=== PATIENT | male | born 1970 | race Caucasian/White ===

== ENCOUNTER 2017-04-06 08:13 | Inpatient (IN) | payer MEDICARE, OTHER ==
[2017-04-06] VITALS (13 sets, daily range): BP systolic 133–195; BP diastolic 55–86; PULSE 80–85; RESP 19–20; TEMP 98.4
[~2017-04-06] VITALS: Ht 167.6 cm; Wt 90.0 kg
[~2017-04-06 08:13] MED LIST: EPINEPHrine 0.1 MG/ML SYG ONE
--- NOTE | 2017-04-06 08:28 | RADRPT ---
PROCEDURE: CT Brain without contrast. CLINICAL INDICATION: Neurologic deficit TECHNIQUE: A CT of the brain was performed on multidetector high-resolution CT scanner utilizing a xial sections from the skull base through the vertex without contrast. One or more of the following dose reduction techniques were used: Automated exposure control, Adjustment of the mA and/or kV acc ording to patient size, and/or use of iterative reconstruction technique. DICOM images are available . DOSE: CTDI = 43 mGy and the DLP = 835 mGy-cm. COMPARISON: None available FINDINGS: No acute intracranial hemorrhage, significant mass effect or midline shift. The rogers-white different iation is grossly preserved. The ventricles are normal in size for age. Mild paranasal sinus mucosal thickening. IMPRESSION: No acute intracranial hemorrhage or mass effect. A call report was made to Dr. Hutchison at 04/06/2017 8:27:38 AM. RPTAT: AA .Glynn Hickman MD, MD Date Time Electronically viewed and signed by .Glynn Hickman MD, on 04/06/2017 08:27 .T/
--- NOTE | 2017-04-06 08:52 | ERD ---
ER Documentation Chief Complaint Chief Complaint FOUND ALOC AFTER POSSIBLE SEIZURE BUT ALTERED. SPEECH SLURRED. HPI This is a 47-year-old male with a history of ESRD on hemodialysis, type 2 diabetes, hypertension, anemia, lupus, epilepsy sent from [facility] for altered mental status. He was last seen normal last night , unknown time. They tried to arouse him this morning and he was difficult to arouse. He seems confused. They suspect he had a seizure but no one witnessed the seizure. Ambulance was called. When EMS arrived, the staff was doing chest compressions, however the patient had a pulse. ROS Unable to obtain given altered mental status Medications Home Meds Reported Medications Tramadol Hcl* (Ultram*) 50 Mg Tablet, 50 MG PO BID Y for PAIN, TAB 04/06/17 Sevelamer Hcl* (Renagel*) 800 Mg Tablet, 800 MG PO WITH MEALS, TAB 04/06/17 Esomeprazole Mag Trihydrate (Nexium) 40 Mg Capsule.dr, 40 MG PO DAILY, #30 CAP 04/06/17 Midodrine* (Midodrine*) 5 Mg Tablet, 5 MG PO TID, TAB 04/06/17 Loratadine* (Loratadine*) 10 Mg Tablet, 10 MG PO DAILY, #30 TAB 04/06/17 Garlic (Garlic) 500 Mg Capsule, 500 MG PO DAILY, CAP 04/06/17 Lacosamide (Vimpat) 100 Mg Tablet, 100 MG PO BID, TAB 04/06/17 Lactobacillus Acidophilus* (Lactinex*) 1 Tab Chew, 1 TAB PO TID, TAB 04/06/17 Levetiracetam* (Keppra*) 500 Mg Tablet, 500 MG PO BID, TAB 04/06/17 Folic Acid* (Folic Acid*) 1 Mg Tablet, 1 MG PO DAILY, TAB 04/06/17 Ferrous Sulfate* (Ferrous Sulfate*) 325 Mg Tabec, 325 MG PO DAILY, TAB 04/06/17 Escitalopram Oxalate* (Lexapro*) 20 Mg Tablet, 20 MG PO DAILY, #30 TAB 04/06/17 Aspirin (Low Dose Aspirin) 81 Mg Tablet.dr, 81 MG PO DAILY, #30 TAB 04/06/17 Acetaminophen* (Acetaminophen*) 650 Mg Tablet, 650 MG PO Q6H Y for PAIN AND OR ELEVATED TEMP, #30 TAB 04/06/17 Allergies Allergies: Coded Allergies: heparin (Verified Allergy, Intermediate, RASH, 04/06/17) PMhx/Soc Medical and Surgical Hx: Unable to obtain (Medical history obtained from medical records) History of Surgery: Yes (Pacemaker placement, left upper extremity AV fistula) Hx Neurological Disorder: Yes ( seizure disorder) Hx Cardiac Disorders: Yes (History of cardiac arrest) Hx Miscellaneous Medical Probl: Yes (Diabetes, end-stage renal disease on hemodialysis) FmHx Family History: other (unable to obtain) Physical Exam Vitals Vital Signs Date Time Temp Pulse Resp B/P Pulse Ox O2 Delivery O2 Flow Rate FiO2 04/06/17 10:29 70 12 179/97 100 Nasal Cannula 4.0 04/06/17 09:20 70 15 149/92 Nasal Cannula 4.0 04/06/17 08:30 Nasal Cannula 4 04/06/17 08:20 98.6 87 17 176/88 99 Nasal Cannula 4.0 04/06/17 08:17 98.5 80 20 178/88 100 Physical Exam Const: Somnolent but arousable, chronically ill-appearing, no apparent distress , no diaphoresis Head: Atraumatic Eyes: Normal Conjunctiva. EOMI. No nystagmus. Left central cornea with opacity, appears chronic. Right pupil not reactive to light. ENT: Dry mucous membranes. No oral trauma Neck: Full range of motion..~ No meningismus. No JVD Resp: Clear to auscultation bilaterally Cardio: Right chest with healing surgical scar with pacemaker palpated. Regular rate and rhythm, no murmurs Abd: Soft, non tender, non distended. Normal bowel sounds Skin: No petechiae or rashes Back: No midline or flank tenderness Ext: No cyanosis, or edema Neur: Somnolent but arousable, dysarthric, follows commands. Slurred speech. Cranial nerves intact. Strength and sensations intact in all 4 extremities. Gait not tested. No pronator drift. Psych: Normal Mood and flat Affect Result Diagram: 04/06/17 1025 04/06/17 0944 Results 24 hrs Laboratory Tests Test 04/06/17 09:44 04/06/17 10:25 04/06/17 10:50 Sodium Level 137mmol/L Potassium Level 4.9mmol/L Chloride Level 98mmol/L Carbon Dioxide Level 24mmol/L Anion Gap 20 Blood Urea Nitrogen 38mg/dl Creatinine 9.49mg/dl Glucose Level 146mg/dl Hemoglobin A1c 6.2% Calcium Level 8.3mg/dl Troponin I < 0.012ng/ml White Blood Count 7.410^3/ul Red Blood Count 2.4410^6/ul Hemoglobin 7.9g/dl Hematocrit 25.6% Mean Corpuscular Volume 104.9fl Mean Corpuscular Hemoglobin 32.4pg Mean Corpuscular Hemoglobin Concent 30.9g/dl Red Cell Distribution Width 23.1% Platelet Count 18317^3/UL Mean Platelet Volume 11.9fl Neutrophils % % Segmented Neutrophils % (Manual) 42% Band Neutrophils % (Manual) 2% Lymphocytes % % Lymphocytes % (Manual) 18% Monocytes % % Monocytes % (Manual) 6% Eosinophils % % Eosinophils % (Manual) 31% Basophils % % Myelocytes % (Manual) 1% Nucleated Red Blood Cells % 0.3/100WBC Neutrophils # 10^3/ul Neutrophils # (Manual) 3.110^3/ul Band Neutrophils # 0.110^3/ul Absolute Lymphocytes (Manual) 1.310^3/ul Lymphocytes # 10^3/ul Monocytes # 10^3/ul Absolute Monocytes (Manual) 0.410^3/ul Eosinophils # 10^3/ul Basophils # 10^3/ul Myelocytes # 0.010^3/ul Nucleated Red Blood Cells # 10^3/ul Platelet Estimate NORMAL Giant Platelets 2% Polychromasia 1+ Anisocytosis 2+ Macrocytosis 1+ Prothrombin Time 19.2Sec Prothrombin Time Ratio 1.5 INR International Normalized Ratio 1.58 Activated Partial Thromboplast Time 43.8Sec Current Medications Medications (Trade) Dose Ordered Sig/Julia Route PRN Reason Start Time Stop Time Status Last Admin Dose Admin Sodium Chloride (NS) 100 ml @ ud STK-MED ONCE .ROUTE 04/06/17 09:27 04/06/17 09:28 DC 04/06/17 10:22 Iodixanol (Visipaque Locm) 100 ml STK-MED ONCE .ROUTE 04/06/17 09:27 04/06/17 09:28 DC 04/06/17 10:22 Iodixanol (Visipaque Locm) 50 ml STK-MED ONCE .ROUTE 04/06/17 09:27 12/4/17 09:28 DC 04/06/17 10:23 Ondansetron HCl (Zofran Inj) 4 mg ONCE STAT IV 04/06/17 10:18 04/06/17 10:21 DC 04/06/17 10:53 Procedures/MDM EMERGENT LABS AND DIAGNOSTIC STUDIES: Lab Results above were reviewed and interpreted by me. CBC: Anemia CMP: elevated BUN and creatinine. No electrolyte abnormalities or severe acidosis. No hypoglycemia. Troponin within normal limits 12-lead EKG was interpreted by Gee Hutchison MD: Normal Sinus Rhythm Right bundle branch block No acute ST or T wave changes suggestive of acute ischemia or STEMI. Radiology Results as interpreted by Radiology below were reviewed by Maura Hutchison MD: Chest x-ray shows pulmonary vascular congestion, mild cardiomegaly CT head shows no acute hemorrhage or other abnormalities CTA brain and neck: No acute large vessel occlusion, 1. No cervical, or intracranial occlusion or high-grade stenosis identified. 2. Approximately 33% stenosis of the right ICA origin by NASCET criteria. 3. Aberrant right internal carotid artery as described above, with associated mild to moderate narrowing of the proximal petrous right ICA. Initial Nursing notes reviewed. Previous Medical Records requested via the Electronic Health Record. EMERGENCY DEPARTMENT COURSE / MEDICAL DECISION MAKING: Patient is presenting with strokelike symptoms that warranted activation of the stroke. His vitals were initially stable other than mild hypertension. The patient was a difficult stick so he required placement of the midline by the ED nurse. He was evaluated by Dr. Rogers, who does not believe the patient is a TPA candidate. She also reviewed the imaging and recommended starting aspirin and Plavix while the patient is in the hospital. She also recommended making sure the patient's pacemaker is MRI compatible than having an MRI done as an inpatient. Recent seizure with postictal state cannot be ruled out at this time. There is no obvious evidence of sepsis. I have a low suspicion for meningitis or encephalitis. Patient is not stable for discharge however and will require admission for further workup of his altered mental status. Family at bedside was updated on the plan. Critical Care Time: 40 minutes Treatments/Evaluations: Close neurologic and cardiovascular monitoring and treatment of unstable vital signs, cardiorespiratory, and neurologic status, while maintaining tight balance of fluid, respiratory, and cardiac interventions. This time includes discussing the case with the patient and the patients family. This time does not include all procedures stated elsewhere in this record. This time also includes reviewing old records, labs and radiological studies. This time includes examining and re-examining the patient. Additionally, this time also includes arranging care with admitting and consulting physicians. TPA Criteria Assessment: Patient is not a TPA candidate because: Last known normal > 3 hours Time Onset Unkown Minimal or rapidly improving symptoms Accepting Care Team: Current data and ongoing care discussed. Time: Time of admission Primary Provider: Dr. Raghavendra Martinez Consulting: Dr. Esparza Teleneurology Outstanding Data: none Departure Diagnosis: Primary Impression: Altered mental status Altered mental status type: disorientation Qualified Code: R41.0 - Disorientation Additional Impressions: Anemia Anemia type: unspecified type Qualified Code: D64.9 - Anemia, unspecified type ESRD (end stage renal disease) on dialysis Condition: Serious BETHANIE HUTCHISON MD Apr 06, 2017 08:52
--- NOTE | 2017-04-06 08:57 | RADRPT ---
PROCEDURE: XR Chest. CLINICAL INDICATION: Code stroke TECHNIQUE: An AP view of the chest was obtained. COMPARISON: None. FINDINGS: There is a right subclavian dual chamber pacemaker. Lung volumes are low. There is prominence of the interstitial and central pulmonary vascular markin gs. No pleural effusion or pneumothorax is seen. The cardiomediastinal silhouette is mildly enla rged . The osseous structures demonstrate senescent changes. IMPRESSION: 1. Findings suggestive of pulmonary vascular congestion. 2. Low lung volumes. 3. Mild cardiomegaly. RPTAT: HH .Carrie Stewart MD, MD Date Time Electronically viewed and signed by .Carrie Stewart MD, on 04/06/2017 08:56 .G/
[2017-04-06] MEDS ORDERED: SOD CHLORIDE 0.9% 100 ML ONE (09:27)
[2017-04-06] MEDS ORDERED: IODIXANOL LOCM 50 ML BTL ONE (09:27)
[2017-04-06] MEDS ORDERED: IODIXANOL LOCM 100 ML BTL ONE (09:27)
--- NOTE | 2017-04-06 09:57 | STROKE ---
Date/Time of Note Date/Time of Note DATE: 04/06/17 TIME: 09:52 Patient Information General Patient location: emergency Arrival Date Age 47 Gender male Weight 90 kg Vital Signs Vital Signs Vital Signs Date Time Temp Pulse Resp B/P Pulse Ox O2 Delivery O2 Flow Rate FiO2 04/06/17 09:20 70 15 149/92 Nasal Cannula 4.0 04/06/17 08:20 98.6 99 History & Physical Patient History Notes Pt Hx Reviewed History of Present Illness 47yo M with ho dm, seizure, cardiac arrest, ESRD presents with acute onset decreased responsiveness, and subsequent slurred speech. Patient woke up with his symptoms and does not know what time he went to sleep last night. Review of Systems Constitutional: no symptoms reported EENTM: no symptoms reported Respiratory: no symptoms reported Cardiovascular: no symptoms reported Gastrointestinal: no symptoms reported Genitourinary: no symptoms reported Musculoskeletal: no symptoms reported Skin: no symptoms reported Psychiatric/Neurological: no symptoms reported All Other Systems: Reviewed and Negative NIH Stroke Scale NIH Stroke Scale 1B LOC Questions: 1 - Anwers one question7 - Limb Ataxia: 3 - Present in two limbsDysarthria: 2 - SevereTotal Score: 5 Date/Time Recorded DATE: 04/06/17 TIME: 09:52 Submitted By Sherie Esparza t-PA Imaging Review Date/Time Imaging Reviewed DATE: 04/06/17 TIME: 09:52 t-PA Administration Weight 90 kg Recommedation submitted by Sherie Esparza Recommendations Impression Diagnosis ischemic stroke Recommendation 47yo M presents with acute onset slurred speech. Neurological exam is notable for severe dysarthria and difficulty answering questions. I believe the patient has had an acute ischemic stroke. Patient is outside the time window for IV TPA. I recommend a stat CTA of the head and neck to determine if the patient is a neurointerventional candidate. I recommend further workup include MRI Brain without gadolinium and transthoracic echocardiogram. I recommend aspirin 81mg and Plavix 75mg daily for 3 weeks then consider switching to a single antiplatelet regimen. I have requested that I be contacted when CTA is completed so I can review the images. Diagnostic Labs: Lipid Proile Hgb A1C CMP CBC w/Diff Coags Therapy: Physical Therapy Speech Therapy Occupational Therapy Misc. Recommendations: Bedside Swallow Evaluation Pnumatic Compression Devices Stroke Education Smoking Education SHERIE ESPARZA Apr 06, 2017 09:57
[2017-04-06 10:16] LABS: ANION GAP 20 (8-16); BLOOD UREA NITROGEN 38 mg/dl (7-20); CALCIUM 8.3 mg/dl (8.4-10.2); CARBON DIOXIDE 24 mmol/L (21-31); CHLORIDE 98 mmol/L (97-110); CREATININE 9.49 mg/dl (0.61-1.24); GLUCOSE 146 mg/dl (70-220); POTASSIUM 4.9 mmol/L (3.5-5.1); SODIUM 137 mmol/L (135-144)
[2017-04-06] MEDS ORDERED: ONDANSETRON 4 MG INJ IV STA (10:18)
[2017-04-06] MEDS ORDERED: ESCI20TA PO (10:26)
[2017-04-06] MEDS ORDERED: ACET-2047 PO (10:26)
[2017-04-06] MEDS ORDERED: ASPI-664 PO (10:26)
[2017-04-06] MEDS ORDERED: LEVE-5 PO (10:27)
[2017-04-06] MEDS ORDERED: FER325 PO (10:27)
[2017-04-06] MEDS ORDERED: FOLI-49 PO (10:27)
[2017-04-06] MEDS ORDERED: LACO100T3 PO (10:28)
[2017-04-06] MEDS ORDERED: LACTINEX PO (10:28)
[2017-04-06] MEDS ORDERED: MIDO5TAB19 PO (10:29)
[2017-04-06] MEDS ORDERED: LORA10TA3 PO (10:29)
[2017-04-06] MEDS ORDERED: GARL500C9 PO (10:29)
[2017-04-06 10:30] LABS: TROPONIN-I < 0.012 ng/ml (0.00-0.12)
[2017-04-06] MEDS ORDERED: ESOM40CA PO (10:30)
[2017-04-06] MEDS ORDERED: SEVE800T10 PO (10:30)
[2017-04-06] MEDS ORDERED: TRAM-40 PO (10:31)
--- NOTE | 2017-04-06 10:33 | RADRPT ---
PROCEDURE: CT angiogram brain and neck CLINICAL INDICATION: Code stroke, neurologic deficit TECHNIQUE: CT angiogram of the brain, and neck was performed on a multidetector CT scanner. The pablo dy was reviewed on a [employer] PACS/3D workstation with 3D-MIP reformations. 110 cc Visipaque 320 intravenous contrast were administered. One or more of the following dose reduction techniques were used: Automated exposure control, adjustment in mA and / or kV according to patient size, use of it erative reconstructive technique. CTDIvol = 19 mGy and DLP = 756 mGy-cm. DICOM images are availa ble. COMPARISON: CT brain 04/06/2017 FINDINGS: CT ANGIOGRAM NECK: The origin of the great vessels arising off of the aortic arch are patent. The b ilateral common carotid arteries are patent. The bilateral carotid bulbs and left internal carotid artery are patent. Focal stenosis is visualized at the right internal carotid artery at the origin which measures approximately 33% by NASCET criteria. The bilateral vertebral arteries are patent. N o dissection is identified. CT ANGIOGRAM BRAIN: The right internal carotid artery has an aberrant course entering the skull base at the level of the inferior tympanic canaliculus coursing through the middle ear along the inferio r aspect of the cochlear promontory. There is associated mild-moderate narrowing of the petrous righ t internal carotid artery proximally. The left internal carotid artery appear patent with mild calci fied plaques at the left cavernous/supraclinoid internal carotid artery. The bilateral middle and an terior cerebral arteries are patent. The bilateral vertebral arteries, basilar artery and bilateral posterior cerebral arteries are patent. No aneurysm or vascular malformation is identified. IMPRESSION: 1. No cervical, or intracranial occlusion or high-grade stenosis identified. 2. Approximately 33% stenosis of the right ICA origin by NASCET criteria. 3. Aberrant right internal carotid artery as described above, with associated mild to moderate narr owing of the proximal petrous right ICA. Critical result called to Dr. Hutchison at 10:26 a.m., 04/06/2017. RPTAT: VV .Arie Mejia MD, Date Time Electronically viewed and signed by .Arie Mejia MD, on 04/06/2017 10:32 .O/
[2017-04-06 10:40] LABS: ABNORMAL IP MESSAGE 1; HEMATOCRIT 25.6 % (42.0-52.0); HEMOGLOBIN 7.9 g/dl (14.0-18.0); MEAN CORPUSCULAR HEMOGLOBIN 32.4 pg (29.0-33.0); MEAN CORPUSCULAR HGB CONC 30.9 g/dl (32.0-37.0); MEAN CORPUSCULAR VOLUME 104.9 fl (82.0-101.0); MEAN PLATELET VOLUME 11.9 fl (7.4-10.4); NUCLEATED RED BLOOD CELLS% 0.3 /100WBC (0.0-0.0); PLATELET COUNT 168 10^3/UL (140-415); POSITIVE DIFF @See below; RED BLOOD COUNT 2.44 10^6/ul (4.70-6.10); RED CELL DISTRIBUTION WIDTH 23.1 % (11.5-14.5); WHITE BLOOD COUNT 7.4 10^3/ul (4.8-10.8)
[2017-04-06] MEDS ORDERED: ONDANSETRON 4 MG INJ IV PRN ×2 (11:00→14:30)
[2017-04-06] MEDS ORDERED: ACETAMINOPHEN 325 MG TAB PO PRN (11:00)
[2017-04-06 11:08] LABS: ANISOCYTOSIS 2+ (0-0); EOSINOPHILS % (M) 31 % (0-7); GIANT THROMBO% (M) 2 % (0-0); MONOCYTES % (M) 6 % (0-11); MYELOCYTES % (M) 1 % (0-0); PLATELET ESTIMATE NORMAL; POLYCHROMASIA 1+ (0-0)
[2017-04-06 11:43] LABS: INR 1.58; PARTIAL THROMBOPLASTIN TIME 43.8 Sec (25.0-35.0); PROTIME 19.2 Sec (11.9-14.9); PT RATIO 1.5
[2017-04-06] MEDS ORDERED: ASPIRIN 325 MG TAB PO ONE (12:00)
--- NOTE | 2017-04-06 13:07 | CONS ---
Date/Time of Note Date/Time of Note DATE: 04/06/17 TIME: 13:04 Assessment/Plan Assessment/Plan Chief Complaint/Hosp Course 47 yo male with ESRD admitted with dysarthria and possible aphasia unclear baseline. Admitted for CVA work up. Recommendations: ASA 81 mg daily SBP less than 140 MRI Brain without contrast ECHO w bubble FLP and HBA1C DVT ppx PT/OT/Speech eval will follow w further recommendations Problems: Consultation Date/Type/Reason Admit Date/Time Apr 06, 2017 at 10:58 Date of Consultation: Apr 06, 2017 Type of Consultation: Neurology Reason for Consultation AMS Referring Provider: LACY RAMÍREZ NP Hx of Present Illness 47 yo male with ESRD lives in [place] admitted with acute onset of slurred speech, noted to have severe dysarthria and difficulty answering questions. He was eval by tele neuro out of an IV tPA window, received CTA Head/Neck with no sign of LVO. Difficult to obtain history from patient, he is unclear why he was brought to the hospital and is only oriented to name and date. Social History Smoking Status: Unknown if ever smoked Exam/Review of Systems Vital Signs Vitals Vital Signs Date Time Temp Pulse Resp B/P Pulse Ox O2 Delivery O2 Flow Rate FiO2 04/06/17 12:49 98.7 85 20 190/86 94 Nasal Cannula 2.0 Exam Neurological: [employer] II-XII intact, DTR's symmetric (oriented only to his name and date, not to place possible aphasia, difficulty in answering questions), nl speech, nl strength Results Result Diagram: 04/06/17 1025 04/06/17 0944 Results 24 hrs Laboratory Tests Test 04/06/17 09:44 04/06/17 10:25 04/06/17 10:50 Sodium Level 137 Potassium Level 4.9 Chloride Level 98 Carbon Dioxide Level 24 Anion Gap 20 H Blood Urea Nitrogen 38 H Creatinine 9.49 H Glucose Level 146 Hemoglobin A1c 6.2 H Calcium Level 8.3 L Troponin I < 0.012 White Blood Count 7.4 Red Blood Count 2.44 L Hemoglobin 7.9 L Hematocrit 25.6 L Mean Corpuscular Volume 104.9 H Mean Corpuscular Hemoglobin 32.4 Mean Corpuscular Hemoglobin Concent 30.9 L Red Cell Distribution Width 23.1 H Platelet Count 168 Mean Platelet Volume 11.9 H Neutrophils % Segmented Neutrophils % (Manual) 42 Band Neutrophils % (Manual) 2 Lymphocytes % Lymphocytes % (Manual) 18 Monocytes % Monocytes % (Manual) 6 Eosinophils % Eosinophils % (Manual) 31 H Basophils % Myelocytes % (Manual) 1 H Nucleated Red Blood Cells % 0.3 H Neutrophils # Neutrophils # (Manual) 3.1 Band Neutrophils # 0.1 Absolute Lymphocytes (Manual) 1.3 Lymphocytes # Monocytes # Absolute Monocytes (Manual) 0.4 Eosinophils # Basophils # Myelocytes # 0.0 Nucleated Red Blood Cells # Platelet Estimate NORMAL Giant Platelets 2 H Polychromasia 1+ Anisocytosis 2+ Macrocytosis 1+ Prothrombin Time 19.2 H Prothrombin Time Ratio 1.5 INR International Normalized Ratio 1.58 Activated Partial Thromboplast Time 43.8 H Medications Medications Current Medications Aspirin (Aspirin) 81 mg DAILY PO ; Start 04/07/17 at 09:00 Clopidogrel Bisulfate (plaVIX) 75 mg DAILY PO ; Start 04/07/17 at 09:00 ARUNA BROWN MD Apr 06, 2017 13:07
[2017-04-06] MEDS ORDERED: traMADol 50 MG TAB PO PRN (14:00)
--- NOTE | 2017-04-06 14:26 | HP ---
Date/Time of Note Date/Time of Note DATE: 04/06/17 TIME: 14:13 Assessment/Plan VTE Prophylaxis VTE Prophylaxis Intervention: SCD's Lines/Catheters IV Catheter Type (from Nrs): Mid Line Assessment/Plan Chief Complaint/Hosp Course 47-year-old male who was found altered/unresponsive for which he had CPR in the half-way brought by paramedics for evaluation and was noted with speech difficulties in ER prompting code stroke evaluation and determined a no-tPA candidate. Patient was admitted for CVA workup. 1. Acute encephalopathy with aphasia. Resolved and patient is back to baseline. CT brain negative for acute intracranial events. CTA head and neck unremarkable. Status post telemetry neuro evaluation and patient out of TPA window. Status: Acute -Admit for CVA workup. Differentials include: Possible seizure disorder. -Neurology consult. MRI brain, 2D echocardiogram,EEG to follow. -Aspirin 81, Plavix 75 mg daily. -Permissive hypertension over the next 24 hours. -PT/OT/ST eval and treatment. -Neurochecks. -Resume seizure meds-defer neurology for titration. 2. Anemia of ESRD. Patient also with microcytic indicis. Status: Chronic. -Rule out vitamin B12/folate deficiency. -Monitor H&H closely. -Deferred nephrology for Epogen if indicated. 3. ESRD, on hemodialysis Thursday. ACCESS: left upper arm AV shunt-functional. Status: chronic. -Nephrology consult. Hemodialysis per nephrology colleagues. -Renal dose medications. Monitor renal function closely. 4.Prediabetes. A1c 6.2. Status: Chronic -Monitor for now. Carbohydrate controlled diet. Sliding scale insulin in- house. 5. Seizure disorders. Status: Chronic. -Resume home medications. Patient is on Keppra and Vimpat. 6. Status post pacemaker placed, ?hx of arrhythmias Status:Chronic -F/u echo 6. Psychiatric disorders. Status: Chronic -Resume home medications. Prophylaxis: SCDs/PPIs Rest of the management depend on hospital course, further studies and input from consultants. Approximately 60 minutes was spent on this history and physical. Patient is seen in collaboration with . Problems: HPI/ROS Admit Date/Time Admit Date/Time Apr 06, 2017 at 10:58 Hx of Present Illness This is a 47-year-old half-way resident with a past medical history of ESRD on hemodialysis Thursday, seizure disorders, essential hypertension, prediabetes, cardiac arrest, pacemaker placed, and recent 2 weeks hospitalization at [facility] for seizure disorders, who was brought by paramedics to the emergency room after being found altered. Patient was also given short course of CPR in the half-way from the documents received. After resuscitation, he was noted with slurred speech with confusion. In the emergency room, patient was awake but he continued to have dysarthria and a code stroke was initiated . Patient was evaluated by telemetry neuro. CT brain was negative for any acute infarction, hemorrhage or mass. He was noted with out of TPA window. CTA head/neck with no acute intracranial pathologies. Initial labs with hemoglobin 7.9, hematocrit 25.6, BUN 38 and creatinine 9.49. Initial vital signs within acceptable range. However 1 hour after arrival to the emergency room, his blood pressure had risen up to 196/95. At my encounter with the patient, he is fully awake with on and off confusion. His speech is clear but slow. Patient does not have any focal deficit. He denied any chest pain, shortness of breath, headache, nausea, vomiting, abdominal pain, numbness, tingling, or other constitutional symptoms. . ROS A 12 point review of system was assessed and is negative other than what is mentioned in HPI. PMH/Family/Social Past Medical History See HPI Past Surgical History See HPI Social History Patient denied history of alcohol, smoking or illicit drug use. Smoking Status: Never smoker Exam/Review of Systems Vital Signs Vitals Vital Signs Date Time Temp Pulse Resp B/P Pulse Ox O2 Delivery O2 Flow Rate FiO2 04/06/17 11:47 98.4 76 12 196/95 96 Nasal Cannula 2.0 Exam Exam General: Chronically ill looking male, not in any acute distress . HEENT: Normocephalic, Atraumatic, No laceration or hematoma; Eyes: PEERL, Conjunctiva clear, Anicteric sclera Neck: Supple without any lymphadenopathy, nontender, no JVD, no carotid bruits, trachea midline, no thyromegaly Cardiac: With pacemaker. S1, S2 auscultated, regular rhythm and rate, no mumurs or gallop Pulmonary: Normal respiratory effort. Chest clear to auscultation bilaterally, no adventitious breath sounds GI: Abdomen normal to inspection. Soft, non tender, non- distended, no masses, no rebound tenderness or guarding. Bowel sounds active on all four quadrants Genitourinary: Deferred Extremities: No cyanosis, clubbing, or edema. Pulses [2+] bilaterally. Full ROM on all four extremities. No focal weakness appreciated. Neurologic: With on and off confusion. Slow speech but no dysarthria. Oriented 3. Affect :depressive, intact sensation. Skin: Clean,dry, and intact. No ecchymosis, no rashes, or lesions [place]: Left upper arm AV shunt. Labs Result Diagram: 04/06/17 1025 04/06/17 0944 LACY RAMÍREZ NP Apr 06, 2017 14:24
[2017-04-06] MEDS ORDERED: NACL 0.9% 3 ML SYG IV SCH (14:30)
[2017-04-06 16:37] LABS: FOLATE > 20.0 ng/ml (2.8-20.0)
--- NOTE | 2017-04-06 17:00 | CONS ---
Date/Time of Note Date/Time of Note DATE: 04/06/17 TIME: 16:58 Assessment/Plan Assessment/Plan Chief Complaint/Hosp Course 557123 renal consult A.P AMS ESRD HTN CAD ANEMIA PLAN HD Problems: Consultation Date/Type/Reason Admit Date/Time Apr 06, 2017 at 10:58 Initial Consult Date 04/06/17 Type of Consultation: renal Referring Provider: LACY RAMÍREZ NP 24 HR Interval Summary Constitutional: other (on hd) Exam/Review of Systems Vital Signs Vitals Vital Signs Date Time Temp Pulse Resp B/P Pulse Ox O2 Delivery O2 Flow Rate FiO2 04/06/17 16:54 85 04/06/17 13:15 18 04/06/17 13:00 Nasal Cannula 2.0 04/06/17 12:49 98.7 190/86 94 Exam Constitutional: alert Psych: no complaints Head: normocephalic Eyes: nl conjunctiva ENMT: nl external ears & nose Neck: supple Respiratory: clear to auscultation Cardiovascular: No edema Gastrointestinal: bowel sounds (+), nl liver, spleen, soft Extremities: No clubbing, No edema Skin: nl turgor Results Result Diagram: 04/06/17 1025 04/06/17 0944 Results 24 hrs Laboratory Tests Test 04/06/17 09:44 04/06/17 10:25 04/06/17 10:50 04/06/17 14:12 Sodium Level 137 Potassium Level 4.9 Chloride Level 98 Carbon Dioxide Level 24 Anion Gap 20 H Blood Urea Nitrogen 38 H Creatinine 9.49 H Glucose Level 146 Hemoglobin A1c 6.2 H Calcium Level 8.3 L Troponin I < 0.012 White Blood Count 7.4 Red Blood Count 2.44 L Hemoglobin 7.9 L Hematocrit 25.6 L Mean Corpuscular Volume 104.9 H Mean Corpuscular Hemoglobin 32.4 Mean Corpuscular Hemoglobin Concent 30.9 L Red Cell Distribution Width 23.1 H Platelet Count 168 Mean Platelet Volume 11.9 H Neutrophils % Segmented Neutrophils % (Manual) 42 Band Neutrophils % (Manual) 2 Lymphocytes % Lymphocytes % (Manual) 18 Monocytes % Monocytes % (Manual) 6 Eosinophils % Eosinophils % (Manual) 31 H Basophils % Myelocytes % (Manual) 1 H Nucleated Red Blood Cells % 0.3 H Neutrophils # Neutrophils # (Manual) 3.1 Band Neutrophils # 0.1 Absolute Lymphocytes (Manual) 1.3 Lymphocytes # Monocytes # Absolute Monocytes (Manual) 0.4 Eosinophils # Basophils # Myelocytes # 0.0 Nucleated Red Blood Cells # Platelet Estimate NORMAL Giant Platelets 2 H Polychromasia 1+ Anisocytosis 2+ Macrocytosis 1+ Prothrombin Time 19.2 H Prothrombin Time Ratio 1.5 INR International Normalized Ratio 1.58 Activated Partial Thromboplast Time 43.8 H Vitamin B12 Level 940 H Folate > 20.0 H Medications Medications Current Medications Aspirin (Aspirin) 81 mg DAILY PO ; Start 04/07/17 at 09:00 Clopidogrel Bisulfate (plaVIX) 75 mg DAILY PO ; Start 04/07/17 at 09:00 Acetaminophen (Tylenol Tab) 650 mg Q6H PRN PO PAIN AND OR ELEVATED TEMP; Start 04/06/17 at 14:00 Escitalopram Oxalate (Lexapro) 20 mg DAILY PO ; Start 04/07/17 at 09:00 Ferrous Sulfate (Ferrous Sulfate (Ec)) 325 mg DAILY PO ; Start 04/07/17 at 09:00 Folic Acid (Folic Acid) 1 mg DAILY PO ; Start 04/07/17 at 09:00 Levetiracetam (Keppra) 500 mg BID PO ; Start 04/06/17 at 21:00 Loratadine (Claritin) 10 mg DAILY PO ; Start 04/07/17 at 09:00 Midodrine (Proamatine) 5 mg TID PO ; Start 04/06/17 at 21:00 Tramadol HCl (Ultram) 50 mg BID PRN PO PAIN; Start 04/06/17 at 14:00 Pantoprazole (Protonix Tab) 40 mg DAILY PO ; Start 04/07/17 at 09:00 Lacosamide (Vimpat Liq) 100 mg BID PO ; Start 04/06/17 at 21:00 Lactobacillus Acidophilus/ Rhamnosus (Culturelle) 1 cap TID PO ; Start 04/06/17 at 21:00 Ondansetron HCl (Zofran Inj) 4 mg Q6H PRN IV NAUSEA AND/OR VOMITING; Start 04/06/17 at 14:30 Hydralazine HCl (Apresoline) 10 mg Q6H PRN IV sbp>220; Start 04/06/17 at 14:30 JOSEFINA SALDANA MD Apr 06, 2017 17:00
[2017-04-06] MEDS: SEVELAMER 800 MG TAB PO SCH (17:47)
[2017-04-06] MEDS ORDERED: LACOSAMIDE (100 MG/10 ML PO SYR) PO SCH (21:00)
[2017-04-06] MEDS: MIDODRINE 5 MG TAB PO SCH (21:00)
[2017-04-06] MEDS: LACTOBACILLUS RHAMNOSUS CAP PO SCH (21:00)
[2017-04-06] MEDS ORDERED: LEVETIRACETAM 500 MG TAB PO SCH (21:00)
--- NOTE | 2017-04-06 21:55 | CONS ---
DATE OF ADMISSION: 04/06/2017 DATE OF CONSULTATION: NEPHROLOGY CONSULTATION Thank you, Dr. ranjan Cordero for kindly asking me to see this patient in consultation. I spoke with Dr. Lorna Hutchison. The patient is being seen by Dr. Letty Esparza, as well as Dr. Christie Benjamin. HISTORY OF PRESENT ILLNESS: A 47-year-old with history of ESRD, presented with dysarthria and possible aphagia. Patient's has blood pressure 190/86, hematocrit 25.6, sodium 137, potassium 4.9. The patient had potassium 4.9. Chest x-ray was done, shows patient has pulmonary vascular congestions, low lung volume, mild cardiomegaly. CT of the brain shows no acute intracranial hemorrhage or mass effect. The patient had a CT angiogram brain and neck, shows no follicular, intracranial occlusion or high grade stenosis, approximately 33% stenosis of the right ICA done by NASCET criteria. carotid artery, and the patient is unable to give detailed history at this point. PAST MEDICAL HISTORY: Positive for ESRD, hypertension. The patient has a seizure disorder. The patient has a pacemaker placement and patient's other past history, a history of encephalopathy, patient has prediabetes, underlying psychiatric disorder. ALLERGY HISTORY: HEPARIN. FAMILY HISTORY: He denies. SOCIAL HISTORY: Denies. MEDICATION HISTORY: The patient is currently on: 1. Tylenol. 2. Aspirin. 3. Lipitor. 4. Lexapro. 5. Omeprazole. 6. Iron sulfate. 7. Folic acid. 8. Garlic. 9. Lacosamide. 10. Lactobacillus. 11. Keppra. 12. Loratadine. 13. Midodrine. 14. Renvela. 15. Tramadol. REVIEW OF SYSTEMS: HEENT: Unremarkable. RESPIRATORY: Unremarkable. CARDIOVASCULAR: The patient denies any chest pain, palpitations. ABDOMEN: No hematemesis or melena. EXTREMITIES: Denies any numbness, weakness, tingling. PHYSICAL EXAMINATION: GENERAL: The patient is awake and alert, on dialysis. VITAL SIGNS: Pulse 81, blood pressure 180/95. HEAD: Atraumatic, normocephalic. Pupils are equal, reactive. NECK: Supple. There is no JVD. LUNGS: Clear. CARDIOVASCULAR: S1, S2 normal. ABDOMEN: Soft. Bowel sounds present. No palpable mass or hepatosplenomegaly. No guarding, rebound tenderness. EXTREMITIES: There is no cyanosis, clubbing or edema. CENTRAL NERVOUS SYSTEM: The patient is awake, alert. No focal deficit. SKIN: AV fistula in the left upper extremity noted. IMPRESSION: 1. Patient has possible cerebrovascular accident. 2. Altered mental status. 3. Hypertension. 4. End-stage renal disease. 5. Anemia. 6. Patient has incomplete database. PLAN: To continue hemodialysis. Other recommendations per primary care team and neurologist on the case. Thank you, Dr. Cordero, for kindly asking me to see this patient in nephrology consultation. Dictated By: JOSEFINA SALDANA MD BS/NTS Conf#: [id number] DID#: [id number] CC: SHAUNA; DIMAS LAINEZ MD;*EndCC* MTDD
--- NOTE | 2017-04-06 23:00 | SP ---
DATE OF PROCEDURE: 04/06/2017 HISTORY: This is a 47-year-old woman with a history of end-stage renal disease who was admitted wit h dysarthria and a history of seizure disorder. CURRENT MEDICATIONS: 1. Aspirin. 2. Plavix. 3. Lexapro. 4. Keppra. PROCEDURE: Utilizing a 16-channel EEG machine, cap scalp electrodes were applied in accordance with the International 10-20 system. Obicr-lr-gnbba and rkalv-of-tub montages were displayed. Electric al impedances were measured and reported. DESCRIPTION: During the resting state, posterior dominant rhythm of about 8 to 9 Hz was seen bihemi spherically. Photic stimulation had a good response. Hyperventilation was not performed. Muscle a rtifact, as well as blink artifact, was noted throughout the tracing. There was no focal lateralizi ng or epileptiform discharge identified. INTERPRETATION: This is a normal EEG. A normal EEG does not exclude seizure disorder. Please kermit elate clinically. Dictated By: PATRICIA SOL/WILNER Conf#: [id number] DID#: [id number] CC: DIMAS LAINEZ MD;*EndCC*
[2017-04-06] MEDS: LEVETIRACETAM 500 MG (PMX) 100 ML IVPB SCH (23:54)
[2017-04-07] VITALS (73 sets, daily range): BP systolic 107–202; BP diastolic 53–114; PULSE 75–111; RESP 14–28
[2017-04-07] MEDS ORDERED: DEXTROSE 5%-0.45% NACL 1,000 ML IV SCH
--- NOTE | 2017-04-07 05:05 | RADRPT ---
PROCEDURE: XR Chest. CLINICAL INDICATION: Status post colon blue, intubated TECHNIQUE: Single frontal view of the chest was obtained COMPARISON: DR VICTORIA 04/06/2017 FINDINGS: Tip of the endotracheal tube is approximately 1.9 cm above the nori. Dual chamber cardiac pacemake r again seen. There is hypoinflation of the lungs. Enlargement of the cardiac silhouette is again se en. There is mild pulmonary vascular congestion and interstitial pulmonary edema suggested as well a s bibasilar atelectasis. There is also likely a very small left pleural effusion. IMPRESSION: Tip of endotracheal tube approximate 1.9 cm above the nori. Hypoinflation of the lungs. Enlargemen t of the cardiac silhouette again seen. Mild pulmonary vascular congestion and interstitial pulmonar y edema suggested as well as bibasilar atelectasis and very small left pleural effusion. Please see above. RPTAT: HJES .Pj Georges MD, MD Date Time Electronically viewed and signed by .Pj Georges MD, MD on 04/07/2017 05:05 .S/
[2017-04-07 05:16] LABS: AADO2 Arterial 596.4 mmHg (7.0-24.0); Allen Test ACCEPTAB; Arterial Base Excess -3.7 mmol/L (-3.0-3); Arterial COHb 0.6 % (0.0-3.0); Arterial Fraction of Oxyhgb 91.2 % (93.0-99.0); Arterial HCO3 22.1 mmol/L (22.0-26.0); Arterial MetHb 0 % (0.0-1.5); Arterial Total Hemglobin 8.8 g/dl (12.0-18.0); MODE VENT - AC
[2017-04-07 06:53] LABS: ABNORMAL IP MESSAGE 1; BASOPHILS % 0.1 % (0.0-2.0); EOSINOPHILS # 0.2 10^3/ul (0.0-0.5); EOSINOPHILS % 2.9 % (0.0-7.0); HEMATOCRIT 26.5 % (42.0-52.0); HEMOGLOBIN 8.2 g/dl (14.0-18.0); LYMPHOCYTES # 0.7 10^3/ul (0.8-2.9); LYMPHOCYTES % 9.4 % (15.0-51.0); MEAN CORPUSCULAR HEMOGLOBIN 32.4 pg (29.0-33.0); MEAN CORPUSCULAR HGB CONC 30.9 g/dl (32.0-37.0); MEAN CORPUSCULAR VOLUME 104.7 fl (82.0-101.0); MEAN PLATELET VOLUME 12.1 fl (7.4-10.4); MONOCYTE # 0.4 10^3/ul (0.3-0.9); NEUTROPHIL # 5.8 10^3/ul (1.6-7.5); NEUTROPHILS % 79.9 % (39.0-77.0); NUCLEATED RED BLOOD CELLS% 0.3 /100WBC (0.0-0.0); PLATELET COUNT 156 10^3/UL (140-415); POSITIVE DIFF @See below; RED BLOOD COUNT 2.53 10^6/ul (4.70-6.10); RED CELL DISTRIBUTION WIDTH 22.6 % (11.5-14.5); WHITE BLOOD COUNT 7.2 10^3/ul (4.8-10.8)
[2017-04-07 07:18] LABS: CREATINE KINASE < 20 IU/L (23-200)
[2017-04-07 07:21] LABS: ALBUMIN 3.2 g/dl (3.3-4.9); ALBUMIN/GLOBULIN RATIO 0.88; BILIRUBIN,INDIRECT 0.1 mg/dl (0-1.1); BILIRUBIN,TOTAL 0.1 mg/dl (0.2-1.3); CALCIUM 9.1 mg/dl (8.4-10.2); CHOL/HDL RATIO 3.1 RATIO; CREATININE 7.9 mg/dl (0.61-1.24); PHOSPHORUS 6.5 mg/dl (2.5-4.9); POTASSIUM 4.8 mmol/L (3.5-5.1); TOTAL PROTEIN 6.8 g/dl (6.1-8.1)
[2017-04-07 07:27] LABS: CK-MB 0.62 ng/ml (0.0-2.4); TROPONIN-I < 0.012 ng/ml (0.00-0.12)
--- NOTE | 2017-04-07 07:39 | CONS ---
Date/Time of Note Date/Time of Note DATE: 04/07/17 TIME: 07:33 Assessment/Plan Assessment/Plan Chief Complaint/Hosp Course - ESRD on Hemodialysis TTS @ [facility] - Recent Hospital admit to [place] with PEA - Recent Hx of Pacemaker - History of Lupus - Hypertension - Anemia - History of Seizures - CAD / CHF - Resp. Insuff on Vent. - Sepsis / Shock PLAN: Hemodynamic support Resp. Support On his last admission to [facility] he had a code blue 5 times & was intubated twice with PEA A cardiac Angiogram was done which was negative Eventually he had a Pacemaker / AICD placed He was also monitored for possible seizures activity & restarted on his Meds Usual days are TTS dialysis @ [facility] He had HD yesterday Monitor today CT head noted with no acute changes PLAN FOR HD TOMORROW Problems: Consultation Date/Type/Reason Admit Date/Time Apr 06, 2017 at 10:58 Date of Consultation: Apr 07, 2017 Type of Consultation: NEPHROLOGY Reason for Consultation ESRD on Hemodialysis @ [facility] TTS Subjective hx not possible: pt critical status Past Medical History Medical History: congestive heart failure, coronary artery disease, hypertension, renal disease Past Surgical History Recent Cardiac Angiogram Family History Significant Family History: no pertinent family hx Social History Alcohol Use: none Smoking Status: Never smoker Drug Use: none Exam/Review of Systems Vital Signs Vitals Vital Signs Date Time Temp Pulse Resp B/P Pulse Ox O2 Delivery O2 Flow Rate FiO2 04/07/17 07:00 81 20 163/70 100 04/07/17 06:30 Mechanical Ventilator 04/07/17 05:00 100 04/07/17 04:30 98.8 04/06/17 21:00 2.0 Intake and Output 04/06/17 04/06/17 04/07/17 15:00 23:00 07:00 Intake Total 500 ml Output Total 3500 ml Balance -3000 ml Exam On Vent. Constitutional: non-verbal Respiratory: crackles/rales Cardiovascular: edema, systolic murmur Gastrointestinal: soft Results Result Diagram: 04/07/17 0623 04/07/17 0623 Results 24 hrs Laboratory Tests Test 04/06/17 09:44 04/06/17 10:25 04/06/17 10:50 04/06/17 14:12 Sodium Level 137 Potassium Level 4.9 Chloride Level 98 Carbon Dioxide Level 24 Anion Gap 20 H Blood Urea Nitrogen 38 H Creatinine 9.49 H Glucose Level 146 Hemoglobin A1c 6.2 H Calcium Level 8.3 L Troponin I < 0.012 White Blood Count 7.4 Red Blood Count 2.44 L Hemoglobin 7.9 L Hematocrit 25.6 L Mean Corpuscular Volume 104.9 H Mean Corpuscular Hemoglobin 32.4 Mean Corpuscular Hemoglobin Concent 30.9 L Red Cell Distribution Width 23.1 H Platelet Count 168 Mean Platelet Volume 11.9 H Neutrophils % Segmented Neutrophils % (Manual) 42 Band Neutrophils % (Manual) 2 Lymphocytes % Lymphocytes % (Manual) 18 Monocytes % Monocytes % (Manual) 6 Eosinophils % Eosinophils % (Manual) 31 H Basophils % Myelocytes % (Manual) 1 H Nucleated Red Blood Cells % 0.3 H Neutrophils # Neutrophils # (Manual) 3.1 Band Neutrophils # 0.1 Absolute Lymphocytes (Manual) 1.3 Lymphocytes # Monocytes # Absolute Monocytes (Manual) 0.4 Eosinophils # Basophils # Myelocytes # 0.0 Nucleated Red Blood Cells # Platelet Estimate NORMAL Giant Platelets 2 H Polychromasia 1+ Anisocytosis 2+ Macrocytosis 1+ Prothrombin Time 19.2 H Prothrombin Time Ratio 1.5 INR International Normalized Ratio 1.58 Activated Partial Thromboplast Time 43.8 H Vitamin B12 Level 940 H Folate > 20.0 H Test 04/07/17 04:03 04/07/17 04:39 04/07/17 06:23 Bedside Glucose 172 Blood Gas Specimen Source Blood arterial Arterial Blood Date Drawn 04/07/2017 5:00:56 AM Arterial Blood pH (Temp corrected) 7.327 L Arterial Blood pCO2 (Temp correct) 43.2 Arterial Blood pO2 (Temp corrected) 73.4 L Arterial Blood HCO3 22.1 Arterial Blood Base Excess -3.7 L Arterial Blood Oxygen Saturation 91.8 L Steve Test ACCEPTAB Arterial Blood Gas Puncture Site Right Radial Arterial Blood Carboxyhemoglobin 0.6 Arterial Blood Methemoglobin 0 Blood Gas A-a O2 Differential 596.4 H Oxyhemoglobin Percent 91.2 L Total Hemoglobin 8.8 L Blood Gas Temperature 37.0 Blood Gas Respiration Rate 16.0 Blood Gas Actual Respiration Rate 16 Blood Gas Modality VENT - AC FiO2 100.0 Blood Gas Tidal Volume 500.0 Blood Gas Low PEEP Setting 5.0 Blood Gas Inspiratory Pressure 28.0 Blood Gas Notified Whom MR Blood Gas Notified Time 04/07/2017 5:16:44 AM White Blood Count 7.2 Red Blood Count 2.53 L Hemoglobin 8.2 L Hematocrit 26.5 L Mean Corpuscular Volume 104.7 H Mean Corpuscular Hemoglobin 32.4 Mean Corpuscular Hemoglobin Concent 30.9 L Red Cell Distribution Width 22.6 H Platelet Count 156 Mean Platelet Volume 12.1 H Neutrophils % 79.9 H Lymphocytes % 9.4 L Monocytes % 6.0 Eosinophils % 2.9 Basophils % 0.1 Nucleated Red Blood Cells % 0.3 H Neutrophils # 5.8 Lymphocytes # 0.7 L Monocytes # 0.4 Eosinophils # 0.2 Basophils # 0.0 Nucleated Red Blood Cells # 0.0 Sodium Level 138 Potassium Level 4.8 Chloride Level 99 Carbon Dioxide Level 23 Anion Gap 21 H Blood Urea Nitrogen 30 H Creatinine 7.90 H Glucose Level 271 #H Calcium Level 9.1 Phosphorus Level 6.5 H Magnesium Level 2.0 Total Bilirubin 0.1 L Direct Bilirubin 0.00 Indirect Bilirubin 0.1 Aspartate Amino Transf (AST/SGOT) 78 H Alanine Aminotransferase (ALT/SGPT) 41 Alkaline Phosphatase 277 H Creatine Kinase < 20 L Creatine Kinase Index Creatinine Kinase MB (Mass) 0.62 Troponin I < 0.012 Total Protein 6.8 Albumin 3.2 L Globulin 3.60 H Albumin/Globulin Ratio 0.88 Triglycerides Level 182 H Cholesterol Level 98 L LDL Cholesterol, Calculated 31 HDL Cholesterol 31 Cholesterol/HDL Ratio 3.1 Thyroid Stimulating Hormone (TSH) Pending Medications Medications Current Medications Aspirin (Aspirin) 81 mg DAILY PO ; Start 04/07/17 at 09:00 Clopidogrel Bisulfate (plaVIX) 75 mg DAILY PO ; Start 04/07/17 at 09:00 Acetaminophen (Tylenol Tab) 650 mg Q6H PRN PO PAIN AND OR ELEVATED TEMP; Start 04/06/17 at 14:00 Escitalopram Oxalate (Lexapro) 20 mg DAILY PO ; Start 04/07/17 at 09:00 Ferrous Sulfate (Ferrous Sulfate (Ec)) 325 mg DAILY PO ; Start 04/07/17 at 09:00 Folic Acid (Folic Acid) 1 mg DAILY PO ; Start 04/07/17 at 09:00 Loratadine (Claritin) 10 mg DAILY PO ; Start 04/07/17 at 09:00 Midodrine (Proamatine) 5 mg TID PO ; Start 04/06/17 at 21:00 Tramadol HCl (Ultram) 50 mg BID PRN PO PAIN; Start 04/06/17 at 14:00 Pantoprazole (Protonix Tab) 40 mg DAILY PO ; Start 04/07/17 at 09:00 Lactobacillus Acidophilus/ Rhamnosus (Culturelle) 1 cap TID PO ; Start 04/06/17 at 21:00 Ondansetron HCl (Zofran Inj) 4 mg Q6H PRN IV NAUSEA AND/OR VOMITING; Start 04/06/17 at 14:30 Hydralazine HCl 10 mg 10 mg Q6H PRN IV sbp>220; Start 04/06/17 at 14:30 Levetiracetam (Keppra 500 Mg/ 100ml (Pmx)) 100 ml @ 400 mls/hr Q12 IVPB Last administered on 04/06/17t 23:54; Admin Dose 400 MLS/HR; Start 04/06/17 at 22:46 Lacosamide (Vimpat Liq) 100 mg BID PO ; Start 04/07/17 at 09:00 PARKER PARKER MD Apr 07, 2017 07:39
[2017-04-07 08:54] LABS: THYROID STIMULATING HORMONE 8.2 MIU/L (0.465-4.680)
[2017-04-07] MEDS: LORATADINE 10 MG TAB PO SCH (09:00)
[2017-04-07] MEDS: MIDODRINE 5 MG TAB PO SCH (09:00)
[2017-04-07] MEDS ORDERED: LACOSAMIDE (100 MG/10 ML PO SYR) PO SCH ×3 (09:00→21:00)
--- NOTE | 2017-04-07 09:33 | PN ---
Date/Time of Note Date/Time of Note DATE: 04/07/17 TIME: 09:28 Assessment/Plan VTE Prophylaxis VTE Prophylaxis Intervention: heparin Lines/Catheters IV Catheter Type (from [facility] Mid Line Urinary Cath still in place: No Assessment/Plan Chief Complaint/Hosp Course 47-year-old male who was found altered/unresponsive for which he had CPR in the retirement brought by paramedics for evaluation and was noted with speech difficulties in ER prompting code stroke evaluation and determined a no-tPA candidate. Patient was then noted unresponsive again on the floor requiring CPR and ICU admission. 1.Acute encephalopathy with Coma requiring CPR .GCS=3. Suspect possible seizure etiology. Differentials considered and is being worked up are possible cardiac etiologies/arrhythmias (provided patient with pacemaker) , CVA , and or Toxic Metabolic Encephalopathy (TME). Status: Acute -Unable to do MRI due to pacemaker.EEG nonconclusive.CT brain /CTA head/neck unremarkable.Will also obtain a toxicology screen. -CC care bundle with HOB>30 degree, stress ulcer/DVT prophylaxis. -Glycemic control with targeted BS 140-180 mg/dl and avoid hypoglycemic episodes. -Seizure precautions--Add IV ATIVAN PRN seizure- Defer neurology for further seizure mgmt. -Aspirin 81, Plavix 75 mg daily for stroke treatment per neuro recs. -PT/OT/ST eval and treatment once patient is medically stable. -Neurochecks every hour. 2.Hypoxemic respiratory failure requiring intubation/mechanical ventilation Status: Acute -AUBREY Neb, Vent management per pulmonary colleagues. -ABG/Chest Xray f/u per pulmonary 3.Questionable PEA with #1. Currently in NSR w/RBBB. Patient w/pacemaker. Status: Acute -Cardiology consult-Consider pacemaker interrogation. -Follow-up with 12 lead EKG/Echo 4. Seizure disorders. Status: Chronic/Recurrent -Patient is on Keppra and Vimpat-Defer neuro for further management. -Seizure precautions/Repeat EEG -F/u cultures to rule out infectious etiology of seizure disorder. 5. ESRD, on hemodialysis Thursday. ACCESS: left upper arm AV shunt-functional. Status: chronic. - Hemodialysis per nephrology colleagues. -Renal dose medications. Monitor renal function closely. 6.HTN- -Hydralazine PRN SBP.160 -Monitor for now and avoidtoo tight control-Defer cards/nephro for further mgmt. 7. Anemia of ESRD. Status: Chronic. -Monitor H&H closely. -Defer Epogen to nephrology if indicated. 8.Prediabetes. A1c 6.2. Status: Chronic -Monitor for now. Sliding scale insulin in-house. 9.Status post Pacemaker placed-? Arrhythmias -F/u Echo 10. Psychiatric disorders. Status: Chronic -Continue home medications. Prophylaxis: SCDs/PPIs. Patient with elevated PT/PTT. >45 mins CC time spent D/W with industrial custodian, ,, and . Patient is seen in collaboration with . Problems: Subjective 24 Hr Interval Summary Free Text/Dictation Patient was transferred to ICU following unresponsiveness and reported PEA. Patient also had code blue/CPR event. He is now intubated, unresponsive, having seizure- like activities. SBP in 190's. Exam/Review of Systems Vital Signs Vitals Vital Signs Date Time Temp Pulse Resp B/P Pulse Ox O2 Delivery O2 Flow Rate FiO2 04/07/17 08:00 82 04/07/17 07:00 20 163/70 100 04/07/17 06:30 Mechanical Ventilator 04/07/17 05:00 100 04/07/17 04:30 98.8 04/07/17 03:50 2.0 Intake and Output 04/06/17 04/06/17 04/07/17 15:00 23:00 07:00 Intake Total 500 ml Output Total 3500 ml Balance -3000 ml Exam General: Chronically ill looking male,Intubated-on mechanical ventilator HEENT: Normocephalic, Atraumatic, No laceration or hematoma; Eyes: PEERL, Conjunctiva clear, Anicteric sclera Neck: Supple without any lymphadenopathy, nontender, no JVD, no carotid bruits, trachea midline, no thyromegaly Cardiac:With pacemaker. S1, S2 auscultated, regular rhythm and rate, no mumurs or gallop Pulmonary:Diminished bibasilar. Vent breathing, no adventitious breath sounds GI: Abdomen normal to inspection. Soft, non tender, non- distended, no masses, no rebound tenderness or guarding. Bowel sounds active on all four quadrants Genitourinary: Deferred Extremities: No cyanosis, clubbing, or edema. Pulses [2+] bilaterally. Full ROM on all four extremities. No focal weakness appreciated. Neurologic: Unresponsive with jerky movements with rolling eyes. Flaccid extremities. Skin: Clean,dry, and intact. No ecchymosis, no rashes, or lesions [place]: Left upper arm AV shunt. Results Result Diagram: 04/07/17 0623 04/07/17 0623 Results 24 hrs Laboratory Tests Test 04/06/17 09:44 04/06/17 10:25 04/06/17 10:50 04/06/17 14:12 Sodium Level 137 Potassium Level 4.9 Chloride Level 98 Carbon Dioxide Level 24 Anion Gap 20 H Blood Urea Nitrogen 38 H Creatinine 9.49 H Glucose Level 146 Hemoglobin A1c 6.2 H Calcium Level 8.3 L Troponin I < 0.012 White Blood Count 7.4 Red Blood Count 2.44 L Hemoglobin 7.9 L Hematocrit 25.6 L Mean Corpuscular Volume 104.9 H Mean Corpuscular Hemoglobin 32.4 Mean Corpuscular Hemoglobin Concent 30.9 L Red Cell Distribution Width 23.1 H Platelet Count 168 Mean Platelet Volume 11.9 H Neutrophils % Segmented Neutrophils % (Manual) 42 Band Neutrophils % (Manual) 2 Lymphocytes % Lymphocytes % (Manual) 18 Monocytes % Monocytes % (Manual) 6 Eosinophils % Eosinophils % (Manual) 31 H Basophils % Myelocytes % (Manual) 1 H Nucleated Red Blood Cells % 0.3 H Neutrophils # Neutrophils # (Manual) 3.1 Band Neutrophils # 0.1 Absolute Lymphocytes (Manual) 1.3 Lymphocytes # Monocytes # Absolute Monocytes (Manual) 0.4 Eosinophils # Basophils # Myelocytes # 0.0 Nucleated Red Blood Cells # Platelet Estimate NORMAL Giant Platelets 2 H Polychromasia 1+ Anisocytosis 2+ Macrocytosis 1+ Prothrombin Time 19.2 H Prothrombin Time Ratio 1.5 INR International Normalized Ratio 1.58 Activated Partial Thromboplast Time 43.8 H Vitamin B12 Level 940 H Folate > 20.0 H Test 04/07/17 04:03 04/07/17 04:39 04/07/17 06:23 Bedside Glucose 172 Blood Gas Specimen Source Blood arterial Arterial Blood Date Drawn 04/07/2017 5:00:56 AM Arterial Blood pH (Temp corrected) 7.327 L Arterial Blood pCO2 (Temp correct) 43.2 Arterial Blood pO2 (Temp corrected) 73.4 L Arterial Blood HCO3 22.1 Arterial Blood Base Excess -3.7 L Arterial Blood Oxygen Saturation 91.8 L Steve Test ACCEPTAB Arterial Blood Gas Puncture Site Right Radial Arterial Blood Carboxyhemoglobin 0.6 Arterial Blood Methemoglobin 0 Blood Gas A-a O2 Differential 596.4 H Oxyhemoglobin Percent 91.2 L Total Hemoglobin 8.8 L Blood Gas Temperature 37.0 Blood Gas Respiration Rate 16.0 Blood Gas Actual Respiration Rate 16 Blood Gas Modality VENT - AC FiO2 100.0 Blood Gas Tidal Volume 500.0 Blood Gas Low PEEP Setting 5.0 Blood Gas Inspiratory Pressure 28.0 Blood Gas Notified Whom MR Blood Gas Notified Time 04/07/2017 5:16:44 AM White Blood Count 7.2 Red Blood Count 2.53 L Hemoglobin 8.2 L Hematocrit 26.5 L Mean Corpuscular Volume 104.7 H Mean Corpuscular Hemoglobin 32.4 Mean Corpuscular Hemoglobin Concent 30.9 L Red Cell Distribution Width 22.6 H Platelet Count 156 Mean Platelet Volume 12.1 H Neutrophils % 79.9 H Lymphocytes % 9.4 L Monocytes % 6.0 Eosinophils % 2.9 Basophils % 0.1 Nucleated Red Blood Cells % 0.3 H Neutrophils # 5.8 Lymphocytes # 0.7 L Monocytes # 0.4 Eosinophils # 0.2 Basophils # 0.0 Nucleated Red Blood Cells # 0.0 Sodium Level 138 Potassium Level 4.8 Chloride Level 99 Carbon Dioxide Level 23 Anion Gap 21 H Blood Urea Nitrogen 30 H Creatinine 7.90 H Glucose Level 271 #H Hemoglobin A1c 6.1 H Calcium Level 9.1 Phosphorus Level 6.5 H Magnesium Level 2.0 Total Bilirubin 0.1 L Direct Bilirubin 0.00 Indirect Bilirubin 0.1 Aspartate Amino Transf (AST/SGOT) 78 H Alanine Aminotransferase (ALT/SGPT) 41 Alkaline Phosphatase 277 H Creatine Kinase < 20 L Creatine Kinase Index Creatinine Kinase MB (Mass) 0.62 Troponin I < 0.012 Total Protein 6.8 Albumin 3.2 L Globulin 3.60 H Albumin/Globulin Ratio 0.88 Triglycerides Level 182 H Cholesterol Level 98 L LDL Cholesterol, Calculated 31 HDL Cholesterol 31 Cholesterol/HDL Ratio 3.1 Thyroid Stimulating Hormone (TSH) 8.200 H Medications Medications Current Medications Aspirin (Aspirin) 81 mg DAILY PO ; Start 04/07/17 at 09:00 Clopidogrel Bisulfate (plaVIX) 75 mg DAILY PO ; Start 04/07/17 at 09:00 Acetaminophen (Tylenol Tab) 650 mg Q6H PRN PO PAIN AND OR ELEVATED TEMP; Start 04/06/17 at 14:00 Escitalopram Oxalate (Lexapro) 20 mg DAILY PO ; Start 04/07/17 at 09:00 Ferrous Sulfate (Ferrous Sulfate (Ec)) 325 mg DAILY PO ; Start 04/07/17 at 09:00 Folic Acid (Folic Acid) 1 mg DAILY PO ; Start 04/07/17 at 09:00 Loratadine (Claritin) 10 mg DAILY PO ; Start 04/07/17 at 09:00 Midodrine (Proamatine) 5 mg TID PO ; Start 04/06/17 at 21:00 Tramadol HCl (Ultram) 50 mg BID PRN PO PAIN; Start 04/06/17 at 14:00 Pantoprazole (Protonix Tab) 40 mg DAILY PO ; Start 04/07/17 at 09:00 Lactobacillus Acidophilus/ Rhamnosus (Culturelle) 1 cap TID PO ; Start 04/06/17 at 21:00 Ondansetron HCl (Zofran Inj) 4 mg Q6H PRN IV NAUSEA AND/OR VOMITING; Start 04/06/17 at 14:30 Hydralazine HCl 10 mg 10 mg Q6H PRN IV sbp>220; Start 04/06/17 at 14:30 Levetiracetam (Keppra 500 Mg/ 100ml (Pmx)) 100 ml @ 400 mls/hr Q12 IVPB Last administered on 04/06/17t 23:54; Admin Dose 400 MLS/HR; Start 04/06/17 at 22:46 Lacosamide (Vimpat Liq) 100 mg BID PO ; Start 04/07/17 at 09:00 LACY RAMÍREZ NP Apr 07, 2017 09:33 LACY RAMÍREZ NP Apr 07, 2017 09:33
[2017-04-07] MEDS: LEVETIRACETAM 500 MG (PMX) 100 ML IVPB SCH (09:43)
[2017-04-07] MEDS: hydrALAzine 20 MG INJ IV PRN ×2 (09:51→16:37)
[2017-04-07] MEDS ORDERED: LORAZEPAM 2 MG INJ IV PRN (10:00)
[2017-04-07] MEDS ORDERED: LORAZEPAM 2 MG INJ ONE (10:02)
[2017-04-07] MEDS ORDERED: ALBUTEROL/IPRATROPIUM (NEB) 3 ML AMP NEB PRN (10:30)
[2017-04-07 10:57] LABS: CREATINE KINASE < 20 IU/L (23-200)
--- NOTE | 2017-04-07 10:59 | RADRPT ---
PROCEDURE: XR Chest. CLINICAL INDICATION: Shortness of breath TECHNIQUE: Single portable view of the chest was obtained COMPARISON: DR VICTORIA 04/07/2017 FINDINGS: There is an ET tube with distal tip below thoracic inlet. There is an NG tube with distal tip was ab out hemidiaphragms. The cardiac silhouette and pulmonary lady mildly prominent. There are bilateral perihilar infiltrates. The lungs are clear. The costophrenic angles are sharp. There is a right-side d dual lead pacer device. IMPRESSION: 1. ET tube and NG tube in satisfactory position. 2. Cardiomegaly and mild vascular vascular congestion. The bilateral perihilar infiltrates. Findings are mildly improved since prior exam RPTAT: AAPP Physician Juan Date Time Electronically viewed and signed by Physician Juan on 04/07/2017 10:59 JL/
[2017-04-07 11:05] LABS: TROPONIN-I 0.038 ng/ml (0.00-0.12)
[2017-04-07 11:09] LABS: CK-MB 0.81 ng/ml (0.0-2.4)
--- NOTE | 2017-04-07 11:54 | CONS ---
DATE OF ADMISSION: 04/06/2017 DATE OF CONSULTATION: PULMONARY CONSULTATION REASON FOR CONSULTATION: Ventilator management. Thank you, Dr. Dodd, for this consultation. HISTORY OF PRESENT ILLNESS: This is a 47-year-old gentleman originally admitted with questionable s eizure, altered mental status which had improved on admission. At that time, he was awake, alert, y esterday became more unresponsive, requiring transfer to intensive care unit and intubation for airw ay protection. Concern for seizure activity not seen on initial EEG. This morning, patient still m inimally responsive in the absence of sedation, concern for subclinical seizures. PAST MEDICAL HISTORY: Include: 1. History of seizures. 2. Endstage renal failure on hemodialysis. 3. Psychiatric disorder. MEDICATIONS: Per chart. ALLERGIES: HEPARIN. SOCIAL HISTORY: Positive tobacco history. SYSTEMS REVIEW: A 12-point review of systems unable to perform. PHYSICAL EXAMINATION: GENERAL: Well-nourished, well-developed gentleman, intubated on mechanical ventilation, appears com fortable at rest, no acute distress. VITAL SIGNS: Currently afebrile, pulse is 92, blood pressure 130/73, O2 sat 96% on FIO2 of 90%, ora lly intubated. NECK: Supple, no JVD or lymphadenopathy. CARDIAC: S1, S2, no added sounds or murmurs. CHEST: Diminished air entry bilaterally with rales. ABDOMEN: Soft, nontender. No guarding or rebound. NEUROLOGIC: Unable to assess. LABORATORY DATA: White count 7.2, hemoglobin 8.2, platelets of 156. BUN 30, creatinine 7.9. ABG o n admission pH 7.32, pCO2 of 43, pO2 of 73. INR was 1.58. DIAGNOSTIC DATA: Chest x-ray shows pulmonary edema. CT head shows no significant abnormalities. C T angiogram of the neck shows no significant occlusions. IMPRESSION AND PLAN: 1. Encephalopathy, likely secondary to underlying seizure activity. 2. Hypoxemic respiratory failure. 3. Pulmonary edema with pulmonary renal syndrome. 4. Endstage renal failure on hemodialysis. PLAN: 1. Repeat EEG and sedate if evidence of seizure activity. 2. Adjust anti-epileptic medications. 3. Continue mechanical ventilation. 4. Hemodialysis with fluid removal. 5. Decrease FIO2 on CPAP weaning trial if more stable. Dictated By: GIOVANNY VASQUES/WILNER Conf#: [id number] [facility]#: [id number] CC: DIMAS LAINEZ MD;*[facility]*
--- NOTE | 2017-04-07 11:58 | CONS ---
Date/Time of Note Date/Time of Note DATE: 04/07/17 TIME: 11:53 Consult Date/Type/Reason Admit Date/Time Apr 06, 2017 at 10:58 Initial Consult Date 04/07/17 Type of Consultation: Neurology Reason for Consultation seizure hx Ordering Provider: LACY RAMÍREZ NP Subjective cardiac arrest admitted to ICU overnight Objective Vital Signs Date Time Temp Pulse Resp B/P Pulse Ox O2 Delivery O2 Flow Rate FiO2 04/07/17 10:30 92 24 130/73 100 Mechanical Ventilator 04/07/17 08:00 98.4 2.0 04/07/17 05:00 100 Intake and Output 04/06/17 04/06/17 04/07/17 15:00 23:00 07:00 Intake Total 500 ml Output Total 3500 ml Balance -3000 ml Exam intubated off sedation unresponsive CN: eyes are open with upgaze pupils reactive, corneals present gag present Motor: limited w/d to extremities unable to follow commands Results/Medications Result Diagram: 04/07/17 0623 04/07/17 0623 Results 24 hrs Laboratory Tests Test 04/06/17 14:12 04/07/17 04:03 04/07/17 04:39 04/07/17 06:23 Vitamin B12 Level 940 H Folate > 20.0 H Bedside Glucose 172 Blood Gas Specimen Source Blood arterial Arterial Blood Date Drawn 04/07/2017 5:00:56 AM Arterial Blood pH (Temp corrected) 7.327 L Arterial Blood pCO2 (Temp correct) 43.2 Arterial Blood pO2 (Temp corrected) 73.4 L Arterial Blood HCO3 22.1 Arterial Blood Base Excess -3.7 L Arterial Blood Oxygen Saturation 91.8 L Steve Test ACCEPTAB Arterial Blood Gas Puncture Site Right Radial Arterial Blood Carboxyhemoglobin 0.6 Arterial Blood Methemoglobin 0 Blood Gas A-a O2 Differential 596.4 H Oxyhemoglobin Percent 91.2 L Total Hemoglobin 8.8 L Blood Gas Temperature 37.0 Blood Gas Respiration Rate 16.0 Blood Gas Actual Respiration Rate 16 Blood Gas Modality VENT - AC FiO2 100.0 Blood Gas Tidal Volume 500.0 Blood Gas Low PEEP Setting 5.0 Blood Gas Inspiratory Pressure 28.0 Blood Gas Notified Whom MR Blood Gas Notified Time 04/07/2017 5:16:44 AM White Blood Count 7.2 Red Blood Count 2.53 L Hemoglobin 8.2 L Hematocrit 26.5 L Mean Corpuscular Volume 104.7 H Mean Corpuscular Hemoglobin 32.4 Mean Corpuscular Hemoglobin Concent 30.9 L Red Cell Distribution Width 22.6 H Platelet Count 156 Mean Platelet Volume 12.1 H Neutrophils % 79.9 H Lymphocytes % 9.4 L Monocytes % 6.0 Eosinophils % 2.9 Basophils % 0.1 Nucleated Red Blood Cells % 0.3 H Neutrophils # 5.8 Lymphocytes # 0.7 L Monocytes # 0.4 Eosinophils # 0.2 Basophils # 0.0 Nucleated Red Blood Cells # 0.0 Sodium Level 138 Potassium Level 4.8 Chloride Level 99 Carbon Dioxide Level 23 Anion Gap 21 H Blood Urea Nitrogen 30 H Creatinine 7.90 H Glucose Level 271 #H Hemoglobin A1c 6.1 H Calcium Level 9.1 Phosphorus Level 6.5 H Magnesium Level 2.0 Total Bilirubin 0.1 L Direct Bilirubin 0.00 Indirect Bilirubin 0.1 Aspartate Amino Transf (AST/SGOT) 78 H Alanine Aminotransferase (ALT/SGPT) 41 Alkaline Phosphatase 277 H Creatine Kinase < 20 L Creatine Kinase Index Creatinine Kinase MB (Mass) 0.62 Troponin I < 0.012 Total Protein 6.8 Albumin 3.2 L Globulin 3.60 H Albumin/Globulin Ratio 0.88 Triglycerides Level 182 H Cholesterol Level 98 L LDL Cholesterol, Calculated 31 HDL Cholesterol 31 Cholesterol/HDL Ratio 3.1 Thyroid Stimulating Hormone (TSH) 8.200 H Test 04/07/17 10:19 Creatine Kinase < 20 L Creatine Kinase Index Creatinine Kinase MB (Mass) 0.81 Troponin I 0.038 Medications Current Medications Aspirin (Aspirin) 81 mg DAILY PO ; Start 04/07/17 at 09:00 Clopidogrel Bisulfate (plaVIX) 75 mg DAILY PO ; Start 04/07/17 at 09:00 Acetaminophen (Tylenol Tab) 650 mg Q6H PRN PO PAIN AND OR ELEVATED TEMP; Start 04/06/17 at 14:00 Escitalopram Oxalate (Lexapro) 20 mg DAILY PO ; Start 04/07/17 at 09:00 Ferrous Sulfate (Ferrous Sulfate (Ec)) 325 mg DAILY PO ; Start 04/07/17 at 09:00 Folic Acid (Folic Acid) 1 mg DAILY PO ; Start 04/07/17 at 09:00 Loratadine (Claritin) 10 mg DAILY PO ; Start 04/07/17 at 09:00 Midodrine (Proamatine) 5 mg TID PO ; Start 04/06/17 at 21:00; Status Future Hold Tramadol HCl (Ultram) 50 mg BID PRN PO PAIN; Start 04/06/17 at 14:00 Pantoprazole (Protonix Tab) 40 mg DAILY PO ; Start 04/07/17 at 09:00 Lactobacillus Acidophilus/ Rhamnosus (Culturelle) 1 cap TID PO ; Start 04/06/17 at 21:00 Ondansetron HCl (Zofran Inj) 4 mg Q6H PRN IV NAUSEA AND/OR VOMITING; Start 04/06/17 at 14:30 Hydralazine HCl 10 mg 10 mg Q6H PRN IV sbp>160 Last administered on 04/07/17 09:51; Admin Dose 10 MG; Start 04/06/17 at 14:30 Levetiracetam (Keppra 500 Mg/ 100ml (Pmx)) 100 ml @ 400 mls/hr Q12 IVPB Last administered on 04/07/17 09:43; Admin Dose 400 MLS/HR; Start 04/06/17 at 22:46 Lacosamide (Vimpat Liq) 100 mg BID PO ; Start 04/07/17 at 09:00 Lorazepam (Ativan) 1 mg Q2H PRN IV seizure; Start 04/07/17 at 10:30 Assessment/Plan Chief Complaint/Hosp Course 47 yo male with ESRD admitted with dysarthria and possible aphasia unclear baseline. Baseline he has a history of seizure d/o and psychiatric disease. Recommendations: ASA 81 mg daily SBP less than 140 MRI Brain without contrast unable to be done due to PPM- CTH w/o contrast is pending to evaluate for ischemic changes, CVA ECHO w bubble pending Increase Keppra to 1g BID and Vimpat 150 mg BID EEG ordered continue ICU level care Problems: ARUNA BROWN MD Apr 07, 2017 11:58
[2017-04-07] MEDS ORDERED: LEVETIRACETAM 1000 MG (PMX) 100 ML IVPB SCH (12:00)
[2017-04-07] MEDS: LACTOBACILLUS RHAMNOSUS CAP PO SCH ×3 (12:03→21:35)
[2017-04-07] MEDS: ASPIRIN 81 MG TAB PO SCH (12:03)
[2017-04-07] MEDS: FERROUS SULFATE (EC) 325 MG TAB PO SCH (12:03)
[2017-04-07] MEDS: SEVELAMER 800 MG TAB PO SCH ×3 (12:04→17:31)
[2017-04-07] MEDS: PANTOPRAZOLE (EC) 40 MG TAB PO SCH (12:04)
[2017-04-07] MEDS: CLOPIDOGREL 75 MG TAB PO SCH (12:04)
[2017-04-07] MEDS: ESCITALOPRAM 10 MG TAB PO SCH (12:04)
[2017-04-07] MEDS: FOLIC ACID 1 MG TAB PO SCH (12:04)
--- NOTE | 2017-04-07 12:07 | RADRPT ---
Echocardiogram Report Patient Name: ZHANG OROSCO Gender: Male Date: 1970 Study Date: 07-Apr-2017 Medical Librarian: Justin Underwood RDCS Location: [facility] Ref. Physician: LACY RAMÍREZ Quality: Adequate Procedures: Transthoracic echocardiogram with complete 2D, M-Mode, and doppler examination. Indications: stroke. 2D/M Mode Doppler Measurement Value Normal Ranges Measurement Value Normal Ranges LVIDd 2D 4.1 3.5 - 5.6 cm AV Peak Killian 1.8 m/sec LVIDs 2D 2.6 2.1 - 4.1 cm AV Peak PG 13.3 mmHg LVPWd 2D 1.0 0.6 - 1.1 cm LVOT Peak Killian 1.0 m/sec IVSd 2D 1.1 0.6 - 1.1 cm LVOT Peak PG 4.4 mmHg AoR Diam 2D 2.8 2.0 - 3.7 cm MV E Peak [place] 0.6 m/sec EDV 2D 75.1 cm3 MV A Peak Killian 0.7 m/sec ESV 2D 17.5 cm3 MV E/A 0.8 LA Dimen 2D 3.4 2.3 - 4.0 cm MV Decel Time 133 msec MV Decel Tucker 4 MV E/A 0.8 TR Peak Killian 2.0 m/sec TR Peak PG 16.0 mmHg RVSP 26.0 mmHg Findings Left Ventricle: Normal left ventricular cavity size. Mild concentric left ventricular hypertrophy. Mild global left ventricular systolic dysfunction. Ejection fraction is visually estimated at 45 %. Tissue Doppler/Mitral Doppler indices are consistent with impaired relaxation (Stage I diastolic dysfunction). Right Ventricle: Normal right ventricular size. Normal right ventricular systolic function. Linear artifact in right ventricle suggestive of catheter, pacer lead, or ICD lead. Left Atrium: The left atrium is normal in size. Right Atrium: The right atrium is normal in size. Mitral Valve: Normal appearance and function of the mitral valve with trace physiologic regurgitation. Aortic Valve: Normal appearance of the aortic valve. No significant aortic stenosis or insufficiency. Tricuspid Valve: Normal appearance of the tricuspid valve. Estimated peak PA systolic pressure 26 mmHg. There is trace tricuspid regurgitation. Pulmonic Valve: Normal pulmonic valve appearance. Pericardium: Moderate pericardial effusion. Aorta: Normal aortic root. IVC: Dilated IVC without respiratory collapse, however, patient on ventilator. Conclusions 1.Normal left ventricular cavity size. Mild concentric left ventricular hypertrophy. Mild global left ventricular systolic dysfunction. Ejection fraction is visually estimated at 45 %. Tissue Doppler/Mitral Doppler indices are consistent with impaired relaxation (Stage I diastolic dysfunction). 2.Normal appearance and function of the mitral valve with trace physiologic regurgitation. 3.Normal appearance of the aortic valve. No significant aortic stenosis or insufficiency. 4.Normal appearance of the tricuspid valve. Estimated peak PA systolic pressure 26 mmHg. There is trace tricuspid regurgitation. 5.Dilated IVC without respiratory collapse, however, patient on ventilator. 6.Moderate pericardial effusion. Electronically Signed By: Greg Cast 07-Apr-2017 12:06:40 -0800 Patient Name: ZHANG OROSCO Study Date: 07-Apr-2017 [id number]
[2017-04-07] MEDS: LORAZEPAM 2 MG INJ IV PRN ×2 (12:23→16:44)
[2017-04-07] MEDS ORDERED: IPRATROPIUM (HFA) 12.9 GM INHALER INH SCH (13:00)
[2017-04-07] MEDS ORDERED: ALBUTEROL HFA 8 GM INHALER INH SCH (13:00)
[2017-04-07] MEDS ORDERED: ALBUTEROL/IPRATROPIUM (NEB) 3 ML AMP NEB SCH (13:00)
--- NOTE | 2017-04-07 14:18 | CONS ---
Date/Time of Note Date/Time of Note DATE: 04/07/17 TIME: 14:07 Assessment/Plan Assessment/Plan Chief Complaint/Hosp Course 1. cardiopulm arrest: I doubt it is related to cardiac arrest. probably due to neurological changes. 2. hypoxemic resp failure: This was intubation of vent dependent 3. Moderate-sized pericardial effusion. Probably related to his renal failure. At this point I do not see signs of tamponade. His blood pressure has been also elevated to normal and not hypotensive. 4. End-stage renal disease on dialysis Hemodialysis is being managed as per renal team. 5. Hypertension 6. altered level of consciousness and encephalopathy. 7. anemia 8/ hx seizure; Recommendations: Continue with the vent support. Respiratory care will be continued on managed as per pulmonary team. Follow-up with neurology recommendation regarding possible seizure and treatment. Hemodialysis to be done to manage as per renal team. Continue with ICU care. Cardiac enzymes were negative. We will monitor the patient. Thank you for this referral. I will continue to follow along with you. BIANKA KENT MD [facility] Problems: Consultation Date/Type/Reason Admit Date/Time Apr 06, 2017 at 10:58 Date of Consultation: Apr 07, 2017 Type of Consultation: cardiology Reason for Consultation cardiopulm arrest. pericardial effusion Referring Provider: LACY RAMÍREZ NP Hx of Present Illness CARDIOLOGY CONSULTATION CC: altered LOC. slurred speech. HPI: This is a 47 yo male with ESRD lives in [place] admitted with acute onset of slurred speech, noted to have severe dysarthria and difficulty answering questions. Patient was admitted to the hospital and was on telemetry monitoring. Is very difficult to get a history. Patient himself unable to provide history. As discussed with multiple physicians and a staff patient apparently became unresponsive and CODE BLUE was called. There is no report of V. tach or V-fib during the episode. He probably had PEA he has been intubated and transferred to ICU. Condition remained unresponsive but his blood pressure has been normal to high. His echo was done and personally visualization of moderate amount of pericardial effusion. However there is no echocardiogram signs of tamponade. There is no reported chest pain or pressure palpation at the best we can obtain. Patient at this point is unresponsive and unable to provide history to me. allergy ? heparin PMH: ESRD ON HD HTN seizure anemia ? DM social hx non smoker lives in SNF. family hx: no reported early CAD MEDS REVIEWED. ROS: unable to obtain except for above . Past Medical History Medical History: congestive heart failure, coronary artery disease, hypertension, renal disease Social History Alcohol Use: none Smoking Status: Never smoker Drug Use: none Exam/Review of Systems Vital Signs Vitals Vital Signs Date Time Temp Pulse Resp B/P Pulse Ox O2 Delivery O2 Flow Rate FiO2 04/07/17 12:00 89 04/07/17 11:45 21 100 80 04/07/17 10:30 130/73 Mechanical Ventilator 04/07/17 08:00 98.4 2.0 Intake and Output 04/06/17 04/06/17 04/07/17 15:00 23:00 07:00 Intake Total 500 ml Output Total 3500 ml Balance -3000 ml Exam General: s/p intubation on vent HEENT: [place]/AT. pupils are round. NECK: NO JVD. no stridor. CV: RRR. systolic murmur; no gallop or rubs. PULM: no wheezing or rhonchi. GI: SOFT, NT, ND, no rebound or guarding Extremity: trace B/L LE edema. no clubbing. neuro: non responsive Psych: calm and pleasant rectal: deferred echo reviewed personally: 1. Normal left ventricular cavity size. Mild concentric left ventricular hypertrophy. Mild global left ventricular systolic dysfunction. Ejection fraction is visually estimated at 45 %. Tissue Doppler/Mitral Doppler indices are consistent with impaired relaxation (Stage I diastolic dysfunction). 2. Normal appearance and function of the mitral valve with trace physiologic regurgitation. 3. Normal appearance of the aortic valve. No significant aortic stenosis or insufficiency. 4. Normal appearance of the tricuspid valve. Estimated peak PA systolic pressure 26 mmHg. There is trace tricuspid regurgitation. 5. Dilated IVC without respiratory collapse, however, patient on ventilator. 6. Moderate pericardial effusion. Results Result Diagram: 04/07/17 0604/07/17622 Results 24 hrs Laboratory Tests Test 04/06/17 14:12 04/07/17 04:03 04/07/17 04:39 04/07/17 06:23 Vitamin B12 Level 940 H Folate > 20.0 H Bedside Glucose 172 Blood Gas Specimen Source Blood arterial Arterial Blood Date Drawn 04/07/2017 5:00:56 AM Arterial Blood pH (Temp corrected) 7.327 L Arterial Blood pCO2 (Temp correct) 43.2 Arterial Blood pO2 (Temp corrected) 73.4 L Arterial Blood HCO3 22.1 Arterial Blood Base Excess -3.7 L Arterial Blood Oxygen Saturation 91.8 L Steve Test ACCEPTAB Arterial Blood Gas Puncture Site Right Radial Arterial Blood Carboxyhemoglobin 0.6 Arterial Blood Methemoglobin 0 Blood Gas A-a O2 Differential 596.4 H Oxyhemoglobin Percent 91.2 L Total Hemoglobin 8.8 L Blood Gas Temperature 37.0 Blood Gas Respiration Rate 16.0 Blood Gas Actual Respiration Rate 16 Blood Gas Modality VENT - AC FiO2 100.0 Blood Gas Tidal Volume 500.0 Blood Gas Low PEEP Setting 5.0 Blood Gas Inspiratory Pressure 28.0 Blood Gas Notified Whom MR Blood Gas Notified Time 04/07/2017 5:16:44 AM White Blood Count 7.2 Red Blood Count 2.53 L Hemoglobin 8.2 L Hematocrit 26.5 L Mean Corpuscular Volume 104.7 H Mean Corpuscular Hemoglobin 32.4 Mean Corpuscular Hemoglobin Concent 30.9 L Red Cell Distribution Width 22.6 H Platelet Count 156 Mean Platelet Volume 12.1 H Neutrophils % 79.9 H Lymphocytes % 9.4 L Monocytes % 6.0 Eosinophils % 2.9 Basophils % 0.1 Nucleated Red Blood Cells % 0.3 H Neutrophils # 5.8 Lymphocytes # 0.7 L Monocytes # 0.4 Eosinophils # 0.2 Basophils # 0.0 Nucleated Red Blood Cells # 0.0 Sodium Level 138 Potassium Level 4.8 Chloride Level 99 Carbon Dioxide Level 23 Anion Gap 21 H Blood Urea Nitrogen 30 H Creatinine 7.90 H Glucose Level 271 #H Hemoglobin A1c 6.1 H Calcium Level 9.1 Phosphorus Level 6.5 H Magnesium Level 2.0 Total Bilirubin 0.1 L Direct Bilirubin 0.00 Indirect Bilirubin 0.1 Aspartate Amino Transf (AST/SGOT) 78 H Alanine Aminotransferase (ALT/SGPT) 41 Alkaline Phosphatase 277 H Creatine Kinase < 20 L Creatine Kinase Index Creatinine Kinase MB (Mass) 0.62 Troponin I < 0.012 Total Protein 6.8 Albumin 3.2 L Globulin 3.60 H Albumin/Globulin Ratio 0.88 Triglycerides Level 182 H Cholesterol Level 98 L LDL Cholesterol, Calculated 31 HDL Cholesterol 31 Cholesterol/HDL Ratio 3.1 Thyroid Stimulating Hormone (TSH) 8.200 H Test 04/07/17 10:19 Creatine Kinase < 20 L Creatine Kinase Index Creatinine Kinase MB (Mass) 0.81 Troponin I 0.038 Free Thyroxine 1.21 Medications Medications Current Medications Aspirin (Aspirin) 81 mg DAILY PO Last administered on 04/07/17 12:03; Admin Dose 81 MG; Start 04/07/17 at 09:00 Clopidogrel Bisulfate (plaVIX) 75 mg DAILY PO Last administered on 04/07/17 12 :04; Admin Dose 75 MG; Start 04/07/17 at 09:00 Acetaminophen (Tylenol Tab) 650 mg Q6H PRN PO PAIN AND OR ELEVATED TEMP; Start 04/06/17 at 14:00 Escitalopram Oxalate (Lexapro) 20 mg DAILY PO Last administered on 04/07/17 12 :04; Admin Dose 20 MG; Start 04/07/17 at 09:00 Ferrous Sulfate (Ferrous Sulfate (Ec)) 325 mg DAILY PO Last administered on 12:03; Admin Dose 325 MG; Start 04/07/17 at 09:00 Folic Acid (Folic Acid) 1 mg DAILY PO Last administered on 04/07/17 12:04; Admin Dose 1 MG; Start 04/07/17 at 09:00 Loratadine (Claritin) 10 mg DAILY PO ; Start 04/07/17 at 09:00 Midodrine (Proamatine) 5 mg TID PO ; Start 04/06/17 at 21:00; Status Future Hold Pantoprazole (Protonix Tab) 40 mg DAILY PO Last administered on 04/07/17 12:04 ; Admin Dose 40 MG; Start 04/07/17 at 09:00 Lactobacillus Acidophilus/ Rhamnosus (Culturelle) 1 cap TID PO Last administered on 04/07/17 12:03; Admin Dose 1 CAP; Start 04/06/17 at 21:00 Ondansetron HCl (Zofran Inj) 4 mg Q6H PRN IV NAUSEA AND/OR VOMITING; Start 04/06/17 at 14:30 Hydralazine HCl (Apresoline) 10 mg Q6H PRN IV sbp>160 Last administered on 04/07 09:51; Admin Dose 10 MG; Start 04/06/17 at 14:30 Lorazepam 1 mg 1 mg Q2H PRN IV seizure Last administered on 04/07/17 12:23; Admin Dose 1 MG; Start 04/07/17 at 10:30 Levetiracetam (Keppra 1,000mg/ 100ml (Pmx)) 100 ml @ 400 mls/hr Q12 IVPB ; Start 04/07/17 at 12:00 Lacosamide (Vimpat Liq) 150 mg BID PO ; Start 04/07/17 at 21:00 Ipratropium [place] (Atrovent Hfa) 4 puff Q4 INH ; Start 04/07/17 at 13:00 BIANKA KENT MD Apr 07, 2017 14:18
--- NOTE | 2017-04-07 14:42 | RADRPT ---
Vent Rate: 91 bpm RR Interval: 0 msec WA Interval: 160 msec QRS Duration: 142 msec QT Interval: 420 msec QTC Interval: 516 msec P-R-T [place]: 40 - 80 - 40 degrees Normal sinus rhythm Right bundle branch block Abnormal ECG Electronically Signed By: Alok Webber [id number]
[2017-04-07] MEDS ORDERED: niCARdipine 25 MG in SOD CHLORIDE 0.9% 250 ML IV SCH (16:00)
--- NOTE | 2017-04-07 17:29 | RADRPT ---
PROCEDURE: CT Brain without contrast. CLINICAL INDICATION: Stroke evaluation. TECHNIQUE: A multiplanar CT of the brain was performed on a CT scanner utilizing axial imaging fro m the skull base through the vertex without IV contrast. The CTDIvol is 45.01 mGy and the DLP is 72 0.23 mGycm. One or more of the following dose reduction techniques were utilized: Automated exposu re control, adjustment of the mA and/or kV according to patient size, use of iterative reconstructio n technique. DICOM images are available. COMPARISON: CT brain 04/06/2017, CTA head and neck 04/06/2017 . FINDINGS: No evidence of intracranial hemorrhage or abnormal extra-axial fluid collection. The brain parenchyma is normal attenuation morphology with preservation of rogers white differentiatio n and age appropriate size of the ventricles and subarachnoid spaces. The basal cisterns, posterior fossa contents, brainstem, craniocervical junction, orbits, pituitary axis, paranasal sinuses, mastoid air cells, and calvarium are unremarkable. IMPRESSION: 1. No intracranial hemorrhage or acute intracranial abnormality. RPTAT:AAJJ Physician Brenda Date Time Electronically viewed and signed by Physician Brenda on 04/07/2017 17:29 GALE/
[2017-04-07] MEDS: IPRATROPIUM (HFA) 12.9 GM INHALER INH SCH (20:05)
[2017-04-07] MEDS: ALBUTEROL HFA 8 GM INHALER INH SCH (20:05)
[2017-04-07] MEDS: LEVETIRACETAM IV 1,000 MG in DEXTROSE 5% 100 ML IV SCH (21:35)
[2017-04-07] MEDS: LACOSAMIDE (100 MG/10 ML PO SYR) PO SCH (22:00)
[2017-04-07] MEDS ORDERED: GLUCOSE GEL 15 GRAM TUBE PO PRN ×2 (22:00)
[2017-04-07] MEDS ORDERED: GLUCAGON 1 MG INJ IM PRN (22:00)
[2017-04-07] MEDS ORDERED: DEXTROSE 50% 50 ML SYRINGE IV PRN ×2 (22:00)
[2017-04-07] MEDS ORDERED: GLUCOSE GEL 15 GRAM TUBE BUCCAL PRN (22:00)
[2017-04-08] VITALS (62 sets, daily range): BP systolic 98–144; BP diastolic 43–99; PULSE 78–97; RESP 9–23; Ht 167.6 cm; Wt 90.0 kg
[2017-04-08] MEDS: INSULIN ASPART [NOVOLOG] 3 ML PEN SC SCH ×6 (00:32→21:35)
[2017-04-08] MEDS: IPRATROPIUM (HFA) 12.9 GM INHALER INH SCH ×4 (01:12→20:37)
[2017-04-08] MEDS: ALBUTEROL HFA 8 GM INHALER INH SCH ×4 (01:12→20:37)
[2017-04-08] MEDS: INSULIN GLARGINE [LANtus] 3 ML PEN SC SCH ×2 (02:27→21:36)
[2017-04-08 05:50] LABS: ABNORMAL IP MESSAGE 1; BASOPHILS % 0.1 % (0.0-2.0); EOSINOPHILS # 0.1 10^3/ul (0.0-0.5); EOSINOPHILS % 0.8 % (0.0-7.0); HEMATOCRIT 26.3 % (42.0-52.0); HEMOGLOBIN 8.1 g/dl (14.0-18.0); LYMPHOCYTES % 13.2 % (15.0-51.0); MEAN CORPUSCULAR HEMOGLOBIN 31.6 pg (29.0-33.0); MEAN CORPUSCULAR HGB CONC 30.8 g/dl (32.0-37.0); MEAN CORPUSCULAR VOLUME 102.7 fl (82.0-101.0); MEAN PLATELET VOLUME 11.5 fl (7.4-10.4); MONOCYTE # 0.7 10^3/ul (0.3-0.9); MONOCYTES % 9.2 % (0.0-11.0); NEUTROPHIL # 5.8 10^3/ul (1.6-7.5); PLATELET COUNT 178 10^3/UL (140-415); POSITIVE DIFF @See below; RED BLOOD COUNT 2.56 10^6/ul (4.70-6.10); RED CELL DISTRIBUTION WIDTH 22.5 % (11.5-14.5); WHITE BLOOD COUNT 7.6 10^3/ul (4.8-10.8)
[2017-04-08 06:42] LABS: CALCIUM 8.5 mg/dl (8.4-10.2); CREATININE 9.86 mg/dl (0.61-1.24); MAGNESIUM 2.2 mg/dl (1.7-2.5); PHOSPHORUS 4.9 mg/dl (2.5-4.9); POTASSIUM 4.4 mmol/L (3.5-5.1)
--- NOTE | 2017-04-08 07:13 | RADRPT ---
PROCEDURE: XR Chest. CLINICAL INDICATION: Pneumonia, CHF. TECHNIQUE: Single frontal view of the chest was obtained. COMPARISON: 04/07/2017. FINDINGS: Endotracheal tube, enteric tube, and left cardiac device is stable in position. The cardiomediastinal silhouette demonstrates enlargement of the cardiac silhouette. No significant change in pulmonary edema. There is a small left pleural effusion with increasing lef t basilar opacity. No definite pneumothorax. No acute osseous abnormality. IMPRESSION: 1. Cardiomegaly with no significant change in pulmonary edema. Small left pleural effusion with incr easing left basilar opacity, which may represent atelectasis. 2. Stable support lines and tubes. RPTAT: AAEE Herlinda Campa Physician Date Time Electronically viewed and signed by Herlinda Campa Physician on 04/08/2017 07:12 PH/
[2017-04-08 07:35] LABS: AADO2 Arterial 200.6 mmHg (7.0-24.0); Allen Test ACCEPTAB; Arterial Base Excess -2.8 mmol/L (-3.0-3); Arterial COHb 0.1 % (0.0-3.0); Arterial Fraction of Oxyhgb 97.3 % (93.0-99.0); Arterial HCO3 21.1 mmol/L (22.0-26.0); Arterial MetHb 0.3 % (0.0-1.5); Arterial Total Hemglobin 9.2 g/dl (12.0-18.0); MODE VENT - AC
[2017-04-08] MEDS: LEVETIRACETAM IV 1,000 MG in DEXTROSE 5% 100 ML IV SCH ×2 (09:00→21:32)
[2017-04-08] MEDS: SEVELAMER 800 MG TAB PO SCH ×2 (09:02→11:30)
[2017-04-08] MEDS: LORATADINE 10 MG TAB PO SCH (09:02)
[2017-04-08] MEDS: ASPIRIN 81 MG TAB PO SCH (09:02)
[2017-04-08] MEDS: CLOPIDOGREL 75 MG TAB PO SCH (09:03)
[2017-04-08] MEDS: FOLIC ACID 1 MG TAB PO SCH (09:03)
[2017-04-08] MEDS: PANTOPRAZOLE (EC) 40 MG TAB PO SCH (09:03)
[2017-04-08] MEDS: ESCITALOPRAM 10 MG TAB PO SCH (09:03)
[2017-04-08] MEDS: LACTOBACILLUS RHAMNOSUS CAP PO SCH ×3 (09:03→21:32)
[2017-04-08] MEDS: FERROUS SULFATE (EC) 325 MG TAB PO SCH (09:03)
--- NOTE | 2017-04-08 09:07 | CONS ---
Date/Time of Note Date/Time of Note DATE: 04/08/17 TIME: 09:04 Consult Date/Type/Reason Admit Date/Time Apr 06, 2017 at 10:58 Initial Consult Date 04/07/17 Type of Consultation: cardiology Ordering Provider: LACY RAMÍREZ NP Subjective cardiology follow up note: S: D/ W staff and rhythm was reviewed pt remains in NSR he remains intubated and nonresponsive in ICU BP was elevated last night and improved now pt is nonverbal O: General: s/p intubation on vent HEENT: [place]/AT. pupils are round. NECK: NO JVD. no stridor. CV: RRR. systolic murmur; no gallop or rubs. PULM: no wheezing or rhonchi. GI: SOFT, NT, ND, no rebound or guarding Extremity: trace B/L LE edema. no clubbing. neuro: opens his eyes only Psych: calm and pleasant rectal: deferred echo reviewed personally: 1. Normal left ventricular cavity size. Mild concentric left ventricular hypertrophy. Mild global left ventricular systolic dysfunction. Ejection fraction is visually estimated at 45 %. Tissue Doppler/Mitral Doppler indices are consistent with impaired relaxation (Stage I diastolic dysfunction). 2. Normal appearance and function of the mitral valve with trace physiologic regurgitation. 3. Normal appearance of the aortic valve. No significant aortic stenosis or insufficiency. 4. Normal appearance of the tricuspid valve. Estimated peak PA systolic pressure 26 mmHg. There is trace tricuspid regurgitation. 5. Dilated IVC without respiratory collapse, however, patient on ventilator. 6. Moderate pericardial effusion. Objective Vital Signs Date Time Temp Pulse Resp B/P Pulse Ox O2 Delivery O2 Flow Rate FiO2 04/08/17 08:29 100 40 04/08/17 07:31 84 16 04/08/17 02:00 134/99 Mechanical Ventilator 04/08/17 00:00 99.0 04/07/17 08:00 2.0 Intake and Output 04/07/17 04/07/17 04/08/17 15:00 23:00 07:00 Intake Total 110 ml Balance 110 ml Results/Medications Result Diagram: 04/08/17 0500 04/08/17 0500 Results 24 hrs Laboratory Tests Test 04/07/17 10:19 04/07/17 21:53 04/08/17 00:28 04/08/17 04:53 Creatine Kinase < 20 L Creatine Kinase Index Creatinine Kinase MB (Mass) 0.81 Troponin I 0.038 Free Thyroxine 1.21 Bedside Glucose 241 H 259 H 202 Test 04/08/17 05:00 04/08/17 07:00 White Blood Count 7.6 Red Blood Count 2.56 L Hemoglobin 8.1 L Hematocrit 26.3 L Mean Corpuscular Volume 102.7 H Mean Corpuscular Hemoglobin 31.6 Mean Corpuscular Hemoglobin Concent 30.8 L Red Cell Distribution Width 22.5 H Platelet Count 178 Mean Platelet Volume 11.5 H Neutrophils % 76.0 Lymphocytes % 13.2 L Monocytes % 9.2 Eosinophils % 0.8 Basophils % 0.1 Nucleated Red Blood Cells % 0.0 Neutrophils # 5.8 Lymphocytes # 1.0 Monocytes # 0.7 Eosinophils # 0.1 Basophils # 0.0 Nucleated Red Blood Cells # 0.0 Sodium Level 138 Potassium Level 4.4 Chloride Level 100 Carbon Dioxide Level 25 Anion Gap 17 H Blood Urea Nitrogen 41 #H Creatinine 9.86 H Glucose Level 195 Calcium Level 8.5 Phosphorus Level 4.9 Magnesium Level 2.2 Blood Gas Specimen Source Blood arterial Arterial Blood Date Drawn 04/08/2017 7:20:46 AM Arterial Blood pH (Temp corrected) 7.427 Arterial Blood pCO2 (Temp correct) 32.7 L Arterial Blood pO2 (Temp corrected) 119.1 H Arterial Blood HCO3 21.1 L Arterial Blood Base Excess -2.8 Arterial Blood Oxygen Saturation 97.7 Steve Test ACCEPTAB Arterial Blood Gas Puncture Site Right Radial Arterial Blood Carboxyhemoglobin 0.1 Arterial Blood Methemoglobin 0.3 Blood Gas A-a O2 Differential 200.6 H Oxyhemoglobin Percent 97.3 Total Hemoglobin 9.2 L Blood Gas Temperature 37.0 Blood Gas Respiration Rate 16.0 Blood Gas Actual Respiration Rate 16 Blood Gas Modality VENT - AC FiO2 50.0 Blood Gas Tidal Volume 500.0 Blood Gas Low PEEP Setting 5.0 Blood Gas Notified Whom JLD Blood Gas Notified Time 04/08/2017 7:35:24 AM Medications Current Medications Aspirin (Aspirin) 81 mg DAILY PO Last administered on 04/07/17 12:03; Admin Dose 81 MG; Start 04/07/17 at 09:00 Clopidogrel Bisulfate (plaVIX) 75 mg DAILY PO Last administered on 04/07/17 12 :04; Admin Dose 75 MG; Start 04/07/17 at 09:00 Acetaminophen (Tylenol Tab) 650 mg Q6H PRN PO PAIN AND OR ELEVATED TEMP; Start 04/06/17 at 14:00 Escitalopram Oxalate (Lexapro) 20 mg DAILY PO Last administered on 04/07/17 12 :04; Admin Dose 20 MG; Start 04/07/17 at 09:00 Ferrous Sulfate (Ferrous Sulfate (Ec)) 325 mg DAILY PO Last administered on 12:03; Admin Dose 325 MG; Start 04/07/17 at 09:00 Folic Acid (Folic Acid) 1 mg DAILY PO Last administered on 04/07/17 12:04; Admin Dose 1 MG; Start 04/07/17 at 09:00 Loratadine (Claritin) 10 mg DAILY PO ; Start 04/07/17 at 09:00 Midodrine (Proamatine) 5 mg TID PO ; Start 04/06/17 at 21:00; Status Future Hold Pantoprazole (Protonix Tab) 40 mg DAILY PO Last administered on 04/07/17 12:04 ; Admin Dose 40 MG; Start 04/07/17 at 09:00 Lactobacillus Acidophilus/ Rhamnosus (Culturelle) 1 cap TID PO Last administered on 04/07/17 21:35; Admin Dose 1 CAP; Start 04/06/17 at 21:00 Ondansetron HCl (Zofran Inj) 4 mg Q6H PRN IV NAUSEA AND/OR VOMITING; Start 04/06/17 at 14:30 Hydralazine HCl (Apresoline) 10 mg Q6H PRN IV sbp>160 Last administered on 04/07 16:37; Admin Dose 10 MG; Start 04/06/17 at 14:30 Lorazepam 1 mg 1 mg Q2H PRN IV seizure Last administered on 04/07/17 16:44; Admin Dose 1 MG; Start 04/07/17 at 10:30 Nicardipine HCl 25 mg/Sodium Chloride 260 ml @ 52 mls/hr TITRATE IV ; Start at 16:00 Levetiracetam/ Dextrose (Keppra Iv/D5W) 110 ml @ 400 mls/hr Q12 IV Last administered on 04/07/17 21:35; Admin Dose 400 MLS/HR; Start 04/07/17 at 15:44 Lacosamide (Vimpat Liq) 150 mg BID PO Last administered on 04/07/17 22:00; Admin Dose 150 MG; Start 04/07/17 at 22:00 Insulin Aspart (Novolog Insulin Pen) NOVOLOG *MODERATE* ALGORI... Q4 SC Last administered on 04/08/17 04:58; Admin Dose 4 UNIT; Start 04/08/17 at 01:00 Miscellaneous Information 1 ea NOTE XX ; Start 04/07/17 at 22:00 Glucose (Glutose) 15 gm Q15M PRN PO DECREASED GLUCOSE; Start 04/07/17 at 22:00 Glucose (Glutose) 22.5 gm Q15M PRN PO DECREASED GLUCOSE; Start 04/07/17 at 22: 00 Dextrose (D50w Syringe) 25 ml Q15M PRN IV DECREASED GLUCOSE; Start 04/07/17 at 22:00 Dextrose (D50w Syringe) 50 ml Q15M PRN IV DECREASED GLUCOSE; Start 04/07/17 at 22:00 Glucagon (Glucagen) 1 mg Q15M PRN IM DECREASED GLUCOSE; Start 04/07/17 at 22:00 Glucose (Glutose) 15 gm Q15M PRN BUCCAL DECREASED GLUCOSE; Start 04/07/17 at 22 :00 Insulin Glargine (Lantus) 10 unit DAILY@20 SC Last administered on 04/08/17 02 :27; Admin Dose 10 UNIT; Start 04/08/17 at 01:00 Assessment/Plan Chief Complaint/Hosp Course 1. cardiopulm arrest: I doubt it is related to cardiac arrest. probably due to neurological changes. 2. hypoxemic resp failure: sp intubation and on vent 3. Moderate-sized pericardial effusion. Probably related to his renal failure. At this point I do not see signs of tamponade. His blood pressure has been also elevated to normal and not hypotensive. recommend aggressive HD for now will repeat echo in 2 days. 4. End-stage renal disease on dialysis Hemodialysis is being managed as per renal team. 5. Hypertension 6. altered level of consciousness and encephalopathy. will defer to neuro and IM 7. anemia 8/ hx seizure; defer to neurology Recommendations: Continue with the vent support. Respiratory care will be continued on managed as per pulmonary team. Follow-up with neurology recommendation regarding seizure and treatment. Hemodialysis to be done to manage as per renal team. Continue with ICU care. Cardiac enzymes were negative. We will monitor the patient. Thank you for this referral. I will continue to follow along with you. BIANKA KENT MD [facility] Problems: BIANKA KENT MD Apr 08, 2017 09:07
[2017-04-08] MEDS: LACOSAMIDE (100 MG/10 ML PO SYR) PO SCH ×2 (10:00→12:12)
--- NOTE | 2017-04-08 10:53 | CONS ---
Date/Time of Note Date/Time of Note DATE: 04/08/17 TIME: 10:50 Assessment/Plan Assessment/Plan Additional Assessment/Plan Chest x-ray was reviewed from today which is showing endotracheal tube at an adequate level. There is cardiomegaly with pulmonary edema. Pacemaker is seen in the chest wall. Ventilator setting; AC of 16, tidal volume 500, PEEP of 5, 40% FiO2. Assessment and recommendations; 1. Patient admitted with what appears to be seizure activity with respiratory compromise requiring intubation. 2. Underlying CHF and cardiomyopathy with pulmonary edema. 3. Chronic renal failure, on hemodialysis. 4. Anemia and thrombocytopenia. 5. Persistently poor mental status. Continue current supportive care. Weaning from ventilator with depend upon adequate mental status recovery. 35 minutes of critical care time was spent evaluating the patient. Consultation Date/Type/Reason Admit Date/Time Apr 06, 2017 at 10:58 Initial Consult Date 04/07/17 Type of Consultation: Pulmonary/critical care Referring Provider: LACY RAMÍREZ NP 24 HR Interval Summary Free Text/Dictation Patient's condition remains critical. Patient has been off sedation since yesterday morning and is non-arousable. Patient however has remained hemodynamically stable. No overt seizure activity noted. General exam; young male, orally intubated, awake but unresponsive. Currently in no distress. Exam/Review of Systems Vital Signs Vitals Vital Signs Date Time Temp Pulse Resp B/P Pulse Ox O2 Delivery O2 Flow Rate FiO2 04/08/17 10:30 88 04/08/17 09:30 16 102/71 97 Mechanical Ventilator 04/08/17 09:22 30 04/08/17 08:00 98.7 04/07/17 08:00 2.0 Intake and Output 04/07/17 04/07/17 04/08/17 15:00 23:00 07:00 Intake Total 110 ml Balance 110 ml Exam HEENT exam; supple neck, positive JVD. No lymphadenopathy. Midline trachea. No thyromegaly. Orally intubated. Patient is edentulous. Pupils are small bilaterally. Chest exam; diminished but clear breath sounds. S1-S2 audible, no murmurs. Regular rhythm. Abdomen exam; soft, no organomegaly. Bowel sounds are sluggish. Extremity exam; trace edema. INCIDENT COMMANDER exam; patient remains unresponsive. Results Result Diagram: 04/08/17 0500 04/08/17 0500 Results 24 hrs Laboratory Tests Test 04/07/17 21:53 04/08/17 00:28 04/08/17 04:53 04/08/17 05:00 Bedside Glucose 241 H 259 H 202 White Blood Count 7.6 Red Blood Count 2.56 L Hemoglobin 8.1 L Hematocrit 26.3 L Mean Corpuscular Volume 102.7 H Mean Corpuscular Hemoglobin 31.6 Mean Corpuscular Hemoglobin Concent 30.8 L Red Cell Distribution Width 22.5 H Platelet Count 178 Mean Platelet Volume 11.5 H Neutrophils % 76.0 Lymphocytes % 13.2 L Monocytes % 9.2 Eosinophils % 0.8 Basophils % 0.1 Nucleated Red Blood Cells % 0.0 Neutrophils # 5.8 Lymphocytes # 1.0 Monocytes # 0.7 Eosinophils # 0.1 Basophils # 0.0 Nucleated Red Blood Cells # 0.0 Sodium Level 138 Potassium Level 4.4 Chloride Level 100 Carbon Dioxide Level 25 Anion Gap 17 H Blood Urea Nitrogen 41 #H Creatinine 9.86 H Glucose Level 195 Calcium Level 8.5 Phosphorus Level 4.9 Magnesium Level 2.2 Test 04/08/17 07:00 04/08/17 09:06 Blood Gas Specimen Source Blood arterial Arterial Blood Date Drawn 04/08/2017 7:20:46 AM Arterial Blood pH (Temp corrected) 7.427 Arterial Blood pCO2 (Temp correct) 32.7 L Arterial Blood pO2 (Temp corrected) 119.1 H Arterial Blood HCO3 21.1 L Arterial Blood Base Excess -2.8 Arterial Blood Oxygen Saturation 97.7 Steve Test ACCEPTAB Arterial Blood Gas Puncture Site Right Radial Arterial Blood Carboxyhemoglobin 0.1 Arterial Blood Methemoglobin 0.3 Blood Gas A-a O2 Differential 200.6 H Oxyhemoglobin Percent 97.3 Total Hemoglobin 9.2 L Blood Gas Temperature 37.0 Blood Gas Respiration Rate 16.0 Blood Gas Actual Respiration Rate 16 Blood Gas Modality VENT - AC FiO2 50.0 Blood Gas Tidal Volume 500.0 Blood Gas Low PEEP Setting 5.0 Blood Gas Notified Whom JLD Blood Gas Notified Time 04/08/2017 7:35:24 AM Bedside Glucose 150 Medications Medications Current Medications Aspirin (Aspirin) 81 mg DAILY PO Last administered on 04/08/17t 09:02; Admin Dose 81 MG; Start 04/07/17 at 09:00 Clopidogrel Bisulfate (plaVIX) 75 mg DAILY PO Last administered on 04/08/17 09 :03; Admin Dose 75 MG; Start 04/07/17 at 09:00 Acetaminophen (Tylenol Tab) 650 mg Q6H PRN PO PAIN AND OR ELEVATED TEMP; Start 04/06/17 at 14:00 Escitalopram Oxalate (Lexapro) 20 mg DAILY PO Last administered on 04/08/17 09 :03; Admin Dose 20 MG; Start 04/07/17 at 09:00 Ferrous Sulfate (Ferrous Sulfate (Ec)) 325 mg DAILY PO Last administered on 09:03; Admin Dose 325 MG; Start 04/07/17 at 09:00 Folic Acid (Folic Acid) 1 mg DAILY PO Last administered on 04/08/17 09:03; Admin Dose 1 MG; Start 04/07/17 at 09:00 Loratadine (Claritin) 10 mg DAILY PO Last administered on 04/08/17 09:02; Admin Dose 10 MG; Start 04/07/17 at 09:00 Midodrine (Proamatine) 5 mg TID PO ; Start 04/06/17 at 21:00; Status Future Hold Pantoprazole (Protonix Tab) 40 mg DAILY PO Last administered on 04/08/17 09:03 ; Admin Dose 40 MG; Start 04/07/17 at 09:00 Lactobacillus Acidophilus/ Rhamnosus (Culturelle) 1 cap TID PO Last administered on 04/08/17 09:03; Admin Dose 1 CAP; Start 04/06/17 at 21:00 Ondansetron HCl (Zofran Inj) 4 mg Q6H PRN IV NAUSEA AND/OR VOMITING; Start 04/06/17 at 14:30 Hydralazine HCl (Apresoline) 10 mg Q6H PRN IV sbp>160 Last administered on 04/07 16:37; Admin Dose 10 MG; Start 04/06/17 at 14:30 Lorazepam 1 mg 1 mg Q2H PRN IV seizure Last administered on 04/07/17 16:44; Admin Dose 1 MG; Start 04/07/17 at 10:30 Nicardipine HCl 25 mg/Sodium Chloride 260 ml @ 52 mls/hr TITRATE IV ; Start at 16:00 Levetiracetam/ Dextrose (Keppra Iv/D5W) 110 ml @ 400 mls/hr Q12 IV Last administered on 04/08/17 09:00; Admin Dose 400 MLS/HR; Start 04/07/17 at 15:44 Lacosamide (Vimpat Liq) 150 mg BID PO Last administered on 04/07/17 22:00; Admin Dose 150 MG; Start 04/07/17 at 22:00 Insulin Aspart (Novolog Insulin Pen) NOVOLOG *MODERATE* ALGORI... Q4 SC Last administered on 04/08/17 09:08; Admin Dose 1 UNIT; Start 04/08/17 at 01:00 Miscellaneous Information 1 ea NOTE XX ; Start 04/07/17 at 22:00 Glucose (Glutose) 15 gm Q15M PRN PO DECREASED GLUCOSE; Start 04/07/17 at 22:00 Glucose (Glutose) 22.5 gm Q15M PRN PO DECREASED GLUCOSE; Start 04/07/17 at 22: 00 Dextrose (D50w Syringe) 25 ml Q15M PRN IV DECREASED GLUCOSE; Start 04/07/17 at 22:00 Dextrose (D50w Syringe) 50 ml Q15M PRN IV DECREASED GLUCOSE; Start 04/07/17 at 22:00 Glucagon (Glucagen) 1 mg Q15M PRN IM DECREASED GLUCOSE; Start 04/07/17 at 22:00 Glucose (Glutose) 15 gm Q15M PRN BUCCAL DECREASED GLUCOSE; Start 04/07/17 at 22 :00 Insulin Glargine (Lantus) 10 unit DAILY@20 SC Last administered on 04/08/17 02 :27; Admin Dose 10 UNIT; Start 04/08/17 at 01:00 BLAINE LOYA Apr 08, 2017 10:52
--- NOTE | 2017-04-08 13:56 | RADRPT ---
PROCEDURE: US Abdomen. CLINICAL INDICATION: abdominal pain , cirrhosis TECHNIQUE: Multiple real-time images were acquired of the patient's right upper quadrant abdomen a nd retroperitoneum utilizing a high resolution transducer. COMPARISON: None FINDINGS: The liver demonstrates normal echogenicity. The liver is normal in size and no focal solid lesions are seen. The liver measures 15.6 cm in length. The portal vein is patent with normal direction of f low. No intrahepatic biliary dilatation is seen. The gallbladder is not visualized. The common bile duct measures 4.5 mm in maximal dimension. The visualized portions of the pancreas are unremarkable. The tail of the pancreas is not seen. No free fluid is identified. The right kidney is small and echogenic. The right kidney measures 6.5 cm in long dimension. There is no evidence of hydronephrosis. There are no kidney stones. RPTAT: AA IMPRESSION: Normal appearance of the liver. Gallbladder not visualized. This may be due to prior cholecystectomy. Small echogenic right kidney with no evidence of hydronephrosis. .Jarrett Feldman MD, Date Time Electronically viewed and signed by .Jarrett Feldman MD, MD on 04/08/2017 13:55 .S/
--- NOTE | 2017-04-08 16:24 | PN ---
Date/Time of Note Date/Time of Note DATE: 04/08/17 TIME: 16:21 Assessment/Plan VTE Prophylaxis VTE Prophylaxis Intervention: SCD's Lines/Catheters Urinary Cath still in place: No Assessment/Plan Chief Complaint/Hosp Course 1.Acute encephalopathy with Coma requiring CPR .GCS=3. Suspect possible seizure etiology. Differentials considered and is being worked up are possible cardiac etiologies/arrhythmias (provided patient with pacemaker) , CVA , and or Toxic Metabolic Encephalopathy (TME). Status: Acute -Unable to do MRI due to pacemaker.EEG nonconclusive.CT brain /CTA head/neck unremarkable.Will also obtain a toxicology screen. -CC care bundle with HOB>30 degree, stress ulcer/DVT prophylaxis. -Glycemic control with targeted BS 140-180 mg/dl and avoid hypoglycemic episodes. -Seizure precautions--Add IV ATIVAN PRN seizure- Defer neurology for further seizure mgmt. -Aspirin 81, Plavix 75 mg daily for stroke treatment per neuro recs. -PT/OT/ST eval and treatment once patient is medically stable. -Neurochecks every hour. -Follow-up on repeat EEG -Ammonia is normal, ultrasound abdomen shows no cirrhosis 2.Hypoxemic respiratory failure requiring intubation/mechanical ventilation Status: Acute -AUBREY Neb, Vent management per pulmonary colleagues. -ABG/Chest Xray f/u per pulmonary 3.Questionable PEA with #1. Currently in NSR w/RBBB. Patient w/pacemaker. Status: Acute -Cardiology consult-Consider pacemaker interrogation. -Echo shows an EF of 45% with stage I diastolic heart failure 4. Seizure disorders. Status: Chronic/Recurrent -Patient is on Keppra and Vimpat-Defer neuro for further management. -Seizure precautions/Repeat EEG -F/u cultures to rule out infectious etiology of seizure disorder. 5. ESRD, on hemodialysis Thursday. ACCESS: left upper arm AV shunt-functional. Status: chronic. - Hemodialysis per nephrology colleagues. -Renal dose medications. Monitor renal function closely. 6.HTN- -Hydralazine PRN SBP.160 -Monitor for now and avoidtoo tight control-Defer cards/nephro for further mgmt. 7. Anemia of ESRD. Status: Chronic. -Monitor H&H closely. -Defer Epogen to nephrology if indicated. 8.Prediabetes. A1c 6.2. Status: Chronic -Monitor for now. Sliding scale insulin in-house. 9.Status post Pacemaker placement 10. Psychiatric disorders. Status: Chronic -Continue home medications. Prophylaxis: SCDs/PPIs. Patient with elevated PT/PTT. Problems: Subjective 24 Hr Interval Summary Subjective hx not possible: pt non-verbal Exam/Review of Systems Vital Signs Vitals Vital Signs Date Time Temp Pulse Resp B/P Pulse Ox O2 Delivery O2 Flow Rate FiO2 04/08/17 16:00 97.8 86 18 124/67 99 Mechanical Ventilator 04/08/17 13:52 30 04/07/17 08:00 2.0 Intake and Output 04/07/17 04/07/17 04/08/17 15:00 23:00 07:00 Intake Total 110 ml Balance 110 ml Exam Constitutional: non-verbal ENMT: intubated Respiratory: clear to auscultation Cardiovascular: regular rate and rhythm Gastrointestinal: soft, No distended Musculoskeletal: nl extremities to inspection Results Result Diagram: 04/08/17 0500 04/08/17 0500 Results 24 hrs Laboratory Tests Test 04/07/17 21:53 04/08/17 00:28 04/08/17 04:53 04/08/17 05:00 Bedside Glucose 241 H 259 H 202 White Blood Count 7.6 Red Blood Count 2.56 L Hemoglobin 8.1 L Hematocrit 26.3 L Mean Corpuscular Volume 102.7 H Mean Corpuscular Hemoglobin 31.6 Mean Corpuscular Hemoglobin Concent 30.8 L Red Cell Distribution Width 22.5 H Platelet Count 178 Mean Platelet Volume 11.5 H Neutrophils % 76.0 Lymphocytes % 13.2 L Monocytes % 9.2 Eosinophils % 0.8 Basophils % 0.1 Nucleated Red Blood Cells % 0.0 Neutrophils # 5.8 Lymphocytes # 1.0 Monocytes # 0.7 Eosinophils # 0.1 Basophils # 0.0 Nucleated Red Blood Cells # 0.0 Sodium Level 138 Potassium Level 4.4 Chloride Level 100 Carbon Dioxide Level 25 Anion Gap 17 H Blood Urea Nitrogen 41 #H Creatinine 9.86 H Glucose Level 195 Calcium Level 8.5 Phosphorus Level 4.9 Magnesium Level 2.2 Test 04/08/17 07:00 04/08/17 09:06 04/08/17 12:16 04/08/17 13:53 Blood Gas Specimen Source Blood arterial Arterial Blood Date Drawn 04/08/2017 7:20:46 AM Arterial Blood pH (Temp corrected) 7.427 Arterial Blood pCO2 (Temp correct) 32.7 L Arterial Blood pO2 (Temp corrected) 119.1 H Arterial Blood HCO3 21.1 L Arterial Blood Base Excess -2.8 Arterial Blood Oxygen Saturation 97.7 Steve Test ACCEPTAB Arterial Blood Gas Puncture Site Right Radial Arterial Blood Carboxyhemoglobin 0.1 Arterial Blood Methemoglobin 0.3 Blood Gas A-a O2 Differential 200.6 H Oxyhemoglobin Percent 97.3 Total Hemoglobin 9.2 L Blood Gas Temperature 37.0 Blood Gas Respiration Rate 16.0 Blood Gas Actual Respiration Rate 16 Blood Gas Modality VENT - AC FiO2 50.0 Blood Gas Tidal Volume 500.0 Blood Gas Low PEEP Setting 5.0 Blood Gas Notified Whom JLD Blood Gas Notified Time 04/08/2017 7:35:24 AM Bedside Glucose 150 141 Ammonia < 9 L Medications Medications Current Medications Aspirin (Aspirin) 81 mg DAILY PO Last administered on 04/08/17 09:02; Admin Dose 81 MG; Start 04/07/17 at 09:00 Clopidogrel Bisulfate (plaVIX) 75 mg DAILY PO Last administered on 04/08/17 09 :03; Admin Dose 75 MG; Start 04/07/17 at 09:00 Acetaminophen (Tylenol Tab) 650 mg Q6H PRN PO PAIN AND OR ELEVATED TEMP; Start 04/06/17 at 14:00 Escitalopram Oxalate (Lexapro) 20 mg DAILY PO Last administered on 04/08/17 09 :03; Admin Dose 20 MG; Start 04/07/17 at 09:00 Ferrous Sulfate (Ferrous Sulfate (Ec)) 325 mg DAILY PO Last administered on 09:03; Admin Dose 325 MG; Start 04/07/17 at 09:00 Folic Acid (Folic Acid) 1 mg DAILY PO Last administered on 04/08/17 09:03; Admin Dose 1 MG; Start 04/07/17 at 09:00 Loratadine (Claritin) 10 mg DAILY PO Last administered on 04/08/17 09:02; Admin Dose 10 MG; Start 04/07/17 at 09:00 Midodrine (Proamatine) 5 mg TID PO ; Start 04/06/17 at 21:00; Status Future Hold Pantoprazole (Protonix Tab) 40 mg DAILY PO Last administered on 04/08/17 09:03 ; Admin Dose 40 MG; Start 04/07/17 at 09:00 Lactobacillus Acidophilus/ Rhamnosus (Culturelle) 1 cap TID PO Last administered on 04/08/17 14:00; Admin Dose 1 CAP; Start 04/06/17 at 21:00 Ondansetron HCl (Zofran Inj) 4 mg Q6H PRN IV NAUSEA AND/OR VOMITING; Start 04/06/17 at 14:30 Hydralazine HCl (Apresoline) 10 mg Q6H PRN IV sbp>160 Last administered on 04/07 16:37; Admin Dose 10 MG; Start 04/06/17 at 14:30 Lorazepam 1 mg 1 mg Q2H PRN IV seizure Last administered on 04/07/17 16:44; Admin Dose 1 MG; Start 04/07/17 at 10:30 Nicardipine HCl 25 mg/Sodium Chloride 260 ml @ 52 mls/hr TITRATE IV ; Start at 16:00 Levetiracetam/ Dextrose (Keppra Iv/D5W) 110 ml @ 400 mls/hr Q12 IV Last administered on 04/08/17 09:00; Admin Dose 400 MLS/HR; Start 04/07/17 at 15:44 Lacosamide (Vimpat Liq) 150 mg BID PO Last administered on 04/08/17 12:12; Admin Dose 150 MG; Start 04/07/17 at 22:00 Insulin Aspart (Novolog Insulin Pen) NOVOLOG *MODERATE* ALGORI... Q4 SC Last administered on 04/08/17 12:20; Admin Dose 1 UNIT; Start 04/08/17 at 01:00 Miscellaneous Information 1 ea NOTE XX ; Start 04/07/17 at 22:00 Glucose (Glutose) 15 gm Q15M PRN PO DECREASED GLUCOSE; Start 04/07/17 at 22:00 Glucose (Glutose) 22.5 gm Q15M PRN PO DECREASED GLUCOSE; Start 04/07/17 at 22: 00 Dextrose (D50w Syringe) 25 ml Q15M PRN IV DECREASED GLUCOSE; Start 04/07/17 at 22:00 Dextrose (D50w Syringe) 50 ml Q15M PRN IV DECREASED GLUCOSE; Start 04/07/17 at 22:00 Glucagon (Glucagen) 1 mg Q15M PRN IM DECREASED GLUCOSE; Start 04/07/17 at 22:00 Glucose (Glutose) 15 gm Q15M PRN BUCCAL DECREASED GLUCOSE; Start 04/07/17 at 22 :00 Insulin Glargine (Lantus) 10 unit DAILY@20 SC Last administered on 04/08/17t 02 :27; Admin Dose 10 UNIT; Start 04/08/17 at 01:00 Collagenase (Santyl) 1 applic DAILY TOP ; Start 04/09/17 at 09:00 NADIA BRINK Apr 08, 2017 16:24
[2017-04-08] MEDS: SEVELAMER CARBONATE 0.8 GM PKT GTB SCH (18:25)
[2017-04-08] MEDS ORDERED: INSULIN GLARGINE [LANtus] 3 ML PEN SC SCH (20:00)
--- NOTE | 2017-04-08 20:29 | CONS ---
Date/Time of Note Date/Time of Note DATE: 04/08/17 TIME: 20:28 Assessment/Plan Assessment/Plan Chief Complaint/Hosp Course - ESRD on Hemodialysis TTS @ [facility] - Recent Hospital admit to [place] with PEA - Recent Hx of Pacemaker - History of Lupus - Hypertension - Anemia - History of Seizures - CAD / CHF - Resp. Insuff on Vent. - Sepsis / Shock PLAN: Hemodynamic support Resp. Support Bedside dialysis Pulm + Neuro + Cardio following Problems: Consultation Date/Type/Reason Admit Date/Time Apr 06, 2017 at 10:58 Initial Consult Date 04/07/17 Type of Consultation: NEPHROLOGY Reason for Consultation ESRD Referring Provider: LACY RAMÍREZ NP 24 HR Interval Summary Subjective hx not possible: pt non-verbal, pt critical status Exam/Review of Systems Vital Signs Vitals Vital Signs Date Time Temp Pulse Resp B/P Pulse Ox O2 Delivery O2 Flow Rate FiO2 04/08/17 18:30 86 16 131/59 97 Mechanical Ventilator 04/08/17 16:50 30 04/08/17 16:00 97.8 04/07/17 08:00 2.0 Intake and Output 04/07/17 04/07/17 04/08/17 15:00 23:00 07:00 Intake Total 110 ml Balance 110 ml Exam Constitutional: non-verbal Respiratory: crackles/rales Cardiovascular: edema, systolic murmur Gastrointestinal: soft Results Result Diagram: 04/08/17 0500 04/08/17 0500 Results 24 hrs Laboratory Tests Test 04/07/17 21:53 04/08/17 00:28 04/08/17 04:53 04/08/17 05:00 Bedside Glucose 241 H 259 H 202 White Blood Count 7.6 Red Blood Count 2.56 L Hemoglobin 8.1 L Hematocrit 26.3 L Mean Corpuscular Volume 102.7 H Mean Corpuscular Hemoglobin 31.6 Mean Corpuscular Hemoglobin Concent 30.8 L Red Cell Distribution Width 22.5 H Platelet Count 178 Mean Platelet Volume 11.5 H Neutrophils % 76.0 Lymphocytes % 13.2 L Monocytes % 9.2 Eosinophils % 0.8 Basophils % 0.1 Nucleated Red Blood Cells % 0.0 Neutrophils # 5.8 Lymphocytes # 1.0 Monocytes # 0.7 Eosinophils # 0.1 Basophils # 0.0 Nucleated Red Blood Cells # 0.0 Sodium Level 138 Potassium Level 4.4 Chloride Level 100 Carbon Dioxide Level 25 Anion Gap 17 H Blood Urea Nitrogen 41 #H Creatinine 9.86 H Glucose Level 195 Calcium Level 8.5 Phosphorus Level 4.9 Magnesium Level 2.2 Test 04/08/17 07:00 04/08/17 09:06 04/08/17 12:16 04/08/17 13:53 Blood Gas Specimen Source Blood arterial Arterial Blood Date Drawn 04/08/2017 7:20:46 AM Arterial Blood pH (Temp corrected) 7.427 Arterial Blood pCO2 (Temp correct) 32.7 L Arterial Blood pO2 (Temp corrected) 119.1 H Arterial Blood HCO3 21.1 L Arterial Blood Base Excess -2.8 Arterial Blood Oxygen Saturation 97.7 Steve Test ACCEPTAB Arterial Blood Gas Puncture Site Right Radial Arterial Blood Carboxyhemoglobin 0.1 Arterial Blood Methemoglobin 0.3 Blood Gas A-a O2 Differential 200.6 H Oxyhemoglobin Percent 97.3 Total Hemoglobin 9.2 L Blood Gas Temperature 37.0 Blood Gas Respiration Rate 16.0 Blood Gas Actual Respiration Rate 16 Blood Gas Modality VENT - AC FiO2 50.0 Blood Gas Tidal Volume 500.0 Blood Gas Low PEEP Setting 5.0 Blood Gas Notified Whom JLD Blood Gas Notified Time 04/08/2017 7:35:24 AM Bedside Glucose 150 141 Ammonia < 9 L Test 04/08/17 18:22 Bedside Glucose 178 Medications Medications Current Medications Aspirin (Aspirin) 81 mg DAILY PO Last administered on 04/08/17 09:02; Admin Dose 81 MG; Start 04/07/17 at 09:00 Clopidogrel Bisulfate (plaVIX) 75 mg DAILY PO Last administered on 04/08/17 09 :03; Admin Dose 75 MG; Start 04/07/17 at 09:00 Acetaminophen (Tylenol Tab) 650 mg Q6H PRN PO PAIN AND OR ELEVATED TEMP; Start 04/06/17 at 14:00 Escitalopram Oxalate (Lexapro) 20 mg DAILY PO Last administered on 04/08/17 09 :03; Admin Dose 20 MG; Start 04/07/17 at 09:00 Ferrous Sulfate (Ferrous Sulfate (Ec)) 325 mg DAILY PO Last administered on 09:03; Admin Dose 325 MG; Start 04/07/17 at 09:00 Folic Acid (Folic Acid) 1 mg DAILY PO Last administered on 04/08/17 09:03; Admin Dose 1 MG; Start 04/07/17 at 09:00 Loratadine (Claritin) 10 mg DAILY PO Last administered on 04/08/17 09:02; Admin Dose 10 MG; Start 04/07/17 at 09:00 Midodrine (Proamatine) 5 mg TID PO ; Start 04/06/17 at 21:00; Status Future Hold Pantoprazole (Protonix Tab) 40 mg DAILY PO Last administered on 04/08/17 09:03 ; Admin Dose 40 MG; Start 04/07/17 at 09:00 Lactobacillus Acidophilus/ Rhamnosus (Culturelle) 1 cap TID PO Last administered on 04/08/17 14:00; Admin Dose 1 CAP; Start 04/06/17 at 21:00 Ondansetron HCl (Zofran Inj) 4 mg Q6H PRN IV NAUSEA AND/OR VOMITING; Start 04/06/17 at 14:30 Hydralazine HCl (Apresoline) 10 mg Q6H PRN IV sbp>160 Last administered on 04/07 16:37; Admin Dose 10 MG; Start 04/06/17 at 14:30 Lorazepam 1 mg 1 mg Q2H PRN IV seizure Last administered on 04/07/17 16:44; Admin Dose 1 MG; Start 04/07/17 at 10:30 Nicardipine HCl 25 mg/Sodium Chloride 260 ml @ 52 mls/hr TITRATE IV ; Start at 16:00 Levetiracetam/ Dextrose (Keppra Iv/D5W) 110 ml @ 400 mls/hr Q12 IV Last administered on 04/08/17 09:00; Admin Dose 400 MLS/HR; Start 04/07/17 at 15:44 Lacosamide (Vimpat Liq) 150 mg BID PO Last administered on 04/08/17 12:12; Admin Dose 150 MG; Start 04/07/17 at 22:00 Insulin Aspart (Novolog Insulin Pen) NOVOLOG *MODERATE* ALGORI... Q4 SC Last administered on 04/08/17 18:24; Admin Dose 2 UNIT; Start 04/08/17 at 01:00 Miscellaneous Information 1 ea NOTE XX ; Start 04/07/17 at 22:00 Glucose (Glutose) 15 gm Q15M PRN PO DECREASED GLUCOSE; Start 04/07/17 at 22:00 Glucose (Glutose) 22.5 gm Q15M PRN PO DECREASED GLUCOSE; Start 04/07/17 at 22: 00 Dextrose (D50w Syringe) 25 ml Q15M PRN IV DECREASED GLUCOSE; Start 04/07/17 at 22:00 Dextrose (D50w Syringe) 50 ml Q15M PRN IV DECREASED GLUCOSE; Start 04/07/17 at 22:00 Glucagon (Glucagen) 1 mg Q15M PRN IM DECREASED GLUCOSE; Start 04/07/17 at 22:00 Glucose (Glutose) 15 gm Q15M PRN BUCCAL DECREASED GLUCOSE; Start 04/07/17 at 22 :00 Insulin Glargine (Lantus) 10 unit DAILY@20 SC Last administered on 04/08/17t 02 :27; Admin Dose 10 UNIT; Start 04/08/17 at 01:00 Collagenase (Santyl) 1 applic DAILY TOP ; Start 04/09/17 at 09:00 PARKER PARKER MD Apr 08, 2017 20:29
[2017-04-09] VITALS (41 sets, daily range): BP systolic 99–156; BP diastolic 34–65; PULSE 77–99; RESP 0–20
[2017-04-09] MEDS: INSULIN ASPART [NOVOLOG] 3 ML PEN SC SCH ×6 (01:00→20:10)
[2017-04-09] MEDS: IPRATROPIUM (HFA) 12.9 GM INHALER INH SCH ×4 (01:56→20:44)
[2017-04-09] MEDS: ALBUTEROL HFA 8 GM INHALER INH SCH ×4 (01:57→20:44)
[2017-04-09 05:12] LABS: BASOPHILS % 0.2 % (0.0-2.0); EOSINOPHILS # 0.1 10^3/ul (0.0-0.5); EOSINOPHILS % 0.8 % (0.0-7.0); HEMATOCRIT 25.9 % (42.0-52.0); LYMPHOCYTES # 1.2 10^3/ul (0.8-2.9); LYMPHOCYTES % 12.6 % (15.0-51.0); MEAN CORPUSCULAR HEMOGLOBIN 31.7 pg (29.0-33.0); MEAN CORPUSCULAR HGB CONC 30.9 g/dl (32.0-37.0); MEAN CORPUSCULAR VOLUME 102.8 fl (82.0-101.0); MEAN PLATELET VOLUME 11.6 fl (7.4-10.4); MONOCYTE # 0.7 10^3/ul (0.3-0.9); MONOCYTES % 7.7 % (0.0-11.0); NEUTROPHIL # 7.2 10^3/ul (1.6-7.5); NEUTROPHILS % 78.3 % (39.0-77.0); PLATELET COUNT 203 10^3/UL (140-415); RED BLOOD COUNT 2.52 10^6/ul (4.70-6.10); RED CELL DISTRIBUTION WIDTH 21.9 % (11.5-14.5); WHITE BLOOD COUNT 9.2 10^3/ul (4.8-10.8)
[2017-04-09 05:24] LABS: CALCIUM 8.3 mg/dl (8.4-10.2); CREATININE 8.68 mg/dl (0.61-1.24); POTASSIUM 4.3 mmol/L (3.5-5.1)
--- NOTE | 2017-04-09 09:03 | CONS ---
Date/Time of Note Date/Time of Note DATE: 04/09/17 TIME: 09:02 Consult Date/Type/Reason Admit Date/Time Apr 06, 2017 at 10:58 Initial Consult Date 04/07/17 Type of Consultation: NEPHROLOGY Ordering Provider: LACY RAMÍREZ NP Subjective cardiology follow up note: S: D/ W staff and rhythm was reviewed pt remains in NSR he remains intubated and nonresponsive in ICU BP HAS BEEN STABLE pt is nonverbal O: General: s/p intubation on vent HEENT: NC/AT. pupils are round. NECK: NO JVD. no stridor. CV: RRR. systolic murmur; no gallop or rubs. PULM: no wheezing or rhonchi. GI: SOFT, NT, ND, no rebound or guarding Extremity: trace B/L LE edema. no clubbing. neuro: does not respond Psych: calm rectal: deferred echo reviewed personally: 1. Normal left ventricular cavity size. Mild concentric left ventricular hypertrophy. Mild global left ventricular systolic dysfunction. Ejection fraction is visually estimated at 45 %. Tissue Doppler/Mitral Doppler indices are consistent with impaired relaxation (Stage I diastolic dysfunction). 2. Normal appearance and function of the mitral valve with trace physiologic regurgitation. 3. Normal appearance of the aortic valve. No significant aortic stenosis or insufficiency. 4. Normal appearance of the tricuspid valve. Estimated peak PA systolic pressure 26 mmHg. There is trace tricuspid regurgitation. 5. Dilated IVC without respiratory collapse, however, patient on ventilator. 6. Moderate pericardial effusion. Objective Vital Signs Date Time Temp Pulse Resp B/P Pulse Ox O2 Delivery O2 Flow Rate FiO2 04/09/17 06:21 79 16 99 30 04/09/17 06:00 124/53 Mechanical Ventilator 04/09/17 04:00 98.0 04/07/17 08:00 2.0 Intake and Output 04/08/17 04/08/17 04/09/17 15:00 23:00 07:00 Intake Total 510 ml 110 ml 0 ml Output Total 4800 ml 0 ml 0 ml Balance -4290 ml 110 ml 0 ml Results/Medications Result Diagram: 04/09/17 0400 04/09/17 0400 Results 24 hrs Laboratory Tests Test 04/08/17 09:06 04/08/17 12:16 04/08/17 13:53 04/08/17 18:22 Bedside Glucose 150 141 178 Ammonia < 9 L Test 04/08/17 21:31 04/09/17 01:20 04/09/17 04:00 04/09/17 05:48 Bedside Glucose 164 140 154 White Blood Count 9.2 # Red Blood Count 2.52 L Hemoglobin 8.0 L Hematocrit 25.9 L Mean Corpuscular Volume 102.8 H Mean Corpuscular Hemoglobin 31.7 Mean Corpuscular Hemoglobin Concent 30.9 L Red Cell Distribution Width 21.9 H Platelet Count 203 Mean Platelet Volume 11.6 H Neutrophils % 78.3 H Lymphocytes % 12.6 L Monocytes % 7.7 Eosinophils % 0.8 Basophils % 0.2 Nucleated Red Blood Cells % 0.0 Neutrophils # 7.2 Lymphocytes # 1.2 Monocytes # 0.7 Eosinophils # 0.1 Basophils # 0.0 Nucleated Red Blood Cells # 0.0 Sodium Level 138 Potassium Level 4.3 Chloride Level 97 Carbon Dioxide Level 27 Anion Gap 18 H Blood Urea Nitrogen 34 H Creatinine 8.68 H Glucose Level 136 # Calcium Level 8.3 L Medications Current Medications Aspirin (Aspirin) 81 mg DAILY PO Last administered on 04/08/17 09:02; Admin Dose 81 MG; Start 04/07/17 at 09:00 Clopidogrel Bisulfate (plaVIX) 75 mg DAILY PO Last administered on 04/08/17 09 :03; Admin Dose 75 MG; Start 04/07/17 at 09:00 Acetaminophen (Tylenol Tab) 650 mg Q6H PRN PO PAIN AND OR ELEVATED TEMP; Start 04/06/17 at 14:00 Escitalopram Oxalate (Lexapro) 20 mg DAILY PO Last administered on 04/08/17 09 :03; Admin Dose 20 MG; Start 04/07/17 at 09:00 Ferrous Sulfate (Ferrous Sulfate (Ec)) 325 mg DAILY PO Last administered on 09:03; Admin Dose 325 MG; Start 04/07/17 at 09:00 Folic Acid (Folic Acid) 1 mg DAILY PO Last administered on 04/08/17 09:03; Admin Dose 1 MG; Start 04/07/17 at 09:00 Loratadine (Claritin) 10 mg DAILY PO Last administered on 04/08/17 09:02; Admin Dose 10 MG; Start 04/07/17 at 09:00 Midodrine (Proamatine) 5 mg TID PO ; Start 04/06/17 at 21:00; Status Future Hold Pantoprazole (Protonix Tab) 40 mg DAILY PO Last administered on 04/08/17 09:03 ; Admin Dose 40 MG; Start 04/07/17 at 09:00 Lactobacillus Acidophilus/ Rhamnosus (Culturelle) 1 cap TID PO Last administered on 04/08/17 21:32; Admin Dose 1 CAP; Start 04/06/17 at 21:00 Ondansetron HCl (Zofran Inj) 4 mg Q6H PRN IV NAUSEA AND/OR VOMITING; Start 04/06/17 at 14:30 Hydralazine HCl (Apresoline) 10 mg Q6H PRN IV sbp>160 Last administered on 04/07 16:37; Admin Dose 10 MG; Start 04/06/17 at 14:30 Lorazepam 1 mg 1 mg Q2H PRN IV seizure Last administered on 04/07/17 16:44; Admin Dose 1 MG; Start 04/07/17 at 10:30 Nicardipine HCl 25 mg/Sodium Chloride 260 ml @ 52 mls/hr TITRATE IV ; Start at 16:00 Levetiracetam/ Dextrose (Keppra Iv/D5W) 110 ml @ 400 mls/hr Q12 IV Last administered on 04/08/17 21:32; Admin Dose 400 MLS/HR; Start 04/07/17 at 15:44 Lacosamide (Vimpat Liq) 150 mg BID PO Last administered on 04/08/17 12:12; Admin Dose 150 MG; Start 04/07/17 at 22:00 Insulin Aspart (Novolog Insulin Pen) NOVOLOG *MODERATE* ALGORI... Q4 SC Last administered on 04/09/17 05:51; Admin Dose 2 UNIT; Start 04/08/17 at 01:00 Miscellaneous Information 1 ea NOTE XX ; Start 04/07/17 at 22:00 Glucose (Glutose) 15 gm Q15M PRN PO DECREASED GLUCOSE; Start 04/07/17 at 22:00 Glucose (Glutose) 22.5 gm Q15M PRN PO DECREASED GLUCOSE; Start 04/07/17 at 22: 00 Dextrose (D50w Syringe) 25 ml Q15M PRN IV DECREASED GLUCOSE; Start 04/07/17 at 22:00 Dextrose (D50w Syringe) 50 ml Q15M PRN IV DECREASED GLUCOSE; Start 04/07/17 at 22:00 Glucagon (Glucagen) 1 mg Q15M PRN IM DECREASED GLUCOSE; Start 04/07/17 at 22:00 Glucose (Glutose) 15 gm Q15M PRN BUCCAL DECREASED GLUCOSE; Start 04/07/17 at 22 :00 Insulin Glargine (Lantus) 10 unit DAILY@20 SC Last administered on 04/08/17t 21 :36; Admin Dose 10 UNIT; Start 04/08/17 at 01:00 Collagenase (Santyl) 1 applic DAILY TOP ; Start 04/09/17 at 09:00 Assessment/Plan Chief Complaint/Hosp Course 1. cardiopulm arrest: I doubt it is related to cardiac arrest. probably due to neurological changes. 2. hypoxemic resp failure: sp intubation and on vent 3. Moderate-sized pericardial effusion. Probably related to his renal failure. At this point I do not see signs of tamponade. His blood pressure has been also elevated to normal and not hypotensive. recommend aggressive HD for now will repeat echo tomorrow am 4. End-stage renal disease on dialysis Hemodialysis is being managed as per renal team. 5. Hypertension 6. altered level of consciousness and encephalopathy. will defer to neuro and IM 7. anemia 8/ hx seizure; defer to neurology Recommendations: Continue with the vent support. Respiratory care will be continued on managed as per pulmonary team. Follow-up with neurology recommendation regarding seizure and treatment. Hemodialysis to be done to manage as per renal team. Continue with ICU care. Cardiac enzymes were negative. We will monitor the patient. Thank you for this referral. I will continue to follow along with you. BIANKA KENT MD [facility] Problems: BIANKA KENT MD Apr 09, 2017 09:03
[2017-04-09] MEDS: LORATADINE 10 MG TAB PO SCH (09:16)
[2017-04-09] MEDS: PANTOPRAZOLE (EC) 40 MG TAB PO SCH (09:16)
[2017-04-09] MEDS: ASPIRIN 81 MG TAB PO SCH (09:16)
[2017-04-09] MEDS: SEVELAMER CARBONATE 0.8 GM PKT GTB SCH ×3 (09:16→18:42)
[2017-04-09] MEDS: ESCITALOPRAM 10 MG TAB PO SCH (09:17)
[2017-04-09] MEDS: FOLIC ACID 1 MG TAB PO SCH (09:17)
[2017-04-09] MEDS: CLOPIDOGREL 75 MG TAB PO SCH (09:17)
[2017-04-09] MEDS: FERROUS SULFATE (EC) 325 MG TAB PO SCH (09:17)
[2017-04-09] MEDS: LEVETIRACETAM IV 1,000 MG in DEXTROSE 5% 100 ML IV SCH ×2 (09:28→20:06)
[2017-04-09] MEDS: COLLAGENASE 30 GM TUBE TOP SCH (09:28)
[2017-04-09] MEDS: LACOSAMIDE (100 MG/10 ML PO SYR) PO SCH ×2 (10:30→22:37)
[2017-04-09] MEDS: LACTOBACILLUS RHAMNOSUS CAP PO SCH ×3 (10:30→20:06)
--- NOTE | 2017-04-09 11:43 | CONS ---
Date/Time of Note Date/Time of Note DATE: 04/09/17 TIME: 11:40 Assessment/Plan Assessment/Plan Additional Assessment/Plan Ventilator setting; AC of 16, tidal volume 500, PEEP of 5, 30% FiO2. Assessment and recommendations; 1. Patient admitted with seizure activity leading to respiratory failure with persistently poor mental status. 2. Cardiomyopathy. 3. End-stage renal disease, on hemodialysis. 4. Anemia. 5. History of recurrent respiratory failure, according to the patient's sister patient was recently admitted at [facility] was in respiratory failure and also had at least 3-4 cardiac arrest events over there. Continue current supportive care. Prognosis depends upon adequate mental status recovery. Consultation Date/Type/Reason Admit Date/Time Apr 06, 2017 at 10:58 Initial Consult Date 04/07/17 Type of Consultation: Pulmonary/critical care Referring Provider: LACY RAMÍREZ NP 24 HR Interval Summary Free Text/Dictation Patient's condition remains critical. Remains essentially unresponsive. No overt seizure activity noted though. Patient has remained hemodynamically stable. General exam; young male, orally intubated, unresponsive, currently in no distress. Exam/Review of Systems Vital Signs Vitals Vital Signs Date Time Temp Pulse Resp B/P Pulse Ox O2 Delivery O2 Flow Rate FiO2 04/09/17 11:00 92 17 132/49 96 Mechanical Ventilator 04/09/17 11:00 30 04/09/17 08:00 97.8 04/07/17 08:00 2.0 Intake and Output 04/08/17 04/08/17 04/09/17 15:00 23:00 07:00 Intake Total 510 ml 110 ml 0 ml Output Total 4800 ml 0 ml 0 ml Balance -4290 ml 110 ml 0 ml Exam HEENT exam; supple neck, positive JVD. No lymphadenopathy. Midline trachea. No thyromegaly. Patient is edentulous. Has a left corneal opacity. Orally intubated. Chest exam; diminished breath sounds bilaterally. S1-S2 audible, no murmurs. Regular rhythm. Abdomen exam; soft, protuberant. No organomegaly. Bowel sounds audible. Extremity exam; trace edema. Pulses 1+ bilaterally. CLOSING COORDINATOR exam; patient is unresponsive. Results Result Diagram: 04/09/17 0400 04/09/17 0400 Results 24 hrs Laboratory Tests Test 12/6/17 12:16 04/08/17 13:53 04/08/17 18:22 04/08/17 21:31 Bedside Glucose 141 178 164 Ammonia < 9 L Test 04/09/17 01:20 04/09/17 04:00 04/09/17 05:48 04/09/17 09:19 Bedside Glucose 140 154 142 White Blood Count 9.2 # Red Blood Count 2.52 L Hemoglobin 8.0 L Hematocrit 25.9 L Mean Corpuscular Volume 102.8 H Mean Corpuscular Hemoglobin 31.7 Mean Corpuscular Hemoglobin Concent 30.9 L Red Cell Distribution Width 21.9 H Platelet Count 203 Mean Platelet Volume 11.6 H Neutrophils % 78.3 H Lymphocytes % 12.6 L Monocytes % 7.7 Eosinophils % 0.8 Basophils % 0.2 Nucleated Red Blood Cells % 0.0 Neutrophils # 7.2 Lymphocytes # 1.2 Monocytes # 0.7 Eosinophils # 0.1 Basophils # 0.0 Nucleated Red Blood Cells # 0.0 Sodium Level 138 Potassium Level 4.3 Chloride Level 97 Carbon Dioxide Level 27 Anion Gap 18 H Blood Urea Nitrogen 34 H Creatinine 8.68 H Glucose Level 136 # Calcium Level 8.3 L Medications Medications Current Medications Aspirin (Aspirin) 81 mg DAILY PO Last administered on 04/09/17 09:16; Admin Dose 81 MG; Start 04/07/17 at 09:00 Clopidogrel Bisulfate (plaVIX) 75 mg DAILY PO Last administered on 04/09/17 09 :17; Admin Dose 75 MG; Start 04/07/17 at 09:00 Acetaminophen (Tylenol Tab) 650 mg Q6H PRN PO PAIN AND OR ELEVATED TEMP; Start 04/06/17 at 14:00 Escitalopram Oxalate (Lexapro) 20 mg DAILY PO Last administered on 04/09/17 09 :17; Admin Dose 20 MG; Start 04/07/17 at 09:00 Ferrous Sulfate (Ferrous Sulfate (Ec)) 325 mg DAILY PO Last administered on 09:17; Admin Dose 325 MG; Start 04/07/17 at 09:00 Folic Acid (Folic Acid) 1 mg DAILY PO Last administered on 04/09/17 09:17; Admin Dose 1 MG; Start 04/07/17 at 09:00 Loratadine (Claritin) 10 mg DAILY PO Last administered on 04/09/17 09:16; Admin Dose 10 MG; Start 04/07/17 at 09:00 Midodrine (Proamatine) 5 mg TID PO ; Start 04/06/17 at 21:00; Status Future Hold Pantoprazole (Protonix Tab) 40 mg DAILY PO Last administered on 04/09/17 09:16 ; Admin Dose 40 MG; Start 04/07/17 at 09:00 Lactobacillus Acidophilus/ Rhamnosus (Culturelle) 1 cap TID PO Last administered on 04/09/17 10:30; Admin Dose 1 CAP; Start 04/06/17 at 21:00 Ondansetron HCl (Zofran Inj) 4 mg Q6H PRN IV NAUSEA AND/OR VOMITING; Start 04/06/17 at 14:30 Hydralazine HCl (Apresoline) 10 mg Q6H PRN IV sbp>160 Last administered on 04/07 16:37; Admin Dose 10 MG; Start 04/06/17 at 14:30 Lorazepam 1 mg 1 mg Q2H PRN IV seizure Last administered on 04/07/17 16:44; Admin Dose 1 MG; Start 04/07/17 at 10:30 Nicardipine HCl 25 mg/Sodium Chloride 260 ml @ 52 mls/hr TITRATE IV ; Start at 16:00 Levetiracetam/ Dextrose (Keppra Iv/D5W) 110 ml @ 400 mls/hr Q12 IV Last administered on 04/09/17 09:28; Admin Dose 400 MLS/HR; Start 04/07/17 at 15:44 Lacosamide (Vimpat Liq) 150 mg BID PO Last administered on 04/09/17 10:30; Admin Dose 150 MG; Start 04/07/17 at 22:00 Insulin Aspart (Novolog Insulin Pen) NOVOLOG *MODERATE* ALGORI... Q4 SC Last administered on 04/09/17 09:21; Admin Dose 1 UNIT; Start 04/08/17 at 01:00 Miscellaneous Information 1 ea NOTE XX ; Start 04/07/17 at 22:00 Glucose (Glutose) 15 gm Q15M PRN PO DECREASED GLUCOSE; Start 04/07/17 at 22:00 Glucose (Glutose) 22.5 gm Q15M PRN PO DECREASED GLUCOSE; Start 04/07/17 at 22: 00 Dextrose (D50w Syringe) 25 ml Q15M PRN IV DECREASED GLUCOSE; Start 04/07/17 at 22:00 Dextrose (D50w Syringe) 50 ml Q15M PRN IV DECREASED GLUCOSE; Start 04/07/17 at 22:00 Glucagon (Glucagen) 1 mg Q15M PRN IM DECREASED GLUCOSE; Start 04/07/17 at 22:00 Glucose (Glutose) 15 gm Q15M PRN BUCCAL DECREASED GLUCOSE; Start 04/07/17 at 22 :00 Insulin Glargine (Lantus) 10 unit DAILY@20 SC Last administered on 04/08/17 21 :36; Admin Dose 10 UNIT; Start 04/08/17 at 01:00 Collagenase (Santyl) 1 applic DAILY TOP Last administered on 04/09/17 09:28; Admin Dose 1 APPLIC; Start 04/09/17 at 09:00 LBAINE LOYA Apr 09, 2017 11:43
--- NOTE | 2017-04-09 12:30 | CONS ---
Date/Time of Note Date/Time of Note DATE: 04/09/17 TIME: 12:28 Consult Date/Type/Reason Admit Date/Time Apr 06, 2017 at 10:58 Initial Consult Date 04/07/17 Type of Consultation: Neurology Reason for Consultation seizure eval encephalopathy cardiac arrest Ordering Provider: LACY RAMÍREZ NP Subjective remains intubated unresponsive no seizures Objective Vital Signs Date Time Temp Pulse Resp B/P Pulse Ox O2 Delivery O2 Flow Rate FiO2 04/09/17 11:00 92 17 132/49 96 Mechanical Ventilator 04/09/17 11:00 30 04/09/17 08:00 97.8 04/07/17 08:00 2.0 Intake and Output 04/08/17 04/08/17 04/09/17 15:00 23:00 07:00 Intake Total 510 ml 110 ml 0 ml Output Total 4800 ml 0 ml 0 ml Balance -4290 ml 110 ml 0 ml Exam unarousable intubated unresponsive to verbal command CN: left eye absent pupil, right eye reactive corneals and gag present Motor: absent w/d to extremities Results/Medications Result Diagram: 04/09/17 0400 04/09/17 0400 Results 24 hrs Laboratory Tests Test 04/08/17 13:53 04/08/17 18:22 04/08/17 21:31 04/09/17 01:20 Ammonia < 9 L Bedside Glucose 178 164 140 Test 04/09/17 04:00 04/09/17 05:48 04/09/17 09:19 White Blood Count 9.2 # Red Blood Count 2.52 L Hemoglobin 8.0 L Hematocrit 25.9 L Mean Corpuscular Volume 102.8 H Mean Corpuscular Hemoglobin 31.7 Mean Corpuscular Hemoglobin Concent 30.9 L Red Cell Distribution Width 21.9 H Platelet Count 203 Mean Platelet Volume 11.6 H Neutrophils % 78.3 H Lymphocytes % 12.6 L Monocytes % 7.7 Eosinophils % 0.8 Basophils % 0.2 Nucleated Red Blood Cells % 0.0 Neutrophils # 7.2 Lymphocytes # 1.2 Monocytes # 0.7 Eosinophils # 0.1 Basophils # 0.0 Nucleated Red Blood Cells # 0.0 Sodium Level 138 Potassium Level 4.3 Chloride Level 97 Carbon Dioxide Level 27 Anion Gap 18 H Blood Urea Nitrogen 34 H Creatinine 8.68 H Glucose Level 136 # Calcium Level 8.3 L Bedside Glucose 154 142 Medications Current Medications Aspirin (Aspirin) 81 mg DAILY PO Last administered on 04/09/17 09:16; Admin Dose 81 MG; Start 04/07/17 at 09:00 Clopidogrel Bisulfate (plaVIX) 75 mg DAILY PO Last administered on 04/09/17 09 :17; Admin Dose 75 MG; Start 04/07/17 at 09:00 Acetaminophen (Tylenol Tab) 650 mg Q6H PRN PO PAIN AND OR ELEVATED TEMP; Start 04/06/17 at 14:00 Escitalopram Oxalate (Lexapro) 20 mg DAILY PO Last administered on 04/09/17 09 :17; Admin Dose 20 MG; Start 04/07/17 at 09:00 Ferrous Sulfate (Ferrous Sulfate (Ec)) 325 mg DAILY PO Last administered on 09:17; Admin Dose 325 MG; Start 04/07/17 at 09:00 Folic Acid (Folic Acid) 1 mg DAILY PO Last administered on 04/09/17 09:17; Admin Dose 1 MG; Start 04/07/17 at 09:00 Loratadine (Claritin) 10 mg DAILY PO Last administered on 04/09/17 09:16; Admin Dose 10 MG; Start 04/07/17 at 09:00 Midodrine (Proamatine) 5 mg TID PO ; Start 04/06/17 at 21:00; Status Future Hold Pantoprazole (Protonix Tab) 40 mg DAILY PO Last administered on 04/09/17 09:16 ; Admin Dose 40 MG; Start 04/07/17 at 09:00 Lactobacillus Acidophilus/ Rhamnosus (Culturelle) 1 cap TID PO Last administered on 04/09/17 10:30; Admin Dose 1 CAP; Start 04/06/17 at 21:00 Ondansetron HCl (Zofran Inj) 4 mg Q6H PRN IV NAUSEA AND/OR VOMITING; Start 04/06/17 at 14:30 Hydralazine HCl (Apresoline) 10 mg Q6H PRN IV sbp>160 Last administered on 04/07 16:37; Admin Dose 10 MG; Start 04/06/17 at 14:30 Lorazepam 1 mg 1 mg Q2H PRN IV seizure Last administered on 04/07/17 16:44; Admin Dose 1 MG; Start 04/07/17 at 10:30 Nicardipine HCl 25 mg/Sodium Chloride 260 ml @ 52 mls/hr TITRATE IV ; Start at 16:00 Levetiracetam/ Dextrose (Keppra Iv/D5W) 110 ml @ 400 mls/hr Q12 IV Last administered on 04/09/17 09:28; Admin Dose 400 MLS/HR; Start 04/07/17 at 15:44 Lacosamide (Vimpat Liq) 150 mg BID PO Last administered on 04/09/17 10:30; Admin Dose 150 MG; Start 04/07/17 at 22:00 Insulin Aspart (Novolog Insulin Pen) NOVOLOG *MODERATE* ALGORI... Q4 SC Last administered on 04/09/17 09:21; Admin Dose 1 UNIT; Start 04/08/17 at 01:00 Miscellaneous Information 1 ea NOTE XX ; Start 04/07/17 at 22:00 Glucose (Glutose) 15 gm Q15M PRN PO DECREASED GLUCOSE; Start 04/07/17 at 22:00 Glucose (Glutose) 22.5 gm Q15M PRN PO DECREASED GLUCOSE; Start 04/07/17 at 22: 00 Dextrose (D50w Syringe) 25 ml Q15M PRN IV DECREASED GLUCOSE; Start 04/07/17 at 22:00 Dextrose (D50w Syringe) 50 ml Q15M PRN IV DECREASED GLUCOSE; Start 04/07/17 at 22:00 Glucagon (Glucagen) 1 mg Q15M PRN IM DECREASED GLUCOSE; Start 04/07/17 at 22:00 Glucose (Glutose) 15 gm Q15M PRN BUCCAL DECREASED GLUCOSE; Start 04/07/17 at 22 :00 Insulin Glargine (Lantus) 10 unit DAILY@20 SC Last administered on 04/08/17 21 :36; Admin Dose 10 UNIT; Start 04/08/17 at 01:00 Collagenase (Santyl) 1 applic DAILY TOP Last administered on 04/09/17 09:28; Admin Dose 1 APPLIC; Start 04/09/17 at 09:00 Assessment/Plan Chief Complaint/Hosp Course 47 yo male with ESRD admitted with dysarthria and possible aphasia unclear baseline. Baseline he has a history of seizure d/o and psychiatric disease. Admitted to the ICU post cardiac arrest. Remains unresponsive Recommendations: ASA 81 mg daily SBP less than 140 MRI Brain without contrast unable to be done due to PPM- CTH w/o contrast shows no new changes Repeat Routine EEG Increased Keppra to 1g BID and Vimpat 150 mg BID continue ICU level care will fu Problems: ARUNA BROWN MD Apr 09, 2017 12:30
--- NOTE | 2017-04-09 15:29 | PN ---
Date/Time of Note Date/Time of Note DATE: 04/09/17 TIME: 15:26 Assessment/Plan VTE Prophylaxis VTE Prophylaxis Intervention: SCD's Lines/Catheters Urinary Cath still in place: No Assessment/Plan Chief Complaint/Hosp Course 1.Acute encephalopathy with Coma requiring CPR .GCS=3. Suspect possible seizure etiology. Differentials considered and is being worked up are possible cardiac etiologies/arrhythmias (provided patient with pacemaker) , CVA , and or Toxic Metabolic Encephalopathy (TME). Status: Acute -Unable to do MRI due to pacemaker.EEG nonconclusive.CT brain /CTA head/neck unremarkable.Will also obtain a toxicology screen. -CC care bundle with HOB>30 degree, stress ulcer/DVT prophylaxis. -Glycemic control with targeted BS 140-180 mg/dl and avoid hypoglycemic episodes. -Seizure precautions--Add IV ATIVAN PRN seizure- Defer neurology for further seizure mgmt. -Aspirin 81, Plavix 75 mg daily for stroke treatment per neuro recs. -PT/OT/ST eval and treatment once patient is medically stable. -Neurochecks every hour. -Follow-up on repeat EEG -Ammonia is normal, ultrasound abdomen shows no cirrhosis 2.Hypoxemic respiratory failure requiring intubation/mechanical ventilation Status: Acute -AUBREY Neb, Vent management per pulmonary colleagues. -ABG/Chest Xray f/u per pulmonary 3.Questionable PEA with #1. Currently in NSR w/RBBB. Patient w/pacemaker. Status: Acute -Cardiology consult-Consider pacemaker interrogation. -Echo shows an EF of 45% with stage I diastolic heart failure 4. Seizure disorders. Status: Chronic/Recurrent -Patient is on Keppra and Vimpat-Defer neuro for further management. -Seizure precautions/Repeat EEG -F/u cultures to rule out infectious etiology of seizure disorder. 5. ESRD, on hemodialysis Thursday. ACCESS: left upper arm AV shunt-functional. Status: chronic. - Hemodialysis per nephrology colleagues. -Renal dose medications. Monitor renal function closely. 6.HTN- -Hydralazine PRN SBP.160 -Monitor for now and avoidtoo tight control-Defer cards/nephro for further mgmt. 7. Anemia of ESRD. Status: Chronic. -Monitor H&H closely. -Defer Epogen to nephrology if indicated. 8.Prediabetes. A1c 6.2. Status: Chronic -Monitor for now. Sliding scale insulin in-house. 9.Status post Pacemaker placement 10. Psychiatric disorders. Status: Chronic -Continue home medications. Prophylaxis: SCDs/PPIs. Patient with elevated PT/PTT. Problems: Subjective 24 Hr Interval Summary Subjective hx not possible: pt non-verbal Exam/Review of Systems Vital Signs Vitals Vital Signs Date Time Temp Pulse Resp B/P Pulse Ox O2 Delivery O2 Flow Rate FiO2 04/09/17 13:30 83 16 113/46 100 Mechanical Ventilator 04/09/17 11:00 30 04/09/17 08:00 97.8 04/07/17 08:00 2.0 Intake and Output 04/08/17 04/08/17 04/09/17 15:00 23:00 07:00 Intake Total 510 ml 110 ml 0 ml Output Total 4800 ml 0 ml 0 ml Balance -4290 ml 110 ml 0 ml Exam Constitutional: non-verbal ENMT: intubated Respiratory: clear to auscultation Cardiovascular: regular rate and rhythm Gastrointestinal: soft, No distended Musculoskeletal: nl extremities to inspection Results Result Diagram: 04/09/17 0400 04/09/17 0400 Results 24 hrs Laboratory Tests Test 04/08/17 18:22 04/08/17 21:31 04/09/17 01:20 04/09/17 04:00 Bedside Glucose 178 164 140 White Blood Count 9.2 # Red Blood Count 2.52 L Hemoglobin 8.0 L Hematocrit 25.9 L Mean Corpuscular Volume 102.8 H Mean Corpuscular Hemoglobin 31.7 Mean Corpuscular Hemoglobin Concent 30.9 L Red Cell Distribution Width 21.9 H Platelet Count 203 Mean Platelet Volume 11.6 H Neutrophils % 78.3 H Lymphocytes % 12.6 L Monocytes % 7.7 Eosinophils % 0.8 Basophils % 0.2 Nucleated Red Blood Cells % 0.0 Neutrophils # 7.2 Lymphocytes # 1.2 Monocytes # 0.7 Eosinophils # 0.1 Basophils # 0.0 Nucleated Red Blood Cells # 0.0 Sodium Level 138 Potassium Level 4.3 Chloride Level 97 Carbon Dioxide Level 27 Anion Gap 18 H Blood Urea Nitrogen 34 H Creatinine 8.68 H Glucose Level 136 # Calcium Level 8.3 L Test 04/09/17 05:48 04/09/17 09:19 04/09/17 13:04 Bedside Glucose 154 142 166 Medications Medications Current Medications Aspirin (Aspirin) 81 mg DAILY PO Last administered on 04/09/17 09:16; Admin Dose 81 MG; Start 04/07/17 at 09:00 Clopidogrel Bisulfate (plaVIX) 75 mg DAILY PO Last administered on 04/09/17 09 :17; Admin Dose 75 MG; Start 04/07/17 at 09:00 Acetaminophen (Tylenol Tab) 650 mg Q6H PRN PO PAIN AND OR ELEVATED TEMP; Start 04/06/17 at 14:00 Escitalopram Oxalate (Lexapro) 20 mg DAILY PO Last administered on 04/09/17 09 :17; Admin Dose 20 MG; Start 04/07/17 at 09:00 Ferrous Sulfate (Ferrous Sulfate (Ec)) 325 mg DAILY PO Last administered on 09:17; Admin Dose 325 MG; Start 04/07/17 at 09:00 Folic Acid (Folic Acid) 1 mg DAILY PO Last administered on 04/09/17 09:17; Admin Dose 1 MG; Start 04/07/17 at 09:00 Loratadine (Claritin) 10 mg DAILY PO Last administered on 04/09/17 09:16; Admin Dose 10 MG; Start 04/07/17 at 09:00 Midodrine (Proamatine) 5 mg TID PO ; Start 04/06/17 at 21:00; Status Future Hold Pantoprazole (Protonix Tab) 40 mg DAILY PO Last administered on 04/09/17 09:16 ; Admin Dose 40 MG; Start 04/07/17 at 09:00 Lactobacillus Acidophilus/ Rhamnosus (Culturelle) 1 cap TID PO Last administered on 04/09/17 13:05; Admin Dose 1 CAP; Start 04/06/17 at 21:00 Ondansetron HCl (Zofran Inj) 4 mg Q6H PRN IV NAUSEA AND/OR VOMITING; Start 04/06/17 at 14:30 Hydralazine HCl (Apresoline) 10 mg Q6H PRN IV sbp>160 Last administered on 04/07 16:37; Admin Dose 10 MG; Start 04/06/17 at 14:30 Lorazepam 1 mg 1 mg Q2H PRN IV seizure Last administered on 04/07/17 16:44; Admin Dose 1 MG; Start 04/07/17 at 10:30 Nicardipine HCl 25 mg/Sodium Chloride 260 ml @ 52 mls/hr TITRATE IV ; Start at 16:00 Levetiracetam/ Dextrose (Keppra Iv/D5W) 110 ml @ 400 mls/hr Q12 IV Last administered on 04/09/17 09:28; Admin Dose 400 MLS/HR; Start 04/07/17 at 15:44 Lacosamide (Vimpat Liq) 150 mg BID PO Last administered on 04/09/17 10:30; Admin Dose 150 MG; Start 04/07/17 at 22:00 Insulin Aspart (Novolog Insulin Pen) NOVOLOG *MODERATE* ALGORI... Q4 SC Last administered on 04/09/17 13:07; Admin Dose 2 UNIT; Start 04/08/17 at 01:00 Miscellaneous Information 1 ea NOTE XX ; Start 04/07/17 at 22:00 Glucose (Glutose) 15 gm Q15M PRN PO DECREASED GLUCOSE; Start 04/07/17 at 22:00 Glucose (Glutose) 22.5 gm Q15M PRN PO DECREASED GLUCOSE; Start 04/07/17 at 22: 00 Dextrose (D50w Syringe) 25 ml Q15M PRN IV DECREASED GLUCOSE; Start 04/07/17 at 22:00 Dextrose (D50w Syringe) 50 ml Q15M PRN IV DECREASED GLUCOSE; Start 04/07/17 at 22:00 Glucagon (Glucagen) 1 mg Q15M PRN IM DECREASED GLUCOSE; Start 04/07/17 at 22:00 Glucose (Glutose) 15 gm Q15M PRN BUCCAL DECREASED GLUCOSE; Start 04/07/17 at 22 :00 Insulin Glargine (Lantus) 10 unit DAILY@20 SC Last administered on 04/08/17 21 :36; Admin Dose 10 UNIT; Start 04/08/17 at 01:00 Collagenase (Santyl) 1 applic DAILY TOP Last administered on 04/09/17 09:28; Admin Dose 1 APPLIC; Start 04/09/17 at 09:00 NADIA BRINK Apr 09, 2017 15:29
[2017-04-09] MEDS: INSULIN GLARGINE [LANtus] 3 ML PEN SC SCH (20:09)
[2017-04-10] VITALS (44 sets, daily range): BP systolic 89–158; BP diastolic 33–79; PULSE 71–93; RESP 16–20
[2017-04-10] MEDS: IPRATROPIUM (HFA) 12.9 GM INHALER INH SCH ×4 (01:38→19:40)
[2017-04-10] MEDS: ALBUTEROL HFA 8 GM INHALER INH SCH ×4 (01:39→19:40)
[2017-04-10] MEDS: INSULIN ASPART [NOVOLOG] 3 ML PEN SC SCH ×6 (03:31→20:29)
[2017-04-10 05:46] LABS: BASOPHILS % 0.2 % (0.0-2.0); EOSINOPHILS # 0.1 10^3/ul (0.0-0.5); HEMATOCRIT 25.6 % (42.0-52.0); HEMOGLOBIN 7.8 g/dl (14.0-18.0); LYMPHOCYTES # 1.1 10^3/ul (0.8-2.9); LYMPHOCYTES % 10.7 % (15.0-51.0); MEAN CORPUSCULAR HEMOGLOBIN 31.3 pg (29.0-33.0); MEAN CORPUSCULAR HGB CONC 30.5 g/dl (32.0-37.0); MEAN CORPUSCULAR VOLUME 102.8 fl (82.0-101.0); MEAN PLATELET VOLUME 11.5 fl (7.4-10.4); MONOCYTE # 0.5 10^3/ul (0.3-0.9); MONOCYTES % 5.1 % (0.0-11.0); NEUTROPHIL # 8.2 10^3/ul (1.6-7.5); NEUTROPHILS % 82.4 % (39.0-77.0); PLATELET COUNT 192 10^3/UL (140-415); RED BLOOD COUNT 2.49 10^6/ul (4.70-6.10); RED CELL DISTRIBUTION WIDTH 21.4 % (11.5-14.5)
[2017-04-10 06:00] LABS: CALCIUM 8.3 mg/dl (8.4-10.2); CREATININE 11.11 mg/dl (0.61-1.24); POTASSIUM 4.5 mmol/L (3.5-5.1)
--- NOTE | 2017-04-10 08:23 | CONS ---
Date/Time of Note Date/Time of Note DATE: 04/10/17 TIME: 08:20 Assessment/Plan Assessment/Plan Additional Assessment/Plan Ventilator setting; AC of 16, tidal volume 500, PEEP of 5, 30% FiO2. Assessment and recommendations; 1. Patient admitted with cardiac arrest with ensuing severe encephalopathy. 2. Prior history of multiple cardiac arrest events. 3. Chronic renal failure, on hemodialysis. 4. Anemia. 5. Mild thrombocytopenia. Continue current treatment. Prognosis is poor and depends entirely upon adequate mental status recovery. Meanwhile obtain follow-up chest x-ray and an arterial blood gas. Consultation Date/Type/Reason Admit Date/Time Apr 06, 2017 at 10:58 Initial Consult Date 04/07/17 Type of Consultation: Pulmonary/critical care Referring Provider: LACY RAMÍREZ NP 24 HR Interval Summary Free Text/Dictation Patient's condition remains critical. Remains essentially unresponsive. Patient however has remained hemodynamically stable. General exam; middle-aged male, orally intubated, unresponsive, currently in no distress. Exam/Review of Systems Vital Signs Vitals Vital Signs Date Time Temp Pulse Resp B/P Pulse Ox O2 Delivery O2 Flow Rate FiO2 04/10/17 06:59 78 16 98 30 04/10/17 03:00 108/56 Mechanical Ventilator 04/10/17 00:00 98.6 04/07/17 08:00 2.0 Intake and Output 04/09/17 04/09/17 04/10/17 15:00 23:00 07:00 Intake Total 190 ml 40 ml 245 ml Output Total 0 ml 0 ml 0 ml Balance 190 ml 40 ml 245 ml Exam HEENT exam; supple neck, positive JVD. No lymphadenopathy. Midline trachea. No thyromegaly. Orally intubated. Patient does have carious teeth. Chest exam; diminished but clear breath sounds. S1-S2 audible, no murmurs. Regular rhythm. Abdomen exam; soft, nondistended. No organomegaly. Bowel sounds audible. Extremity exam; trace edema. INJURY PREVENTION COORDINATOR exam; patient remains essentially unresponsive with very minimal grimacing on sternal rubbing. Results Result Diagram: 04/10/17 0400 04/10/17 0400 Results 24 hrs Laboratory Tests Test 04/09/17 09:19 04/09/17 13:04 04/09/17 18:40 04/09/17 20:05 Bedside Glucose 142 166 163 181 Test 04/10/17 01:43 04/10/17 04:00 04/10/17 04:50 Bedside Glucose 173 157 White Blood Count 10.0 Red Blood Count 2.49 L Hemoglobin 7.8 L Hematocrit 25.6 L Mean Corpuscular Volume 102.8 H Mean Corpuscular Hemoglobin 31.3 Mean Corpuscular Hemoglobin Concent 30.5 L Red Cell Distribution Width 21.4 H Platelet Count 192 Mean Platelet Volume 11.5 H Neutrophils % 82.4 H Lymphocytes % 10.7 L Monocytes % 5.1 Eosinophils % 1.0 Basophils % 0.2 Nucleated Red Blood Cells % 0.0 Neutrophils # 8.2 H Lymphocytes # 1.1 Monocytes # 0.5 Eosinophils # 0.1 Basophils # 0.0 Nucleated Red Blood Cells # 0.0 Sodium Level 139 Potassium Level 4.5 Chloride Level 98 Carbon Dioxide Level 26 Anion Gap 20 H Blood Urea Nitrogen 50 H Creatinine 11.11 #H Glucose Level 156 Calcium Level 8.3 L Medications Medications Current Medications Aspirin (Aspirin) 81 mg DAILY PO Last administered on 04/09/17 09:16; Admin Dose 81 MG; Start 04/07/17 at 09:00 Clopidogrel Bisulfate (plaVIX) 75 mg DAILY PO Last administered on 04/09/17 09 :17; Admin Dose 75 MG; Start 04/07/17 at 09:00 Acetaminophen (Tylenol Tab) 650 mg Q6H PRN PO PAIN AND OR ELEVATED TEMP; Start 04/06/17 at 14:00 Escitalopram Oxalate (Lexapro) 20 mg DAILY PO Last administered on 04/09/17 09 :17; Admin Dose 20 MG; Start 04/07/17 at 09:00 Ferrous Sulfate (Ferrous Sulfate (Ec)) 325 mg DAILY PO Last administered on 09:17; Admin Dose 325 MG; Start 04/07/17 at 09:00 Folic Acid (Folic Acid) 1 mg DAILY PO Last administered on 04/09/17 09:17; Admin Dose 1 MG; Start 04/07/17 at 09:00 Loratadine (Claritin) 10 mg DAILY PO Last administered on 04/09/17 09:16; Admin Dose 10 MG; Start 04/07/17 at 09:00 Midodrine (Proamatine) 5 mg TID PO ; Start 04/06/17 at 21:00; Status Future Hold Pantoprazole (Protonix Tab) 40 mg DAILY PO Last administered on 04/09/17 09:16 ; Admin Dose 40 MG; Start 04/07/17 at 09:00 Lactobacillus Acidophilus/ Rhamnosus (Culturelle) 1 cap TID PO Last administered on 04/09/17 20:06; Admin Dose 1 CAP; Start 04/06/17 at 21:00 Ondansetron HCl (Zofran Inj) 4 mg Q6H PRN IV NAUSEA AND/OR VOMITING; Start 04/06/17 at 14:30 Hydralazine HCl (Apresoline) 10 mg Q6H PRN IV sbp>160 Last administered on 04/07 16:37; Admin Dose 10 MG; Start 04/06/17 at 14:30 Lorazepam 1 mg 1 mg Q2H PRN IV seizure Last administered on 04/07/17 16:44; Admin Dose 1 MG; Start 04/07/17 at 10:30 Nicardipine HCl 25 mg/Sodium Chloride 260 ml @ 52 mls/hr TITRATE IV ; Start at 16:00 Levetiracetam/ Dextrose (Keppra Iv/D5W) 110 ml @ 400 mls/hr Q12 IV Last administered on 04/09/17 20:06; Admin Dose 400 MLS/HR; Start 04/07/17 at 15:44 Lacosamide (Vimpat Liq) 150 mg BID PO Last administered on 04/09/17 22:37; Admin Dose 150 MG; Start 04/07/17 at 22:00 Insulin Aspart (Novolog Insulin Pen) NOVOLOG *MODERATE* ALGORI... Q4 SC Last administered on 04/10/17 05:11; Admin Dose 2 UNIT; Start 04/08/17 at 01:00 Miscellaneous Information 1 ea NOTE XX ; Start 04/07/17 at 22:00 Glucose (Glutose) 15 gm Q15M PRN PO DECREASED GLUCOSE; Start 04/07/17 at 22:00 Glucose (Glutose) 22.5 gm Q15M PRN PO DECREASED GLUCOSE; Start 04/07/17 at 22: 00 Dextrose (D50w Syringe) 25 ml Q15M PRN IV DECREASED GLUCOSE; Start 04/07/17 at 22:00 Dextrose (D50w Syringe) 50 ml Q15M PRN IV DECREASED GLUCOSE; Start 04/07/17 at 22:00 Glucagon (Glucagen) 1 mg Q15M PRN IM DECREASED GLUCOSE; Start 04/07/17 at 22:00 Glucose (Glutose) 15 gm Q15M PRN BUCCAL DECREASED GLUCOSE; Start 04/07/17 at 22 :00 Insulin Glargine (Lantus) 10 unit DAILY@20 SC Last administered on 04/09/17 20 :09; Admin Dose 10 UNIT; Start 04/08/17 at 01:00 Collagenase (Santyl) 1 applic DAILY TOP Last administered on 04/09/17 09:28; Admin Dose 1 APPLIC; Start 04/09/17 at 09:00 BLAINE LOYA Apr 10, 2017 08:23
--- NOTE | 2017-04-10 08:30 | CONS ---
Date/Time of Note Date/Time of Note DATE: 04/10/17 TIME: 08:28 Consult Date/Type/Reason Admit Date/Time Apr 06, 2017 at 10:58 Initial Consult Date 04/07/17 Type of Consultation: card Ordering Provider: LACY RAMÍREZ NP Subjective cardiology follow up note: S: D/ W staff and rhythm was reviewed pt remains in NSR he remains intubated and nonresponsive in ICU BP HAS BEEN STABLE but intermittently down to 90s pt is nonverbal O: General: s/p intubation on vent HEENT: NC/AT. pupils are round. NECK: NO JVD. no stridor. CV: RRR. systolic murmur; no gallop or rubs. PULM: no wheezing or rhonchi. GI: SOFT, NT, ND, no rebound or guarding Extremity: trace B/L LE edema. no clubbing. neuro: does not respond Psych: calm rectal: deferred echo reviewed personally: 1. Normal left ventricular cavity size. Mild concentric left ventricular hypertrophy. Mild global left ventricular systolic dysfunction. Ejection fraction is visually estimated at 45 %. Tissue Doppler/Mitral Doppler indices are consistent with impaired relaxation (Stage I diastolic dysfunction). 2. Normal appearance and function of the mitral valve with trace physiologic regurgitation. 3. Normal appearance of the aortic valve. No significant aortic stenosis or insufficiency. 4. Normal appearance of the tricuspid valve. Estimated peak PA systolic pressure 26 mmHg. There is trace tricuspid regurgitation. 5. Dilated IVC without respiratory collapse, however, patient on ventilator. 6. Moderate pericardial effusion. Objective Vital Signs Date Time Temp Pulse Resp B/P Pulse Ox O2 Delivery O2 Flow Rate FiO2 04/10/17 06:59 78 16 98 30 04/10/17 03:00 108/56 Mechanical Ventilator 04/10/17 00:00 98.6 04/07/17 08:00 2.0 Intake and Output 04/09/17 04/09/17 04/10/17 14:59 22:59 06:59 Intake Total 190 ml 30 ml 255 ml Output Total 0 ml 0 ml 0 ml Balance 190 ml 30 ml 255 ml Results/Medications Result Diagram: 04/10/17 0400 04/10/17 0400 Results 24 hrs Laboratory Tests Test 04/09/17 09:19 04/09/17 13:04 04/09/17 18:40 04/09/17 20:05 Bedside Glucose 142 166 163 181 Test 04/10/17 01:43 04/10/17 04:00 04/10/17 04:50 Bedside Glucose 173 157 White Blood Count 10.0 Red Blood Count 2.49 L Hemoglobin 7.8 L Hematocrit 25.6 L Mean Corpuscular Volume 102.8 H Mean Corpuscular Hemoglobin 31.3 Mean Corpuscular Hemoglobin Concent 30.5 L Red Cell Distribution Width 21.4 H Platelet Count 192 Mean Platelet Volume 11.5 H Neutrophils % 82.4 H Lymphocytes % 10.7 L Monocytes % 5.1 Eosinophils % 1.0 Basophils % 0.2 Nucleated Red Blood Cells % 0.0 Neutrophils # 8.2 H Lymphocytes # 1.1 Monocytes # 0.5 Eosinophils # 0.1 Basophils # 0.0 Nucleated Red Blood Cells # 0.0 Sodium Level 139 Potassium Level 4.5 Chloride Level 98 Carbon Dioxide Level 26 Anion Gap 20 H Blood Urea Nitrogen 50 H Creatinine 11.11 #H Glucose Level 156 Calcium Level 8.3 L Medications Current Medications Aspirin (Aspirin) 81 mg DAILY PO Last administered on 04/09/17 09:16; Admin Dose 81 MG; Start 04/07/17 at 09:00 Clopidogrel Bisulfate (plaVIX) 75 mg DAILY PO Last administered on 04/09/17 09 :17; Admin Dose 75 MG; Start 04/07/17 at 09:00 Acetaminophen (Tylenol Tab) 650 mg Q6H PRN PO PAIN AND OR ELEVATED TEMP; Start 04/06/17 at 14:00 Escitalopram Oxalate (Lexapro) 20 mg DAILY PO Last administered on 04/09/17 09 :17; Admin Dose 20 MG; Start 04/07/17 at 09:00 Ferrous Sulfate (Ferrous Sulfate (Ec)) 325 mg DAILY PO Last administered on 09:17; Admin Dose 325 MG; Start 04/07/17 at 09:00 Folic Acid (Folic Acid) 1 mg DAILY PO Last administered on 04/09/17 09:17; Admin Dose 1 MG; Start 04/07/17 at 09:00 Loratadine (Claritin) 10 mg DAILY PO Last administered on 04/09/17 09:16; Admin Dose 10 MG; Start 04/07/17 at 09:00 Midodrine (Proamatine) 5 mg TID PO ; Start 04/06/17 at 21:00; Status Future Hold Pantoprazole (Protonix Tab) 40 mg DAILY PO Last administered on 04/09/17 09:16 ; Admin Dose 40 MG; Start 04/07/17 at 09:00 Lactobacillus Acidophilus/ Rhamnosus (Culturelle) 1 cap TID PO Last administered on 04/09/17 20:06; Admin Dose 1 CAP; Start 04/06/17 at 21:00 Ondansetron HCl (Zofran Inj) 4 mg Q6H PRN IV NAUSEA AND/OR VOMITING; Start 04/06/17 at 14:30 Hydralazine HCl (Apresoline) 10 mg Q6H PRN IV sbp>160 Last administered on 04/07 16:37; Admin Dose 10 MG; Start 04/06/17 at 14:30 Lorazepam 1 mg 1 mg Q2H PRN IV seizure Last administered on 04/07/17 16:44; Admin Dose 1 MG; Start 04/07/17 at 10:30 Nicardipine HCl 25 mg/Sodium Chloride 260 ml @ 52 mls/hr TITRATE IV ; Start at 16:00 Levetiracetam/ Dextrose (Keppra Iv/D5W) 110 ml @ 400 mls/hr Q12 IV Last administered on 04/09/17 20:06; Admin Dose 400 MLS/HR; Start 04/07/17 at 15:44 Lacosamide (Vimpat Liq) 150 mg BID PO Last administered on 04/09/17 22:37; Admin Dose 150 MG; Start 04/07/17 at 22:00 Insulin Aspart (Novolog Insulin Pen) NOVOLOG *MODERATE* ALGORI... Q4 SC Last administered on 04/10/17 05:11; Admin Dose 2 UNIT; Start 04/08/17 at 01:00 Miscellaneous Information 1 ea NOTE XX ; Start 04/07/17 at 22:00 Glucose (Glutose) 15 gm Q15M PRN PO DECREASED GLUCOSE; Start 04/07/17 at 22:00 Glucose (Glutose) 22.5 gm Q15M PRN PO DECREASED GLUCOSE; Start 04/07/17 at 22: 00 Dextrose (D50w Syringe) 25 ml Q15M PRN IV DECREASED GLUCOSE; Start 04/07/17 at 22:00 Dextrose (D50w Syringe) 50 ml Q15M PRN IV DECREASED GLUCOSE; Start 04/07/17 at 22:00 Glucagon (Glucagen) 1 mg Q15M PRN IM DECREASED GLUCOSE; Start 04/07/17 at 22:00 Glucose (Glutose) 15 gm Q15M PRN BUCCAL DECREASED GLUCOSE; Start 04/07/17 at 22 :00 Insulin Glargine (Lantus) 10 unit DAILY@20 SC Last administered on 04/09/17 20 :09; Admin Dose 10 UNIT; Start 04/08/17 at 01:00 Collagenase (Santyl) 1 applic DAILY TOP Last administered on 04/09/17 09:28; Admin Dose 1 APPLIC; Start 04/09/17 at 09:00 Assessment/Plan Chief Complaint/Hosp Course 1. cardiopulm arrest: I doubt it is related to cardiac arrest. probably due to neurological changes. 2. hypoxemic resp failure: sp intubation and on vent 3. Moderate-sized pericardial effusion. Probably related to his renal failure. At this point I do not see signs of tamponade. His blood pressure has been also elevated to normal and not hypotensive. recommend aggressive HD for now will repeat echo 4. End-stage renal disease on dialysis Hemodialysis is being managed as per renal team. 5. Hypertension 6. altered level of consciousness and encephalopathy. will defer to neuro and IM 7. anemia 8/ hx seizure; defer to neurology Recommendations: Continue with the vent support as long as pt is full code. Respiratory care will be continued on managed as per pulmonary team. Follow-up with neurology recommendation regarding seizure and treatment. Hemodialysis to be done to manage as per renal team. Continue with ICU care. Cardiac enzymes were negative. no further cardiac rec at this point. consider palliative consultations as well. will f/u prn over the weekend. Thank you for this referral. I will continue to follow along with you. BIANKA KENT MD [facility] Problems: BIANKA KENT MD Apr 10, 2017 08:30
--- NOTE | 2017-04-10 09:10 | RADRPT ---
PROCEDURE: XR Chest. CLINICAL INDICATION: Respiratory failure TECHNIQUE: Single AP view of the chest were obtained COMPARISON: 04/08/2017 FINDINGS: The heart is prominently enlarged. The pulmonary vasculature are prominent The aorta demonstrates a therosclerotic calcifications. Stable retrocardiac opacity with a possible left effusion. The right lung is clear. Degenerative changes are seen within the thoracic spine. Endotracheal tube extends into the trachea and terminates above the nori. Gastric catheter extends into the body of the stomach. Right-sided cardiac pacing device is stable. Multiple overlying elect ronic leads are seen which could obscure other structures. IMPRESSION: Cardiomegaly and vascular congestion. Retrocardiac opacity could represent consolidation or effusion and is stable. Endotracheal tube and gastric catheter are present and appear appropriately positioned. There is a c ardiac pacing device in the right thorax. RPTAT: AA .Karen Mireles MD, MD Date Time Electronically viewed and signed by .Karen Mireles MD, MD on 04/10/2017 09:10 .J/
[2017-04-10] MEDS: FERROUS SULFATE 60 MG/ML 5ML CUP GTB SCH (09:18)
[2017-04-10] MEDS: SEVELAMER CARBONATE 0.8 GM PKT GTB SCH ×3 (09:18→18:09)
[2017-04-10] MEDS: ASPIRIN 81 MG TAB PO SCH (09:19)
[2017-04-10] MEDS: LORATADINE 10 MG TAB PO SCH (09:19)
[2017-04-10] MEDS: LACTOBACILLUS RHAMNOSUS CAP PO SCH ×3 (09:19→20:22)
[2017-04-10] MEDS: LANSOPRAZOLE 30 MG CAP NGT SCH (09:19)
[2017-04-10] MEDS: LEVETIRACETAM IV 1,000 MG in DEXTROSE 5% 100 ML IV SCH ×2 (09:19→20:16)
[2017-04-10] MEDS: FOLIC ACID 1 MG TAB PO SCH (09:19)
[2017-04-10] MEDS: ESCITALOPRAM 10 MG TAB PO SCH (09:19)
[2017-04-10] MEDS: LACOSAMIDE (100 MG/10 ML PO SYR) PO SCH ×2 (09:20→21:35)
[2017-04-10] MEDS: CLOPIDOGREL 75 MG TAB PO SCH (09:20)
[2017-04-10] MEDS: COLLAGENASE 30 GM TUBE TOP SCH (09:20)
[2017-04-10 09:42] LABS: AADO2 Arterial 91.2 mmHg (7.0-24.0); Allen Test ACCEPTAB; Arterial Base Excess 0.9 mmol/L (-3.0-3); Arterial COHb 0.9 % (0.0-3.0); Arterial Fraction of Oxyhgb 92.6 % (93.0-99.0); Arterial HCO3 25.4 mmol/L (22.0-26.0); Arterial MetHb 0.3 % (0.0-1.5); Arterial Total Hemglobin 8.6 g/dl (12.0-18.0); MODE VENT - AC
--- NOTE | 2017-04-10 09:42 | RADRPT ---
Echocardiogram Report Patient Name: ZHANG OROSCO Gender: Male Date: 1970 Study Date: 10-Apr-2017 Warping Machine Operator: CLARISSE Location: 101 Ref. Physician: GREG CAST Quality: Adequate Procedures: Transthoracic echocardiogram examination. Indications: f/u Pericardial Effusion. Findings Left Ventricle: The left ventricular ejection fraction is visually estimated at 55 %. Pericardium: Moderate pericardial effusion. No echocardiographic evidence to suggest pericardial tamponade. IVC: Inferior vena cava without respiratory collapse, however, patient on ventilator. Conclusions 1.Moderate pericardial effusion mostly around LV. No echocardiographic evidence to suggest pericardial tamponade. Electronically Signed By: Greg Cast 10-Apr-2017 09:42:18 -0800 Patient Name: ZHANG OROSCO Study Date: 10-Apr-[id number]
--- NOTE | 2017-04-10 11:00 | PN ---
Date/Time of Note Date/Time of Note DATE: 04/10/17 TIME: 10:59 Assessment/Plan VTE Prophylaxis VTE Prophylaxis Intervention: SCD's Lines/Catheters Urinary Cath still in place: No Assessment/Plan Chief Complaint/Hosp Course 1.Acute encephalopathy with Coma requiring CPR .GCS=3. Suspect possible seizure etiology. Differentials considered and is being worked up are possible cardiac etiologies/arrhythmias (provided patient with pacemaker) , CVA , and or Toxic Metabolic Encephalopathy (TME). Status: Acute -Unable to do MRI due to pacemaker.EEG nonconclusive.CT brain /CTA head/neck unremarkable.Will also obtain a toxicology screen. -CC care bundle with HOB>30 degree, stress ulcer/DVT prophylaxis. -Glycemic control with targeted BS 140-180 mg/dl and avoid hypoglycemic episodes. -Seizure precautions--Add IV ATIVAN PRN seizure- Defer neurology for further seizure mgmt. -Aspirin 81, Plavix 75 mg daily for stroke treatment per neuro recs. -PT/OT/ST eval and treatment once patient is medically stable. -Neurochecks every hour. -Follow-up on repeat EEG -Ammonia is normal, ultrasound abdomen shows no cirrhosis 2.Hypoxemic respiratory failure requiring intubation/mechanical ventilation Status: Acute -AUBREY Neb, Vent management per pulmonary colleagues. -ABG/Chest Xray f/u per pulmonary 3.Questionable PEA with #1. Currently in NSR w/RBBB. Patient w/pacemaker. Status: Acute -Cardiology consult-Consider pacemaker interrogation. -Echo shows an EF of 45% with stage I diastolic heart failure 4. Seizure disorders. Status: Chronic/Recurrent -Patient is on Keppra and Vimpat-Defer neuro for further management. -Seizure precautions/Repeat EEG -F/u cultures to rule out infectious etiology of seizure disorder. 5. ESRD, on hemodialysis Thursday. ACCESS: left upper arm AV shunt-functional. Status: chronic. - Hemodialysis per nephrology colleagues. -Renal dose medications. Monitor renal function closely. 6.HTN- -Hydralazine PRN SBP.160 -Monitor for now and avoidtoo tight control-Defer cards/nephro for further mgmt. 7. Anemia of ESRD. Status: Chronic. -Monitor H&H closely. -Defer Epogen to nephrology if indicated. 8.Prediabetes. A1c 6.2. Status: Chronic -Monitor for now. Sliding scale insulin in-house. 9.Status post Pacemaker placement 10. Psychiatric disorders. Status: Chronic -Continue home medications. Prophylaxis: SCDs/PPIs. Patient with elevated PT/PTT. Problems: Subjective 24 Hr Interval Summary Subjective hx not possible: pt non-verbal Exam/Review of Systems Vital Signs Vitals Vital Signs Date Time Temp Pulse Resp B/P Pulse Ox O2 Delivery O2 Flow Rate FiO2 04/10/17 09:02 82 16 98 30 04/10/17 03:00 108/56 Mechanical Ventilator 04/10/17 00:00 98.6 04/07/17 08:00 2.0 Intake and Output 04/09/17 04/09/17 04/10/17 15:00 23:00 07:00 Intake Total 190 ml 40 ml 245 ml Output Total 0 ml 0 ml 0 ml Balance 190 ml 40 ml 245 ml Exam Constitutional: non-verbal ENMT: intubated Respiratory: clear to auscultation Cardiovascular: regular rate and rhythm Gastrointestinal: soft, No distended Musculoskeletal: nl extremities to inspection Results Result Diagram: 04/10/1739904/10/17 0400 Results 24 hrs Laboratory Tests Test 04/09/17 13:04 04/09/17 18:40 04/09/17 20:05 04/10/17 01:43 Bedside Glucose 166 163 181 173 Test 04/10/17 04:00 04/10/17 04:50 04/10/17 08:23 04/10/17 09:21 White Blood Count 10.0 Red Blood Count 2.49 L Hemoglobin 7.8 L Hematocrit 25.6 L Mean Corpuscular Volume 102.8 H Mean Corpuscular Hemoglobin 31.3 Mean Corpuscular Hemoglobin Concent 30.5 L Red Cell Distribution Width 21.4 H Platelet Count 192 Mean Platelet Volume 11.5 H Neutrophils % 82.4 H Lymphocytes % 10.7 L Monocytes % 5.1 Eosinophils % 1.0 Basophils % 0.2 Nucleated Red Blood Cells % 0.0 Neutrophils # 8.2 H Lymphocytes # 1.1 Monocytes # 0.5 Eosinophils # 0.1 Basophils # 0.0 Nucleated Red Blood Cells # 0.0 Sodium Level 139 Potassium Level 4.5 Chloride Level 98 Carbon Dioxide Level 26 Anion Gap 20 H Blood Urea Nitrogen 50 H Creatinine 11.11 #H Glucose Level 156 Calcium Level 8.3 L Bedside Glucose 157 144 Blood Gas Specimen Source Blood arterial Arterial Blood Date Drawn 04/10/2017 9:30:10 AM Arterial Blood pH (Temp corrected) 7.423 Arterial Blood pCO2 (Temp correct) 39.8 Arterial Blood pO2 (Temp corrected) 75.9 L Arterial Blood HCO3 25.4 Arterial Blood Base Excess 0.9 Arterial Blood Oxygen Saturation 93.7 L Steve Test ACCEPTAB Arterial Blood Gas Puncture Site Right Radial Arterial Blood Carboxyhemoglobin 0.9 Arterial Blood Methemoglobin 0.3 Blood Gas A-a O2 Differential 91.2 H Oxyhemoglobin Percent 92.6 L Total Hemoglobin 8.6 L Blood Gas Temperature 37.0 Blood Gas Respiration Rate 14.0 Blood Gas Actual Respiration Rate 16 Blood Gas Modality VENT - AC FiO2 30.0 Blood Gas Tidal Volume 500.0 Blood Gas Low PEEP Setting 5.0 Blood Gas Notified Whom JLD Blood Gas Notified Time 04/10/2017 9:42:49 AM Medications Medications Current Medications Aspirin (Aspirin) 81 mg DAILY PO Last administered on 04/10/17 09:19; Admin Dose 81 MG; Start 04/07/17 at 09:00 Clopidogrel Bisulfate (plaVIX) 75 mg DAILY PO Last administered on 04/10/17 09 :20; Admin Dose 75 MG; Start 04/07/17 at 09:00 Acetaminophen (Tylenol Tab) 650 mg Q6H PRN PO PAIN AND OR ELEVATED TEMP; Start 04/06/17 at 14:00 Escitalopram Oxalate (Lexapro) 20 mg DAILY PO Last administered on 04/10/17 09 :19; Admin Dose 20 MG; Start 04/07/17 at 09:00 Folic Acid (Folic Acid) 1 mg DAILY PO Last administered on 04/10/17 09:19; Admin Dose 1 MG; Start 04/07/17 at 09:00 Loratadine (Claritin) 10 mg DAILY PO Last administered on 04/10/17 09:19; Admin Dose 10 MG; Start 04/07/17 at 09:00 Midodrine (Proamatine) 5 mg TID PO ; Start 04/06/17 at 21:00; Status Future Hold Lactobacillus Acidophilus/ Rhamnosus (Culturelle) 1 cap TID PO Last administered on 04/10/17 09:19; Admin Dose 1 CAP; Start 04/06/17 at 21:00 Ondansetron HCl (Zofran Inj) 4 mg Q6H PRN IV NAUSEA AND/OR VOMITING; Start 04/06/17 at 14:30 Hydralazine HCl (Apresoline) 10 mg Q6H PRN IV sbp>160 Last administered on 04/07 16:37; Admin Dose 10 MG; Start 04/06/17 at 14:30 Lorazepam 1 mg 1 mg Q2H PRN IV seizure Last administered on 04/07/17 16:44; Admin Dose 1 MG; Start 04/07/17 at 10:30 Nicardipine HCl 25 mg/Sodium Chloride 260 ml @ 52 mls/hr TITRATE IV ; Start at 16:00 Levetiracetam/ Dextrose (Keppra Iv/D5W) 110 ml @ 400 mls/hr Q12 IV Last administered on 04/10/17 09:19; Admin Dose 400 MLS/HR; Start 04/07/17 at 15:44 Lacosamide (Vimpat Liq) 150 mg BID PO Last administered on 04/10/17 09:20; Admin Dose 150 MG; Start 04/07/17 at 22:00 Insulin Aspart (Novolog Insulin Pen) NOVOLOG *MODERATE* ALGORI... Q4 SC Last administered on 04/10/17 09:37; Admin Dose 2 UNIT; Start 04/08/17 at 01:00 Miscellaneous Information 1 ea NOTE XX ; Start 04/07/17 at 22:00 Glucose (Glutose) 15 gm Q15M PRN PO DECREASED GLUCOSE; Start 04/07/17 at 22:00 Glucose (Glutose) 22.5 gm Q15M PRN PO DECREASED GLUCOSE; Start 04/07/17 at 22: 00 Dextrose (D50w Syringe) 25 ml Q15M PRN IV DECREASED GLUCOSE; Start 04/07/17 at 22:00 Dextrose (D50w Syringe) 50 ml Q15M PRN IV DECREASED GLUCOSE; Start 04/07/17 at 22:00 Glucagon (Glucagen) 1 mg Q15M PRN IM DECREASED GLUCOSE; Start 04/07/17 at 22:00 Glucose (Glutose) 15 gm Q15M PRN BUCCAL DECREASED GLUCOSE; Start 04/07/17 at 22 :00 Insulin Glargine (Lantus) 10 unit DAILY@20 SC Last administered on 04/09/17 20 :09; Admin Dose 10 UNIT; Start 04/08/17 at 01:00 Collagenase (Santyl) 1 applic DAILY TOP Last administered on 04/10/17 09:20; Admin Dose 1 APPLIC; Start 04/09/17 at 09:00 Lansoprazole (Prevacid) 30 mg DAILY@06 NGT Last administered on 04/10/17 09:19 ; Admin Dose 30 MG; Start 04/10/17 at 09:00 Ferrous Sulfate (Feosol Liquid Cup) 300 mg DAILY GTB Last administered on 09:18; Admin Dose 300 MG; Start 04/10/17 at 09:00 NADIA BRINK Apr 10, 2017 11:00
--- NOTE | 2017-04-10 14:47 | CONS ---
Date/Time of Note Date/Time of Note DATE: 04/10/17 TIME: 14:45 Assessment/Plan Assessment/Plan Chief Complaint/Hosp Course - ESRD on Hemodialysis TTS @ [facility] - Recent Hospital admit to [place] with PEA - Recent Hx of Pacemaker - History of Lupus - Hypertension - Anemia - History of Seizures - CAD / CHF - Resp. Insuff on Vent. - Sepsis / Shock PLAN: Hemodynamic support Resp. Support Bedside dialysis today Pulm + Neuro + Cardio following + Pericardial effusion with creatinine ~ 11 Remains unresponsive Will do an extra HD tomorrow secondary to above D/W family bedside Problems: Consultation Date/Type/Reason Admit Date/Time Apr 06, 2017 at 10:58 Initial Consult Date 04/07/17 Type of Consultation: NEPHROLOGY Reason for Consultation ESRD on Hemodialysis Referring Provider: LACY RAMÍREZ NP 24 HR Interval Summary Subjective hx not possible: pt non-verbal, pt critical status Exam/Review of Systems Vital Signs Vitals Vital Signs Date Time Temp Pulse Resp B/P Pulse Ox O2 Delivery O2 Flow Rate FiO2 04/10/17 13:40 71 20 04/10/17 13:20 96 30 04/10/17 11:00 121/79 Mechanical Ventilator 04/10/17 08:00 99.1 04/07/17 08:00 2.0 Intake and Output 04/09/17 04/09/17 04/10/17 15:00 23:00 07:00 Intake Total 190 ml 40 ml 245 ml Output Total 0 ml 0 ml 0 ml Balance 190 ml 40 ml 245 ml Exam Constitutional: non-verbal Respiratory: crackles/rales Cardiovascular: regular rate and rhythm, systolic murmur Gastrointestinal: soft Results Result Diagram: 04/10/17 0400 04/10/17 0400 Results 24 hrs Laboratory Tests Test 04/09/17 18:40 04/09/17 20:05 04/10/17 01:43 04/10/17 04:00 Bedside Glucose 163 181 173 White Blood Count 10.0 Red Blood Count 2.49 L Hemoglobin 7.8 L Hematocrit 25.6 L Mean Corpuscular Volume 102.8 H Mean Corpuscular Hemoglobin 31.3 Mean Corpuscular Hemoglobin Concent 30.5 L Red Cell Distribution Width 21.4 H Platelet Count 192 Mean Platelet Volume 11.5 H Neutrophils % 82.4 H Lymphocytes % 10.7 L Monocytes % 5.1 Eosinophils % 1.0 Basophils % 0.2 Nucleated Red Blood Cells % 0.0 Neutrophils # 8.2 H Lymphocytes # 1.1 Monocytes # 0.5 Eosinophils # 0.1 Basophils # 0.0 Nucleated Red Blood Cells # 0.0 Sodium Level 139 Potassium Level 4.5 Chloride Level 98 Carbon Dioxide Level 26 Anion Gap 20 H Blood Urea Nitrogen 50 H Creatinine 11.11 #H Glucose Level 156 Calcium Level 8.3 L Test 04/10/17 04:50 04/10/17 08:23 04/10/17 09:21 Bedside Glucose 157 144 Blood Gas Specimen Source Blood arterial Arterial Blood Date Drawn 04/10/2017 9:30:10 AM Arterial Blood pH (Temp corrected) 7.423 Arterial Blood pCO2 (Temp correct) 39.8 Arterial Blood pO2 (Temp corrected) 75.9 L Arterial Blood HCO3 25.4 Arterial Blood Base Excess 0.9 Arterial Blood Oxygen Saturation 93.7 L Steve Test ACCEPTAB Arterial Blood Gas Puncture Site Right Radial Arterial Blood Carboxyhemoglobin 0.9 Arterial Blood Methemoglobin 0.3 Blood Gas A-a O2 Differential 91.2 H Oxyhemoglobin Percent 92.6 L Total Hemoglobin 8.6 L Blood Gas Temperature 37.0 Blood Gas Respiration Rate 14.0 Blood Gas Actual Respiration Rate 16 Blood Gas Modality VENT - AC FiO2 30.0 Blood Gas Tidal Volume 500.0 Blood Gas Low PEEP Setting 5.0 Blood Gas Notified Whom JLD Blood Gas Notified Time 04/10/2017 9:42:49 AM Medications Medications Current Medications Aspirin (Aspirin) 81 mg DAILY PO Last administered on 04/10/17 09:19; Admin Dose 81 MG; Start 04/07/17 at 09:00 Clopidogrel Bisulfate (plaVIX) 75 mg DAILY PO Last administered on 04/10/17 09 :20; Admin Dose 75 MG; Start 04/07/17 at 09:00 Acetaminophen (Tylenol Tab) 650 mg Q6H PRN PO PAIN AND OR ELEVATED TEMP; Start 04/06/17 at 14:00 Escitalopram Oxalate (Lexapro) 20 mg DAILY PO Last administered on 04/10/17 09 :19; Admin Dose 20 MG; Start 04/07/17 at 09:00 Folic Acid (Folic Acid) 1 mg DAILY PO Last administered on 04/10/17 09:19; Admin Dose 1 MG; Start 04/07/17 at 09:00 Loratadine (Claritin) 10 mg DAILY PO Last administered on 04/10/17 09:19; Admin Dose 10 MG; Start 04/07/17 at 09:00 Midodrine (Proamatine) 5 mg TID PO ; Start 04/06/17 at 21:00; Status Future Hold Lactobacillus Acidophilus/ Rhamnosus (Culturelle) 1 cap TID PO Last administered on 04/10/17 09:19; Admin Dose 1 CAP; Start 04/06/17 at 21:00 Ondansetron HCl (Zofran Inj) 4 mg Q6H PRN IV NAUSEA AND/OR VOMITING; Start 04/06/17 at 14:30 Hydralazine HCl (Apresoline) 10 mg Q6H PRN IV sbp>160 Last administered on 04/07 16:37; Admin Dose 10 MG; Start 04/06/17 at 14:30 Lorazepam 1 mg 1 mg Q2H PRN IV seizure Last administered on 04/07/17 16:44; Admin Dose 1 MG; Start 04/07/17 at 10:30 Nicardipine HCl 25 mg/Sodium Chloride 260 ml @ 52 mls/hr TITRATE IV ; Start at 16:00 Levetiracetam/ Dextrose (Keppra Iv/D5W) 110 ml @ 400 mls/hr Q12 IV Last administered on 04/10/17 09:19; Admin Dose 400 MLS/HR; Start 04/07/17 at 15:44 Lacosamide (Vimpat Liq) 150 mg BID PO Last administered on 04/10/17 09:20; Admin Dose 150 MG; Start 04/07/17 at 22:00 Insulin Aspart (Novolog Insulin Pen) NOVOLOG *MODERATE* ALGORI... Q4 SC Last administered on 04/10/17 09:37; Admin Dose 2 UNIT; Start 04/08/17 at 01:00 Miscellaneous Information 1 ea NOTE XX ; Start 04/07/17 at 22:00 Glucose (Glutose) 15 gm Q15M PRN PO DECREASED GLUCOSE; Start 04/07/17 at 22:00 Glucose (Glutose) 22.5 gm Q15M PRN PO DECREASED GLUCOSE; Start 04/07/17 at 22: 00 Dextrose (D50w Syringe) 25 ml Q15M PRN IV DECREASED GLUCOSE; Start 04/07/17 at 22:00 Dextrose (D50w Syringe) 50 ml Q15M PRN IV DECREASED GLUCOSE; Start 04/07/17 at 22:00 Glucagon (Glucagen) 1 mg Q15M PRN IM DECREASED GLUCOSE; Start 04/07/17 at 22:00 Glucose (Glutose) 15 gm Q15M PRN BUCCAL DECREASED GLUCOSE; Start 04/07/17 at 22 :00 Insulin Glargine (Lantus) 10 unit DAILY@20 SC Last administered on 04/09/17 20 :09; Admin Dose 10 UNIT; Start 04/08/17 at 01:00 Collagenase (Santyl) 1 applic DAILY TOP Last administered on 04/10/17 09:20; Admin Dose 1 APPLIC; Start 04/09/17 at 09:00 Lansoprazole (Prevacid) 30 mg DAILY@06 NGT Last administered on 04/10/17 09:19 ; Admin Dose 30 MG; Start 04/10/17 at 09:00 Ferrous Sulfate (Feosol Liquid Cup) 300 mg DAILY GTB Last administered on 09:18; Admin Dose 300 MG; Start 04/10/17 at 09:00 PARKER PARKER MD Apr 10, 2017 14:47
--- NOTE | 2017-04-10 15:06 | CONS ---
Date/Time of Note Date/Time of Note DATE: 04/10/17 TIME: 14:41 Assessment/Plan Assessment/Plan Chief Complaint/Hosp Course Cardio respiratory arrest Problems: Additional Assessment/Plan 47 yo male with ESRD admitted with dysarthria and possible aphasia unclear baseline. Baseline he has a history of seizure d/o and psychiatric disease. Admitted to the ICU post cardiac arrest. Remains unresponsive. EEG showed burst suppression pattern. Recommendations: ASA 81 mg daily SBP less than 140 MRI Brain without contrast unable to be done due to PPM- CTH w/o contrast shows no new changes Repeat Routine EEG Continue Keppra 1g BID and Vimpat 150 mg BID continue ICU level care will fu Consultation Date/Type/Reason Admit Date/Time Apr 06, 2017 at 10:58 Initial Consult Date 04/07/17 Type of Consultation: card Referring Provider: LACY RAMÍREZ NP 24 HR Interval Summary Free Text/Dictation Clinically unchanged. Repeat EEG showed burst suppression pattern. Exam/Review of Systems Vital Signs Vitals Vital Signs Date Time Temp Pulse Resp B/P Pulse Ox O2 Delivery O2 Flow Rate FiO2 04/10/17 13:40 71 20 04/10/17 13:20 96 30 04/10/17 11:00 121/79 Mechanical Ventilator 04/10/17 08:00 99.1 04/07/17 08:00 2.0 Intake and Output 04/09/17 04/09/17 04/10/17 15:00 23:00 07:00 Intake Total 190 ml 40 ml 245 ml Output Total 0 ml 0 ml 0 ml Balance 190 ml 40 ml 245 ml Exam Comatose, Intubated, ventilated, corneal and gag reflexes are present, no withdrawl to noxious stimuli, very limited exam Constitutional: well developed Head: atraumatic, normocephalic Eyes: nl conjunctiva Results Result Diagram: 04/10/17 0400 04/10/17 0400 Results 24 hrs Laboratory Tests Test 04/09/17 18:40 04/09/17 20:05 04/10/17 01:43 04/10/17 04:00 Bedside Glucose 163 181 173 White Blood Count 10.0 Red Blood Count 2.49 L Hemoglobin 7.8 L Hematocrit 25.6 L Mean Corpuscular Volume 102.8 H Mean Corpuscular Hemoglobin 31.3 Mean Corpuscular Hemoglobin Concent 30.5 L Red Cell Distribution Width 21.4 H Platelet Count 192 Mean Platelet Volume 11.5 H Neutrophils % 82.4 H Lymphocytes % 10.7 L Monocytes % 5.1 Eosinophils % 1.0 Basophils % 0.2 Nucleated Red Blood Cells % 0.0 Neutrophils # 8.2 H Lymphocytes # 1.1 Monocytes # 0.5 Eosinophils # 0.1 Basophils # 0.0 Nucleated Red Blood Cells # 0.0 Sodium Level 139 Potassium Level 4.5 Chloride Level 98 Carbon Dioxide Level 26 Anion Gap 20 H Blood Urea Nitrogen 50 H Creatinine 11.11 #H Glucose Level 156 Calcium Level 8.3 L Test 04/10/17 04:50 04/10/17 08:23 04/10/17 09:21 Bedside Glucose 157 144 Blood Gas Specimen Source Blood arterial Arterial Blood Date Drawn 04/10/2017 9:30:10 AM Arterial Blood pH (Temp corrected) 7.423 Arterial Blood pCO2 (Temp correct) 39.8 Arterial Blood pO2 (Temp corrected) 75.9 L Arterial Blood HCO3 25.4 Arterial Blood Base Excess 0.9 Arterial Blood Oxygen Saturation 93.7 L Steve Test ACCEPTAB Arterial Blood Gas Puncture Site Right Radial Arterial Blood Carboxyhemoglobin 0.9 Arterial Blood Methemoglobin 0.3 Blood Gas A-a O2 Differential 91.2 H Oxyhemoglobin Percent 92.6 L Total Hemoglobin 8.6 L Blood Gas Temperature 37.0 Blood Gas Respiration Rate 14.0 Blood Gas Actual Respiration Rate 16 Blood Gas Modality VENT - AC FiO2 30.0 Blood Gas Tidal Volume 500.0 Blood Gas Low PEEP Setting 5.0 Blood Gas Notified Whom JLD Blood Gas Notified Time 04/10/2017 9:42:49 AM Medications Medications Current Medications Aspirin (Aspirin) 81 mg DAILY PO Last administered on 04/10/17 09:19; Admin Dose 81 MG; Start 04/07/17 at 09:00 Clopidogrel Bisulfate (plaVIX) 75 mg DAILY PO Last administered on 04/10/17 09 :20; Admin Dose 75 MG; Start 04/07/17 at 09:00 Acetaminophen (Tylenol Tab) 650 mg Q6H PRN PO PAIN AND OR ELEVATED TEMP; Start 04/06/17 at 14:00 Escitalopram Oxalate (Lexapro) 20 mg DAILY PO Last administered on 04/10/17 09 :19; Admin Dose 20 MG; Start 04/07/17 at 09:00 Folic Acid (Folic Acid) 1 mg DAILY PO Last administered on 04/10/17 09:19; Admin Dose 1 MG; Start 04/07/17 at 09:00 Loratadine (Claritin) 10 mg DAILY PO Last administered on 04/10/17 09:19; Admin Dose 10 MG; Start 04/07/17 at 09:00 Midodrine (Proamatine) 5 mg TID PO ; Start 04/06/17 at 21:00; Status Future Hold Lactobacillus Acidophilus/ Rhamnosus (Culturelle) 1 cap TID PO Last administered on 04/10/17 09:19; Admin Dose 1 CAP; Start 04/06/17 at 21:00 Ondansetron HCl (Zofran Inj) 4 mg Q6H PRN IV NAUSEA AND/OR VOMITING; Start 04/06/17 at 14:30 Hydralazine HCl (Apresoline) 10 mg Q6H PRN IV sbp>160 Last administered on 04/07 16:37; Admin Dose 10 MG; Start 04/06/17 at 14:30 Lorazepam 1 mg 1 mg Q2H PRN IV seizure Last administered on 04/07/17 16:44; Admin Dose 1 MG; Start 04/07/17 at 10:30 Nicardipine HCl 25 mg/Sodium Chloride 260 ml @ 52 mls/hr TITRATE IV ; Start at 16:00 Levetiracetam/ Dextrose (Keppra Iv/D5W) 110 ml @ 400 mls/hr Q12 IV Last administered on 04/10/17 09:19; Admin Dose 400 MLS/HR; Start 04/07/17 at 15:44 Lacosamide (Vimpat Liq) 150 mg BID PO Last administered on 04/10/17 09:20; Admin Dose 150 MG; Start 04/07/17 at 22:00 Insulin Aspart (Novolog Insulin Pen) NOVOLOG *MODERATE* ALGORI... Q4 SC Last administered on 04/10/17 09:37; Admin Dose 2 UNIT; Start 04/08/17 at 01:00 Miscellaneous Information 1 ea NOTE XX ; Start 04/07/17 at 22:00 Glucose (Glutose) 15 gm Q15M PRN PO DECREASED GLUCOSE; Start 04/07/17 at 22:00 Glucose (Glutose) 22.5 gm Q15M PRN PO DECREASED GLUCOSE; Start 04/07/17 at 22: 00 Dextrose (D50w Syringe) 25 ml Q15M PRN IV DECREASED GLUCOSE; Start 04/07/17 at 22:00 Dextrose (D50w Syringe) 50 ml Q15M PRN IV DECREASED GLUCOSE; Start 04/07/17 at 22:00 Glucagon (Glucagen) 1 mg Q15M PRN IM DECREASED GLUCOSE; Start 04/07/17 at 22:00 Glucose (Glutose) 15 gm Q15M PRN BUCCAL DECREASED GLUCOSE; Start 04/07/17 at 22 :00 Insulin Glargine (Lantus) 10 unit DAILY@20 SC Last administered on 04/09/17 20 :09; Admin Dose 10 UNIT; Start 04/08/17 at 01:00 Collagenase (Santyl) 1 applic DAILY TOP Last administered on 04/10/17 09:20; Admin Dose 1 APPLIC; Start 04/09/17 at 09:00 Lansoprazole (Prevacid) 30 mg DAILY@06 NGT Last administered on 04/10/17 09:19 ; Admin Dose 30 MG; Start 04/10/17 at 09:00 Ferrous Sulfate (Feosol Liquid Cup) 300 mg DAILY GTB Last administered on 09:18; Admin Dose 300 MG; Start 04/10/17 at 09:00 PATRICIA VILLATORO MD Apr 10, 2017 14:51
--- NOTE | 2017-04-10 16:31 | SP ---
DATE OF PROCEDURE: 04/07/2017 HISTORY: This is a 47-year-old male who had a history of psych disorder and seizure disorder, had a cardiac arrest and has been unresponsive. CURRENT MEDICATIONS: 1. Keppra. 2. Ativan. PROCEDURE: Utilizing a 16-channel EEG machine, cap scalp electrodes were applied in accordance with International 10-20 system. [id number] and [id number] montages were displayed. Electrical i mpedances were measured and reported. DESCRIPTION: During the resting state, posterior dominant rhythm of about 6 to 7 Hz were seen bihem ispherically. Bursts of slow waves in the range of 3 to 4 Hz were seen bihemispherically, intermitt ent with suppression pattern. EKG artifact was noted at times. Hyperventilation and photic stimula tion were not performed. INTERPRETATION: This is an abnormal EEG due to presence of burst suppression pattern consistent wit h severe encephalopathy with epileptiform activity. Please correlate these findings with the patien t's clinical picture. Dictated By: PATRICIA SOL/WILNER Conf#: [id number] DID#: [id number]
[2017-04-10] MEDS: INSULIN GLARGINE [LANtus] 3 ML PEN SC SCH (20:30)
[2017-04-11] VITALS (66 sets, daily range): BP systolic 73–153; BP diastolic 23–98; PULSE 75–99; RESP 14–20
[2017-04-11] MEDS: IPRATROPIUM (HFA) 12.9 GM INHALER INH SCH ×4 (01:10→19:11)
[2017-04-11] MEDS: ALBUTEROL HFA 8 GM INHALER INH SCH ×4 (01:11→19:11)
[2017-04-11] MEDS: INSULIN ASPART [NOVOLOG] 3 ML PEN SC SCH ×6 (02:07→20:59)
[2017-04-11] MEDS: LANSOPRAZOLE 30 MG CAP NGT SCH (05:59)
[2017-04-11 06:12] LABS: CALCIUM 8.4 mg/dl (8.4-10.2); CREATININE 8.3 mg/dl (0.61-1.24); POTASSIUM 3.9 mmol/L (3.5-5.1)
[2017-04-11] MEDS: SEVELAMER CARBONATE 0.8 GM PKT GTB SCH ×3 (09:32→17:20)
[2017-04-11] MEDS: ASPIRIN 81 MG TAB PO SCH (09:32)
[2017-04-11] MEDS: LORATADINE 10 MG TAB PO SCH (09:32)
[2017-04-11] MEDS: FOLIC ACID 1 MG TAB PO SCH (09:32)
[2017-04-11] MEDS: CLOPIDOGREL 75 MG TAB PO SCH (09:32)
[2017-04-11] MEDS: ESCITALOPRAM 10 MG TAB PO SCH (09:32)
[2017-04-11] MEDS: FERROUS SULFATE 60 MG/ML 5ML CUP GTB SCH (09:32)
[2017-04-11] MEDS: LACTOBACILLUS RHAMNOSUS CAP PO SCH ×3 (09:33→20:48)
[2017-04-11] MEDS: LACOSAMIDE (100 MG/10 ML PO SYR) PO SCH ×2 (09:33→20:48)
[2017-04-11] MEDS: MIDODRINE 5 MG TAB PO SCH ×3 (09:33→20:49)
[2017-04-11] MEDS: COLLAGENASE 30 GM TUBE TOP SCH (09:50)
[2017-04-11] MEDS ORDERED: SOD CHLORIDE 0.9% 500 ML IV ONE (10:00)
[2017-04-11] MEDS: LEVETIRACETAM IV 1,000 MG in DEXTROSE 5% 100 ML IV SCH ×2 (10:02→20:48)
--- NOTE | 2017-04-11 11:19 | CONS ---
Date/Time of Note Date/Time of Note DATE: 04/11/17 TIME: 11:14 Consult Date/Type/Reason Admit Date/Time Apr 06, 2017 at 10:58 Initial Consult Date 04/07/17 Type of Consultation: Pulm/CCM Ordering Provider: LACY RAMÍREZ NP Subjective Unresponsive on vent. EEG results noted. Objective Vital Signs Date Time Temp Pulse Resp B/P Pulse Ox O2 Delivery O2 Flow Rate FiO2 04/11/17 08:00 92 04/11/17 07:33 16 96 30 04/11/17 07:00 99/29 Mechanical Ventilator 04/11/17 00:00 97.4 04/07/17 08:00 2.0 Intake and Output 04/10/17 04/10/17 04/11/17 15:00 23:00 07:00 Intake Total 1150 ml 360 ml 250 ml Output Total 6500 ml 0 ml 0 ml Balance -5350 ml 360 ml 250 ml Exam HEENT: Neck supple; no JVD; no LAD; + ET tube CVS: RRR, S1 and S2 CHEST: Clear ABD: Soft, NT, + BS EXT: No c/c/e NEURO: Unresponsive on vent. Results/Medications Result Diagram: 04/10/17 0400 04/11/17 0452 Results 24 hrs Laboratory Tests Test 04/10/17 15:44 04/10/17 18:08 04/10/17 20:21 04/11/17 02:03 Bedside Glucose 163 191 179 196 Test 04/11/17 04:43 04/11/17 04:52 04/11/17 09:53 Bedside Glucose 175 184 Sodium Level 143 Potassium Level 3.9 Chloride Level 100 Carbon Dioxide Level 30 Anion Gap 17 H Blood Urea Nitrogen 41 H Creatinine 8.30 #H Glucose Level 168 Calcium Level 8.4 Medications Current Medications Aspirin (Aspirin) 81 mg DAILY PO Last administered on 04/11/17 09:32; Admin Dose 81 MG; Start 04/07/17 at 09:00 Clopidogrel Bisulfate (plaVIX) 75 mg DAILY PO Last administered on 04/11/17 09 :32; Admin Dose 75 MG; Start 04/07/17 at 09:00 Acetaminophen (Tylenol Tab) 650 mg Q6H PRN PO PAIN AND OR ELEVATED TEMP; Start 04/06/17 at 14:00 Escitalopram Oxalate (Lexapro) 20 mg DAILY PO Last administered on 04/11/17 09 :32; Admin Dose 20 MG; Start 04/07/17 at 09:00 Folic Acid (Folic Acid) 1 mg DAILY PO Last administered on 04/11/17 09:32; Admin Dose 1 MG; Start 04/07/17 at 09:00 Loratadine (Claritin) 10 mg DAILY PO Last administered on 04/11/17 09:32; Admin Dose 10 MG; Start 04/07/17 at 09:00 Midodrine (Proamatine) 5 mg TID PO Last administered on 04/11/17 09:33; Admin Dose 5 MG; Start 04/06/17 at 21:00; Status Future hold Lactobacillus Acidophilus/ Rhamnosus (Culturelle) 1 cap TID PO Last administered on 04/11/17 09:33; Admin Dose 1 CAP; Start 04/06/17 at 21:00 Ondansetron HCl (Zofran Inj) 4 mg Q6H PRN IV NAUSEA AND/OR VOMITING; Start 04/06/17 at 14:30 Hydralazine HCl (Apresoline) 10 mg Q6H PRN IV sbp>160 Last administered on 04/07 16:37; Admin Dose 10 MG; Start 04/06/17 at 14:30 Lorazepam 1 mg 1 mg Q2H PRN IV seizure Last administered on 04/07/17 16:44; Admin Dose 1 MG; Start 04/07/17 at 10:30 Nicardipine HCl 25 mg/Sodium Chloride 260 ml @ 52 mls/hr TITRATE IV ; Start at 16:00 Levetiracetam/ Dextrose (Keppra Iv/D5W) 110 ml @ 400 mls/hr Q12 IV Last administered on 04/11/17 10:02; Admin Dose 400 MLS/HR; Start 04/07/17 at 15:44 Lacosamide (Vimpat Liq) 150 mg BID PO Last administered on 04/11/17 09:33; Admin Dose 150 MG; Start 04/07/17 at 22:00 Insulin Aspart (Novolog Insulin Pen) NOVOLOG *MODERATE* ALGORI... Q4 SC Last administered on 04/11/17 09:58; Admin Dose 4 UNIT; Start 04/08/17 at 01:00 Miscellaneous Information 1 ea NOTE XX ; Start 04/07/17 at 22:00 Glucose (Glutose) 15 gm Q15M PRN PO DECREASED GLUCOSE; Start 04/07/17 at 22:00 Glucose (Glutose) 22.5 gm Q15M PRN PO DECREASED GLUCOSE; Start 04/07/17 at 22: 00 Dextrose (D50w Syringe) 25 ml Q15M PRN IV DECREASED GLUCOSE; Start 04/07/17 at 22:00 Dextrose (D50w Syringe) 50 ml Q15M PRN IV DECREASED GLUCOSE; Start 04/07/17 at 22:00 Glucagon (Glucagen) 1 mg Q15M PRN IM DECREASED GLUCOSE; Start 04/07/17 at 22:00 Glucose (Glutose) 15 gm Q15M PRN BUCCAL DECREASED GLUCOSE; Start 04/07/17 at 22 :00 Insulin Glargine (Lantus) 10 unit DAILY@20 SC Last administered on 04/10/17 20 :30; Admin Dose 10 UNIT; Start 04/08/17 at 01:00 Collagenase (Santyl) 1 applic DAILY TOP Last administered on 04/11/17 09:50; Admin Dose 1 APPLIC; Start 04/09/17 at 09:00 Lansoprazole (Prevacid) 30 mg DAILY@06 NGT Last administered on 04/11/17 05:59 ; Admin Dose 30 MG; Start 04/10/17 at 09:00 Ferrous Sulfate (Feosol Liquid Cup) 300 mg DAILY GTB Last administered on 09:32; Admin Dose 300 MG; Start 04/10/17 at 09:00 Assessment/Plan Additional Assessment/Plan IMP: 1. Severe Encephalopathy: multifactorial in origin, however, evidence of ongoing seizure activity 2. Status Epilepticus 3. s/p CPA 4. Hypoxemic Resp Failure 5. ESRD on HD 6. Anemia RECS: 1. Vent support 2. Minimize sedatives/narcotics 3. Follow neuro exam 4. Anti-epileptic Rx per Neuro 5. Recheck CXR now; may need to advance ET tube 35 min cc time JULIANNE ANAND MD Apr 11, 2017 11:19
--- NOTE | 2017-04-11 11:29 | PN ---
Date/Time of Note Date/Time of Note DATE: 04/11/17 TIME: 11:27 Assessment/Plan VTE Prophylaxis VTE Prophylaxis Intervention: SCD's Lines/Catheters IV Catheter Type (from Nrs): Peripheral IV Urinary Cath still in place: No Assessment/Plan Chief Complaint/Hosp Course 1.Acute encephalopathy with Coma requiring CPR .GCS=3. Suspect possible seizure etiology. Differentials considered and is being worked up are possible cardiac etiologies/arrhythmias (provided patient with pacemaker) , CVA , and or Toxic Metabolic Encephalopathy (TME). Status: Acute -Unable to do MRI due to pacemaker.EEG nonconclusive.CT brain /CTA head/neck unremarkable.Will also obtain a toxicology screen. -CC care bundle with HOB>30 degree, stress ulcer/DVT prophylaxis. -Glycemic control with targeted BS 140-180 mg/dl and avoid hypoglycemic episodes. -Seizure precautions--Add IV ATIVAN PRN seizure- Defer neurology for further seizure mgmt. -Aspirin 81, Plavix 75 mg daily for stroke treatment per neuro recs. -PT/OT/ST eval and treatment once patient is medically stable. -Neurochecks every hour. -Repeat EEG is abnormal due to presence of burst suppression pattern consistent with severe encephalopathy with epileptiform activity -Continue Keppra and Vimpat -Ammonia is normal, ultrasound abdomen shows no cirrhosis 2.Hypoxemic respiratory failure requiring intubation/mechanical ventilation Status: Acute -AUBREY Neb, Vent management per pulmonary colleagues. -ABG/Chest Xray f/u per pulmonary 3.Questionable PEA with #1. Currently in NSR w/RBBB. Patient w/pacemaker. Status: Acute -Cardiology consult-Consider pacemaker interrogation. -Echo shows an EF of 45% with stage I diastolic heart failure 4. Seizure disorders. Status: Chronic/Recurrent -Patient is on Keppra and Vimpat-Defer neuro for further management. -Seizure precautions/Repeat EEG -F/u cultures to rule out infectious etiology of seizure disorder. 5. ESRD, on hemodialysis Thursday. ACCESS: left upper arm AV shunt-functional. Status: chronic. - Hemodialysis per nephrology colleagues. -Renal dose medications. Monitor renal function closely. 6.HTN- -Hydralazine PRN SBP.160 -Monitor for now and avoidtoo tight control-Defer cards/nephro for further mgmt. 7. Anemia of ESRD. Status: Chronic. -Monitor H&H closely. -Defer Epogen to nephrology if indicated. 8.Prediabetes. A1c 6.2. Status: Chronic -Monitor for now. Sliding scale insulin in-house. 9.Status post Pacemaker placement 10. Psychiatric disorders. Status: Chronic -Continue home medications. Prophylaxis: SCDs/PPIs. Patient with elevated PT/PTT. Problems: Subjective 24 Hr Interval Summary Subjective hx not possible: pt non-verbal Exam/Review of Systems Vital Signs Vitals Vital Signs Date Time Temp Pulse Resp B/P Pulse Ox O2 Delivery O2 Flow Rate FiO2 04/11/17 11:15 86 16 85/65 98 Mechanical Ventilator 04/11/17 08:00 99.4 04/11/17 07:33 30 04/07/17 08:00 2.0 Intake and Output 04/10/17 04/10/17 04/11/17 15:00 23:00 07:00 Intake Total 1150 ml 360 ml 250 ml Output Total 6500 ml 0 ml 0 ml Balance -5350 ml 360 ml 250 ml Exam Constitutional: non-verbal ENMT: intubated Respiratory: clear to auscultation Cardiovascular: regular rate and rhythm Gastrointestinal: soft, No distended Musculoskeletal: nl extremities to inspection Results Result Diagram: 04/10/17 0400 04/11/17 0452 Results 24 hrs Laboratory Tests Test 04/10/17 15:44 04/10/17 18:08 04/10/17 20:21 04/11/17 02:03 Bedside Glucose 163 191 179 196 Test 04/11/17 04:43 04/11/17 04:52 04/11/17 09:53 Bedside Glucose 175 184 Sodium Level 143 Potassium Level 3.9 Chloride Level 100 Carbon Dioxide Level 30 Anion Gap 17 H Blood Urea Nitrogen 41 H Creatinine 8.30 #H Glucose Level 168 Calcium Level 8.4 Medications Medications Current Medications Aspirin (Aspirin) 81 mg DAILY PO Last administered on 04/11/17 09:32; Admin Dose 81 MG; Start 04/07/17 at 09:00 Clopidogrel Bisulfate (plaVIX) 75 mg DAILY PO Last administered on 04/11/17 09 :32; Admin Dose 75 MG; Start 04/07/17 at 09:00 Acetaminophen (Tylenol Tab) 650 mg Q6H PRN PO PAIN AND OR ELEVATED TEMP; Start 04/06/17 at 14:00 Escitalopram Oxalate (Lexapro) 20 mg DAILY PO Last administered on 04/11/17 09 :32; Admin Dose 20 MG; Start 04/07/17 at 09:00 Folic Acid (Folic Acid) 1 mg DAILY PO Last administered on 04/11/17 09:32; Admin Dose 1 MG; Start 04/07/17 at 09:00 Loratadine (Claritin) 10 mg DAILY PO Last administered on 04/11/17 09:32; Admin Dose 10 MG; Start 04/07/17 at 09:00 Midodrine (Proamatine) 5 mg TID PO Last administered on 04/11/17 09:33; Admin Dose 5 MG; Start 04/06/17 at 21:00; Status Future hold Lactobacillus Acidophilus/ Rhamnosus (Culturelle) 1 cap TID PO Last administered on 04/11/17 09:33; Admin Dose 1 CAP; Start 04/06/17 at 21:00 Ondansetron HCl (Zofran Inj) 4 mg Q6H PRN IV NAUSEA AND/OR VOMITING; Start 04/06/17 at 14:30 Hydralazine HCl (Apresoline) 10 mg Q6H PRN IV sbp>160 Last administered on 04/07 16:37; Admin Dose 10 MG; Start 04/06/17 at 14:30 Lorazepam 1 mg 1 mg Q2H PRN IV seizure Last administered on 04/07/17 16:44; Admin Dose 1 MG; Start 04/07/17 at 10:30 Nicardipine HCl 25 mg/Sodium Chloride 260 ml @ 52 mls/hr TITRATE IV ; Start at 16:00 Levetiracetam/ Dextrose (Keppra Iv/D5W) 110 ml @ 400 mls/hr Q12 IV Last administered on 04/11/17 10:02; Admin Dose 400 MLS/HR; Start 04/07/17 at 15:44 Lacosamide (Vimpat Liq) 150 mg BID PO Last administered on 04/11/17 09:33; Admin Dose 150 MG; Start 04/07/17 at 22:00 Insulin Aspart (Novolog Insulin Pen) NOVOLOG *MODERATE* ALGORI... Q4 SC Last administered on 04/11/17 09:58; Admin Dose 4 UNIT; Start 04/08/17 at 01:00 Miscellaneous Information 1 ea NOTE XX ; Start 04/07/17 at 22:00 Glucose (Glutose) 15 gm Q15M PRN PO DECREASED GLUCOSE; Start 04/07/17 at 22:00 Glucose (Glutose) 22.5 gm Q15M PRN PO DECREASED GLUCOSE; Start 04/07/17 at 22: 00 Dextrose (D50w Syringe) 25 ml Q15M PRN IV DECREASED GLUCOSE; Start 04/07/17 at 22:00 Dextrose (D50w Syringe) 50 ml Q15M PRN IV DECREASED GLUCOSE; Start 04/07/17 at 22:00 Glucagon (Glucagen) 1 mg Q15M PRN IM DECREASED GLUCOSE; Start 04/07/17 at 22:00 Glucose (Glutose) 15 gm Q15M PRN BUCCAL DECREASED GLUCOSE; Start 04/07/17 at 22 :00 Insulin Glargine (Lantus) 10 unit DAILY@20 SC Last administered on 04/10/17 20 :30; Admin Dose 10 UNIT; Start 04/08/17 at 01:00 Collagenase (Santyl) 1 applic DAILY TOP Last administered on 04/11/17 09:50; Admin Dose 1 APPLIC; Start 04/09/17 at 09:00 Lansoprazole (Prevacid) 30 mg DAILY@06 NGT Last administered on 04/11/17 05:59 ; Admin Dose 30 MG; Start 04/10/17 at 09:00 Ferrous Sulfate (Feosol Liquid Cup) 300 mg DAILY GTB Last administered on 09:32; Admin Dose 300 MG; Start 04/10/17 at 09:00 NADIA BRINK Apr 11, 2017 11:29
[2017-04-11] MEDS: SOD CHLORIDE 0.9% 1,000 ML IV SCH (12:50)
[2017-04-11] MEDS: ALBUMIN HUMAN 25% 100 ML IV PRN ×3 (14:42→15:48)
--- NOTE | 2017-04-11 15:30 | CONS ---
Date/Time of Note Date/Time of Note DATE: 04/11/17 TIME: 15:26 Assessment/Plan Assessment/Plan Chief Complaint/Hosp Course Cardio respiratory arrest Problems: Additional Assessment/Plan 47 yo male with ESRD admitted with dysarthria and possible aphasia unclear baseline. Baseline he has a history of seizure d/o and psychiatric disease. Admitted to the ICU post cardiac arrest. Remains unresponsive. EEG on 04/07/17 showed burst suppression pattern. Repeat EEG on 04/10/17 showed generalized bi hemispheric background slowing with any epileptiform activity. Recommendations: ASA 81 mg daily SBP less than 140 MRI Brain without contrast unable to be done due to PPM- CTH w/o contrast shows no new changes Continue Keppra 1g BID and Vimpat 150 mg BID continue ICU level care will fu Consultation Date/Type/Reason Admit Date/Time Apr 06, 2017 at 10:58 Initial Consult Date 04/07/17 Type of Consultation: Pulm/CCM Referring Provider: LACY RAMÍREZ NP 24 HR Interval Summary Free Text/Dictation Clinically unchanged. Repeat EEG showed generalized bi hemispheric background slowing with any epileptiform activity. Exam/Review of Systems Vital Signs Vitals Vital Signs Date Time Temp Pulse Resp B/P Pulse Ox O2 Delivery O2 Flow Rate FiO2 04/11/17 14:19 94 16 96 30 04/11/17 12:45 90/58 Mechanical Ventilator 04/11/17 12:00 99.1 04/07/17 08:00 2.0 Intake and Output 04/10/17 04/10/17 04/11/17 14:59 22:59 06:59 Intake Total 1150 ml 360 ml 250 ml Output Total 3500 ml 3000 ml 0 ml Balance -2350 ml -2640 ml 250 ml Exam comatose, Intubated, ventilated, no withdrawl to noxious stimuli. Limited exam. Constitutional: other (comatose) Results Result Diagram: 04/10/17 0400 04/11/17 0452 Results 24 hrs Laboratory Tests Test 04/10/17 15:44 04/10/17 18:08 04/10/17 20:21 04/11/17 02:03 Bedside Glucose 163 191 179 196 Test 04/11/17 04:43 04/11/17 04:52 04/11/17 09:53 04/11/17 12:08 Bedside Glucose 175 184 191 Sodium Level 143 Potassium Level 3.9 Chloride Level 100 Carbon Dioxide Level 30 Anion Gap 17 H Blood Urea Nitrogen 41 H Creatinine 8.30 #H Glucose Level 168 Calcium Level 8.4 Medications Medications Current Medications Aspirin (Aspirin) 81 mg DAILY PO Last administered on 04/11/17 09:32; Admin Dose 81 MG; Start 04/07/17 at 09:00 Clopidogrel Bisulfate (plaVIX) 75 mg DAILY PO Last administered on 04/11/17 09 :32; Admin Dose 75 MG; Start 04/07/17 at 09:00 Acetaminophen (Tylenol Tab) 650 mg Q6H PRN PO PAIN AND OR ELEVATED TEMP; Start 04/06/17 at 14:00 Escitalopram Oxalate (Lexapro) 20 mg DAILY PO Last administered on 04/11/17 09 :32; Admin Dose 20 MG; Start 04/07/17 at 09:00 Folic Acid (Folic Acid) 1 mg DAILY PO Last administered on 04/11/17 09:32; Admin Dose 1 MG; Start 04/07/17 at 09:00 Loratadine (Claritin) 10 mg DAILY PO Last administered on 04/11/17 09:32; Admin Dose 10 MG; Start 04/07/17 at 09:00 Midodrine (Proamatine) 5 mg TID PO Last administered on 04/11/17 12:22; Admin Dose 5 MG; Start 04/06/17 at 21:00; Status Future hold Lactobacillus Acidophilus/ Rhamnosus (Culturelle) 1 cap TID PO Last administered on 04/11/17 12:21; Admin Dose 1 CAP; Start 04/06/17 at 21:00 Ondansetron HCl (Zofran Inj) 4 mg Q6H PRN IV NAUSEA AND/OR VOMITING; Start 04/06/17 at 14:30 Hydralazine HCl (Apresoline) 10 mg Q6H PRN IV sbp>160 Last administered on 04/07 16:37; Admin Dose 10 MG; Start 04/06/17 at 14:30 Lorazepam 1 mg 1 mg Q2H PRN IV seizure Last administered on 04/07/17 16:44; Admin Dose 1 MG; Start 04/07/17 at 10:30 Nicardipine HCl 25 mg/Sodium Chloride 260 ml @ 52 mls/hr TITRATE IV ; Start at 16:00 Levetiracetam/ Dextrose (Keppra Iv/D5W) 110 ml @ 400 mls/hr Q12 IV Last administered on 04/11/17 10:02; Admin Dose 400 MLS/HR; Start 04/07/17 at 15:44 Lacosamide (Vimpat Liq) 150 mg BID PO Last administered on 04/11/17 09:33; Admin Dose 150 MG; Start 04/07/17 at 22:00 Insulin Aspart (Novolog Insulin Pen) NOVOLOG *MODERATE* ALGORI... Q4 SC Last administered on 04/11/17 12:26; Admin Dose 4 UNIT; Start 04/08/17 at 01:00 Miscellaneous Information 1 ea NOTE XX ; Start 04/07/17 at 22:00 Glucose (Glutose) 15 gm Q15M PRN PO DECREASED GLUCOSE; Start 04/07/17 at 22:00 Glucose (Glutose) 22.5 gm Q15M PRN PO DECREASED GLUCOSE; Start 04/07/17 at 22: 00 Dextrose (D50w Syringe) 25 ml Q15M PRN IV DECREASED GLUCOSE; Start 04/07/17 at 22:00 Dextrose (D50w Syringe) 50 ml Q15M PRN IV DECREASED GLUCOSE; Start 04/07/17 at 22:00 Glucagon (Glucagen) 1 mg Q15M PRN IM DECREASED GLUCOSE; Start 04/07/17 at 22:00 Glucose (Glutose) 15 gm Q15M PRN BUCCAL DECREASED GLUCOSE; Start 04/07/17 at 22 :00 Insulin Glargine (Lantus) 10 unit DAILY@20 SC Last administered on 04/10/17 20 :30; Admin Dose 10 UNIT; Start 04/08/17 at 01:00 Collagenase (Santyl) 1 applic DAILY TOP Last administered on 04/11/17 09:50; Admin Dose 1 APPLIC; Start 04/09/17 at 09:00 Lansoprazole (Prevacid) 30 mg DAILY@06 NGT Last administered on 04/11/17 05:59 ; Admin Dose 30 MG; Start 04/10/17 at 09:00 Ferrous Sulfate 300 mg 300 mg DAILY GTB Last administered on 04/11/17 09:32; Admin Dose 300 MG; Start 04/10/17 at 09:00 Sodium Chloride (NS) 1,000 ml @ 30 mls/hr Q24H IV Last administered on t 12:50; Admin Dose 30 MLS/HR; Start 04/11/17 at 12:30 PATRICIA VILLATORO MD Apr 11, 2017 15:29
--- NOTE | 2017-04-11 17:18 | SP ---
DATE OF PROCEDURE: 04/10/2017 This is a repeat EEG. HISTORY OF PRESENT ILLNESS: The patient is a 47-year-old male with end-stage renal disease who was admitted with dysarthria and possible aphasia. His previous EEG showed burst suppression pattern an d he has been on anti-seizure medication. CURRENT MEDICATIONS: Are: 1. Keppra. 2. Vimpat. PROCEDURE: Utilizing a 16-channel EEG machine, cap scalp electrodes were applied in accordance with the International 10-20 system. [id number] and [id number] montages were displayed. Electric al impedances were measured and reported. DESCRIPTION: During the resting state, posterior dominant rhythm of about 6 to 7 Hz were seen bihem ispherically. Photic stimulation had no response. Hyperventilation was not performed. There was n o focal lateralizing or epileptiform discharge identified. INTERPRETATION: This is an abnormal EEG because of presence of generalized bihemispheric background slowing consistent with encephalopathy without epileptiform activity. Please correlate these findi ngs with the patient's clinical picture. Dictated By: PATRICIA SOL/NTS Conf#: [id number] DID#: [id number] CC: DIMAS LAINEZ MD;*EndCC*
[2017-04-11] MEDS: INSULIN GLARGINE [LANtus] 3 ML PEN SC SCH (19:58)
[2017-04-12] VITALS (47 sets, daily range): BP systolic 86–145; BP diastolic 49–78; PULSE 84–96; RESP 14–20
[2017-04-12] MEDS: INSULIN ASPART [NOVOLOG] 3 ML PEN SC SCH ×6 (01:12→21:26)
[2017-04-12] MEDS: IPRATROPIUM (HFA) 12.9 GM INHALER INH SCH ×4 (01:14→20:33)
[2017-04-12] MEDS: ALBUTEROL HFA 8 GM INHALER INH SCH ×4 (01:14→20:33)
[2017-04-12 05:15] LABS: AADO2 Arterial 109.1 mmHg (7.0-24.0); Allen Test ACCEPTAB; Arterial Base Excess 5.5 mmol/L (-3.0-3); Arterial COHb 1.1 % (0.0-3.0); Arterial Fraction of Oxyhgb 91.3 % (93.0-99.0); Arterial HCO3 28.4 mmol/L (22.0-26.0); Arterial MetHb 0.3 % (0.0-1.5); Arterial Total Hemglobin 8.2 g/dl (12.0-18.0); MODE VENT - AC
[2017-04-12 05:23] LABS: BASOPHILS % 0.3 % (0.0-2.0); EOSINOPHILS # 0.1 10^3/ul (0.0-0.5); EOSINOPHILS % 1.7 % (0.0-7.0); HEMATOCRIT 27.7 % (42.0-52.0); HEMOGLOBIN 8.2 g/dl (14.0-18.0); LYMPHOCYTES % 30.4 % (15.0-51.0); MEAN CORPUSCULAR HEMOGLOBIN 31.3 pg (29.0-33.0); MEAN CORPUSCULAR HGB CONC 29.6 g/dl (32.0-37.0); MEAN CORPUSCULAR VOLUME 105.7 fl (82.0-101.0); MEAN PLATELET VOLUME 11.6 fl (7.4-10.4); MONOCYTE # 0.6 10^3/ul (0.3-0.9); MONOCYTES % 8.6 % (0.0-11.0); NEUTROPHIL # 3.8 10^3/ul (1.6-7.5); NEUTROPHILS % 58.7 % (39.0-77.0); PLATELET COUNT 249 10^3/UL (140-415); RED BLOOD COUNT 2.62 10^6/ul (4.70-6.10); RED CELL DISTRIBUTION WIDTH 21.4 % (11.5-14.5); WHITE BLOOD COUNT 6.5 10^3/ul (4.8-10.8)
[2017-04-12] MEDS: LANSOPRAZOLE 30 MG CAP NGT SCH (05:49)
[2017-04-12] MEDS: SOD CHLORIDE 0.9% 1,000 ML IV SCH (05:53)
[2017-04-12 06:24] LABS: CALCIUM 9.2 mg/dl (8.4-10.2); CREATININE 6.76 mg/dl (0.61-1.24); POTASSIUM 4.1 mmol/L (3.5-5.1)
[2017-04-12] MEDS: SEVELAMER CARBONATE 0.8 GM PKT GTB SCH ×3 (07:58→17:54)
[2017-04-12] MEDS: ACETAMINOPHEN 325 MG TAB PO PRN (07:58)
--- NOTE | 2017-04-12 08:09 | RADRPT ---
PROCEDURE: XR Chest. CLINICAL INDICATION: Shortness of breath TECHNIQUE: Single view of the chest COMPARISON: Chest radiograph April 10, 2017 FINDINGS: The tip of the endotracheal tube is 3 cm above the nori. Enteric tube courses below the diaphragm. There is a right-sided cardiac pacing device, unchanged. Cardiac silhouette is mildly enlarged there is a retrocardiac opacity along with mild vascular conge stion. No large pleural effusion is seen. There is no pneumothorax. There is no acute osseous abnormality. IMPRESSION: 1. Enlarged cardiac silhouette with mild vascular congestion and retrocardiac opacity may reflect c onsolidation or effusion, similar to the previous study. 2. Lines and tubes as above. RPTAT: UU .Lalit Aparicio MD, Date Time Electronically viewed and signed by .Lalit Aparicio MD, on 04/12/2017 08:09 .K/
[2017-04-12] MEDS: CLOPIDOGREL 75 MG TAB PO SCH (08:18)
[2017-04-12] MEDS: LACTOBACILLUS RHAMNOSUS CAP PO SCH ×3 (08:18→21:30)
[2017-04-12] MEDS: LORATADINE 10 MG TAB PO SCH (08:18)
[2017-04-12] MEDS: ESCITALOPRAM 10 MG TAB PO SCH (08:18)
[2017-04-12] MEDS: FERROUS SULFATE 60 MG/ML 5ML CUP GTB SCH (08:18)
[2017-04-12] MEDS: ASPIRIN 81 MG TAB PO SCH (08:19)
[2017-04-12] MEDS: FOLIC ACID 1 MG TAB PO SCH (08:19)
[2017-04-12] MEDS: MIDODRINE 5 MG TAB PO SCH ×3 (08:19→22:52)
[2017-04-12] MEDS: LEVETIRACETAM IV 1,000 MG in DEXTROSE 5% 100 ML IV SCH ×2 (09:48→21:30)
[2017-04-12] MEDS: COLLAGENASE 30 GM TUBE TOP SCH (09:48)
[2017-04-12] MEDS: LACOSAMIDE (100 MG/10 ML PO SYR) PO SCH ×2 (09:48→22:50)
--- NOTE | 2017-04-12 11:38 | CONS ---
Date/Time of Note Date/Time of Note DATE: 04/12/17 TIME: 11:37 Consult Date/Type/Reason Admit Date/Time Apr 06, 2017 at 10:58 Initial Consult Date 04/07/17 Type of Consultation: Pulm/CCM Ordering Provider: LACY RAMÍREZ NP Subjective Remains unresponsive on [facility] vent. Objective Vital Signs Date Time Temp Pulse Resp B/P Pulse Ox O2 Delivery O2 Flow Rate FiO2 04/12/17 10:00 86 20 110/65 100 Mechanical Ventilator 04/12/17 09:30 40 04/12/17 09:00 99.0 Intake and Output 04/11/17 04/11/17 04/12/17 15:00 23:00 07:00 Intake Total 1085 ml 990 ml 300 ml Output Total 0 ml 2500 ml Balance 1085 ml -1510 ml 300 ml Exam HEENT: Neck supple; no JVD; no LAD; + ET tube CVS: RRR, S1 and S2 CHEST: Clear ABD: Soft, NT, + BS EXT: No c/c/e NEURO: Unresponsive on vent. Results/Medications Result Diagram: 04/12/173 04/12/17 0443 Results 24 hrs Laboratory Tests Test 04/11/17 12:08 04/11/17 17:18 04/11/17 20:52 04/12/17 01:06 Bedside Glucose 191 180 197 192 Test 04/12/17 04:43 04/12/17 04:57 04/12/17 05:00 04/12/17 08:03 White Blood Count 6.5 # Red Blood Count 2.62 L Hemoglobin 8.2 L Hematocrit 27.7 L Mean Corpuscular Volume 105.7 H Mean Corpuscular Hemoglobin 31.3 Mean Corpuscular Hemoglobin Concent 29.6 L Red Cell Distribution Width 21.4 H Platelet Count 249 # Mean Platelet Volume 11.6 H Neutrophils % 58.7 Lymphocytes % 30.4 Monocytes % 8.6 Eosinophils % 1.7 Basophils % 0.3 Nucleated Red Blood Cells % 0.0 Neutrophils # 3.8 Lymphocytes # 2.0 Monocytes # 0.6 Eosinophils # 0.1 Basophils # 0.0 Nucleated Red Blood Cells # 0.0 Sodium Level 150 H Potassium Level 4.1 Chloride Level 106 Carbon Dioxide Level 30 Anion Gap 18 H Blood Urea Nitrogen 35 H Creatinine 6.76 H Glucose Level 162 Calcium Level 9.2 Bedside Glucose 163 176 Blood Gas Specimen Source Blood arterial Arterial Blood Date Drawn 04/12/2017 4:46:50 AM Arterial Blood pH (Temp corrected) 7.536 H Arterial Blood pCO2 (Temp correct) 34.3 L Arterial Blood pO2 (Temp corrected) 64.5 L Arterial Blood HCO3 28.4 H Arterial Blood Base Excess 5.5 H Arterial Blood Oxygen Saturation 92.6 L Steve Test ACCEPTAB Arterial Blood Gas Puncture Site Left Radial Arterial Blood Carboxyhemoglobin 1.1 Arterial Blood Methemoglobin 0.3 Blood Gas A-a O2 Differential 109.1 H Oxyhemoglobin Percent 91.3 L Total Hemoglobin 8.2 L Blood Gas Temperature 37.0 Blood Gas Respiration Rate 16.0 Blood Gas Actual Respiration Rate 16 Blood Gas Modality VENT - AC FiO2 30.0 Blood Gas Tidal Volume 500.0 Blood Gas Low PEEP Setting 5.0 Blood Gas Inspiratory Pressure 30.0 Blood Gas Notified Whom RTR Blood Gas Notified Time 04/12/2017 5:14:49 AM Medications Current Medications Aspirin (Aspirin) 81 mg DAILY PO Last administered on 04/12/17 08:19; Admin Dose 81 MG; Start 04/07/17 at 09:00 Clopidogrel Bisulfate (plaVIX) 75 mg DAILY PO Last administered on 04/12/17 08:18; Admin Dose 75 MG; Start 04/07/17 at 09:00 Acetaminophen (Tylenol Tab) 650 mg Q6H PRN PO PAIN AND OR ELEVATED TEMP Last administered on 04/12/17 07:58; Admin Dose 650 MG; Start 04/06/17 at 14:00 Escitalopram Oxalate (Lexapro) 20 mg DAILY PO Last administered on 04/12/17 08:18; Admin Dose 20 MG; Start 04/07/17 at 09:00 Folic Acid (Folic Acid) 1 mg DAILY PO Last administered on 04/12/17 08:19; Admin Dose 1 MG; Start 04/07/17 at 09:00 Loratadine (Claritin) 10 mg DAILY PO Last administered on 04/12/17 08:18; Admin Dose 10 MG; Start 04/07/17 at 09:00 Midodrine (Proamatine) 5 mg TID PO Last administered on 04/12/17 08:19; Admin Dose 5 MG; Start 04/06/17 at 21:00; Status Future hold Lactobacillus Acidophilus/ Rhamnosus (Culturelle) 1 cap TID PO Last administered on 04/12/17 08:18; Admin Dose 1 CAP; Start 04/06/17 at 21:00 Ondansetron HCl (Zofran Inj) 4 mg Q6H PRN IV NAUSEA AND/OR VOMITING; Start 04/06/17 at 14:30 Hydralazine HCl (Apresoline) 10 mg Q6H PRN IV sbp>160 Last administered on 04/07 16:37; Admin Dose 10 MG; Start 04/06/17 at 14:30 Lorazepam 1 mg 1 mg Q2H PRN IV seizure Last administered on 04/07/17 16:44; Admin Dose 1 MG; Start 04/07/17 at 10:30 Nicardipine HCl 25 mg/Sodium Chloride 260 ml @ 52 mls/hr TITRATE IV ; Start at 16:00 Levetiracetam/ Dextrose (Keppra Iv/D5W) 110 ml @ 400 mls/hr Q12 IV Last administered on 04/12/17 09:48; Admin Dose 400 MLS/HR; Start 04/07/17 at 15:44 Lacosamide (Vimpat Liq) 150 mg BID PO Last administered on 04/12/17 09:48; Admin Dose 150 MG; Start 04/07/17 at 22:00 Insulin Aspart (Novolog Insulin Pen) NOVOLOG *MODERATE* ALGORI... Q4 SC Last administered on 04/12/17 08:08; Admin Dose 2 UNIT; Start 04/08/17 at 01:00 Miscellaneous Information 1 ea NOTE XX ; Start 04/07/17 at 22:00 Glucose (Glutose) 15 gm Q15M PRN PO DECREASED GLUCOSE; Start 04/07/17 at 22:00 Glucose (Glutose) 22.5 gm Q15M PRN PO DECREASED GLUCOSE; Start 04/07/17 at 22: 00 Dextrose (D50w Syringe) 25 ml Q15M PRN IV DECREASED GLUCOSE; Start 04/07/17 at 22:00 Dextrose (D50w Syringe) 50 ml Q15M PRN IV DECREASED GLUCOSE; Start 04/07/17 at 22:00 Glucagon (Glucagen) 1 mg Q15M PRN IM DECREASED GLUCOSE; Start 04/07/17 at 22:00 Glucose (Glutose) 15 gm Q15M PRN BUCCAL DECREASED GLUCOSE; Start 04/07/17 at 22 :00 Insulin Glargine (Lantus) 10 unit DAILY@20 SC Last administered on 04/11/17 19 :58; Admin Dose 10 UNIT; Start 04/08/17 at 01:00 Collagenase (Santyl) 1 applic DAILY TOP Last administered on 04/12/17 09:48; Admin Dose 1 APPLIC; Start 04/09/17 at 09:00 Lansoprazole (Prevacid) 30 mg DAILY@06 NGT Last administered on 04/12/17 05: 49; Admin Dose 30 MG; Start 04/10/17 at 09:00 Ferrous Sulfate 300 mg 300 mg DAILY GTB Last administered on 04/12/17 08:18; Admin Dose 300 MG; Start 04/10/17 at 09:00 Sodium Chloride (NS) 1,000 ml @ 30 mls/hr Q24H IV Last administered on 05:53; Admin Dose 30 MLS/HR; Start 04/11/17 at 12:30 Assessment/Plan Additional Assessment/Plan IMP: 1. Severe Encephalopathy: multifactorial in origin 2. Status Epilepticus 3. s/p CPA 4. Hypoxemic Resp Failure 5. ESRD on HD 6. Anemia RECS: 1. Vent support 2. Minimize sedatives/narcotics 3. Follow neuro exam 4. Anti-epileptic Rx per Neuro 5. HD/UF 6. TF/free H20 7. Await family meeting tomorrow 35 min cc time JULIANNE ANAND MD Apr 12, 2017 11:38
--- NOTE | 2017-04-12 14:50 | CONS ---
Date/Time of Note Date/Time of Note DATE: 04/12/17 TIME: 14:47 Assessment/Plan Assessment/Plan Chief Complaint/Hosp Course Cardio respiratory arrest Problems: Additional Assessment/Plan 47 yo male with ESRD admitted with dysarthria and possible aphasia unclear baseline. Baseline he has a history of seizure d/o and psychiatric disease. Admitted to the ICU post cardiac arrest. Remains unresponsive. EEG on 04/07/17 showed burst suppression pattern. Repeat EEG on 04/10/17 showed generalized bi hemispheric background slowing with any epileptiform activity. Recommendations: ASA 81 mg daily SBP less than 140 MRI Brain without contrast unable to be done due to PPM- CTH w/o contrast shows no new changes Continue Keppra 1g BID and Vimpat 150 mg BID continue ICU level care will fu Consultation Date/Type/Reason Admit Date/Time Apr 06, 2017 at 10:58 Initial Consult Date 04/07/17 Type of Consultation: Pulm/CCM Referring Provider: LACY RAMÍREZ NP 24 HR Interval Summary Free Text/Dictation Clinically unchanged Exam/Review of Systems Vital Signs Vitals Vital Signs Date Time Temp Pulse Resp B/P Pulse Ox O2 Delivery O2 Flow Rate FiO2 04/12/17 14:00 84 14 104/73 100 Mechanical Ventilator 04/12/17 13:37 40 04/12/17 12:00 98.7 Intake and Output 04/11/17 04/11/17 04/12/17 15:00 23:00 07:00 Intake Total 1085 ml 990 ml 300 ml Output Total 0 ml 2500 ml Balance 1085 ml -1510 ml 300 ml Exam Comatose, unresponsive, intubated, ventilated, mild corneal reflex and gag reflex, pupils sluggishly reacting, no withdrawal to noxious stimulus Constitutional: other (Comatose, unresponsive) Results Result Diagram: 04/12/17 0443 04/12/17 0443 Results 24 hrs Laboratory Tests Test 04/11/17 17:18 04/11/17 20:52 04/12/17 01:06 04/12/17 04:43 Bedside Glucose 180 197 192 White Blood Count 6.5 # Red Blood Count 2.62 L Hemoglobin 8.2 L Hematocrit 27.7 L Mean Corpuscular Volume 105.7 H Mean Corpuscular Hemoglobin 31.3 Mean Corpuscular Hemoglobin Concent 29.6 L Red Cell Distribution Width 21.4 H Platelet Count 249 # Mean Platelet Volume 11.6 H Neutrophils % 58.7 Lymphocytes % 30.4 Monocytes % 8.6 Eosinophils % 1.7 Basophils % 0.3 Nucleated Red Blood Cells % 0.0 Neutrophils # 3.8 Lymphocytes # 2.0 Monocytes # 0.6 Eosinophils # 0.1 Basophils # 0.0 Nucleated Red Blood Cells # 0.0 Sodium Level 150 H Potassium Level 4.1 Chloride Level 106 Carbon Dioxide Level 30 Anion Gap 18 H Blood Urea Nitrogen 35 H Creatinine 6.76 H Glucose Level 162 Calcium Level 9.2 Test 04/12/17 04:57 04/12/17 05:00 04/12/17 08:03 04/12/17 12:32 Bedside Glucose 163 176 187 Blood Gas Specimen Source Blood arterial Arterial Blood Date Drawn 04/12/2017 4:46:50 AM Arterial Blood pH (Temp corrected) 7.536 H Arterial Blood pCO2 (Temp correct) 34.3 L Arterial Blood pO2 (Temp corrected) 64.5 L Arterial Blood HCO3 28.4 H Arterial Blood Base Excess 5.5 H Arterial Blood Oxygen Saturation 92.6 L Steve Test ACCEPTAB Arterial Blood Gas Puncture Site Left Radial Arterial Blood Carboxyhemoglobin 1.1 Arterial Blood Methemoglobin 0.3 Blood Gas A-a O2 Differential 109.1 H Oxyhemoglobin Percent 91.3 L Total Hemoglobin 8.2 L Blood Gas Temperature 37.0 Blood Gas Respiration Rate 16.0 Blood Gas Actual Respiration Rate 16 Blood Gas Modality VENT - AC FiO2 30.0 Blood Gas Tidal Volume 500.0 Blood Gas Low PEEP Setting 5.0 Blood Gas Inspiratory Pressure 30.0 Blood Gas Notified Whom RTR Blood Gas Notified Time 04/12/2017 5:14:49 AM Medications Medications Current Medications Aspirin (Aspirin) 81 mg DAILY PO Last administered on 04/12/17 08:19; Admin Dose 81 MG; Start 04/07/17 at 09:00 Clopidogrel Bisulfate (plaVIX) 75 mg DAILY PO Last administered on 04/12/17 08:18; Admin Dose 75 MG; Start 04/07/17 at 09:00 Acetaminophen (Tylenol Tab) 650 mg Q6H PRN PO PAIN AND OR ELEVATED TEMP Last administered on 04/12/17 07:58; Admin Dose 650 MG; Start 04/06/17 at 14:00 Escitalopram Oxalate (Lexapro) 20 mg DAILY PO Last administered on 04/12/17 08:18; Admin Dose 20 MG; Start 04/07/17 at 09:00 Folic Acid (Folic Acid) 1 mg DAILY PO Last administered on 04/12/17 08:19; Admin Dose 1 MG; Start 04/07/17 at 09:00 Loratadine (Claritin) 10 mg DAILY PO Last administered on 04/12/17 08:18; Admin Dose 10 MG; Start 04/07/17 at 09:00 Midodrine (Proamatine) 5 mg TID PO Last administered on 04/12/17 12:29; Admin Dose 5 MG; Start 04/06/17 at 21:00; Status Future hold Lactobacillus Acidophilus/ Rhamnosus (Culturelle) 1 cap TID PO Last administered on 04/12/17 12:29; Admin Dose 1 CAP; Start 04/06/17 at 21:00 Ondansetron HCl (Zofran Inj) 4 mg Q6H PRN IV NAUSEA AND/OR VOMITING; Start 04/06/17 at 14:30 Hydralazine HCl (Apresoline) 10 mg Q6H PRN IV sbp>160 Last administered on 04/07 16:37; Admin Dose 10 MG; Start 04/06/17 at 14:30 Lorazepam 1 mg 1 mg Q2H PRN IV seizure Last administered on 04/07/17 16:44; Admin Dose 1 MG; Start 04/07/17 at 10:30 Nicardipine HCl 25 mg/Sodium Chloride 260 ml @ 52 mls/hr TITRATE IV ; Start at 16:00 Levetiracetam/ Dextrose (Keppra Iv/D5W) 110 ml @ 400 mls/hr Q12 IV Last administered on 04/12/17 09:48; Admin Dose 400 MLS/HR; Start 04/07/17 at 15:44 Lacosamide (Vimpat Liq) 150 mg BID PO Last administered on 04/12/17 09:48; Admin Dose 150 MG; Start 04/07/17 at 22:00 Insulin Aspart (Novolog Insulin Pen) NOVOLOG *MODERATE* ALGORI... Q4 SC Last administered on 04/12/17 12:33; Admin Dose 4 UNIT; Start 04/08/17 at 01:00 Miscellaneous Information 1 ea NOTE XX ; Start 04/07/17 at 22:00 Glucose (Glutose) 15 gm Q15M PRN PO DECREASED GLUCOSE; Start 04/07/17 at 22:00 Glucose (Glutose) 22.5 gm Q15M PRN PO DECREASED GLUCOSE; Start 04/07/17 at 22: 00 Dextrose (D50w Syringe) 25 ml Q15M PRN IV DECREASED GLUCOSE; Start 04/07/17 at 22:00 Dextrose (D50w Syringe) 50 ml Q15M PRN IV DECREASED GLUCOSE; Start 04/07/17 at 22:00 Glucagon (Glucagen) 1 mg Q15M PRN IM DECREASED GLUCOSE; Start 04/07/17 at 22:00 Glucose (Glutose) 15 gm Q15M PRN BUCCAL DECREASED GLUCOSE; Start 04/07/17 at 22 :00 Insulin Glargine (Lantus) 10 unit DAILY@20 SC Last administered on 04/11/17 19 :58; Admin Dose 10 UNIT; Start 04/08/17 at 01:00 Collagenase (Santyl) 1 applic DAILY TOP Last administered on 04/12/17 09:48; Admin Dose 1 APPLIC; Start 04/09/17 at 09:00 Lansoprazole (Prevacid) 30 mg DAILY@06 NGT Last administered on 04/12/17 05: 49; Admin Dose 30 MG; Start 04/10/17 at 09:00 Ferrous Sulfate 300 mg 300 mg DAILY GTB Last administered on 04/12/17 08:18; Admin Dose 300 MG; Start 04/10/17 at 09:00 Sodium Chloride 1,000 ml @ 30 mls/hr Q24H IV Last administered on 04/12/17 05:53; Admin Dose 30 MLS/HR; Start 04/11/17 at 12:30 Dextrose (D5W) 1,000 ml @ 100 mls/hr Q10H IV ; Start 04/12/17 at 14:30; Stop 04/13/17 at 02:29 PATRICIA VILLATORO MD Apr 12, 2017 14:49
[2017-04-12] MEDS: DEXTROSE 5% 1,000 ML IV SCH (15:00)
--- NOTE | 2017-04-12 16:21 | RADRPT ---
PROCEDURE: XR portable chest CLINICAL INDICATION: OG tube placement TECHNIQUE: Portable chest radiograph COMPARISON: Portable chest radiograph 04/11/2017 FINDINGS: Tip of the endotracheal tube is approximately 4.5 cm above the nori. The tip of the nasogastric tu be is not included on this chest radiograph. No significant change in left lower lobe opacity which may be secondary to atelectasis versus consol idation. Possible small left pleural effusion and questionable tiny right pleural effusion. Slight d ecrease in lung volumes. Slight worsening of left mid to upper lung zone opacities which may be from edema or pneumonitis. Probably no significant change in slightly enlarged cardiac silhouette size. No other significant interval changes seen. IMPRESSION: 1. The tip of the nasogastric tube is not included on this chest radiograph 2. Slight decrease in lung volumes. Slight worsening of left mid to upper lung zone opacities which may be from edema or pneumonitis. RPTAT: TT Physician Duke Date Time Electronically viewed and signed by Physician Duke on 04/12/2017 16:20 DUNIA/
--- NOTE | 2017-04-12 17:02 | PN ---
Date/Time of Note Date/Time of Note DATE: 04/12/17 TIME: 16:34 Assessment/Plan VTE Prophylaxis VTE Prophylaxis Intervention: SCD's Lines/Catheters IV C[facility]ter Type [facility]from [facility]): Peripheral IV Urinary Cath still in place: No Assessment/Plan Chief Complaint/Hosp Course 1.Acute encephalopathy likely secondary to anoxic encephalopathy from cardiac arrest -Cardiology and neurology following -Repeat EEG is abnormal due to presence of burst suppression pattern consistent with severe encephalopathy with epileptiform activity -Continue Keppra and Vimpat -Ammonia is normal, ultrasound abdomen shows no cirrhosis -Unable to do MRI due to pacemaker. -CT brain /CTA head/neck unremarkable -Blood cultures negative 2.Hypoxemic respiratory failure requiring mechanical ventilation -Pulmonology following 3.Questionable PEA with #1. Currently in NSR w/RBBB. Patient w/pacemaker. -Cardiology following -Echo shows an EF of 45% with stage I diastolic heart failure -Repeat echo does show moderate pericardial effusion but no cardiac tamponade, cardiology recommendation is for continuation of dialysis, will continue to monitor 4. Chronic seizure disorder -Patient is on Keppra and Vimpat -Neurology following -Repeat EEG as above -Seizure precautions 5. ESRD, on hemodialysis Thursday. ACCESS: left upper arm AV shunt-functional. -Hemodialysis per nephrology colleagues. -Renal dose medications. Monitor renal function closely. 6. History of HTN-blood pressure currently low -Has been started on midodrine 7. Anemia of ESRD. -Defer Epogen to nephrology if indicated. 8.Prediabetes. A1c 6.2. -Sliding scale insulin in-house. 9.Status post Pacemaker placement 10. Psychiatric disorders. -Continue home medications 11. Hypernatremia D5 W 1 L Monitor Nephrology following Prophylaxis: SCDs/PPIs. Problems: Subjective 24 Hr Interval Summary Subjective hx not possible: pt non-verbal Exam/Review of Systems Vital Signs Vitals Vital Signs Date Time Temp Pulse Resp B/P Pulse Ox O2 Delivery O2 Flow Rate FiO2 04/12/17 16:00 86 04/12/17 15:10 16 100 40 04/12/17 14:00 104/73 Mechanical Ventilator 04/12/17 12:00 98.7 Intake and Output 04/11/17 04/11/17 04/12/17 15:00 23:00 07:00 Intake Total 1085 ml 990 ml 300 ml Output Total 0 ml 2500 ml Balance 1085 ml -1510 ml 300 ml Exam Constitutional: non-verbal ENMT: intubated Respiratory: clear to auscultation Cardiovascular: regular rate and rhythm Gastrointestinal: soft, No distended Musculoskeletal: nl extremities to inspection Results Result Diagram: 04/12/17 0443 04/12/17 0443 Results 24 hrs Laboratory Tests Test 04/11/17 17:18 04/11/17 20:52 04/12/17 01:06 04/12/17 04:43 Bedside Glucose 180 197 192 White Blood Count 6.5 # Red Blood Count 2.62 L Hemoglobin 8.2 L Hematocrit 27.7 L Mean Corpuscular Volume 105.7 H Mean Corpuscular Hemoglobin 31.3 Mean Corpuscular Hemoglobin Concent 29.6 L Red Cell Distribution Width 21.4 H Platelet Count 249 # Mean Platelet Volume 11.6 H Neutrophils % 58.7 Lymphocytes % 30.4 Monocytes % 8.6 Eosinophils % 1.7 Basophils % 0.3 Nucleated Red Blood Cells % 0.0 Neutrophils # 3.8 Lymphocytes # 2.0 Monocytes # 0.6 Eosinophils # 0.1 Basophils # 0.0 Nucleated Red Blood Cells # 0.0 Sodium Level 150 H Potassium Level 4.1 Chloride Level 106 Carbon Dioxide Level 30 Anion Gap 18 H Blood Urea Nitrogen 35 H Creatinine 6.76 H Glucose Level 162 Calcium Level 9.2 Test 04/12/17 04:57 04/12/17 05:00 04/12/17 08:03 04/12/17 12:32 Bedside Glucose 163 176 187 Blood Gas Specimen Source Blood arterial Arterial Blood Date Drawn 04/12/2017 4:46:50 AM Arterial Blood pH (Temp corrected) 7.536 H Arterial Blood pCO2 (Temp correct) 34.3 L Arterial Blood pO2 (Temp corrected) 64.5 L Arterial Blood HCO3 28.4 H Arterial Blood Base Excess 5.5 H Arterial Blood Oxygen Saturation 92.6 L Steve Test ACCEPTAB Arterial Blood Gas Puncture Site Left Radial Arterial Blood Carboxyhemoglobin 1.1 Arterial Blood Methemoglobin 0.3 Blood Gas A-a O2 Differential 109.1 H Oxyhemoglobin Percent 91.3 L Total Hemoglobin 8.2 L Blood Gas Temperature 37.0 Blood Gas Respiration Rate 16.0 Blood Gas Actual Respiration Rate 16 Blood Gas Modality VENT - AC FiO2 30.0 Blood Gas Tidal Volume 500.0 Blood Gas Low PEEP Setting 5.0 Blood Gas Inspiratory Pressure 30.0 Blood Gas Notified Whom RTR Blood Gas Notified Time 04/12/2017 5:14:49 AM Medications Medications Current Medications Aspirin (Aspirin) 81 mg DAILY PO Last administered on 04/12/17 08:19; Admin Dose 81 MG; Start 04/07/17 at 09:00 Clopidogrel Bisulfate (plaVIX) 75 mg DAILY PO Last administered on 04/12/17 08:18; Admin Dose 75 MG; Start 04/07/17 at 09:00 Acetaminophen (Tylenol Tab) 650 mg Q6H PRN PO PAIN AND OR ELEVATED TEMP Last administered on 04/12/17 07:58; Admin Dose 650 MG; Start 04/06/17 at 14:00 Escitalopram Oxalate (Lexapro) 20 mg DAILY PO Last administered on 04/12/17 08:18; Admin Dose 20 MG; Start 04/07/17 at 09:00 Folic Acid (Folic Acid) 1 mg DAILY PO Last administered on 04/12/17 08:19; Admin Dose 1 MG; Start 04/07/17 at 09:00 Loratadine (Claritin) 10 mg DAILY PO Last administered on 04/12/17 08:18; Admin Dose 10 MG; Start 04/07/17 at 09:00 Midodrine (Proamatine) 5 mg TID PO Last administered on 04/12/17 12:29; Admin Dose 5 MG; Start 04/06/17 at 21:00; Status Future hold Lactobacillus Acidophilus/ Rhamnosus (Culturelle) 1 cap TID PO Last administered on 04/12/17 12:29; Admin Dose 1 CAP; Start 04/06/17 at 21:00 Ondansetron HCl (Zofran Inj) 4 mg Q6H PRN IV NAUSEA AND/OR VOMITING; Start 04/06/17 at 14:30 Hydralazine HCl (Apresoline) 10 mg Q6H PRN IV sbp>160 Last administered on 04/07 16:37; Admin Dose 10 MG; Start 04/06/17 at 14:30 Lorazepam 1 mg 1 mg Q2H PRN IV seizure Last administered on 04/07/17 16:44; Admin Dose 1 MG; Start 04/07/17 at 10:30 Nicardipine HCl 25 mg/Sodium Chloride 260 ml @ 52 mls/hr TITRATE IV ; Start at 16:00 Levetiracetam/ Dextrose (Keppra Iv/D5W) 110 ml @ 400 mls/hr Q12 IV Last administered on 04/12/17 09:48; Admin Dose 400 MLS/HR; Start 04/07/17 at 15:44 Lacosamide (Vimpat Liq) 150 mg BID PO Last administered on 04/12/17 09:48; Admin Dose 150 MG; Start 04/07/17 at 22:00 Insulin Aspart (Novolog Insulin Pen) NOVOLOG *MODERATE* ALGORI... Q4 SC Last administered on 04/12/17 12:33; Admin Dose 4 UNIT; Start 04/08/17 at 01:00 Miscellaneous Information 1 ea NOTE XX ; Start 04/07/17 at 22:00 Glucose (Glutose) 15 gm Q15M PRN PO DECREASED GLUCOSE; Start 04/07/17 at 22:00 Glucose (Glutose) 22.5 gm Q15M PRN PO DECREASED GLUCOSE; Start 04/07/17 at 22: 00 Dextrose (D50w Syringe) 25 ml Q15M PRN IV DECREASED GLUCOSE; Start 04/07/17 at 22:00 Dextrose (D50w Syringe) 50 ml Q15M PRN IV DECREASED GLUCOSE; Start 04/07/17 at 22:00 Glucagon (Glucagen) 1 mg Q15M PRN IM DECREASED GLUCOSE; Start 04/07/17 at 22:00 Glucose (Glutose) 15 gm Q15M PRN BUCCAL DECREASED GLUCOSE; Start 04/07/17 at 22 :00 Insulin Glargine (Lantus) 10 unit DAILY@20 SC Last administered on 04/11/17 19 :58; Admin Dose 10 UNIT; Start 04/08/17 at 01:00 Collagenase (Santyl) 1 applic DAILY TOP Last administered on 04/12/17 09:48; Admin Dose 1 APPLIC; Start 04/09/17 at 09:00 Lansoprazole (Prevacid) 30 mg DAILY@06 NGT Last administered on 04/12/17 05: 49; Admin Dose 30 MG; Start 04/10/17 at 09:00 Ferrous Sulfate 300 mg 300 mg DAILY GTB Last administered on 04/12/17 08:18; Admin Dose 300 MG; Start 04/10/17 at 09:00 Sodium Chloride 1,000 ml @ 30 mls/hr Q24H IV Last administered on 04/12/17 05:53; Admin Dose 30 MLS/HR; Start 04/11/17 at 12:30 Dextrose (D5W) 1,000 ml @ 100 mls/hr Q10H IV ; Start 04/12/17 at 14:30; Stop 04/13/17 at 02:29 NADIA BRINK Apr 12, 2017 16:46
[2017-04-12] MEDS ORDERED: NORepinephrine 8MG/250 ML (PMX 250 ML ONE (17:07)
[2017-04-12] MEDS ORDERED: NORepinephrine 8MG/250 ML (PMX 250 ML IV SCH (17:30)
[2017-04-12] MEDS ORDERED: LIDOCAINE 1% (MPF) 5 ML VIAL SC ONE (18:30)
[2017-04-12] MEDS: INSULIN GLARGINE [LANtus] 3 ML PEN SC SCH (21:24)
[2017-04-13] VITALS (86 sets, daily range): BP systolic 69–146; BP diastolic 41–87; PULSE 72–96; RESP 14–28
[2017-04-13] MEDS: DEXTROSE 5% 1,000 ML IV SCH (01:03)
[2017-04-13] MEDS: INSULIN ASPART [NOVOLOG] 3 ML PEN SC SCH ×6 (01:04→20:34)
[2017-04-13] MEDS: IPRATROPIUM (HFA) 12.9 GM INHALER INH SCH ×4 (01:12→19:11)
[2017-04-13] MEDS: ALBUTEROL HFA 8 GM INHALER INH SCH ×4 (01:12→19:11)
[2017-04-13 05:14] LABS: AADO2 Arterial 222.9 mmHg (7.0-24.0); Allen Test ACCEPTAB; Arterial Base Excess 3.3 mmol/L (-3.0-3); Arterial COHb 0.6 % (0.0-3.0); Arterial Fraction of Oxyhgb 95.7 % (93.0-99.0); Arterial MetHb 0.3 % (0.0-1.5); Arterial Total Hemglobin 10.1 g/dl (12.0-18.0); MODE VENT - AC
[2017-04-13] MEDS: LANSOPRAZOLE 30 MG CAP NGT SCH (05:40)
[2017-04-13 06:43] LABS: BASOPHIL # 0.1 10^3/ul (0.0-0.1); BASOPHILS % 0.5 % (0.0-2.0); EOSINOPHILS # 0.1 10^3/ul (0.0-0.5); EOSINOPHILS % 0.9 % (0.0-7.0); HEMOGLOBIN 8.9 g/dl (14.0-18.0); LYMPHOCYTES # 3.2 10^3/ul (0.8-2.9); LYMPHOCYTES % 26.5 % (15.0-51.0); MEAN CORPUSCULAR HGB CONC 29.7 g/dl (32.0-37.0); MEAN CORPUSCULAR VOLUME 104.5 fl (82.0-101.0); MEAN PLATELET VOLUME 11.6 fl (7.4-10.4); MONOCYTE # 0.7 10^3/ul (0.3-0.9); MONOCYTES % 5.7 % (0.0-11.0); NEUTROPHIL # 7.9 10^3/ul (1.6-7.5); NEUTROPHILS % 65.7 % (39.0-77.0); PLATELET COUNT 376 10^3/UL (140-415); RED BLOOD COUNT 2.87 10^6/ul (4.70-6.10); RED CELL DISTRIBUTION WIDTH 21.8 % (11.5-14.5); WHITE BLOOD COUNT 12.1 10^3/ul (4.8-10.8)
[2017-04-13 06:47] LABS: CALCIUM 9.2 mg/dl (8.4-10.2); CREATININE 9.24 mg/dl (0.61-1.24); POTASSIUM 4.4 mmol/L (3.5-5.1)
[2017-04-13] MEDS: COLLAGENASE 30 GM TUBE TOP SCH (09:00)
[2017-04-13] MEDS: FOLIC ACID 1 MG TAB PO SCH (09:32)
[2017-04-13] MEDS: SEVELAMER CARBONATE 0.8 GM PKT GTB SCH ×3 (09:32→18:18)
[2017-04-13] MEDS: LORATADINE 10 MG TAB PO SCH (09:33)
[2017-04-13] MEDS: MIDODRINE 5 MG TAB PO SCH ×3 (09:33→20:30)
[2017-04-13] MEDS: ESCITALOPRAM 10 MG TAB PO SCH (09:33)
[2017-04-13] MEDS: LACTOBACILLUS RHAMNOSUS CAP PO SCH ×3 (09:33→20:30)
[2017-04-13] MEDS: CLOPIDOGREL 75 MG TAB PO SCH (09:33)
[2017-04-13] MEDS: ASPIRIN 81 MG TAB PO SCH (09:33)
[2017-04-13] MEDS: FERROUS SULFATE 60 MG/ML 5ML CUP GTB SCH (09:33)
[2017-04-13] MEDS: ALBUMIN HUMAN 25% 100 ML IV PRN (09:42)
--- NOTE | 2017-04-13 10:18 | CONS ---
Date/Time of Note Date/Time of Note DATE: 04/13/17 TIME: 10:15 Assessment/Plan Assessment/Plan Additional Assessment/Plan Ventilator setting; AC of 16, tidal volume 500, PEEP of 5, 50% FiO2. Patient is currently on Levophed at 6 mics per minute initiated during hemodialysis. Assessment and recommendations; 1. Patient admitted with cardiac arrest with underlying cardia myopathy. 2. Severe anoxic encephalopathy. 3. Post anoxic seizures, currently well controlled. 4. Anemia and thrombocytopenia. 5. Chronic renal failure, on hemodialysis. 6. Multiple episodes of cardiac arrest prior hospital. Continue current supportive care. Prognosis is very poor. Family to decide further plan of care that is, either a tracheostomy versus terminal extubation. Consultation Date/Type/Reason Admit Date/Time Apr 06, 2017 at 10:58 Initial Consult Date 04/07/17 Type of Consultation: Pulm/CCM Referring Provider: LACY RAMÍREZ NP 24 HR Interval Summary Free Text/Dictation Patient's condition remains critical. Remains completely unresponsive. Patient however has remained hemodynamically stable. No overt seizure activity noted. General exam; middle-aged male, on ventilator via endotracheal tube. Unresponsive, currently in no distress. Exam/Review of Systems Vital Signs Vitals Vital Signs Date Time Temp Pulse Resp B/P Pulse Ox O2 Delivery O2 Flow Rate FiO2 04/13/17 09:00 87 16 100 50 04/13/17 08:45 95/69 04/13/17 08:00 98.7 Mechanical Ventilator Intake and Output 04/12/17 04/12/17 04/13/17 15:00 23:00 07:00 Intake Total 435 ml 1325 ml 328.87 ml Balance 435 ml 1325 ml 328.87 ml Exam HEENT exam; supple neck, positive JVD. No lymphadenopathy. Midline trachea. No thyromegaly. Patient is edentulous. There is a mild left corneal opacity. Orally intubated. Chest exam; diminished but clear breath sounds. S1-S2 audible, no murmurs. Regular rhythm. Abdomen exam; soft, nondistended. No organomegaly. Bowel sounds audible. Extremity exam; no edema. TIE TAMPER exam; patient remains unresponsive. Results Result Diagram: 04/13/17 0603 04/13/17 0604 Results 24 hrs Laboratory Tests Test 04/12/17 12:32 04/12/17 17:53 04/12/17 21:21 04/13/17 00:49 Bedside Glucose 187 186 214 222 H Test 04/13/17 05:00 04/13/17 05:29 04/13/17 06:03 04/13/17 06:04 Blood Gas Specimen Source Blood arterial Arterial Blood Date Drawn 04/13/2017 4:28:49 AM Arterial Blood pH (Temp corrected) 7.478 H Arterial Blood pCO2 (Temp correct) 37.2 Arterial Blood pO2 (Temp corrected) 91.8 Arterial Blood HCO3 27.0 H Arterial Blood Base Excess 3.3 H Arterial Blood Oxygen Saturation 96.6 Steve Test ACCEPTAB Arterial Blood Gas Puncture Site Right Radial Arterial Blood Carboxyhemoglobin 0.6 Arterial Blood Methemoglobin 0.3 Blood Gas A-a O2 Differential 222.9 H Oxyhemoglobin Percent 95.7 Total Hemoglobin 10.1 L Blood Gas Temperature 37.0 Blood Gas Respiration Rate 16.0 Blood Gas Actual Respiration Rate 16 Blood Gas Modality VENT - AC FiO2 50.0 Blood Gas Tidal Volume 500.0 Blood Gas Low PEEP Setting 5.0 Blood Gas Inspiratory Pressure 27.0 Blood Gas Notified Whom RTR Blood Gas Notified Time 04/13/2017 5:13:52 AM Bedside Glucose 169 White Blood Count 12.1 #H Red Blood Count 2.87 L Hemoglobin 8.9 L Hematocrit 30.0 L Mean Corpuscular Volume 104.5 H Mean Corpuscular Hemoglobin 31.0 Mean Corpuscular Hemoglobin Concent 29.7 L Red Cell Distribution Width 21.8 H Platelet Count 376 # Mean Platelet Volume 11.6 H Neutrophils % 65.7 Lymphocytes % 26.5 Monocytes % 5.7 Eosinophils % 0.9 Basophils % 0.5 Nucleated Red Blood Cells % 0.0 Neutrophils # 7.9 H Lymphocytes # 3.2 H Monocytes # 0.7 Eosinophils # 0.1 Basophils # 0.1 Nucleated Red Blood Cells # 0.0 Sodium Level 144 Potassium Level 4.4 Chloride Level 102 Carbon Dioxide Level 28 Anion Gap 18 H Blood Urea Nitrogen 52 H Creatinine 9.24 #H Glucose Level 172 Calcium Level 9.2 Test 04/13/17 09:46 Bedside Glucose 151 Medications Medications Current Medications Aspirin (Aspirin) 81 mg DAILY PO Last administered on 04/13/17t 09:33; Admin Dose 81 MG; Start 04/07/17 at 09:00 Clopidogrel Bisulfate (plaVIX) 75 mg DAILY PO Last administered on 04/13/17 09:33; Admin Dose 75 MG; Start 04/07/17 at 09:00 Acetaminophen (Tylenol Tab) 650 mg Q6H PRN PO PAIN AND OR ELEVATED TEMP Last administered on 04/12/17 07:58; Admin Dose 650 MG; Start 04/06/17 at 14:00 Escitalopram Oxalate (Lexapro) 20 mg DAILY PO Last administered on 04/13/17 09:33; Admin Dose 20 MG; Start 04/07/17 at 09:00 Folic Acid (Folic Acid) 1 mg DAILY PO Last administered on 04/13/17 09:32; Admin Dose 1 MG; Start 04/07/17 at 09:00 Loratadine (Claritin) 10 mg DAILY PO Last administered on 04/13/17 09:33; Admin Dose 10 MG; Start 04/07/17 at 09:00 Midodrine (Proamatine) 5 mg TID PO Last administered on 04/13/17 09:33; Admin Dose 5 MG; Start 04/06/17 at 21:00; Status Future hold Lactobacillus Acidophilus/ Rhamnosus (Culturelle) 1 cap TID PO Last administered on 04/13/17 09:33; Admin Dose 1 CAP; Start 04/06/17 at 21:00 Ondansetron HCl (Zofran Inj) 4 mg Q6H PRN IV NAUSEA AND/OR VOMITING; Start 04/06/17 at 14:30 Hydralazine HCl (Apresoline) 10 mg Q6H PRN IV sbp>160 Last administered on 04/07 16:37; Admin Dose 10 MG; Start 04/06/17 at 14:30 Lorazepam 1 mg 1 mg Q2H PRN IV seizure Last administered on 04/07/17 16:44; Admin Dose 1 MG; Start 04/07/17 at 10:30 Nicardipine HCl 25 mg/Sodium Chloride 260 ml @ 52 mls/hr TITRATE IV ; Start at 16:00 Levetiracetam/ Dextrose (Keppra Iv/D5W) 110 ml @ 400 mls/hr Q12 IV Last administered on 04/12/17 21:30; Admin Dose 400 MLS/HR; Start 04/07/17 at 15:44 Lacosamide (Vimpat Liq) 150 mg BID PO Last administered on 04/12/17 22:50; Admin Dose 150 MG; Start 04/07/17 at 22:00 Insulin Aspart (Novolog Insulin Pen) NOVOLOG *MODERATE* ALGORI... Q4 SC Last administered on 04/13/17 09:51; Admin Dose 2 UNIT; Start 04/08/17 at 01:00 Miscellaneous Information 1 ea NOTE XX ; Start 04/07/17 at 22:00 Glucose (Glutose) 15 gm Q15M PRN PO DECREASED GLUCOSE; Start 04/07/17 at 22:00 Glucose (Glutose) 22.5 gm Q15M PRN PO DECREASED GLUCOSE; Start 04/07/17 at 22: 00 Dextrose (D50w Syringe) 25 ml Q15M PRN IV DECREASED GLUCOSE; Start 04/07/17 at 22:00 Dextrose (D50w Syringe) 50 ml Q15M PRN IV DECREASED GLUCOSE; Start 04/07/17 at 22:00 Glucagon (Glucagen) 1 mg Q15M PRN IM DECREASED GLUCOSE; Start 04/07/17 at 22:00 Glucose (Glutose) 15 gm Q15M PRN BUCCAL DECREASED GLUCOSE; Start 04/07/17 at 22 :00 Insulin Glargine (Lantus) 10 unit DAILY@20 SC Last administered on 04/12/17 21:24; Admin Dose 10 UNIT; Start 04/08/17 at 01:00 Collagenase (Santyl) 1 applic DAILY TOP Last administered on 04/12/17 09:48; Admin Dose 1 APPLIC; Start 04/09/17 at 09:00 Lansoprazole (Prevacid) 30 mg DAILY@06 NGT Last administered on 04/13/17 05: 40; Admin Dose 30 MG; Start 04/10/17 at 09:00 Ferrous Sulfate 300 mg 300 mg DAILY GTB Last administered on 04/13/17 09:33; Admin Dose 300 MG; Start 04/10/17 at 09:00 Norepinephrine/ Dextrose (Levophed/D5W) 500 ml @ 1.87 mls/hr TITRATE IV Last administered on 04/12/17 17:25; Admin Dose 1.87 MLS/HR; Start 04/12/17 at 20: 00 BLAINE LOYA Apr 13, 2017 10:18
[2017-04-13] MEDS: LACOSAMIDE (100 MG/10 ML PO SYR) PO SCH ×2 (10:43→22:29)
--- NOTE | 2017-04-13 11:23 | CONS ---
Date/Time of Note Date/Time of Note DATE: 04/13/17 TIME: 11:20 Assessment/Plan Assessment/Plan Chief Complaint/Hosp Course - ESRD on Hemodialysis TTS @ [facility] - Recent Hospital admit to [place] with PEA - Recent Hx of Pacemaker - History of Lupus - Hypertension - Anemia - History of Seizures - CAD / CHF - Resp. Insuff on Vent. - Sepsis / Shock PLAN: Hemodynamic support Resp. Support Bedside dialysis today Pulm + Neuro + Cardio following Remains unresponsive D/W family bedside Waiting for family decision regarding further care ( ? PEG/Trachea vs Terminal extubation ) For now will keep Dialysis as planned Next HD on Thursday Problems: Consultation Date/Type/Reason Admit Date/Time Apr 06, 2017 at 10:58 Initial Consult Date Remains in ICU Type of Consultation: Nephrology Referring Provider: LACY RAMÍREZ NP 24 HR Interval Summary Subjective hx not possible: pt non-verbal, pt critical status Exam/Review of Systems Vital Signs Vitals Vital Signs Date Time Temp Pulse Resp B/P Pulse Ox O2 Delivery O2 Flow Rate FiO2 04/13/17 10:45 76 16 129/78 100 04/13/17 10:00 Mechanical Ventilator 04/13/17 09:00 50 04/13/17 08:00 98.7 Intake and Output 04/12/17 04/12/17 04/13/17 15:00 23:00 07:00 Intake Total 435 ml 1325 ml 328.87 ml Balance 435 ml 1325 ml 328.87 ml Exam Constitutional: non-verbal Neck: jvd Respiratory: crackles/rales Cardiovascular: edema, systolic murmur Gastrointestinal: soft Results Result Diagram: 04/13/17 0603 04/13/17 0604 Results 24 hrs Laboratory Tests Test 04/12/17 12:32 04/12/17 17:53 04/12/17 21:21 04/13/17 00:49 Bedside Glucose 187 186 214 222 H Test 04/13/17 05:00 04/13/17 05:29 04/13/17 06:03 04/13/17 06:04 Blood Gas Specimen Source Blood arterial Arterial Blood Date Drawn 04/13/2017 4:28:49 AM Arterial Blood pH (Temp corrected) 7.478 H Arterial Blood pCO2 (Temp correct) 37.2 Arterial Blood pO2 (Temp corrected) 91.8 Arterial Blood HCO3 27.0 H Arterial Blood Base Excess 3.3 H Arterial Blood Oxygen Saturation 96.6 Steve Test ACCEPTAB Arterial Blood Gas Puncture Site Right Radial Arterial Blood Carboxyhemoglobin 0.6 Arterial Blood Methemoglobin 0.3 Blood Gas A-a O2 Differential 222.9 H Oxyhemoglobin Percent 95.7 Total Hemoglobin 10.1 L Blood Gas Temperature 37.0 Blood Gas Respiration Rate 16.0 Blood Gas Actual Respiration Rate 16 Blood Gas Modality VENT - AC FiO2 50.0 Blood Gas Tidal Volume 500.0 Blood Gas Low PEEP Setting 5.0 Blood Gas Inspiratory Pressure 27.0 Blood Gas Notified Whom RTR Blood Gas Notified Time 04/13/2017 5:13:52 AM Bedside Glucose 169 White Blood Count 12.1 #H Red Blood Count 2.87 L Hemoglobin 8.9 L Hematocrit 30.0 L Mean Corpuscular Volume 104.5 H Mean Corpuscular Hemoglobin 31.0 Mean Corpuscular Hemoglobin Concent 29.7 L Red Cell Distribution Width 21.8 H Platelet Count 376 # Mean Platelet Volume 11.6 H Neutrophils % 65.7 Lymphocytes % 26.5 Monocytes % 5.7 Eosinophils % 0.9 Basophils % 0.5 Nucleated Red Blood Cells % 0.0 Neutrophils # 7.9 H Lymphocytes # 3.2 H Monocytes # 0.7 Eosinophils # 0.1 Basophils # 0.1 Nucleated Red Blood Cells # 0.0 Sodium Level 144 Potassium Level 4.4 Chloride Level 102 Carbon Dioxide Level 28 Anion Gap 18 H Blood Urea Nitrogen 52 H Creatinine 9.24 #H Glucose Level 172 Calcium Level 9.2 Test 04/13/17 09:46 Bedside Glucose 151 Medications Medications Current Medications Aspirin (Aspirin) 81 mg DAILY PO Last administered on 04/13/17 09:33; Admin Dose 81 MG; Start 04/07/17 at 09:00 Clopidogrel Bisulfate (plaVIX) 75 mg DAILY PO Last administered on 04/13/17 09:33; Admin Dose 75 MG; Start 04/07/17 at 09:00 Acetaminophen (Tylenol Tab) 650 mg Q6H PRN PO PAIN AND OR ELEVATED TEMP Last administered on 04/12/17 07:58; Admin Dose 650 MG; Start 04/06/17 at 14:00 Escitalopram Oxalate (Lexapro) 20 mg DAILY PO Last administered on 04/13/17 09:33; Admin Dose 20 MG; Start 04/07/17 at 09:00 Folic Acid (Folic Acid) 1 mg DAILY PO Last administered on 04/13/17 09:32; Admin Dose 1 MG; Start 04/07/17 at 09:00 Loratadine (Claritin) 10 mg DAILY PO Last administered on 04/13/17 09:33; Admin Dose 10 MG; Start 04/07/17 at 09:00 Midodrine (Proamatine) 5 mg TID PO Last administered on 04/13/17 09:33; Admin Dose 5 MG; Start 04/06/17 at 21:00; Status Future hold Lactobacillus Acidophilus/ Rhamnosus (Culturelle) 1 cap TID PO Last administered on 04/13/17 09:33; Admin Dose 1 CAP; Start 04/06/17 at 21:00 Ondansetron HCl (Zofran Inj) 4 mg Q6H PRN IV NAUSEA AND/OR VOMITING; Start 04/06/17 at 14:30 Hydralazine HCl (Apresoline) 10 mg Q6H PRN IV sbp>160 Last administered on 04/07 16:37; Admin Dose 10 MG; Start 04/06/17 at 14:30 Lorazepam 1 mg 1 mg Q2H PRN IV seizure Last administered on 04/07/17 16:44; Admin Dose 1 MG; Start 04/07/17 at 10:30 Nicardipine HCl 25 mg/Sodium Chloride 260 ml @ 52 mls/hr TITRATE IV ; Start at 16:00 Levetiracetam/ Dextrose (Keppra Iv/D5W) 110 ml @ 400 mls/hr Q12 IV Last administered on 04/12/17 21:30; Admin Dose 400 MLS/HR; Start 04/07/17 at 15:44 Lacosamide (Vimpat Liq) 150 mg BID PO Last administered on 04/13/17 10:43; Admin Dose 150 MG; Start 04/07/17 at 22:00 Insulin Aspart (Novolog Insulin Pen) NOVOLOG *MODERATE* ALGORI... Q4 SC Last administered on 04/13/17 09:51; Admin Dose 2 UNIT; Start 04/08/17 at 01:00 Miscellaneous Information 1 ea NOTE XX ; Start 04/07/17 at 22:00 Glucose (Glutose) 15 gm Q15M PRN PO DECREASED GLUCOSE; Start 04/07/17 at 22:00 Glucose (Glutose) 22.5 gm Q15M PRN PO DECREASED GLUCOSE; Start 04/07/17 at 22: 00 Dextrose (D50w Syringe) 25 ml Q15M PRN IV DECREASED GLUCOSE; Start 04/07/17 at 22:00 Dextrose (D50w Syringe) 50 ml Q15M PRN IV DECREASED GLUCOSE; Start 04/07/17 at 22:00 Glucagon (Glucagen) 1 mg Q15M PRN IM DECREASED GLUCOSE; Start 04/07/17 at 22:00 Glucose (Glutose) 15 gm Q15M PRN BUCCAL DECREASED GLUCOSE; Start 04/07/17 at 22 :00 Insulin Glargine (Lantus) 10 unit DAILY@20 SC Last administered on 04/12/17 21:24; Admin Dose 10 UNIT; Start 04/08/17 at 01:00 Collagenase (Santyl) 1 applic DAILY TOP Last administered on 04/12/17 09:48; Admin Dose 1 APPLIC; Start 04/09/17 at 09:00 Lansoprazole (Prevacid) 30 mg DAILY@06 NGT Last administered on 04/13/17 05: 40; Admin Dose 30 MG; Start 04/10/17 at 09:00 Ferrous Sulfate 300 mg 300 mg DAILY GTB Last administered on 04/13/17 09:33; Admin Dose 300 MG; Start 04/10/17 at 09:00 Norepinephrine/ Dextrose (Levophed/D5W) 500 ml @ 1.87 mls/hr TITRATE IV Last administered on 04/12/17 17:25; Admin Dose 1.87 MLS/HR; Start 04/12/17 at 20: 00 PARKER PARKER MD Apr 13, 2017 11:23
[2017-04-13] MEDS: LEVETIRACETAM IV 1,000 MG in DEXTROSE 5% 100 ML IV SCH ×2 (11:34→20:30)
--- NOTE | 2017-04-13 14:12 | PN ---
Date/Time of Note Date/Time of Note DATE: 04/13/17 TIME: 14:10 Assessment/Plan VTE Prophylaxis VTE Prophylaxis Intervention: LMWH Lines/Catheters IV Catheter Type (from Nrs): Peripheral IV Urinary Cath still in place: Yes Reason Cath still needed: urinary retention Assessment/Plan Chief Complaint/Hosp Course 1.Acute encephalopathy likely secondary to anoxic encephalopathy from cardiac arrest -Cardiology and neurology following -Repeat EEG is abnormal due to presence of burst suppression pattern consistent with severe encephalopathy with epileptiform activity -Continue Keppra and Vimpat -Ammonia is normal, ultrasound abdomen shows no cirrhosis -Unable to do MRI due to pacemaker. -CT brain /CTA head/neck unremarkable -Blood cultures negative 2.Hypoxemic respiratory failure requiring mechanical ventilation -Pulmonology following 3.Questionable PEA with #1. Currently in NSR w/RBBB. Patient w/pacemaker. -Cardiology following -Echo shows an EF of 45% with stage I diastolic heart failure -Repeat echo does show moderate pericardial effusion but no cardiac tamponade, cardiology recommendation is for continuation of dialysis, will continue to monitor 4. Chronic seizure disorder -Patient is on Keppra and Vimpat -Neurology following -Repeat EEG as above -Seizure precautions 5. ESRD, on hemodialysis Thursday. ACCESS: left upper arm AV shunt-functional. -Hemodialysis per nephrology colleagues. -Renal dose medications. Monitor renal function closely. 6. History of HTN-blood pressure currently low -Has been started on midodrine 7. Anemia of ESRD. -Defer Epogen to nephrology if indicated. 8.Prediabetes. A1c 6.2. -Sliding scale insulin in-house. 9.Status post Pacemaker placement 10. Psychiatric disorders. -Continue home medications 11. Hypernatremia D5 W 1 L Monitor Nephrology following Prophylaxis: SCDs/PPIs. Goals of care discussion in coming days with family. Poor prognosis Problems: Subjective 24 Hr Interval Summary Free Text/Dictation remains intubated and encephelopathic Exam/Review of Systems Vital Signs Vitals Vital Signs Date Time Temp Pulse Resp B/P Pulse Ox O2 Delivery O2 Flow Rate FiO2 04/13/17 13:34 83 16 99 50 04/13/17 12:00 98.6 73/42 Mechanical Ventilator Intake and Output 04/12/17 04/12/17 04/13/17 14:59 22:59 06:59 Intake Total 460 ml 1200 ml 426.87 ml Balance 460 ml 1200 ml 426.87 ml Exam Intubated, on MV withdraws slightly to pain in b/l arms no cornea reflex, no gag, no pupillary reflex Results Result Diagram: 04/13/17 0603 04/13/17 0604 Results 24 hrs Laboratory Tests Test 04/12/17 17:53 04/12/17 21:21 04/13/17 00:49 04/13/17 05:00 Bedside Glucose 186 214 222 H Blood Gas Specimen Source Blood arterial Arterial Blood Date Drawn 04/13/2017 4:28:49 AM Arterial Blood pH (Temp corrected) 7.478 H Arterial Blood pCO2 (Temp correct) 37.2 Arterial Blood pO2 (Temp corrected) 91.8 Arterial Blood HCO3 27.0 H Arterial Blood Base Excess 3.3 H Arterial Blood Oxygen Saturation 96.6 Steve Test ACCEPTAB Arterial Blood Gas Puncture Site Right Radial Arterial Blood Carboxyhemoglobin 0.6 Arterial Blood Methemoglobin 0.3 Blood Gas A-a O2 Differential 222.9 H Oxyhemoglobin Percent 95.7 Total Hemoglobin 10.1 L Blood Gas Temperature 37.0 Blood Gas Respiration Rate 16.0 Blood Gas Actual Respiration Rate 16 Blood Gas Modality VENT - AC FiO2 50.0 Blood Gas Tidal Volume 500.0 Blood Gas Low PEEP Setting 5.0 Blood Gas Inspiratory Pressure 27.0 Blood Gas Notified Whom RTR Blood Gas Notified Time 04/13/2017 5:13:52 AM Test 04/13/17 05:29 04/13/17 06:03 04/13/17 06:04 04/13/17 09:46 Bedside Glucose 169 151 White Blood Count 12.1 #H Red Blood Count 2.87 L Hemoglobin 8.9 L Hematocrit 30.0 L Mean Corpuscular Volume 104.5 H Mean Corpuscular Hemoglobin 31.0 Mean Corpuscular Hemoglobin Concent 29.7 L Red Cell Distribution Width 21.8 H Platelet Count 376 # Mean Platelet Volume 11.6 H Neutrophils % 65.7 Lymphocytes % 26.5 Monocytes % 5.7 Eosinophils % 0.9 Basophils % 0.5 Nucleated Red Blood Cells % 0.0 Neutrophils # 7.9 H Lymphocytes # 3.2 H Monocytes # 0.7 Eosinophils # 0.1 Basophils # 0.1 Nucleated Red Blood Cells # 0.0 Sodium Level 144 Potassium Level 4.4 Chloride Level 102 Carbon Dioxide Level 28 Anion Gap 18 H Blood Urea Nitrogen 52 H Creatinine 9.24 #H Glucose Level 172 Calcium Level 9.2 Test 04/13/17 12:37 Bedside Glucose 184 Medications Medications Current Medications Aspirin (Aspirin) 81 mg DAILY PO Last administered on 04/13/17 09:33; Admin Dose 81 MG; Start 04/07/17 at 09:00 Clopidogrel Bisulfate (plaVIX) 75 mg DAILY PO Last administered on 04/13/17 09:33; Admin Dose 75 MG; Start 04/07/17 at 09:00 Acetaminophen (Tylenol Tab) 650 mg Q6H PRN PO PAIN AND OR ELEVATED TEMP Last administered on 04/12/17 07:58; Admin Dose 650 MG; Start 04/06/17 at 14:00 Escitalopram Oxalate (Lexapro) 20 mg DAILY PO Last administered on 04/13/17 09:33; Admin Dose 20 MG; Start 04/07/17 at 09:00 Folic Acid (Folic Acid) 1 mg DAILY PO Last administered on 04/13/17 09:32; Admin Dose 1 MG; Start 04/07/17 at 09:00 Loratadine (Claritin) 10 mg DAILY PO Last administered on 04/13/17 09:33; Admin Dose 10 MG; Start 04/07/17 at 09:00 Midodrine (Proamatine) 5 mg TID PO Last administered on 04/13/17 12:36; Admin Dose 5 MG; Start 04/06/17 at 21:00; Status Future hold Lactobacillus Acidophilus/ Rhamnosus (Culturelle) 1 cap TID PO Last administered on 04/13/17 12:36; Admin Dose 1 CAP; Start 04/06/17 at 21:00 Ondansetron HCl (Zofran Inj) 4 mg Q6H PRN IV NAUSEA AND/OR VOMITING; Start 04/06/17 at 14:30 Hydralazine HCl (Apresoline) 10 mg Q6H PRN IV sbp>160 Last administered on 04/07 16:37; Admin Dose 10 MG; Start 04/06/17 at 14:30 Lorazepam 1 mg 1 mg Q2H PRN IV seizure Last administered on 04/07/17 16:44; Admin Dose 1 MG; Start 04/07/17 at 10:30 Nicardipine HCl 25 mg/Sodium Chloride 260 ml @ 52 mls/hr TITRATE IV ; Start at 16:00 Levetiracetam/ Dextrose (Keppra Iv/D5W) 110 ml @ 400 mls/hr Q12 IV Last administered on 04/13/17 11:34; Admin Dose 400 MLS/HR; Start 04/07/17 at 15:44 Lacosamide (Vimpat Liq) 150 mg BID PO Last administered on 04/13/17 10:43; Admin Dose 150 MG; Start 04/07/17 at 22:00 Insulin Aspart (Novolog Insulin Pen) NOVOLOG *MODERATE* ALGORI... Q4 SC Last administered on 04/13/17 12:39; Admin Dose 4 UNIT; Start 04/08/17 at 01:00 Miscellaneous Information 1 ea NOTE XX ; Start 04/07/17 at 22:00 Glucose (Glutose) 15 gm Q15M PRN PO DECREASED GLUCOSE; Start 04/07/17 at 22:00 Glucose (Glutose) 22.5 gm Q15M PRN PO DECREASED GLUCOSE; Start 04/07/17 at 22: 00 Dextrose (D50w Syringe) 25 ml Q15M PRN IV DECREASED GLUCOSE; Start 04/07/17 at 22:00 Dextrose (D50w Syringe) 50 ml Q15M PRN IV DECREASED GLUCOSE; Start 04/07/17 at 22:00 Glucagon (Glucagen) 1 mg Q15M PRN IM DECREASED GLUCOSE; Start 04/07/17 at 22:00 Glucose (Glutose) 15 gm Q15M PRN BUCCAL DECREASED GLUCOSE; Start 04/07/17 at 22 :00 Insulin Glargine (Lantus) 10 unit DAILY@20 SC Last administered on 04/12/17 21:24; Admin Dose 10 UNIT; Start 04/08/17 at 01:00 Collagenase (Santyl) 1 applic DAILY TOP Last administered on 04/12/17 09:48; Admin Dose 1 APPLIC; Start 04/09/17 at 09:00 Lansoprazole (Prevacid) 30 mg DAILY@06 NGT Last administered on 04/13/17 05: 40; Admin Dose 30 MG; Start 04/10/17 at 09:00 Ferrous Sulfate 300 mg 300 mg DAILY GTB Last administered on 12/11/17at 09:33; Admin Dose 300 MG; Start 04/10/17 at 09:00 Norepinephrine/ Dextrose (Levophed/D5W) 500 ml @ 1.87 mls/hr TITRATE IV ; Start 04/13/17 at 12:30 SAUL CONTRERAS MD Apr 13, 2017 14:12
--- NOTE | 2017-04-13 14:26 | CONS ---
Date/Time of Note Date/Time of Note DATE: 04/13/17 TIME: 14:25 Consultation Date/Type/Reason Admit Date/Time Apr 06, 2017 at 10:58 Type of Consultation: Palliative care Hx of Present Illness A 47-year-old gentleman who had a cardiac arrest history [facility] on 04 06. She is in the intensive care unit and essentially has been nonresponsive since his cardiac arrest. Been seen by neurology consultation pulmonary medicine hospitalist. And has been treated aggressively for both current underlying medical problem and medical problems including seizure disorder end-stage renal disease on hemodialysis anemia hypertension. Him and has an extremely poor prognosis. I have spoken with his aunt and have asked her to call patient's spouse to schedule family conference as soon as possible. Palliative care palliative care Past Medical History Medical History: congestive heart failure, coronary artery disease, hypertension, renal disease Social History Alcohol Use: none Smoking Status: Never smoker Drug Use: none Exam/Review of Systems Vital Signs Vitals Vital Signs Date Time Temp Pulse Resp B/P Pulse Ox O2 Delivery O2 Flow Rate FiO2 04/13/17 13:34 83 16 99 50 04/13/17 12:00 98.6 73/42 Mechanical Ventilator Intake and Output 04/12/17 04/12/17 04/13/17 15:00 23:00 07:00 Intake Total 435 ml 1325 ml 328.87 ml Balance 435 ml 1325 ml 328.87 ml Results Result Diagram: 04/13/17 0603 04/13/17 0604 Results 24 hrs Laboratory Tests Test 04/12/17 17:53 04/12/17 21:21 04/13/17 00:49 04/13/17 05:00 Bedside Glucose 186 214 222 H Blood Gas Specimen Source Blood arterial Arterial Blood Date Drawn 04/13/2017 4:28:49 AM Arterial Blood pH (Temp corrected) 7.478 H Arterial Blood pCO2 (Temp correct) 37.2 Arterial Blood pO2 (Temp corrected) 91.8 Arterial Blood HCO3 27.0 H Arterial Blood Base Excess 3.3 H Arterial Blood Oxygen Saturation 96.6 Steve Test ACCEPTAB Arterial Blood Gas Puncture Site Right Radial Arterial Blood Carboxyhemoglobin 0.6 Arterial Blood Methemoglobin 0.3 Blood Gas A-a O2 Differential 222.9 H Oxyhemoglobin Percent 95.7 Total Hemoglobin 10.1 L Blood Gas Temperature 37.0 Blood Gas Respiration Rate 16.0 Blood Gas Actual Respiration Rate 16 Blood Gas Modality VENT - AC FiO2 50.0 Blood Gas Tidal Volume 500.0 Blood Gas Low PEEP Setting 5.0 Blood Gas Inspiratory Pressure 27.0 Blood Gas Notified Whom RTR Blood Gas Notified Time 04/13/2017 5:13:52 AM Test 04/13/17 05:29 04/13/17 06:03 04/13/17 06:04 04/13/17 09:46 Bedside Glucose 169 151 White Blood Count 12.1 #H Red Blood Count 2.87 L Hemoglobin 8.9 L Hematocrit 30.0 L Mean Corpuscular Volume 104.5 H Mean Corpuscular Hemoglobin 31.0 Mean Corpuscular Hemoglobin Concent 29.7 L Red Cell Distribution Width 21.8 H Platelet Count 376 # Mean Platelet Volume 11.6 H Neutrophils % 65.7 Lymphocytes % 26.5 Monocytes % 5.7 Eosinophils % 0.9 Basophils % 0.5 Nucleated Red Blood Cells % 0.0 Neutrophils # 7.9 H Lymphocytes # 3.2 H Monocytes # 0.7 Eosinophils # 0.1 Basophils # 0.1 Nucleated Red Blood Cells # 0.0 Sodium Level 144 Potassium Level 4.4 Chloride Level 102 Carbon Dioxide Level 28 Anion Gap 18 H Blood Urea Nitrogen 52 H Creatinine 9.24 #H Glucose Level 172 Calcium Level 9.2 Test 04/13/17 12:37 Bedside Glucose 184 Medications Medications Current Medications Aspirin (Aspirin) 81 mg DAILY PO Last administered on 04/13/17 09:33; Admin Dose 81 MG; Start 04/07/17 at 09:00 Clopidogrel Bisulfate (plaVIX) 75 mg DAILY PO Last administered on 04/13/17 09:33; Admin Dose 75 MG; Start 04/07/17 at 09:00 Acetaminophen (Tylenol Tab) 650 mg Q6H PRN PO PAIN AND OR ELEVATED TEMP Last administered on 04/12/17 07:58; Admin Dose 650 MG; Start 04/06/17 at 14:00 Escitalopram Oxalate (Lexapro) 20 mg DAILY PO Last administered on 04/13/17 09:33; Admin Dose 20 MG; Start 04/07/17 at 09:00 Folic Acid (Folic Acid) 1 mg DAILY PO Last administered on 04/13/17 09:32; Admin Dose 1 MG; Start 04/07/17 at 09:00 Loratadine (Claritin) 10 mg DAILY PO Last administered on 04/13/17 09:33; Admin Dose 10 MG; Start 04/07/17 at 09:00 Midodrine (Proamatine) 5 mg TID PO Last administered on 04/13/17 12:36; Admin Dose 5 MG; Start 04/06/17 at 21:00; Status Future hold Lactobacillus Acidophilus/ Rhamnosus (Culturelle) 1 cap TID PO Last administered on 04/13/17 12:36; Admin Dose 1 CAP; Start 04/06/17 at 21:00 Ondansetron HCl (Zofran Inj) 4 mg Q6H PRN IV NAUSEA AND/OR VOMITING; Start 04/06/17 at 14:30 Hydralazine HCl (Apresoline) 10 mg Q6H PRN IV sbp>160 Last administered on 04/07 16:37; Admin Dose 10 MG; Start 04/06/17 at 14:30 Lorazepam 1 mg 1 mg Q2H PRN IV seizure Last administered on 04/07/17 16:44; Admin Dose 1 MG; Start 04/07/17 at 10:30 Nicardipine HCl 25 mg/Sodium Chloride 260 ml @ 52 mls/hr TITRATE IV ; Start at 16:00 Levetiracetam/ Dextrose (Keppra Iv/D5W) 110 ml @ 400 mls/hr Q12 IV Last administered on 04/13/17 11:34; Admin Dose 400 MLS/HR; Start 04/07/17 at 15:44 Lacosamide (Vimpat Liq) 150 mg BID PO Last administered on 04/13/17 10:43; Admin Dose 150 MG; Start 04/07/17 at 22:00 Insulin Aspart (Novolog Insulin Pen) NOVOLOG *MODERATE* ALGORI... Q4 SC Last administered on 04/13/17 12:39; Admin Dose 4 UNIT; Start 04/08/17 at 01:00 Miscellaneous Information 1 ea NOTE XX ; Start 04/07/17 at 22:00 Glucose (Glutose) 15 gm Q15M PRN PO DECREASED GLUCOSE; Start 04/07/17 at 22:00 Glucose (Glutose) 22.5 gm Q15M PRN PO DECREASED GLUCOSE; Start 04/07/17 at 22: 00 Dextrose (D50w Syringe) 25 ml Q15M PRN IV DECREASED GLUCOSE; Start 04/07/17 at 22:00 Dextrose (D50w Syringe) 50 ml Q15M PRN IV DECREASED GLUCOSE; Start 04/07/17 at 22:00 Glucagon (Glucagen) 1 mg Q15M PRN IM DECREASED GLUCOSE; Start 04/07/17 at 22:00 Glucose (Glutose) 15 gm Q15M PRN BUCCAL DECREASED GLUCOSE; Start 04/07/17 at 22 :00 Insulin Glargine (Lantus) 10 unit DAILY@20 SC Last administered on 04/12/17 21:24; Admin Dose 10 UNIT; Start 04/08/17 at 01:00 Collagenase (Santyl) 1 applic DAILY TOP Last administered on 04/12/17 09:48; Admin Dose 1 APPLIC; Start 04/09/17 at 09:00 Lansoprazole (Prevacid) 30 mg DAILY@06 NGT Last administered on 04/13/17 05: 40; Admin Dose 30 MG; Start 04/10/17 at 09:00 Ferrous Sulfate 300 mg 300 mg DAILY GTB Last administered on 04/13/17 09:33; Admin Dose 300 MG; Start 04/10/17 at 09:00 Norepinephrine/ Dextrose (Levophed/D5W) 500 ml @ 1.87 mls/hr TITRATE IV ; Start 04/13/17 at 12:30 AUREA ANNE Apr 13, 2017 14:26
--- NOTE | 2017-04-13 16:00 | CONS ---
Date/Time of Note Date/Time of Note DATE: 04/13/17 TIME: 15:59 Consult Date/Type/Reason Admit Date/Time Apr 06, 2017 at 10:58 Initial Consult Date 04/07/17 Type of Consultation: card Ordering Provider: LACY RAMÍREZ NP Subjective cardiology follow up note: S: D/ W staff and rhythm was reviewed pt remains in NSR he remains intubated and nonresponsive in ICU BP HAS BEEN low and is on levophed but low dose pt is nonverbal O: General: s/p intubation on vent HEENT: NC/AT. pupils are round. NECK: NO JVD. no stridor. CV: RRR. systolic murmur; no gallop or rubs. PULM: no wheezing or rhonchi. GI: SOFT, NT, ND, no rebound or guarding Extremity: trace B/L LE edema. no clubbing. neuro: does not respond Psych: calm rectal: deferred echo reviewed personally: 1. Normal left ventricular cavity size. Mild concentric left ventricular hypertrophy. Mild global left ventricular systolic dysfunction. Ejection fraction is visually estimated at 45 %. Tissue Doppler/Mitral Doppler indices are consistent with impaired relaxation (Stage I diastolic dysfunction). 2. Normal appearance and function of the mitral valve with trace physiologic regurgitation. 3. Normal appearance of the aortic valve. No significant aortic stenosis or insufficiency. 4. Normal appearance of the tricuspid valve. Estimated peak PA systolic pressure 26 mmHg. There is trace tricuspid regurgitation. 5. Dilated IVC without respiratory collapse, however, patient on ventilator. 6. Moderate pericardial effusion. Objective Vital Signs Date Time Temp Pulse Resp B/P Pulse Ox O2 Delivery O2 Flow Rate FiO2 04/13/17 15:37 76 16 100 50 04/13/17 15:30 98.6 97/66 04/13/17 15:00 Mechanical Ventilator Intake and Output 04/12/17 04/12/17 04/13/17 14:59 22:59 06:59 Intake Total 460 ml 1200 ml 426.87 ml Balance 460 ml 1200 ml 426.87 ml Results/Medications Result Diagram: 04/13/17 0603 04/13/17 0604 Results 24 hrs Laboratory Tests Test 04/12/17 17:53 04/12/17 21:21 04/13/17 00:49 04/13/17 05:00 Bedside Glucose 186 214 222 H Blood Gas Specimen Source Blood arterial Arterial Blood Date Drawn 04/13/2017 4:28:49 AM Arterial Blood pH (Temp corrected) 7.478 H Arterial Blood pCO2 (Temp correct) 37.2 Arterial Blood pO2 (Temp corrected) 91.8 Arterial Blood HCO3 27.0 H Arterial Blood Base Excess 3.3 H Arterial Blood Oxygen Saturation 96.6 Steve Test ACCEPTAB Arterial Blood Gas Puncture Site Right Radial Arterial Blood Carboxyhemoglobin 0.6 Arterial Blood Methemoglobin 0.3 Blood Gas A-a O2 Differential 222.9 H Oxyhemoglobin Percent 95.7 Total Hemoglobin 10.1 L Blood Gas Temperature 37.0 Blood Gas Respiration Rate 16.0 Blood Gas Actual Respiration Rate 16 Blood Gas Modality VENT - AC FiO2 50.0 Blood Gas Tidal Volume 500.0 Blood Gas Low PEEP Setting 5.0 Blood Gas Inspiratory Pressure 27.0 Blood Gas Notified Whom RTR Blood Gas Notified Time 04/13/2017 5:13:52 AM Test 04/13/17 05:29 04/13/17 06:03 04/13/17 06:04 04/13/17 09:46 Bedside Glucose 169 151 White Blood Count 12.1 #H Red Blood Count 2.87 L Hemoglobin 8.9 L Hematocrit 30.0 L Mean Corpuscular Volume 104.5 H Mean Corpuscular Hemoglobin 31.0 Mean Corpuscular Hemoglobin Concent 29.7 L Red Cell Distribution Width 21.8 H Platelet Count 376 # Mean Platelet Volume 11.6 H Neutrophils % 65.7 Lymphocytes % 26.5 Monocytes % 5.7 Eosinophils % 0.9 Basophils % 0.5 Nucleated Red Blood Cells % 0.0 Neutrophils # 7.9 H Lymphocytes # 3.2 H Monocytes # 0.7 Eosinophils # 0.1 Basophils # 0.1 Nucleated Red Blood Cells # 0.0 Sodium Level 144 Potassium Level 4.4 Chloride Level 102 Carbon Dioxide Level 28 Anion Gap 18 H Blood Urea Nitrogen 52 H Creatinine 9.24 #H Glucose Level 172 Calcium Level 9.2 Test 04/13/17 12:37 Bedside Glucose 184 Medications Current Medications Aspirin (Aspirin) 81 mg DAILY PO Last administered on 04/13/17 09:33; Admin Dose 81 MG; Start 04/07/17 at 09:00 Clopidogrel Bisulfate (plaVIX) 75 mg DAILY PO Last administered on 04/13/17 09:33; Admin Dose 75 MG; Start 04/07/17 at 09:00 Acetaminophen (Tylenol Tab) 650 mg Q6H PRN PO PAIN AND OR ELEVATED TEMP Last administered on 04/12/17 07:58; Admin Dose 650 MG; Start 04/06/17 at 14:00 Escitalopram Oxalate (Lexapro) 20 mg DAILY PO Last administered on 04/13/17 09:33; Admin Dose 20 MG; Start 04/07/17 at 09:00 Folic Acid (Folic Acid) 1 mg DAILY PO Last administered on 04/13/17 09:32; Admin Dose 1 MG; Start 04/07/17 at 09:00 Loratadine (Claritin) 10 mg DAILY PO Last administered on 04/13/17 09:33; Admin Dose 10 MG; Start 04/07/17 at 09:00 Midodrine (Proamatine) 5 mg TID PO Last administered on 04/13/17 12:36; Admin Dose 5 MG; Start 04/06/17 at 21:00; Status Future hold Lactobacillus Acidophilus/ Rhamnosus (Culturelle) 1 cap TID PO Last administered on 04/13/17 12:36; Admin Dose 1 CAP; Start 04/06/17 at 21:00 Ondansetron HCl (Zofran Inj) 4 mg Q6H PRN IV NAUSEA AND/OR VOMITING; Start 04/06/17 at 14:30 Hydralazine HCl (Apresoline) 10 mg Q6H PRN IV sbp>160 Last administered on 04/07 16:37; Admin Dose 10 MG; Start 04/06/17 at 14:30 Lorazepam 1 mg 1 mg Q2H PRN IV seizure Last administered on 04/07/17 16:44; Admin Dose 1 MG; Start 04/07/17 at 10:30 Nicardipine HCl 25 mg/Sodium Chloride 260 ml @ 52 mls/hr TITRATE IV ; Start at 16:00 Levetiracetam/ Dextrose (Keppra Iv/D5W) 110 ml @ 400 mls/hr Q12 IV Last administered on 04/13/17 11:34; Admin Dose 400 MLS/HR; Start 04/07/17 at 15:44 Lacosamide (Vimpat Liq) 150 mg BID PO Last administered on 04/13/17 10:43; Admin Dose 150 MG; Start 04/07/17 at 22:00 Insulin Aspart (Novolog Insulin Pen) NOVOLOG *MODERATE* ALGORI... Q4 SC Last administered on 04/13/17 12:39; Admin Dose 4 UNIT; Start 04/08/17 at 01:00 Miscellaneous Information 1 ea NOTE XX ; Start 04/07/17 at 22:00 Glucose (Glutose) 15 gm Q15M PRN PO DECREASED GLUCOSE; Start 04/07/17 at 22:00 Glucose (Glutose) 22.5 gm Q15M PRN PO DECREASED GLUCOSE; Start 04/07/17 at 22: 00 Dextrose (D50w Syringe) 25 ml Q15M PRN IV DECREASED GLUCOSE; Start 04/07/17 at 22:00 Dextrose (D50w Syringe) 50 ml Q15M PRN IV DECREASED GLUCOSE; Start 04/07/17 at 22:00 Glucagon (Glucagen) 1 mg Q15M PRN IM DECREASED GLUCOSE; Start 04/07/17 at 22:00 Glucose (Glutose) 15 gm Q15M PRN BUCCAL DECREASED GLUCOSE; Start 04/07/17 at 22 :00 Insulin Glargine (Lantus) 10 unit DAILY@20 SC Last administered on 04/12/17 21:24; Admin Dose 10 UNIT; Start 04/08/17 at 01:00 Collagenase (Santyl) 1 applic DAILY TOP Last administered on 04/12/17 09:48; Admin Dose 1 APPLIC; Start 04/09/17 at 09:00 Lansoprazole (Prevacid) 30 mg DAILY@06 NGT Last administered on 04/13/17 05: 40; Admin Dose 30 MG; Start 04/10/17 at 09:00 Ferrous Sulfate 300 mg 300 mg DAILY GTB Last administered on 04/13/17 09:33; Admin Dose 300 MG; Start 04/10/17 at 09:00 Norepinephrine/ Dextrose (Levophed/D5W) 500 ml @ 1.87 mls/hr TITRATE IV ; Start 04/13/17 at 12:30 Assessment/Plan Chief Complaint/Hosp Course 1. cardiopulm arrest: I doubt it is related to cardiac arrest. probably due to neurological changes. 2. hypoxemic resp failure: sp intubation and on vent 3. Moderate-sized pericardial effusion. Probably related to his renal failure. At this point I do not see signs of tamponade. His blood pressure has been also elevated to normal and not hypotensive. recommend aggressive HD for now 4. End-stage renal disease on dialysis Hemodialysis is being managed as per renal team. 5. Hypertension: now hypotensive 6. altered level of consciousness and encephalopathy. will defer to neuro and IM 7. anemia 8/ hx seizure; defer to neurology Recommendations: Continue with the vent support as long as pt is full code. Respiratory care will be continued on managed as per pulmonary team. Follow-up with neurology recommendation regarding seizure and treatment. Hemodialysis to be done to manage as per renal team. Continue with ICU care. Cardiac enzymes were negative. f/u with palliative care rec family meeting Thank you for this referral. I will continue to follow along with you. BIANKA KENT MD [facility] Problems: BIANKA KENT MD Apr 13, 2017 16:00
[2017-04-13] MEDS: INSULIN GLARGINE [LANtus] 3 ML PEN SC SCH (20:33)
[2017-04-14] VITALS (89 sets, daily range): BP systolic 61–172; BP diastolic 20–78; PULSE 67–99; RESP 14–21
[2017-04-14] MEDS: ACETAMINOPHEN 325 MG TAB PO PRN (00:32)
[2017-04-14] MEDS: INSULIN ASPART [NOVOLOG] 3 ML PEN SC SCH ×3 (00:48→10:16)
[2017-04-14] MEDS: ALBUTEROL HFA 8 GM INHALER INH SCH ×3 (01:10→14:26)
[2017-04-14] MEDS: IPRATROPIUM (HFA) 12.9 GM INHALER INH SCH ×3 (01:10→14:26)
[2017-04-14] MEDS: LANSOPRAZOLE 30 MG CAP NGT SCH (06:33)
[2017-04-14 08:41] LABS: CALCIUM 9.6 mg/dl (8.4-10.2); CREATININE 8.15 mg/dl (0.61-1.24); POTASSIUM 4.4 mmol/L (3.5-5.1)
--- NOTE | 2017-04-14 09:01 | CONS ---
Date/Time of Note Date/Time of Note DATE: 04/14/17 TIME: 08:57 Assessment/Plan Assessment/Plan Chief Complaint/Hosp Course A 47-year-old gentleman who had a cardiac arrest history [facility] on 04 06. She is in the intensive care unit and essentially has been nonresponsive since his cardiac arrest. Been seen by neurology consultation pulmonary medicine hospitalist. And has been treated aggressively for both current underlying medical problem and medical problems including seizure disorder end-stage renal disease on hemodialysis anemia hypertension. Him and has an extremely poor prognosis. I have spoken with his aunt and have asked her to call patient's spouse to schedule family conference as soon as possible. Palliative care palliative care Problems: Additional Assessment/Plan I have not heard back from family members concerning a conference patient remains full code I will suggest prior to trach to have a conference with family members to assess goals of care and ongoing level of care. Consultation Date/Type/Reason Admit Date/Time Apr 06, 2017 at 10:58 Initial Consult Date 04/07/17 Type of Consultation: Palliative care Referring Provider: LACY RAMÍREZ NP 24 HR Interval Summary Free Text/Dictation There is been no positive clinical changes, she remains vented nonresponsive. Exam/Review of Systems Vital Signs Vitals Vital Signs Date Time Temp Pulse Resp B/P Pulse Ox O2 Delivery O2 Flow Rate FiO2 04/14/17 06:45 68 16 94/59 100 Mechanical Ventilator 04/14/17 05:05 40 04/14/17 04:00 98.0 Intake and Output 04/13/17 04/13/17 04/14/17 15:00 23:00 07:00 Intake Total 1198 ml 568.87 ml 347.87 ml Output Total 3500 ml Balance -2302 ml 568.87 ml 347.87 ml Exam Neurological: other (Not overbreathing the ventilator sluggish right oculocephalic, right pupil 7 mm minimally reactive left cannot be visualized roving eye movements no doll's eyes, not overbreathing the ventilator no responsible to verbal or tactile stimulation) Results Result Diagram: 04/13/17 0603 04/14/17 0749 Results 24 hrs Laboratory Tests Test 04/13/17 09:46 04/13/17 12:37 04/13/17 18:21 04/13/17 20:23 Bedside Glucose 151 184 157 191 Test 04/14/17 00:46 04/14/17 05:01 04/14/17 07:49 04/14/17 07:50 Bedside Glucose 191 174 Sodium Level 142 Potassium Level 4.4 Chloride Level 98 Carbon Dioxide Level 29 Anion Gap 19 H Blood Urea Nitrogen 49 H Creatinine 8.15 H Glucose Level 184 Calcium Level 9.6 White Blood Count Pending Red Blood Count Pending Hemoglobin Pending Hematocrit Pending Mean Corpuscular Volume Pending Mean Corpuscular Hemoglobin Pending Mean Corpuscular Hemoglobin Concent Pending Red Cell Distribution Width Pending Platelet Count Pending Mean Platelet Volume Pending Medications Medications Current Medications Aspirin (Aspirin) 81 mg DAILY PO Last administered on 04/13/17 09:33; Admin Dose 81 MG; Start 04/07/17 at 09:00 Clopidogrel Bisulfate (plaVIX) 75 mg DAILY PO Last administered on 04/13/17 09:33; Admin Dose 75 MG; Start 04/07/17 at 09:00 Acetaminophen (Tylenol Tab) 650 mg Q6H PRN PO PAIN AND OR ELEVATED TEMP Last administered on 04/14/17 00:32; Admin Dose 650 MG; Start 04/06/17 at 14:00 Escitalopram Oxalate (Lexapro) 20 mg DAILY PO Last administered on 04/13/17 09:33; Admin Dose 20 MG; Start 04/07/17 at 09:00 Folic Acid (Folic Acid) 1 mg DAILY PO Last administered on 04/13/17 09:32; Admin Dose 1 MG; Start 04/07/17 at 09:00 Loratadine (Claritin) 10 mg DAILY PO Last administered on 04/13/17 09:33; Admin Dose 10 MG; Start 04/07/17 at 09:00 Midodrine (Proamatine) 5 mg TID PO Last administered on 04/13/17 20:30; Admin Dose 5 MG; Start 04/06/17 at 21:00; Status Future hold Lactobacillus Acidophilus/ Rhamnosus (Culturelle) 1 cap TID PO Last administered on 04/13/17 20:30; Admin Dose 1 CAP; Start 04/06/17 at 21:00 Ondansetron HCl (Zofran Inj) 4 mg Q6H PRN IV NAUSEA AND/OR VOMITING; Start 04/06/17 at 14:30 Hydralazine HCl (Apresoline) 10 mg Q6H PRN IV sbp>160 Last administered on 04/07 16:37; Admin Dose 10 MG; Start 04/06/17 at 14:30 Lorazepam 1 mg 1 mg Q2H PRN IV seizure Last administered on 04/07/17 16:44; Admin Dose 1 MG; Start 04/07/17 at 10:30 Nicardipine HCl 25 mg/Sodium Chloride 260 ml @ 52 mls/hr TITRATE IV ; Start at 16:00 Levetiracetam/ Dextrose (Keppra Iv/D5W) 110 ml @ 400 mls/hr Q12 IV Last administered on 04/13/17 20:30; Admin Dose 400 MLS/HR; Start 04/07/17 at 15:44 Lacosamide (Vimpat Liq) 150 mg BID PO Last administered on 04/13/17 22:29; Admin Dose 150 MG; Start 04/07/17 at 22:00 Insulin Aspart (Novolog Insulin Pen) NOVOLOG *MODERATE* ALGORI... Q4 SC Last administered on 04/14/17 05:03; Admin Dose 2 UNIT; Start 04/08/17 at 01:00 Miscellaneous Information 1 ea NOTE XX ; Start 04/07/17 at 22:00 Glucose (Glutose) 15 gm Q15M PRN PO DECREASED GLUCOSE; Start 04/07/17 at 22:00 Glucose (Glutose) 22.5 gm Q15M PRN PO DECREASED GLUCOSE; Start 04/07/17 at 22: 00 Dextrose (D50w Syringe) 25 ml Q15M PRN IV DECREASED GLUCOSE; Start 04/07/17 at 22:00 Dextrose (D50w Syringe) 50 ml Q15M PRN IV DECREASED GLUCOSE; Start 04/07/17 at 22:00 Glucagon (Glucagen) 1 mg Q15M PRN IM DECREASED GLUCOSE; Start 04/07/17 at 22:00 Glucose (Glutose) 15 gm Q15M PRN BUCCAL DECREASED GLUCOSE; Start 04/07/17 at 22 :00 Insulin Glargine (Lantus) 10 unit DAILY@20 SC Last administered on 04/13/17 20:33; Admin Dose 10 UNIT; Start 04/08/17 at 01:00 Collagenase (Santyl) 1 applic DAILY TOP Last administered on 04/12/17 09:48; Admin Dose 1 APPLIC; Start 04/09/17 at 09:00 Lansoprazole (Prevacid) 30 mg DAILY@06 NGT Last administered on 04/14/17 06: 33; Admin Dose 30 MG; Start 04/10/17 at 09:00 Ferrous Sulfate 300 mg 300 mg DAILY GTB Last administered on 04/13/17 09:33; Admin Dose 300 MG; Start 04/10/17 at 09:00 Norepinephrine/ Dextrose (Levophed/D5W) 500 ml @ 1.87 mls/hr TITRATE IV Last administered on 04/14/17 06:25; Admin Dose 1.87 MLS/HR; Start 04/13/17 at 12: 30 AUREA ANNE Apr 14, 2017 09:01
[2017-04-14] MEDS: CLOPIDOGREL 75 MG TAB PO SCH (09:24)
[2017-04-14] MEDS: SEVELAMER CARBONATE 0.8 GM PKT GTB SCH ×2 (09:24→12:15)
[2017-04-14] MEDS: FOLIC ACID 1 MG TAB PO SCH (09:24)
[2017-04-14] MEDS: LACTOBACILLUS RHAMNOSUS CAP PO SCH (09:24)
[2017-04-14] MEDS: ESCITALOPRAM 10 MG TAB PO SCH (09:24)
[2017-04-14] MEDS: FERROUS SULFATE 60 MG/ML 5ML CUP GTB SCH (09:24)
[2017-04-14] MEDS: LORATADINE 10 MG TAB PO SCH (09:24)
[2017-04-14] MEDS: MIDODRINE 5 MG TAB PO SCH (09:25)
[2017-04-14] MEDS: ASPIRIN 81 MG TAB PO SCH (09:25)
[2017-04-14] MEDS: COLLAGENASE 30 GM TUBE TOP SCH (09:26)
[2017-04-14 09:31] LABS: BASOPHIL # 0.1 10^3/ul (0.0-0.1); BASOPHILS % 0.4 % (0.0-2.0); EOSINOPHILS # 0.7 10^3/ul (0.0-0.5); EOSINOPHILS % 5.4 % (0.0-7.0); HEMATOCRIT 27.2 % (42.0-52.0); HEMOGLOBIN 8.2 g/dl (14.0-18.0); LYMPHOCYTES # 1.8 10^3/ul (0.8-2.9); LYMPHOCYTES % 15.1 % (15.0-51.0); MEAN CORPUSCULAR HEMOGLOBIN 30.8 pg (29.0-33.0); MEAN CORPUSCULAR HGB CONC 30.1 g/dl (32.0-37.0); MEAN CORPUSCULAR VOLUME 102.3 fl (82.0-101.0); MEAN PLATELET VOLUME 11.5 fl (7.4-10.4); MONOCYTE # 0.4 10^3/ul (0.3-0.9); MONOCYTES % 3.4 % (0.0-11.0); NEUTROPHIL # 9.1 10^3/ul (1.6-7.5); NEUTROPHILS % 75.3 % (39.0-77.0); PLATELET COUNT 335 10^3/UL (140-415); RED BLOOD COUNT 2.66 10^6/ul (4.70-6.10); RED CELL DISTRIBUTION WIDTH 21.1 % (11.5-14.5)
[2017-04-14] MEDS: LACOSAMIDE (100 MG/10 ML PO SYR) PO SCH (10:08)
[2017-04-14] MEDS: LEVETIRACETAM IV 1,000 MG in DEXTROSE 5% 100 ML IV SCH (10:08)
--- NOTE | 2017-04-14 11:00 | CONS ---
Date/Time of Note Date/Time of Note DATE: 04/14/17 TIME: 10:57 Assessment/Plan Assessment/Plan Additional Assessment/Plan Ventilator setting; AC of 16, tidal volume 500, PEEP of 5, 40% FiO2. Patient is off Levophed. Patient was dialyzed yesterday. Assessment and recommendations; 1. Patient admitted with cardiac arrest with ensuing severe anoxic encephalopathy. 2. Multiple episodes of cardiac arrest at prior hospital. 3. Underlying cardiomyopathy. 4. End-stage renal disease, on hemodialysis. 5. Anemia of chronic disease. 6. Post anoxic seizures, currently well controlled. 7. Diabetes Continue current supportive care. Prognosis is appearing extremely poor. Patient's family still has not decided about further plan of care. Either terminal extubation versus tracheostomy. Consultation Date/Type/Reason Admit Date/Time Apr 06, 2017 at 10:58 Initial Consult Date 04/07/17 Type of Consultation: Pulmonary/critical care Referring Provider: LACY RAMÍREZ NP 24 HR Interval Summary Free Text/Dictation Patient's condition remains critical. Remains completely unresponsive. Patient however has remained free of any overt seizures. Also has remained hemodynamically stable. General exam; middle-aged male, orally intubated, unresponsive, currently in no distress. Exam/Review of Systems Vital Signs Vitals Vital Signs Date Time Temp Pulse Resp B/P Pulse Ox O2 Delivery O2 Flow Rate FiO2 04/14/17 10:15 85 21 100/58 100 04/14/17 10:00 Mechanical Ventilator 04/14/17 08:00 98.4 04/14/17 05:05 40 Intake and Output 04/13/17 04/13/17 04/14/17 15:00 23:00 07:00 Intake Total 1198 ml 568.87 ml 347.87 ml Output Total 3500 ml Balance -2302 ml 568.87 ml 347.87 ml Exam HEENT exam; supple neck, positive JVD. No lymphadenopathy. Midline trachea. No thyromegaly. Pupils are midsize. Orally intubated. Chest exam; diminished but clear breath sounds. S1-S2 audible, no murmurs. Regular rhythm. Abdomen exam; soft, nondistended. No organomegaly. Bowel sounds audible. Extremity exam; no edema. Pulses 1+ bilaterally. WATER POLLUTION SCIENTIST exam; patient remains unresponsive. Results Result Diagram: 04/14/17 0912 04/14/17 0749 Results 24 hrs Laboratory Tests Test 04/13/17 12:37 04/13/17 18:21 04/13/17 20:23 04/14/17 00:46 Bedside Glucose 184 157 191 191 Test 04/14/17 05:01 04/14/17 07:49 04/14/17 09:12 04/14/17 09:30 Bedside Glucose 174 207 Sodium Level 142 Potassium Level 4.4 Chloride Level 98 Carbon Dioxide Level 29 Anion Gap 19 H Blood Urea Nitrogen 49 H Creatinine 8.15 H Glucose Level 184 Calcium Level 9.6 White Blood Count 12.0 H Red Blood Count 2.66 L Hemoglobin 8.2 L Hematocrit 27.2 L Mean Corpuscular Volume 102.3 H Mean Corpuscular Hemoglobin 30.8 Mean Corpuscular Hemoglobin Concent 30.1 L Red Cell Distribution Width 21.1 H Platelet Count 335 Mean Platelet Volume 11.5 H Neutrophils % 75.3 Lymphocytes % 15.1 Monocytes % 3.4 Eosinophils % 5.4 Basophils % 0.4 Nucleated Red Blood Cells % 0.0 Neutrophils # 9.1 H Lymphocytes # 1.8 Monocytes # 0.4 Eosinophils # 0.7 H Basophils # 0.1 Nucleated Red Blood Cells # 0.0 Medications Medications Current Medications Aspirin (Aspirin) 81 mg DAILY PO Last administered on 04/14/17 09:25; Admin Dose 81 MG; Start 04/07/17 at 09:00 Clopidogrel Bisulfate (plaVIX) 75 mg DAILY PO Last administered on 04/14/17 09:24; Admin Dose 75 MG; Start 04/07/17 at 09:00 Acetaminophen (Tylenol Tab) 650 mg Q6H PRN PO PAIN AND OR ELEVATED TEMP Last administered on 04/14/17 00:32; Admin Dose 650 MG; Start 04/06/17 at 14:00 Escitalopram Oxalate (Lexapro) 20 mg DAILY PO Last administered on 04/14/17 09:24; Admin Dose 20 MG; Start 04/07/17 at 09:00 Folic Acid (Folic Acid) 1 mg DAILY PO Last administered on 04/14/17 09:24; Admin Dose 1 MG; Start 04/07/17 at 09:00 Loratadine (Claritin) 10 mg DAILY PO Last administered on 04/14/17 09:24; Admin Dose 10 MG; Start 04/07/17 at 09:00 Midodrine (Proamatine) 5 mg TID PO Last administered on 04/14/17 09:25; Admin Dose 5 MG; Start 04/06/17 at 21:00; Status Future hold Lactobacillus Acidophilus/ Rhamnosus (Culturelle) 1 cap TID PO Last administered on 04/14/17 09:24; Admin Dose 1 CAP; Start 04/06/17 at 21:00 Ondansetron HCl (Zofran Inj) 4 mg Q6H PRN IV NAUSEA AND/OR VOMITING; Start 04/06/17 at 14:30 Hydralazine HCl (Apresoline) 10 mg Q6H PRN IV sbp>160 Last administered on 04/07 16:37; Admin Dose 10 MG; Start 04/06/17 at 14:30 Lorazepam 1 mg 1 mg Q2H PRN IV seizure Last administered on 04/07/17 16:44; Admin Dose 1 MG; Start 04/07/17 at 10:30 Nicardipine HCl 25 mg/Sodium Chloride 260 ml @ 52 mls/hr TITRATE IV ; Start at 16:00 Levetiracetam/ Dextrose (Keppra Iv/D5W) 110 ml @ 400 mls/hr Q12 IV Last administered on 04/14/17 10:08; Admin Dose 400 MLS/HR; Start 04/07/17 at 15:44 Lacosamide (Vimpat Liq) 150 mg BID PO Last administered on 04/14/17 10:08; Admin Dose 150 MG; Start 04/07/17 at 22:00 Insulin Aspart (Novolog Insulin Pen) NOVOLOG *MODERATE* ALGORI... Q4 SC Last administered on 04/14/17 10:16; Admin Dose 4 UNIT; Start 04/08/17 at 01:00 Miscellaneous Information 1 ea NOTE XX ; Start 04/07/17 at 22:00 Glucose (Glutose) 15 gm Q15M PRN PO DECREASED GLUCOSE; Start 04/07/17 at 22:00 Glucose (Glutose) 22.5 gm Q15M PRN PO DECREASED GLUCOSE; Start 04/07/17 at 22: 00 Dextrose (D50w Syringe) 25 ml Q15M PRN IV DECREASED GLUCOSE; Start 04/07/17 at 22:00 Dextrose (D50w Syringe) 50 ml Q15M PRN IV DECREASED GLUCOSE; Start 04/07/17 at 22:00 Glucagon (Glucagen) 1 mg Q15M PRN IM DECREASED GLUCOSE; Start 04/07/17 at 22:00 Glucose (Glutose) 15 gm Q15M PRN BUCCAL DECREASED GLUCOSE; Start 04/07/17 at 22 :00 Collagenase (Santyl) 1 applic DAILY TOP Last administered on 04/14/17 09:26; Admin Dose 1 APPLIC; Start 04/09/17 at 09:00 Lansoprazole (Prevacid) 30 mg DAILY@06 NGT Last administered on 04/14/17 06: 33; Admin Dose 30 MG; Start 04/10/17 at 09:00 Ferrous Sulfate 300 mg 300 mg DAILY GTB Last administered on 04/14/17 09:24; Admin Dose 300 MG; Start 04/10/17 at 09:00 Norepinephrine/ Dextrose (Levophed/D5W) 500 ml @ 1.87 mls/hr TITRATE IV Last administered on 04/14/17 06:25; Admin Dose 1.87 MLS/HR; Start 04/13/17 at 12: 30 Insulin Glargine (Lantus) 15 unit DAILY@20 SC ; Start 04/14/17 at 20:00 BLAINE LOYA Apr 14, 2017 11:00
--- NOTE | 2017-04-14 11:19 | CONS ---
Date/Time of Note Date/Time of Note DATE: 04/14/17 TIME: 11:15 Consult Date/Type/Reason Admit Date/Time Apr 06, 2017 at 10:58 Initial Consult Date 04/07/17 Type of Consultation: Neurology Reason for Consultation hypoxic injury Ordering Provider: LACY RAMÍREZ V. COLOR MIXER Subjective responsive only to noxious stimuli no improvement Objective Vital Signs Date Time Temp Pulse Resp B/P Pulse Ox O2 Delivery O2 Flow Rate FiO2 04/14/17 10:15 85 21 100/58 100 04/14/17 10:00 Mechanical Ventilator 04/14/17 08:00 98.4 04/14/17 05:05 40 Intake and Output 04/13/17 04/13/17 04/14/17 15:00 23:00 07:00 Intake Total 1198 ml 568.87 ml 347.87 ml Output Total 3500 ml Balance -2302 ml 568.87 ml 347.87 ml Exam unable to open his eyes spontaneously to voice withdraws only to noxious stimuli CN: sluggish, left eye absent responses corneals sluggish, weak gag Motor: withdraws only to noxious stimuli left > right Results/Medications Result Diagram: 04/14/17 0912 04/14/17 0749 Results 24 hrs Laboratory Tests Test 04/13/17 12:37 04/13/17 18:21 04/13/17 20:23 04/14/17 00:46 Bedside Glucose 184 157 191 191 Test 04/14/17 05:01 04/14/17 07:49 04/14/17 09:12 04/14/17 09:30 Bedside Glucose 174 207 Sodium Level 142 Potassium Level 4.4 Chloride Level 98 Carbon Dioxide Level 29 Anion Gap 19 H Blood Urea Nitrogen 49 H Creatinine 8.15 H Glucose Level 184 Calcium Level 9.6 White Blood Count 12.0 H Red Blood Count 2.66 L Hemoglobin 8.2 L Hematocrit 27.2 L Mean Corpuscular Volume 102.3 H Mean Corpuscular Hemoglobin 30.8 Mean Corpuscular Hemoglobin Concent 30.1 L Red Cell Distribution Width 21.1 H Platelet Count 335 Mean Platelet Volume 11.5 H Neutrophils % 75.3 Lymphocytes % 15.1 Monocytes % 3.4 Eosinophils % 5.4 Basophils % 0.4 Nucleated Red Blood Cells % 0.0 Neutrophils # 9.1 H Lymphocytes # 1.8 Monocytes # 0.4 Eosinophils # 0.7 H Basophils # 0.1 Nucleated Red Blood Cells # 0.0 Medications Current Medications Aspirin (Aspirin) 81 mg DAILY PO Last administered on 04/14/17 09:25; Admin Dose 81 MG; Start 04/07/17 at 09:00 Clopidogrel Bisulfate (plaVIX) 75 mg DAILY PO Last administered on 04/14/17 09:24; Admin Dose 75 MG; Start 04/07/17 at 09:00 Acetaminophen (Tylenol Tab) 650 mg Q6H PRN PO PAIN AND OR ELEVATED TEMP Last administered on 04/14/17 00:32; Admin Dose 650 MG; Start 04/06/17 at 14:00 Escitalopram Oxalate (Lexapro) 20 mg DAILY PO Last administered on 04/14/17 09:24; Admin Dose 20 MG; Start 04/07/17 at 09:00 Folic Acid (Folic Acid) 1 mg DAILY PO Last administered on 04/14/17 09:24; Admin Dose 1 MG; Start 04/07/17 at 09:00 Loratadine (Claritin) 10 mg DAILY PO Last administered on 04/14/17 09:24; Admin Dose 10 MG; Start 04/07/17 at 09:00 Midodrine (Proamatine) 5 mg TID PO Last administered on 04/14/17 09:25; Admin Dose 5 MG; Start 04/06/17 at 21:00; Status Future hold Lactobacillus Acidophilus/ Rhamnosus (Culturelle) 1 cap TID PO Last administered on 04/14/17 09:24; Admin Dose 1 CAP; Start 04/06/17 at 21:00 Ondansetron HCl (Zofran Inj) 4 mg Q6H PRN IV NAUSEA AND/OR VOMITING; Start 04/06/17 at 14:30 Hydralazine HCl (Apresoline) 10 mg Q6H PRN IV sbp>160 Last administered on 04/07 16:37; Admin Dose 10 MG; Start 04/06/17 at 14:30 Lorazepam 1 mg 1 mg Q2H PRN IV seizure Last administered on 04/07/17 16:44; Admin Dose 1 MG; Start 04/07/17 at 10:30 Nicardipine HCl 25 mg/Sodium Chloride 260 ml @ 52 mls/hr TITRATE IV ; Start at 16:00 Levetiracetam/ Dextrose (Keppra Iv/D5W) 110 ml @ 400 mls/hr Q12 IV Last administered on 04/14/17 10:08; Admin Dose 400 MLS/HR; Start 04/07/17 at 15:44 Lacosamide (Vimpat Liq) 150 mg BID PO Last administered on 04/14/17 10:08; Admin Dose 150 MG; Start 04/07/17 at 22:00 Insulin Aspart (Novolog Insulin Pen) NOVOLOG *MODERATE* ALGORI... Q4 SC Last administered on 04/14/17 10:16; Admin Dose 4 UNIT; Start 04/08/17 at 01:00 Miscellaneous Information 1 ea NOTE XX ; Start 04/07/17 at 22:00 Glucose (Glutose) 15 gm Q15M PRN PO DECREASED GLUCOSE; Start 04/07/17 at 22:00 Glucose (Glutose) 22.5 gm Q15M PRN PO DECREASED GLUCOSE; Start 04/07/17 at 22: 00 Dextrose (D50w Syringe) 25 ml Q15M PRN IV DECREASED GLUCOSE; Start 04/07/17 at 22:00 Dextrose (D50w Syringe) 50 ml Q15M PRN IV DECREASED GLUCOSE; Start 04/07/17 at 22:00 Glucagon (Glucagen) 1 mg Q15M PRN IM DECREASED GLUCOSE; Start 04/07/17 at 22:00 Glucose (Glutose) 15 gm Q15M PRN BUCCAL DECREASED GLUCOSE; Start 04/07/17 at 22 :00 Collagenase (Santyl) 1 applic DAILY TOP Last administered on 04/14/17 09:26; Admin Dose 1 APPLIC; Start 04/09/17 at 09:00 Lansoprazole (Prevacid) 30 mg DAILY@06 NGT Last administered on 04/14/17 06: 33; Admin Dose 30 MG; Start 04/10/17 at 09:00 Ferrous Sulfate 300 mg 300 mg DAILY GTB Last administered on 04/14/17 09:24; Admin Dose 300 MG; Start 04/10/17 at 09:00 Norepinephrine/ Dextrose (Levophed/D5W) 500 ml @ 1.87 mls/hr TITRATE IV Last administered on 04/14/17 06:25; Admin Dose 1.87 MLS/HR; Start 04/13/17 at 12: 30 Insulin Glargine (Lantus) 15 unit DAILY@20 SC ; Start 04/14/17 at 20:00 Assessment/Plan Chief Complaint/Hosp Course 47 yo male with ESRD admitted with dysarthria and possible aphasia unclear baseline. Baseline he has a history of seizure d/o and psychiatric disease. Admitted to the ICU post cardiac arrest. Remains unresponsive Recommendations: ASA 81 mg daily SBP less than 140 MRI Brain without contrast unable to be done due to PPM- CTH w/o contrast shows no new changes Routine EEG burst suppression pattern, generally associated with a poor prognosis d/w sister Increased Keppra to 1g BID and increased Vimpat to 200 mg BID discussed likely poor prognosis for a meaningful recovery w family members Problems: ARUNA BROWN MD Apr 14, 2017 11:19
--- NOTE | 2017-04-14 11:56 | CONS ---
Date/Time of Note Date/Time of Note DATE: 04/14/17 TIME: 11:52 Assessment/Plan Assessment/Plan Chief Complaint/Hosp Course Family conference with sister who is the only decision maker for patient.. she has decided to dc all current care and allow pt to have a compassionate extubation.Will discuss with other [facility] providers. Problems: Consultation Date/Type/Reason Admit Date/Time Apr 06, 2017 at 10:58 Initial Consult Date 04/07/17 Type of Consultation: Neurology Referring Provider: LACY RAMÍREZ V. DIRECTOR INDEX Exam/Review of Systems Vital Signs Vitals Vital Signs Date Time Temp Pulse Resp B/P Pulse Ox O2 Delivery O2 Flow Rate FiO2 04/14/17 10:15 85 21 100/58 100 04/14/17 10:00 Mechanical Ventilator 04/14/17 08:00 98.4 04/14/17 08:00 40 Intake and Output 04/13/17 04/13/17 04/14/17 15:00 23:00 07:00 Intake Total 1198 ml 568.87 ml 382.87 ml Output Total 3500 ml Balance -2302 ml 568.87 ml 382.87 ml Results Result Diagram: 04/14/17 0912 04/14/17 0749 Results 24 hrs Laboratory Tests Test 04/13/17 12:37 04/13/17 18:21 04/13/17 20:23 04/14/17 00:46 Bedside Glucose 184 157 191 191 Test 04/14/17 05:01 04/14/17 07:49 04/14/17 09:12 04/14/17 09:30 Bedside Glucose 174 207 Sodium Level 142 Potassium Level 4.4 Chloride Level 98 Carbon Dioxide Level 29 Anion Gap 19 H Blood Urea Nitrogen 49 H Creatinine 8.15 H Glucose Level 184 Calcium Level 9.6 White Blood Count 12.0 H Red Blood Count 2.66 L Hemoglobin 8.2 L Hematocrit 27.2 L Mean Corpuscular Volume 102.3 H Mean Corpuscular Hemoglobin 30.8 Mean Corpuscular Hemoglobin Concent 30.1 L Red Cell Distribution Width 21.1 H Platelet Count 335 Mean Platelet Volume 11.5 H Neutrophils % 75.3 Lymphocytes % 15.1 Monocytes % 3.4 Eosinophils % 5.4 Basophils % 0.4 Nucleated Red Blood Cells % 0.0 Neutrophils # 9.1 H Lymphocytes # 1.8 Monocytes # 0.4 Eosinophils # 0.7 H Basophils # 0.1 Nucleated Red Blood Cells # 0.0 Medications Medications Current Medications Aspirin (Aspirin) 81 mg DAILY PO Last administered on 04/14/17 09:25; Admin Dose 81 MG; Start 04/07/17 at 09:00 Clopidogrel Bisulfate (plaVIX) 75 mg DAILY PO Last administered on 04/14/17 09:24; Admin Dose 75 MG; Start 04/07/17 at 09:00 Acetaminophen (Tylenol Tab) 650 mg Q6H PRN PO PAIN AND OR ELEVATED TEMP Last administered on 04/14/17 00:32; Admin Dose 650 MG; Start 04/06/17 at 14:00 Escitalopram Oxalate (Lexapro) 20 mg DAILY PO Last administered on 04/14/17 09:24; Admin Dose 20 MG; Start 04/07/17 at 09:00 Folic Acid (Folic Acid) 1 mg DAILY PO Last administered on 04/14/17 09:24; Admin Dose 1 MG; Start 04/07/17 at 09:00 Loratadine (Claritin) 10 mg DAILY PO Last administered on 04/14/17 09:24; Admin Dose 10 MG; Start 04/07/17 at 09:00 Midodrine (Proamatine) 5 mg TID PO Last administered on 04/14/17 09:25; Admin Dose 5 MG; Start 04/06/17 at 21:00; Status Future hold Lactobacillus Acidophilus/ Rhamnosus (Culturelle) 1 cap TID PO Last administered on 04/14/17 09:24; Admin Dose 1 CAP; Start 04/06/17 at 21:00 Ondansetron HCl (Zofran Inj) 4 mg Q6H PRN IV NAUSEA AND/OR VOMITING; Start 04/06/17 at 14:30 Hydralazine HCl (Apresoline) 10 mg Q6H PRN IV sbp>160 Last administered on 04/07 16:37; Admin Dose 10 MG; Start 04/06/17 at 14:30 Lorazepam 1 mg 1 mg Q2H PRN IV seizure Last administered on 04/07/17 16:44; Admin Dose 1 MG; Start 04/07/17 at 10:30 Nicardipine HCl 25 mg/Sodium Chloride 260 ml @ 52 mls/hr TITRATE IV ; Start at 16:00 Levetiracetam/ Dextrose (Keppra Iv/D5W) 110 ml @ 400 mls/hr Q12 IV Last administered on 04/14/17 10:08; Admin Dose 400 MLS/HR; Start 04/07/17 at 15:44 Insulin Aspart (Novolog Insulin Pen) NOVOLOG *MODERATE* ALGORI... Q4 SC Last administered on 04/14/17 10:16; Admin Dose 4 UNIT; Start 04/08/17 at 01:00 Miscellaneous Information 1 ea NOTE XX ; Start 04/07/17 at 22:00 Glucose (Glutose) 15 gm Q15M PRN PO DECREASED GLUCOSE; Start 04/07/17 at 22:00 Glucose (Glutose) 22.5 gm Q15M PRN PO DECREASED GLUCOSE; Start 04/07/17 at 22: 00 Dextrose (D50w Syringe) 25 ml Q15M PRN IV DECREASED GLUCOSE; Start 04/07/17 at 22:00 Dextrose (D50w Syringe) 50 ml Q15M PRN IV DECREASED GLUCOSE; Start 04/07/17 at 22:00 Glucagon (Glucagen) 1 mg Q15M PRN IM DECREASED GLUCOSE; Start 04/07/17 at 22:00 Glucose (Glutose) 15 gm Q15M PRN BUCCAL DECREASED GLUCOSE; Start 04/07/17 at 22 :00 Collagenase (Santyl) 1 applic DAILY TOP Last administered on 04/14/17 09:26; Admin Dose 1 APPLIC; Start 04/09/17 at 09:00 Lansoprazole (Prevacid) 30 mg DAILY@06 NGT Last administered on 04/14/17 06: 33; Admin Dose 30 MG; Start 04/10/17 at 09:00 Ferrous Sulfate 300 mg 300 mg DAILY GTB Last administered on 04/14/17 09:24; Admin Dose 300 MG; Start 04/10/17 at 09:00 Norepinephrine/ Dextrose (Levophed/D5W) 500 ml @ 1.87 mls/hr TITRATE IV Last administered on 04/14/17 06:25; Admin Dose 1.87 MLS/HR; Start 04/13/17 at 12: 30 Insulin Glargine (Lantus) 15 unit DAILY@20 SC ; Start 04/14/17 at 20:00 Lacosamide (Vimpat Liq) 200 mg BID PO ; Start 04/14/17 at 21:00 AUREA ANNE Apr 14, 2017 11:56
[2017-04-14] MEDS ORDERED: INSULIN GLARGINE [LANtus] 3 ML PEN SC ONE (12:30)
--- NOTE | 2017-04-14 13:52 | PN ---
Date/Time of Note Date/Time of Note DATE: 04/14/17 TIME: 13:51 Assessment/Plan VTE Prophylaxis VTE Prophylaxis Intervention: LMWH Lines/Catheters IV Catheter Type (from Nrs): Peripheral IV Urinary Cath still in place: No Assessment/Plan Chief Complaint/Hosp Course Plan for palliative extubation to be coordinated per Dr Michelle Problems: Subjective 24 Hr Interval Summary Free Text/Dictation Contniues to have very poor neurologic status Family meeting today w palliaitve, plan for terminal extubation Exam/Review of Systems Vital Signs Vitals Vital Signs Date Time Temp Pulse Resp B/P Pulse Ox O2 Delivery O2 Flow Rate FiO2 04/14/17 12:00 86 04/14/17 10:15 21 100/58 100 04/14/17 10:00 Mechanical Ventilator 04/14/17 08:00 98.4 04/14/17 08:00 40 Intake and Output 04/13/17 04/13/17 04/14/17 15:00 23:00 07:00 Intake Total 1198 ml 568.87 ml 382.87 ml Output Total 3500 ml Balance -2302 ml 568.87 ml 382.87 ml Results Result Diagram: 04/14/17 0912 04/14/17 0749 Results 24 hrs Laboratory Tests Test 04/13/17 18:21 04/13/17 20:23 04/14/17 00:46 04/14/17 05:01 Bedside Glucose 157 191 191 174 Test 04/14/17 07:49 04/14/17 09:12 04/14/17 09:30 04/14/17 12:17 Sodium Level 142 Potassium Level 4.4 Chloride Level 98 Carbon Dioxide Level 29 Anion Gap 19 H Blood Urea Nitrogen 49 H Creatinine 8.15 H Glucose Level 184 Calcium Level 9.6 White Blood Count 12.0 H Red Blood Count 2.66 L Hemoglobin 8.2 L Hematocrit 27.2 L Mean Corpuscular Volume 102.3 H Mean Corpuscular Hemoglobin 30.8 Mean Corpuscular Hemoglobin Concent 30.1 L Red Cell Distribution Width 21.1 H Platelet Count 335 Mean Platelet Volume 11.5 H Neutrophils % 75.3 Lymphocytes % 15.1 Monocytes % 3.4 Eosinophils % 5.4 Basophils % 0.4 Nucleated Red Blood Cells % 0.0 Neutrophils # 9.1 H Lymphocytes # 1.8 Monocytes # 0.4 Eosinophils # 0.7 H Basophils # 0.1 Nucleated Red Blood Cells # 0.0 Bedside Glucose 207 198 Medications Medications Current Medications Aspirin (Aspirin) 81 mg DAILY PO Last administered on 04/14/17 09:25; Admin Dose 81 MG; Start 04/07/17 at 09:00 Clopidogrel Bisulfate (plaVIX) 75 mg DAILY PO Last administered on 04/14/17 09:24; Admin Dose 75 MG; Start 04/07/17 at 09:00 Acetaminophen (Tylenol Tab) 650 mg Q6H PRN PO PAIN AND OR ELEVATED TEMP Last administered on 04/14/17 00:32; Admin Dose 650 MG; Start 04/06/17 at 14:00 Escitalopram Oxalate (Lexapro) 20 mg DAILY PO Last administered on 04/14/17 09:24; Admin Dose 20 MG; Start 04/07/17 at 09:00 Folic Acid (Folic Acid) 1 mg DAILY PO Last administered on 04/14/17 09:24; Admin Dose 1 MG; Start 04/07/17 at 09:00 Loratadine (Claritin) 10 mg DAILY PO Last administered on 04/14/17 09:24; Admin Dose 10 MG; Start 04/07/17 at 09:00 Midodrine (Proamatine) 5 mg TID PO Last administered on 04/14/17 09:25; Admin Dose 5 MG; Start 04/06/17 at 21:00; Status Future hold Lactobacillus Acidophilus/ Rhamnosus (Culturelle) 1 cap TID PO Last administered on 04/14/17 09:24; Admin Dose 1 CAP; Start 04/06/17 at 21:00 Ondansetron HCl (Zofran Inj) 4 mg Q6H PRN IV NAUSEA AND/OR VOMITING; Start 04/06/17 at 14:30 Hydralazine HCl (Apresoline) 10 mg Q6H PRN IV sbp>160 Last administered on 04/07 16:37; Admin Dose 10 MG; Start 04/06/17 at 14:30 Lorazepam 1 mg 1 mg Q2H PRN IV seizure Last administered on 04/07/17 16:44; Admin Dose 1 MG; Start 04/07/17 at 10:30 Nicardipine HCl 25 mg/Sodium Chloride 260 ml @ 52 mls/hr TITRATE IV ; Start at 16:00 Levetiracetam/ Dextrose (Keppra Iv/D5W) 110 ml @ 400 mls/hr Q12 IV Last administered on 04/14/17 10:08; Admin Dose 400 MLS/HR; Start 04/07/17 at 15:44 Insulin Aspart (Novolog Insulin Pen) NOVOLOG *MODERATE* ALGORI... Q4 SC Last administered on 04/14/17 10:16; Admin Dose 4 UNIT; Start 04/08/17 at 01:00 Miscellaneous Information 1 ea NOTE XX ; Start 04/07/17 at 22:00 Glucose (Glutose) 15 gm Q15M PRN PO DECREASED GLUCOSE; Start 04/07/17 at 22:00 Glucose (Glutose) 22.5 gm Q15M PRN PO DECREASED GLUCOSE; Start 04/07/17 at 22: 00 Dextrose (D50w Syringe) 25 ml Q15M PRN IV DECREASED GLUCOSE; Start 04/07/17 at 22:00 Dextrose (D50w Syringe) 50 ml Q15M PRN IV DECREASED GLUCOSE; Start 04/07/17 at 22:00 Glucagon (Glucagen) 1 mg Q15M PRN IM DECREASED GLUCOSE; Start 04/07/17 at 22:00 Glucose (Glutose) 15 gm Q15M PRN BUCCAL DECREASED GLUCOSE; Start 04/07/17 at 22 :00 Collagenase (Santyl) 1 applic DAILY TOP Last administered on 04/14/17 09:26; Admin Dose 1 APPLIC; Start 04/09/17 at 09:00 Lansoprazole (Prevacid) 30 mg DAILY@06 NGT Last administered on 04/14/17 06: 33; Admin Dose 30 MG; Start 04/10/17 at 09:00 Ferrous Sulfate 300 mg 300 mg DAILY GTB Last administered on 04/14/17 09:24; Admin Dose 300 MG; Start 04/10/17 at 09:00 Norepinephrine/ Dextrose (Levophed/D5W) 500 ml @ 1.87 mls/hr TITRATE IV Last administered on 04/14/17 06:25; Admin Dose 1.87 MLS/HR; Start 04/13/17 at 12: 30 Insulin Glargine (Lantus) 15 unit DAILY@20 SC ; Start 04/14/17 at 20:00 Lacosamide (Vimpat Liq) 200 mg BID PO ; Start 04/14/17 at 21:00 SAUL CONTRERAS MD Apr 14, 2017 13:52
--- NOTE | 2017-04-14 15:11 | CONS ---
Date/Time of Note Date/Time of Note DATE: 04/14/17 TIME: 15:11 Consult Date/Type/Reason Admit Date/Time Apr 06, 2017 at 10:58 Initial Consult Date 04/07/17 Type of Consultation: cardiology Ordering Provider: LACY RAMÍREZ NP Subjective cardiology follow up note: S: D/ W staff and rhythm was reviewed pt remains in NSR he remains intubated and nonresponsive in ICU BP HAS BEEN low and is still on levophed but low dose pt is nonverbal O: General: s/p intubation on vent HEENT: NC/AT. pupils are round. NECK: NO JVD. no stridor. CV: RRR. systolic murmur; no gallop or rubs. PULM: no wheezing or rhonchi. GI: SOFT, NT, ND, no rebound or guarding Extremity: trace B/L LE edema. no clubbing. neuro: does not respond Psych: calm rectal: deferred echo reviewed personally: 1. Normal left ventricular cavity size. Mild concentric left ventricular hypertrophy. Mild global left ventricular systolic dysfunction. Ejection fraction is visually estimated at 45 %. Tissue Doppler/Mitral Doppler indices are consistent with impaired relaxation (Stage I diastolic dysfunction). 2. Normal appearance and function of the mitral valve with trace physiologic regurgitation. 3. Normal appearance of the aortic valve. No significant aortic stenosis or insufficiency. 4. Normal appearance of the tricuspid valve. Estimated peak PA systolic pressure 26 mmHg. There is trace tricuspid regurgitation. 5. Dilated IVC without respiratory collapse, however, patient on ventilator. 6. Moderate pericardial effusion. Objective Vital Signs Date Time Temp Pulse Resp B/P Pulse Ox O2 Delivery O2 Flow Rate FiO2 04/14/17 12:00 86 04/14/17 10:15 21 100/58 100 04/14/17 10:00 Mechanical Ventilator 04/14/17 08:00 98.4 04/14/17 08:00 40 Intake and Output 04/13/17 04/13/17 04/14/17 15:00 23:00 07:00 Intake Total 1198 ml 568.87 ml 382.87 ml Output Total 3500 ml Balance -2302 ml 568.87 ml 382.87 ml Results/Medications Result Diagram: 04/14/17 0912 04/14/17 0749 Results 24 hrs Laboratory Tests Test 04/13/17 18:21 04/13/17 20:23 04/14/17 00:46 04/14/17 05:01 Bedside Glucose 157 191 191 174 Test 04/14/17 07:49 04/14/17 09:12 04/14/17 09:30 04/14/17 12:17 Sodium Level 142 Potassium Level 4.4 Chloride Level 98 Carbon Dioxide Level 29 Anion Gap 19 H Blood Urea Nitrogen 49 H Creatinine 8.15 H Glucose Level 184 Calcium Level 9.6 White Blood Count 12.0 H Red Blood Count 2.66 L Hemoglobin 8.2 L Hematocrit 27.2 L Mean Corpuscular Volume 102.3 H Mean Corpuscular Hemoglobin 30.8 Mean Corpuscular Hemoglobin Concent 30.1 L Red Cell Distribution Width 21.1 H Platelet Count 335 Mean Platelet Volume 11.5 H Neutrophils % 75.3 Lymphocytes % 15.1 Monocytes % 3.4 Eosinophils % 5.4 Basophils % 0.4 Nucleated Red Blood Cells % 0.0 Neutrophils # 9.1 H Lymphocytes # 1.8 Monocytes # 0.4 Eosinophils # 0.7 H Basophils # 0.1 Nucleated Red Blood Cells # 0.0 Bedside Glucose 207 198 Medications Current Medications Norepinephrine/ Dextrose (Levophed/D5W) 500 ml @ 1.87 mls/hr TITRATE IV Last administered on 04/14/17t 06:25; Admin Dose 1.87 MLS/HR; Start 04/13/17 at 12: 30 Assessment/Plan Chief Complaint/Hosp Course 1. cardiopulm arrest: I doubt it is related to cardiac arrest. probably due to neurological changes. 2. hypoxemic resp failure: sp intubation and on vent 3. Moderate-sized pericardial effusion. Probably related to his renal failure. At this point I do not see signs of tamponade. His blood pressure has been also elevated to normal and not hypotensive. recommend aggressive HD for now 4. End-stage renal disease on dialysis Hemodialysis is being managed as per renal team. 5. Hypertension: now hypotensive 6. altered level of consciousness and encephalopathy. will defer to neuro and IM 7. anemia 8/ hx seizure; defer to neurology Recommendations: Continue with the vent support as long as pt is full code. Respiratory care will be continued on managed as per pulmonary team. Follow-up with neurology recommendation regarding seizure and treatment. Hemodialysis to be done to manage as per renal team. Continue with ICU care for now but f/u with palliative care rec family meeting Thank you for this referral. I will continue to follow along with you. BIANKA KENT MD [facility] Problems: BIANKA KENT MD Apr 14, 2017 15:11
[2017-04-14] MEDS ORDERED: INSULIN GLARGINE [LANtus] 3 ML PEN SC SCH (20:00)
[2017-04-14] MEDS ORDERED: LACOSAMIDE (100 MG/10 ML PO SYR) PO SCH (21:00)
[2017-04-15] VITALS (86 sets, daily range): BP systolic 68–137; BP diastolic 15–76; PULSE 77–117; RESP 15–25
--- NOTE | 2017-04-15 07:59 | CONS ---
Date/Time of Note Date/Time of Note DATE: 04/15/17 TIME: 07:57 Consult Date/Type/Reason Admit Date/Time Apr 06, 2017 at 10:58 Initial Consult Date 04/07/17 Type of Consultation: cardiology Ordering Provider: LACY RAMÍREZ NP Subjective cardiology follow up note: S: D/ W staff and rhythm was reviewed pt remains in NSR he remains intubated and nonresponsive in ICU BP HAS BEEN low and is still on levophed but low dose pt is nonverbal O: General: s/p intubation on vent HEENT: NC/AT. pupils are round. NECK: NO JVD. no stridor. CV: RRR. systolic murmur; no gallop or rubs. PULM: no wheezing or rhonchi. GI: SOFT, NT, ND, no rebound or guarding Extremity: trace B/L LE edema. no clubbing. neuro: does not respond Psych: calm rectal: deferred echo reviewed personally: 1. Normal left ventricular cavity size. Mild concentric left ventricular hypertrophy. Mild global left ventricular systolic dysfunction. Ejection fraction is visually estimated at 45 %. Tissue Doppler/Mitral Doppler indices are consistent with impaired relaxation (Stage I diastolic dysfunction). 2. Normal appearance and function of the mitral valve with trace physiologic regurgitation. 3. Normal appearance of the aortic valve. No significant aortic stenosis or insufficiency. 4. Normal appearance of the tricuspid valve. Estimated peak PA systolic pressure 26 mmHg. There is trace tricuspid regurgitation. 5. Dilated IVC without respiratory collapse, however, patient on ventilator. 6. Moderate pericardial effusion. Objective Vital Signs Date Time Temp Pulse Resp B/P Pulse Ox O2 Delivery O2 Flow Rate FiO2 04/15/17 05:00 81 16 100 40 04/15/17 04:45 94/48 Mechanical Ventilator 04/15/17 04:00 100.0 Intake and Output 04/14/17 04/14/17 04/15/17 15:00 23:00 07:00 Intake Total 404.35 ml 30.00 ml 26.25 ml Balance 404.35 ml 30.00 ml 26.25 ml Results/Medications Result Diagram: 04/14/17 0912 04/14/17 0749 Results 24 hrs Laboratory Tests Test 04/14/17 09:12 04/14/17 09:30 04/14/17 12:17 White Blood Count 12.0 H Red Blood Count 2.66 L Hemoglobin 8.2 L Hematocrit 27.2 L Mean Corpuscular Volume 102.3 H Mean Corpuscular Hemoglobin 30.8 Mean Corpuscular Hemoglobin Concent 30.1 L Red Cell Distribution Width 21.1 H Platelet Count 335 Mean Platelet Volume 11.5 H Neutrophils % 75.3 Lymphocytes % 15.1 Monocytes % 3.4 Eosinophils % 5.4 Basophils % 0.4 Nucleated Red Blood Cells % 0.0 Neutrophils # 9.1 H Lymphocytes # 1.8 Monocytes # 0.4 Eosinophils # 0.7 H Basophils # 0.1 Nucleated Red Blood Cells # 0.0 Bedside Glucose 207 198 Medications Current Medications Norepinephrine/ Dextrose (Levophed/D5W) 500 ml @ 1.87 mls/hr TITRATE IV Last administered on 04/15/17t 06:14; Admin Dose 1.87 MLS/HR; Start 04/13/17 at 12: 30 Assessment/Plan Chief Complaint/Hosp Course 1. cardiopulm arrest: I doubt it is related to cardiac arrest. probably due to neurological changes. 2. hypoxemic resp failure: sp intubation and on vent 3. Moderate-sized pericardial effusion. Probably related to his renal failure. At this point I do not see signs of tamponade. 4. End-stage renal disease on dialysis Hemodialysis is being managed as per renal team. 5. Hypertension: now hypotensive 6. altered level of consciousness and encephalopathy. will defer to neuro and IM 7. anemia 8/ hx seizure; defer to neurology Recommendations: Palliative care has been consulted. Patient has been considered for terminal extubation. For now we will continue the vent support. Thank you for this referral. I will continue to follow along with you. BIANKA KENT MD [facility] Problems: BIANKA KENT MD Apr 15, 2017 07:59
[2017-04-15 10:57] LABS: ABNORMAL IP MESSAGE 1; BASOPHIL # 0.1 10^3/ul (0.0-0.1); BASOPHILS % 0.6 % (0.0-2.0); EOSINOPHILS # 0.2 10^3/ul (0.0-0.5); EOSINOPHILS % 2.1 % (0.0-7.0); HEMOGLOBIN 8.3 g/dl (14.0-18.0); LYMPHOCYTES # 2.2 10^3/ul (0.8-2.9); LYMPHOCYTES % 25.9 % (15.0-51.0); MEAN CORPUSCULAR HEMOGLOBIN 30.4 pg (29.0-33.0); MEAN CORPUSCULAR HGB CONC 28.6 g/dl (32.0-37.0); MEAN CORPUSCULAR VOLUME 106.2 fl (82.0-101.0); MONOCYTE # 0.7 10^3/ul (0.3-0.9); NEUTROPHIL # 5.4 10^3/ul (1.6-7.5); NEUTROPHILS % 62.8 % (39.0-77.0); PLATELET COUNT 247 10^3/UL (140-415); POSITIVE DIFF @See below; RED BLOOD COUNT 2.73 10^6/ul (4.70-6.10); RED CELL DISTRIBUTION WIDTH 21.6 % (11.5-14.5); WHITE BLOOD COUNT 8.5 10^3/ul (4.8-10.8)
[2017-04-15] MEDS ORDERED: LIDOCAINE 1% (MPF) 5 ML VIAL SC ONE (11:00)
[2017-04-15 11:16] LABS: CALCIUM 9.3 mg/dl (8.4-10.2); CREATININE 10.34 mg/dl (0.61-1.24); POTASSIUM 4.5 mmol/L (3.5-5.1)
--- NOTE | 2017-04-15 12:01 | RADRPT ---
PROCEDURE: US guidance for PICC line CLINICAL INDICATION: PICC line placement TECHNIQUE: Multiple real-time images were acquired of the patient's arm utilizing a high resolutio n transducer. This was performed by the PICC line nurse for venous access. COMPARISON: None FINDINGS: See impression. IMPRESSION: Ultrasound guidance for PICC line placement. There is a patent and compressible right upper extremity vein. RPTAT: AA Physician Galen Date Time Electronically viewed and signed by Krish Aburto Physician on 04/15/2017 12:01 /
--- NOTE | 2017-04-15 12:05 | RADRPT ---
PROCEDURE: XR Chest. CLINICAL INDICATION: PICC line placement . TECHNIQUE: Single frontal chest x-ray. COMPARISON: CHEST 04/11/2017 FINDINGS: There is new right arm PICC line in place with tip in the superior vena cava. Endotracheal tube, alfonzo ogastric tube, dual chamber right-sided cardiac pacer in place unchanged. . Cardiomegaly with hilar vascular and interstitial congestion is present.. There is left basilar atelectasis or consolidatio n with possible small effusion. There is low lung volumes with right basilar atelectasis.. The osseo us structures are intact. IMPRESSION: Placement of right arm PICC line with tip in the superior vena cava. Otherwise no change.. RPTAT: GG .Pj Isabel MD, MD Date Time Electronically viewed and signed by .Pj Isabel MD, MD on 04/15/2017 12:05 .L/
[2017-04-15] MEDS ORDERED: SOD CHLORIDE 0.9% 100 ML ONE (16:17)
--- NOTE | 2017-04-15 17:01 | PN ---
Date/Time of Note Date/Time of Note DATE: 04/15/17 TIME: 17:00 Assessment/Plan VTE Prophylaxis VTE Prophylaxis Intervention: other Lines/Catheters IV Catheter Type (from Nrs): PICC Line Central line still needed: Yes Urinary Cath still in place: No Assessment/Plan Chief Complaint/Hosp Course Plan for organ harvesting this evening then palliative extubation Problems: Subjective 24 Hr Interval Summary Free Text/Dictation Going to OR for organ harvesting Then palliative extubation Exam/Review of Systems Vital Signs Vitals Vital Signs Date Time Temp Pulse Resp B/P Pulse Ox O2 Delivery O2 Flow Rate FiO2 04/15/17 16:00 94 04/15/17 15:00 19 110/45 100 Mechanical Ventilator 04/15/17 15:00 40 04/15/17 12:15 97.7 Intake and Output 04/14/17 04/14/17 04/15/17 15:00 23:00 07:00 Intake Total 404.35 ml 30.00 ml 26.25 ml Balance 404.35 ml 30.00 ml 26.25 ml Results Result Diagram: 04/15/17 1017 04/15/17 1017 Results 24 hrs Laboratory Tests Test 04/15/17 10:17 White Blood Count 8.5 # Red Blood Count 2.73 L Hemoglobin 8.3 L Hematocrit 29.0 L Mean Corpuscular Volume 106.2 H Mean Corpuscular Hemoglobin 30.4 Mean Corpuscular Hemoglobin Concent 28.6 L Red Cell Distribution Width 21.6 H Platelet Count 247 # Mean Platelet Volume 12.0 H Neutrophils % 62.8 Lymphocytes % 25.9 Monocytes % 8.0 Eosinophils % 2.1 Basophils % 0.6 Nucleated Red Blood Cells % 0.0 Neutrophils # 5.4 Lymphocytes # 2.2 Monocytes # 0.7 Eosinophils # 0.2 Basophils # 0.1 Nucleated Red Blood Cells # 0.0 Sodium Level 141 Potassium Level 4.5 Chloride Level 98 Carbon Dioxide Level 26 Anion Gap 22 H Blood Urea Nitrogen 70 H Creatinine 10.34 #H Glucose Level 156 Calcium Level 9.3 Medications Medications Current Medications Norepinephrine/ Dextrose (Levophed/D5W) 500 ml @ 1.87 mls/hr TITRATE IV Last administered on 04/15/17t 06:14; Admin Dose 1.87 MLS/HR; Start 04/13/17 at 12: 30 IV Flush (NS 10 ml) 10 ml PRN PRN IV IV PROTOCOL; Start 04/15/17 at 13:00 SAUL CONTRERAS MD Apr 15, 2017 17:01
--- NOTE | 2017-04-15 18:17 | RADRPT ---
PROCEDURE: XR Chest. CLINICAL INDICATION: Organ donor.. TECHNIQUE: Single frontal chest x-ray. COMPARISON: 04/15/2017 FINDINGS: Endotracheal tube tip is at the level of clavicles above the nori. NG tube tip is in the abdomen. Right subclavian pacemaker is unchanged. Heart is enlarged. Point vessels are mildly engorged. There is left basilar atelectasis versus infiltrate. There is mild right basilar atelectasis, decreased.. Small left pleural effusion cannot be excluded.. There is no pneumothorax. The osseous structur es are unremarkable. IMPRESSION: Slight decrease in right basilar atelectasis. Otherwise no change. RPTAT: HMVK .Amrit Stratton MD, Date Time Electronically viewed and signed by .Amrit Stratton MD, on 04/15/2017 18:16 .K/
--- NOTE | 2017-04-15 18:48 | EN ---
Date/Time of Note Date/Time of Note DATE: 04/15/17 TIME: 18:46 ER Progress Note I have been consulted to see the patient for request for a line placement On exam: General: No significant distress, intubated Head: Normocephalic, atraumatic. Eyes: Pupils equally reactive, EOM intact ENT: Moist mucous membranes Neck: Supple, no lymphadenopathy Respiratory: Lungs clear bilaterally, no distress Cardiovascular: RRR, no murmurs, rubs, or gallops Abdominal: Soft, non-tender, non-distended, no peritoneal signs : Deferred MSK: Limited movement of all 4 extremities, no bony abnormalities Neurologic: Limited exam, and encephalopathic, limited movement of all 4 extremities Skin: No rash, no significant breakdown Psych: Unable to assess Procedure(s): Arterial line placement by me: Location: Right radial artery Technique: Arrow arterial line Angiocath. Eva with nursing assistance. The first stick I was able to obtain a return of blood, the wire was threaded in the low met resistance and I was unable to obtain access. One more arterial line attempt was performed without successful cannulation. Results: Unsuccessful cannulation Assessment and plan: The patient had unsuccessful cannulation of the right radial arterial line. The patient will be further managed by admitting team. The patient is being prepared for 1 Legacy. He does not emergently require an arterial line. I believe the risks of further attempts outweigh the benefits. DIAZ ALVAREZ MD Apr 15, 2017 18:48
[2017-04-15 18:57] LABS: ABNORMAL IP MESSAGE 1; MEAN CORPUSCULAR VOLUME 101.8 fl (82.0-101.0); POSITIVE DIFF @See below
[2017-04-15 19:03] LABS: MEAN CORPUSCULAR HEMOGLOBIN 30.5 pg (29.0-33.0); MEAN PLATELET VOLUME 11.2 fl (7.4-10.4); PLATELET COUNT 288 10^3/UL (140-415); RED BLOOD COUNT 2.26 10^6/ul (4.70-6.10); WHITE BLOOD COUNT 8.3 10^3/ul (4.8-10.8)
[2017-04-15 19:12] LABS: AADO2 Arterial 173.9 mmHg (7.0-24.0); Allen Test ACCEPTAB; Arterial Base Excess 6.5 mmol/L (-3.0-3); Arterial COHb 0.6 % (0.0-3.0); Arterial HCO3 29.5 mmol/L (22.0-26.0); Arterial MetHb 0.3 % (0.0-1.5); Arterial Total Hemglobin 8.7 g/dl (12.0-18.0); MODE VENT - AC
[2017-04-15 19:13] LABS: INR 1.49; PROTIME 18.3 Sec (11.9-14.9); PT RATIO 1.4
[2017-04-15 19:14] LABS: PARTIAL THROMBOPLASTIN TIME 41.6 Sec (25.0-35.0)
[2017-04-15 19:15] LABS: ALBUMIN 3.4 g/dl (3.3-4.9); ALBUMIN/GLOBULIN RATIO 0.75; BILIRUBIN,INDIRECT 0.3 mg/dl (0-1.1); BILIRUBIN,TOTAL 0.3 mg/dl (0.2-1.3); CALCIUM 8.8 mg/dl (8.4-10.2); CREATININE 7.03 mg/dl (0.61-1.24); MAGNESIUM 2.2 mg/dl (1.7-2.5); PHOSPHORUS 3.4 mg/dl (2.5-4.9); POTASSIUM 3.9 mmol/L (3.5-5.1); TOTAL PROTEIN 7.9 g/dl (6.1-8.1)
[2017-04-15 19:16] LABS: HEMOGLOBIN 6.9 g/dl (14.0-18.0)
[2017-04-15 19:55] LABS: ANISOCYTOSIS 1+ (0-0); HYPOCHROMASIA 1+ (0-0); MICROCYTOSIS 1+ (0-0); MONOCYTES % (M) 3 % (0-11); PLATELET ESTIMATE NORMAL
--- NOTE | 2017-04-15 20:57 | EN ---
Date/Time of Note Date/Time of Note DATE: 04/15/17 TIME: 20:53 Event Note Medicine Medicine Event Note Discussion had with the RN and [facility] coordinator/PTC regarding code status. Code status was discussed with the family, Karen Schroeder, by the [facility] coordinator and the RN regarding the need for patient to be full code in order for organ donation/harvesting process. Family understood and was agreeable. Code status changed to Full Code. MAMADOU IGLESIAS Apr 15, 2017 20:57
[2017-04-15] MEDS ORDERED: DOBUTamine/D5W 1 MG/ML DRIP 250 ML IV STA (21:14)
[2017-04-15] MEDS ORDERED: DOBUTamine/D5W 1 MG/ML DRIP 250 ML ONE (21:20)
[2017-04-15] MEDS ORDERED: SOD CHLORIDE 0.9% 500 ML IV ONE (21:30)
[2017-04-16] VITALS (109 sets, daily range): BP systolic 53–166; BP diastolic 14–104; PULSE 78–139; RESP 10–34
[2017-04-16 00:18] LABS: ABNORMAL IP MESSAGE 1; BASOPHILS % 0.2 % (0.0-2.0); EOSINOPHILS # 0.1 10^3/ul (0.0-0.5); EOSINOPHILS % 1.4 % (0.0-7.0); HEMATOCRIT 23.2 % (42.0-52.0); LYMPHOCYTES # 2.2 10^3/ul (0.8-2.9); MEAN CORPUSCULAR HEMOGLOBIN 30.1 pg (29.0-33.0); MEAN CORPUSCULAR HGB CONC 29.3 g/dl (32.0-37.0); MEAN CORPUSCULAR VOLUME 102.7 fl (82.0-101.0); MEAN PLATELET VOLUME 11.2 fl (7.4-10.4); MONOCYTE # 0.5 10^3/ul (0.3-0.9); MONOCYTES % 5.1 % (0.0-11.0); NEUTROPHIL # 6.6 10^3/ul (1.6-7.5); NEUTROPHILS % 69.8 % (39.0-77.0); PLATELET COUNT 279 10^3/UL (140-415); POSITIVE DIFF @See below; RED BLOOD COUNT 2.26 10^6/ul (4.70-6.10); RED CELL DISTRIBUTION WIDTH 21.2 % (11.5-14.5); WHITE BLOOD COUNT 9.5 10^3/ul (4.8-10.8)
[2017-04-16 00:29] LABS: HEMOGLOBIN 6.8 g/dl (14.0-18.0)
[2017-04-16 00:31] LABS: PATH REVIEW? YES
[2017-04-16 00:43] LABS: INR 1.56; PT RATIO 1.5
[2017-04-16 00:46] LABS: ALBUMIN 3.3 g/dl (3.3-4.9); ALBUMIN/GLOBULIN RATIO 0.76; BILIRUBIN,INDIRECT 0.2 mg/dl (0-1.1); BILIRUBIN,TOTAL 0.2 mg/dl (0.2-1.3); CALCIUM 8.6 mg/dl (8.4-10.2); CREATININE 7.95 mg/dl (0.61-1.24); MAGNESIUM 2.2 mg/dl (1.7-2.5); PHOSPHORUS 3.8 mg/dl (2.5-4.9); POTASSIUM 3.6 mmol/L (3.5-5.1); TOTAL PROTEIN 7.6 g/dl (6.1-8.1)
[2017-04-16 00:48] LABS: PARTIAL THROMBOPLASTIN TIME 40.1 Sec (25.0-35.0)
--- NOTE | 2017-04-16 00:57 | RADRPT ---
PROCEDURE: Portable chest x-ray. CLINICAL INDICATION: 47 years of age, male. One legacy patient TECHNIQUE: Portable AP view of the chest. COMPARISON: April 15, 2017 at 05:55 p.m. FINDINGS: Medical devices: Endotracheal tube, enteric tube and dual lead right subclavian pacemaker are in un changed position. Borderline heart size. Mediastinal contours are otherwise normal. Decreased lung volumes with vascular crowding versus mild edema. There are left greater than right l masha base opacities. Left lower lobe lung consolidation is similar to prior exam. Patchy right lung b ase opacity is increased. Negative for pleural effusion or pneumothorax. No acute bony abnormality. Additional comment: None. IMPRESSION: 1. Lines and tubes are unchanged. 2. Left lower lobe lung consolidation is unchanged. Patchy right lower lobe lung consolidation is in creased. Consolidation may represent aspiration, atelectasis or pneumonia. 3. Decreased lung volumes with vascular crowding versus mild edema. RPTAT: HCTS Physician Leonila Date Time Electronically viewed and signed by Physician Leonila on 04/16/2017 00:57 /
[2017-04-16] MEDS ORDERED: ACETAMINOPHEN 650MG/20.3ML CUP GTB PRN (01:00)
[2017-04-16 01:06] LABS: Allen Test ACCEPTAB; Arterial Base Excess 3.4 mmol/L (-3.0-3); Arterial COHb 0.8 % (0.0-3.0); Arterial Fraction of Oxyhgb 92.8 % (93.0-99.0); Arterial HCO3 27.5 mmol/L (22.0-26.0); Arterial MetHb 0 % (0.0-1.5); Arterial Total Hemglobin 8.1 g/dl (12.0-18.0); MODE VENT - AC
[2017-04-16 02:46] LABS: ANISOCYTOSIS 2+ (0-0); EOSINOPHILS % (M) 3 % (0-7); GIANT THROMBO% (M) 1 % (0-0); HYPOCHROMASIA 1+ (0-0); MICROCYTOSIS 2+ (0-0); MONOCYTES % (M) 6 % (0-11); PLATELET ESTIMATE NORMAL; POLYCHROMASIA 3+ (0-0); REACTIVE LYMPHOCYTES% (M) 5 % (0-0); SCHISTOCYTES 1+ (0-0)
--- NOTE | 2017-04-16 06:34 | RADRPT ---
PROCEDURE: XR Chest. CLINICAL INDICATION: One legacy TECHNIQUE: A single AP view of the chest was obtained. COMPARISON: CHEST 04/16/2017; CHEST 04/15/2017; DR ALCANTAR CHEST 04/15/2017; CHEST 7 FINDINGS: The endotracheal tube tip is approximately 3.0 cm above the nori. The tip of the enteric tube pr ojects over the left upper quadrant. There is a right upper extremity PICC line with tip near the ca voatrial junction. There is a right subclavian dual chamber pacemaker. Lung volumes are low with compressive changes and bibasilar interstitial opacities.. No focal airspa ce opacity, pleural effusion or pneumothorax is seen. The cardiomediastinal silhouette is within no rmal limits for size. The osseous structures are unremarkable. IMPRESSION: 1. Low lung volumes with compressive changes. There are bibasilar interstitial opacities, at least partially related to atelectasis, not significantly changed when compared to the prior examination. 2. Tubes and lines, as described above. RPTAT: HH .Carrie Stewart MD, MD Date Time Electronically viewed and signed by .Carrie Stewart MD, MD on 04/16/2017 06:33 .G/
[2017-04-16] MEDS: DOBUTamine/D5W 1 MG/ML DRIP 250 ML IV SCH ×2 (08:00→20:23)
[2017-04-16 08:01] LABS: ABNORMAL IP MESSAGE 1; BASOPHILS % 0.2 % (0.0-2.0); EOSINOPHILS # 0.2 10^3/ul (0.0-0.5); EOSINOPHILS % 2.1 % (0.0-7.0); HEMATOCRIT 28.1 % (42.0-52.0); HEMOGLOBIN 8.7 g/dl (14.0-18.0); LYMPHOCYTES # 1.6 10^3/ul (0.8-2.9); LYMPHOCYTES % 18.8 % (15.0-51.0); MEAN CORPUSCULAR HEMOGLOBIN 30.2 pg (29.0-33.0); MEAN CORPUSCULAR VOLUME 97.6 fl (82.0-101.0); MEAN PLATELET VOLUME 11.7 fl (7.4-10.4); MONOCYTE # 0.5 10^3/ul (0.3-0.9); MONOCYTES % 5.4 % (0.0-11.0); NEUTROPHIL # 6.3 10^3/ul (1.6-7.5); NEUTROPHILS % 72.9 % (39.0-77.0); PLATELET COUNT 260 10^3/UL (140-415); POSITIVE DIFF @See below; RED BLOOD COUNT 2.88 10^6/ul (4.70-6.10); RED CELL DISTRIBUTION WIDTH 21.3 % (11.5-14.5); WHITE BLOOD COUNT 8.6 10^3/ul (4.8-10.8)
[2017-04-16 08:04] LABS: INR 1.41; PARTIAL THROMBOPLASTIN TIME 38.8 Sec (25.0-35.0); PROTIME 17.5 Sec (11.9-14.9); PT RATIO 1.4
[2017-04-16 08:12] LABS: CALCIUM 8.6 mg/dl (8.4-10.2); CREATININE 8.77 mg/dl (0.61-1.24); POTASSIUM 3.5 mmol/L (3.5-5.1)
[2017-04-16 08:13] LABS: MAGNESIUM 2.4 mg/dl (1.7-2.5); PHOSPHORUS 4.5 mg/dl (2.5-4.9)
[2017-04-16 08:14] LABS: ALBUMIN 3.3 g/dl (3.3-4.9); ALBUMIN/GLOBULIN RATIO 0.8; TOTAL PROTEIN 7.4 g/dl (6.1-8.1)
[2017-04-16 09:27] LABS: BILIRUBIN,INDIRECT 0.6 mg/dl (0-1.1); BILIRUBIN,TOTAL 0.6 mg/dl (0.2-1.3)
[2017-04-16] MEDS ORDERED: VANCOMYCIN IV PER PHARMACY XX SCH (10:30)
--- NOTE | 2017-04-16 10:51 | CONS ---
Date/Time of Note Date/Time of Note DATE: 04/16/17 TIME: 10:50 Consult Date/Type/Reason Admit Date/Time Apr 06, 2017 at 10:58 Initial Consult Date 04/07/17 Type of Consultation: cardiology Ordering Provider: LACY RAMÍREZ NP Subjective cardiology follow up note: S: D/ W staff and rhythm was reviewed pt remains in NSR he remains intubated and nonresponsive in ICU BP HAS BEEN low and is l on dobutamine pt is nonverbal O: General: s/p intubation on vent HEENT: NC/AT. pupils are round. NECK: NO JVD. no stridor. CV: RRR. systolic murmur; no gallop or rubs. PULM: no wheezing or rhonchi. GI: SOFT, NT, ND, no rebound or guarding Extremity: trace B/L LE edema. no clubbing. neuro: does not respond Psych: calm rectal: deferred echo reviewed personally: 1. Normal left ventricular cavity size. Mild concentric left ventricular hypertrophy. Mild global left ventricular systolic dysfunction. Ejection fraction is visually estimated at 45 %. Tissue Doppler/Mitral Doppler indices are consistent with impaired relaxation (Stage I diastolic dysfunction). 2. Normal appearance and function of the mitral valve with trace physiologic regurgitation. 3. Normal appearance of the aortic valve. No significant aortic stenosis or insufficiency. 4. Normal appearance of the tricuspid valve. Estimated peak PA systolic pressure 26 mmHg. There is trace tricuspid regurgitation. 5. Dilated IVC without respiratory collapse, however, patient on ventilator. 6. Moderate pericardial effusion. Objective Vital Signs Date Time Temp Pulse Resp B/P Pulse Ox O2 Delivery O2 Flow Rate FiO2 04/16/17 08:00 96 04/16/17 07:00 16 98/45 99 Mechanical Ventilator 04/16/17 05:00 40 04/16/17 04:00 98.4 Intake and Output 04/15/17 04/15/17 04/16/17 15:00 23:00 07:00 Intake Total 2 ml 1028 ml 795 ml Output Total 2500 ml 0 ml Balance 2 ml -1472 ml 795 ml Results/Medications Result Diagram: 04/16/17 0655 04/16/17 0655 Results 24 hrs Laboratory Tests Test 04/15/17 18:00 04/15/17 18:44 04/16/17 00:10 04/16/17 01:00 Blood Gas Specimen Source Blood arterial Blood arterial Arterial Blood Date Drawn 04/15/2017 7:00:22 PM 04/16/2017 12:50:51 AM Arterial Blood pH (Temp corrected) 7.534 H 7.459 H Arterial Blood pCO2 (Temp correct) 35.8 39.7 Arterial Blood pO2 (Temp corrected) 70.1 L 71.5 L Arterial Blood HCO3 29.5 H 27.5 H Arterial Blood Base Excess 6.5 H 3.4 H Arterial Blood Oxygen Saturation 93.8 L 93.5 L Steve Test ACCEPTAB ACCEPTAB Arterial Blood Gas Puncture Site Left Radial Right Radial Arterial Blood Carboxyhemoglobin 0.6 0.8 Arterial Blood Methemoglobin 0.3 0 Blood Gas A-a O2 Differential 173.9 H 168.0 H Oxyhemoglobin Percent 93.0 92.8 L Total Hemoglobin 8.7 L 8.1 L Blood Gas Temperature 37.0 37.0 Blood Gas Respiration Rate 16.0 16.0 Blood Gas Actual Respiration Rate 16 16 Blood Gas Modality VENT - AC VENT - AC FiO2 40.0 40.0 Blood Gas Tidal Volume 500.0 500.0 Blood Gas Low PEEP Setting 5.0 5.0 Blood Gas Notified Whom YAO SAMAYOA Blood Gas Notified Time 04/15/2017 7:12:07 PM 04/16/2017 1:06:45 AM White Blood Count 8.3 9.5 Red Blood Count 2.26 L 2.26 L Hemoglobin 6.9 *L 6.8 *L Hematocrit 23.0 #L 23.2 L Mean Corpuscular Volume 101.8 H 102.7 H Mean Corpuscular Hemoglobin 30.5 30.1 Mean Corpuscular Hemoglobin Concent 30.0 L 29.3 L Red Cell Distribution Width 21.0 H 21.2 H Platelet Count 288 279 Mean Platelet Volume 11.2 H 11.2 H Segmented Neutrophils % (Manual) 73 68 Lymphocytes % (Manual) 25 16 Monocytes % (Manual) 3 6 Nucleated Red Blood Cells % 0.0 0.0 Absolute Lymphocytes (Manual) 2.0 1.5 Absolute Monocytes (Manual) 0.2 L 0.5 Platelet Estimate NORMAL NORMAL Hypochromasia 1+ 1+ Anisocytosis 1+ 2+ Microcytosis 1+ 2+ Macrocytosis 1+ Prothrombin Time 18.3 H 19.0 H Prothrombin Time Ratio 1.4 1.5 INR International Normalized Ratio 1.49 1.56 Activated Partial Thromboplast Time 41.6 H 40.1 H Sodium Level 139 139 Potassium Level 3.9 3.6 Chloride Level 94 L 96 L Carbon Dioxide Level 32 H 29 Anion Gap 17 H 18 H Blood Urea Nitrogen 40 #H 44 H Creatinine 7.03 #H 7.95 H Glucose Level 144 166 Calcium Level 8.8 8.6 Phosphorus Level 3.4 3.8 Magnesium Level 2.2 2.2 Total Bilirubin 0.3 0.2 Direct Bilirubin 0.00 0.00 Indirect Bilirubin 0.3 0.2 Gamma Glutamyl Transpeptidase 262 H 301 H Aspartate Amino Transf (AST/SGOT) 91 H 111 H Alanine Aminotransferase (ALT/SGPT) 54 59 Alkaline Phosphatase 343 H 383 H Total Protein 7.9 7.6 Albumin 3.4 3.3 Globulin 4.50 H 4.30 H Albumin/Globulin Ratio 0.75 0.76 Amylase Level 80 80 Lipase 131 107 Neutrophils % 69.8 Band Neutrophils % (Manual) 2 Lymphocytes % 23.0 Reactive Lymphocytes % (Manual) 5 H Monocytes % 5.1 Eosinophils % 1.4 Eosinophils % (Manual) 3 Basophils % 0.2 Neutrophils # 6.6 Neutrophils # (Manual) 6.5 Band Neutrophils # 0.1 Lymphocytes # 2.2 Reactive Lymphocytes # 0.4 H Monocytes # 0.5 Eosinophils # 0.1 Basophils # 0.0 Nucleated Red Blood Cells # 0.0 Pathologist Review (Hematology) YES Giant Platelets 1 H Polychromasia 3+ Elliptocytes 1+ Schistocytes 1+ Test 04/16/17 06:55 White Blood Count 8.6 Red Blood Count 2.88 #L Hemoglobin 8.7 #L Hematocrit 28.1 #L Mean Corpuscular Volume 97.6 Mean Corpuscular Hemoglobin 30.2 Mean Corpuscular Hemoglobin Concent 31.0 L Red Cell Distribution Width 21.3 H Platelet Count 260 Mean Platelet Volume 11.7 H Neutrophils % 72.9 Lymphocytes % 18.8 Monocytes % 5.4 Eosinophils % 2.1 Basophils % 0.2 Nucleated Red Blood Cells % 0.0 Neutrophils # 6.3 Lymphocytes # 1.6 Monocytes # 0.5 Eosinophils # 0.2 Basophils # 0.0 Nucleated Red Blood Cells # 0.0 Prothrombin Time 17.5 H Prothrombin Time Ratio 1.4 INR International Normalized Ratio 1.41 Activated Partial Thromboplast Time 38.8 H Sodium Level 142 Potassium Level 3.5 Chloride Level 99 Carbon Dioxide Level 28 Anion Gap 19 H Blood Urea Nitrogen 48 H Creatinine 8.77 H Glucose Level 176 Calcium Level 8.6 Phosphorus Level 4.5 Magnesium Level 2.4 Total Bilirubin 0.6 Direct Bilirubin 0.00 Indirect Bilirubin 0.6 Gamma Glutamyl Transpeptidase 333 H Aspartate Amino Transf (AST/SGOT) 185 #H Alanine Aminotransferase (ALT/SGPT) 78 H Alkaline Phosphatase 458 H Total Protein 7.4 Albumin 3.3 Globulin 4.10 H Albumin/Globulin Ratio 0.80 Amylase Level 82 Lipase 125 Medications Current Medications Norepinephrine/ Dextrose (Levophed/D5W) 500 ml @ 1.87 mls/hr TITRATE IV Last administered on 04/15/17 06:14; Admin Dose 1.87 MLS/HR; Start 04/13/17 at 12: 30 IV Flush 10 ml 10 ml PRN PRN IV IV PROTOCOL; Start 04/15/17 at 13:00 Dobutamine HCl/ Dextrose 250 ml @ 13.5 mls/hr TITRATE IV ; Start 04/16/17 at 04:00 Acetaminophen 650 mg 650 mg Q4H PRN GTB PAIN AND OR ELEVATED TEMP Last administered on 04/16/17 02:21; Admin Dose 650 MG; Start 04/16/17 at 01:00 Piperacillin Sod/ Tazobactam Sod (Zosyn 2.25gm/ 50ml (Pmx)) 50 ml @ 100 mls/hr Q8 IVPB ; Start 04/16/17 at 14:00; Status UNV Insulin Glargine (Lantus) 18 unit DAILY@08 SC ; Start 04/16/17 at 10:30; Status UNV Miscellaneous Information (* Miscellaneous Pharmacy Order) Discontinue current oral sulfonylur... ONCE ONCE XX ; Start 04/16/17 at 11:00; Stop 04/16/17 at 11:01; Status UNV Diagnostic Test (Pha) (Accu-Chek) 1 ea 02 XX ; Start 04/17/17 at 02:00; Status UNV Insulin Glargine (Lantus) 18 unit DAILY@08 SC ; Start 04/17/17 at 08:00; Status UNV Miscellaneous Information (* Miscellaneous Pharmacy Order) HYPOGLYCEMIA PROTOCOL w... ONCE ONCE XX ; Start 04/16/17 at 11:00; Stop 04/16/17 at 11:01 ; Status UNV Insulin Aspart (Novolog Insulin Pen) NOVOLOG *MODERATE* ALGORI... Q4 SC ; Start 04/16/17 at 13:00; Status UNV Miscellaneous Information (* Miscellaneous Pharmacy Order) Discontinue all previ... ONCE ONCE XX ; Start 04/16/17 at 11:00; Stop 04/16/17 at 11:01; Status UNV Assessment/Plan Chief Complaint/Hosp Course 1. cardiopulm arrest: I doubt it is related to cardiac arrest. probably due to neurological changes. 2. hypoxemic resp failure: sp intubation and on vent 3. Moderate-sized pericardial effusion. Probably related to his renal failure. At this point I do not see signs of tamponade. 4. End-stage renal disease on dialysis Hemodialysis is being managed as per renal team. 5. Hypertension: now hypotensive 6. altered level of consciousness and encephalopathy. will defer to neuro and IM 7. anemia 8/ hx seizure; defer to neurology Recommendations: Palliative care has been consulted. family is considering terminal extubation. For now we will continue the vent support. Thank you for this referral. I will continue to follow along with you. BIANKA KENT MD [facility] Problems: BIANKA KENT MD Apr 16, 2017 10:51
--- NOTE | 2017-04-16 10:51 | CONS ---
Date/Time of Note Date/Time of Note DATE: 04/16/17 TIME: 10:48 Assessment/Plan Assessment/Plan Additional Assessment/Plan Chest x-ray was reviewed from today which is showing endotracheal tube at an adequate level. Mild edema is present. Assessment and recommendations; 1. Patient admitted with cardiac arrest with severe anoxic encephalopathy. 2. History of chronic renal failure, on hemodialysis. 3. History of cardiac arrhythmia. 4. Anemia. 5. Multiple episodes of cardiac arrest at previous hospital. 6. Cardiomyopathy. Continue current supportive care. Patient is a candidate for organ donation. Prognosis is poor. Consultation Date/Type/Reason Admit Date/Time Apr 06, 2017 at 10:58 Initial Consult Date 04/07/17 Type of Consultation: Pulmonary/critical care Referring Provider: LACY RAMÍREZ NP 24 HR Interval Summary Free Text/Dictation Patient's condition remains critical. Remains completely unresponsive. Patient however has remained hemodynamically stable. No overt seizure activity noted. General exam; middle-aged male, orally intubated, unresponsive, currently in no distress. Exam/Review of Systems Vital Signs Vitals Vital Signs Date Time Temp Pulse Resp B/P Pulse Ox O2 Delivery O2 Flow Rate FiO2 04/16/17 08:00 96 04/16/17 07:00 16 98/45 99 Mechanical Ventilator 04/16/17 05:00 40 04/16/17 04:00 98.4 Intake and Output 04/15/17 04/15/17 04/16/17 15:00 23:00 07:00 Intake Total 2 ml 1028 ml 795 ml Output Total 2500 ml 0 ml Balance 2 ml -1472 ml 795 ml Exam HEENT exam; supple neck, positive JVD. No lymphadenopathy. Midline trachea. No thyromegaly. Orally intubated. Patient is edentulous. Has a faint left corneal opacity. Chest exam; diminished but clear breath sounds. S1-S2 audible, no murmurs. Pacemaker in right chest wall. Abdomen exam; soft, bowel sounds are sluggish. No organomegaly. Extremity exam; no edema. SHOE TURNER exam; patient remains unresponsive. Results Result Diagram: 04/16/17 0655 04/16/17 0655 Results 24 hrs Laboratory Tests Test 04/15/17 18:00 04/15/17 18:44 04/16/17 00:10 04/16/17 01:00 Blood Gas Specimen Source Blood arterial Blood arterial Arterial Blood Date Drawn 04/15/2017 7:00:22 PM 04/16/2017 12:50:51 AM Arterial Blood pH (Temp corrected) 7.534 H 7.459 H Arterial Blood pCO2 (Temp correct) 35.8 39.7 Arterial Blood pO2 (Temp corrected) 70.1 L 71.5 L Arterial Blood HCO3 29.5 H 27.5 H Arterial Blood Base Excess 6.5 H 3.4 H Arterial Blood Oxygen Saturation 93.8 L 93.5 L Steve Test ACCEPTAB ACCEPTAB Arterial Blood Gas Puncture Site Left Radial Right Radial Arterial Blood Carboxyhemoglobin 0.6 0.8 Arterial Blood Methemoglobin 0.3 0 Blood Gas A-a O2 Differential 173.9 H 168.0 H Oxyhemoglobin Percent 93.0 92.8 L Total Hemoglobin 8.7 L 8.1 L Blood Gas Temperature 37.0 37.0 Blood Gas Respiration Rate 16.0 16.0 Blood Gas Actual Respiration Rate 16 16 Blood Gas Modality VENT - AC VENT - AC FiO2 40.0 40.0 Blood Gas Tidal Volume 500.0 500.0 Blood Gas Low PEEP Setting 5.0 5.0 Blood Gas Notified Whom YAO SAMAYOA Blood Gas Notified Time 04/15/2017 7:12:07 PM 04/16/2017 1:06:45 AM White Blood Count 8.3 9.5 Red Blood Count 2.26 L 2.26 L Hemoglobin 6.9 *L 6.8 *L Hematocrit 23.0 #L 23.2 L Mean Corpuscular Volume 101.8 H 102.7 H Mean Corpuscular Hemoglobin 30.5 30.1 Mean Corpuscular Hemoglobin Concent 30.0 L 29.3 L Red Cell Distribution Width 21.0 H 21.2 H Platelet Count 288 279 Mean Platelet Volume 11.2 H 11.2 H Segmented Neutrophils % (Manual) 73 68 Lymphocytes % (Manual) 25 16 Monocytes % (Manual) 3 6 Nucleated Red Blood Cells % 0.0 0.0 Absolute Lymphocytes (Manual) 2.0 1.5 Absolute Monocytes (Manual) 0.2 L 0.5 Platelet Estimate NORMAL NORMAL Hypochromasia 1+ 1+ Anisocytosis 1+ 2+ Microcytosis 1+ 2+ Macrocytosis 1+ Prothrombin Time 18.3 H 19.0 H Prothrombin Time Ratio 1.4 1.5 INR International Normalized Ratio 1.49 1.56 Activated Partial Thromboplast Time 41.6 H 40.1 H Sodium Level 139 139 Potassium Level 3.9 3.6 Chloride Level 94 L 96 L Carbon Dioxide Level 32 H 29 Anion Gap 17 H 18 H Blood Urea Nitrogen 40 #H 44 H Creatinine 7.03 #H 7.95 H Glucose Level 144 166 Calcium Level 8.8 8.6 Phosphorus Level 3.4 3.8 Magnesium Level 2.2 2.2 Total Bilirubin 0.3 0.2 Direct Bilirubin 0.00 0.00 Indirect Bilirubin 0.3 0.2 Gamma Glutamyl Transpeptidase 262 H 301 H Aspartate Amino Transf (AST/SGOT) 91 H 111 H Alanine Aminotransferase (ALT/SGPT) 54 59 Alkaline Phosphatase 343 H 383 H Total Protein 7.9 7.6 Albumin 3.4 3.3 Globulin 4.50 H 4.30 H Albumin/Globulin Ratio 0.75 0.76 Amylase Level 80 80 Lipase 131 107 Neutrophils % 69.8 Band Neutrophils % (Manual) 2 Lymphocytes % 23.0 Reactive Lymphocytes % (Manual) 5 H Monocytes % 5.1 Eosinophils % 1.4 Eosinophils % (Manual) 3 Basophils % 0.2 Neutrophils # 6.6 Neutrophils # (Manual) 6.5 Band Neutrophils # 0.1 Lymphocytes # 2.2 Reactive Lymphocytes # 0.4 H Monocytes # 0.5 Eosinophils # 0.1 Basophils # 0.0 Nucleated Red Blood Cells # 0.0 Pathologist Review (Hematology) YES Giant Platelets 1 H Polychromasia 3+ Elliptocytes 1+ Schistocytes 1+ Test 04/16/17 06:55 White Blood Count 8.6 Red Blood Count 2.88 #L Hemoglobin 8.7 #L Hematocrit 28.1 #L Mean Corpuscular Volume 97.6 Mean Corpuscular Hemoglobin 30.2 Mean Corpuscular Hemoglobin Concent 31.0 L Red Cell Distribution Width 21.3 H Platelet Count 260 Mean Platelet Volume 11.7 H Neutrophils % 72.9 Lymphocytes % 18.8 Monocytes % 5.4 Eosinophils % 2.1 Basophils % 0.2 Nucleated Red Blood Cells % 0.0 Neutrophils # 6.3 Lymphocytes # 1.6 Monocytes # 0.5 Eosinophils # 0.2 Basophils # 0.0 Nucleated Red Blood Cells # 0.0 Prothrombin Time 17.5 H Prothrombin Time Ratio 1.4 INR International Normalized Ratio 1.41 Activated Partial Thromboplast Time 38.8 H Sodium Level 142 Potassium Level 3.5 Chloride Level 99 Carbon Dioxide Level 28 Anion Gap 19 H Blood Urea Nitrogen 48 H Creatinine 8.77 H Glucose Level 176 Calcium Level 8.6 Phosphorus Level 4.5 Magnesium Level 2.4 Total Bilirubin 0.6 Direct Bilirubin 0.00 Indirect Bilirubin 0.6 Gamma Glutamyl Transpeptidase 333 H Aspartate Amino Transf (AST/SGOT) 185 #H Alanine Aminotransferase (ALT/SGPT) 78 H Alkaline Phosphatase 458 H Total Protein 7.4 Albumin 3.3 Globulin 4.10 H Albumin/Globulin Ratio 0.80 Amylase Level 82 Lipase 125 Medications Medications Current Medications Norepinephrine/ Dextrose (Levophed/D5W) 500 ml @ 1.87 mls/hr TITRATE IV Last administered on 04/15/17 06:14; Admin Dose 1.87 MLS/HR; Start 04/13/17 at 12: 30 IV Flush 10 ml 10 ml PRN PRN IV IV PROTOCOL; Start 04/15/17 at 13:00 Dobutamine HCl/ Dextrose 250 ml @ 13.5 mls/hr TITRATE IV ; Start 04/16/17 at 04:00 Acetaminophen 650 mg 650 mg Q4H PRN GTB PAIN AND OR ELEVATED TEMP Last administered on 04/16/17 02:21; Admin Dose 650 MG; Start 04/16/17 at 01:00 Piperacillin Sod/ Tazobactam Sod (Zosyn 2.25gm/ 50ml (Pmx)) 50 ml @ 100 mls/hr Q8 IVPB ; Start 04/16/17 at 14:00; Status UNV Insulin Glargine (Lantus) 18 unit DAILY@08 SC ; Start 04/16/17 at 10:30; Status UNV Miscellaneous Information (* Miscellaneous Pharmacy Order) Discontinue current oral sulfonylur... ONCE ONCE XX ; Start 04/16/17 at 11:00; Stop 04/16/17 at 11:01; Status UNV Diagnostic Test (Pha) (Accu-Chek) 1 XX ; Start 04/17/17 at 02:00; Status UNV Insulin Glargine (Lantus) 18 unit DAILY@08 SC ; Start 04/17/17 at 08:00; Status UNV Miscellaneous Information (* Miscellaneous Pharmacy Order) HYPOGLYCEMIA PROTOCOL w... ONCE ONCE XX ; Start 04/16/17 at 11:00; Stop 04/16/17 at 11:01 ; Status UNV Insulin Aspart (Novolog Insulin Pen) NOVOLOG *MODERATE* ALGORI... Q4 SC ; Start 04/16/17 at 13:00; Status UNV Miscellaneous Information (* Miscellaneous Pharmacy Order) Discontinue all previ... ONCE ONCE XX ; Start 04/16/17 at 11:00; Stop 04/16/17 at 11:01; Status UNV BLAINE LOYA Apr 16, 2017 10:51
[2017-04-16] MEDS ORDERED: GLUCOSE GEL 15 GRAM TUBE BUCCAL PRN (11:30)
[2017-04-16] MEDS ORDERED: DEXTROSE 50% 50 ML SYRINGE IV PRN ×2 (11:30)
[2017-04-16] MEDS ORDERED: GLUCOSE GEL 15 GRAM TUBE PO PRN ×2 (11:30)
[2017-04-16] MEDS ORDERED: GLUCAGON 1 MG INJ IM PRN (11:30)
[2017-04-16 11:31] LABS: BASOPHILS % 0.3 % (0.0-2.0); EOSINOPHILS # 0.2 10^3/ul (0.0-0.5); EOSINOPHILS % 2.3 % (0.0-7.0); HEMATOCRIT 28.2 % (42.0-52.0); HEMOGLOBIN 8.9 g/dl (14.0-18.0); LYMPHOCYTES # 1.7 10^3/ul (0.8-2.9); MEAN CORPUSCULAR HEMOGLOBIN 30.5 pg (29.0-33.0); MEAN CORPUSCULAR HGB CONC 31.6 g/dl (32.0-37.0); MEAN CORPUSCULAR VOLUME 96.6 fl (82.0-101.0); MEAN PLATELET VOLUME 11.5 fl (7.4-10.4); MONOCYTE # 0.5 10^3/ul (0.3-0.9); MONOCYTES % 6.2 % (0.0-11.0); NEUTROPHIL # 6.1 10^3/ul (1.6-7.5); NEUTROPHILS % 70.7 % (39.0-77.0); PLATELET COUNT 254 10^3/UL (140-415); RED BLOOD COUNT 2.92 10^6/ul (4.70-6.10); RED CELL DISTRIBUTION WIDTH 21.8 % (11.5-14.5); WHITE BLOOD COUNT 8.7 10^3/ul (4.8-10.8)
[2017-04-16 11:50] LABS: ALBUMIN 3.4 g/dl (3.3-4.9); ALBUMIN/GLOBULIN RATIO 0.77; BILIRUBIN,INDIRECT 0.4 mg/dl (0-1.1); BILIRUBIN,TOTAL 0.4 mg/dl (0.2-1.3); CALCIUM 8.8 mg/dl (8.4-10.2); CREATININE 9.11 mg/dl (0.61-1.24); MAGNESIUM 2.4 mg/dl (1.7-2.5); PHOSPHORUS 4.8 mg/dl (2.5-4.9); POTASSIUM 3.7 mmol/L (3.5-5.1); TOTAL PROTEIN 7.8 g/dl (6.1-8.1)
[2017-04-16 11:52] LABS: INR 1.48; PARTIAL THROMBOPLASTIN TIME 37.5 Sec (25.0-35.0); PROTIME 18.2 Sec (11.9-14.9); PT RATIO 1.4
--- NOTE | 2017-04-16 11:56 | CONS ---
Date/Time of Note Date/Time of Note DATE: 04/16/17 TIME: 11:55 Consult Date/Type/Reason Admit Date/Time Apr 06, 2017 at 10:58 Initial Consult Date 04/07/17 Type of Consultation: Neurology Reason for Consultation cardiac arrest Ordering Provider: LACY RAMÍREZ NP Subjective remains unresponsive Objective Vital Signs Date Time Temp Pulse Resp B/P Pulse Ox O2 Delivery O2 Flow Rate FiO2 04/16/17 08:00 96 04/16/17 07:00 16 98/45 99 Mechanical Ventilator 04/16/17 05:00 40 04/16/17 04:00 98.4 Intake and Output 04/15/17 04/15/17 04/16/17 15:00 23:00 07:00 Intake Total 2 ml 1028 ml 795 ml Output Total 2500 ml 0 ml Balance 2 ml -1472 ml 795 ml Exam unable to open his eyes spontaneously to voice withdraws only to noxious stimuli CN: sluggish, left eye absent responses corneals sluggish, weak gag Motor: absent w/d to noxious stimuli Results/Medications Result Diagram: 04/16/17 1108 04/16/17 0655 Results 24 hrs Laboratory Tests Test 04/15/17 18:00 04/15/17 18:44 04/16/17 00:10 04/16/17 01:00 Blood Gas Specimen Source Blood arterial Blood arterial Arterial Blood Date Drawn 04/15/2017 7:00:22 PM 04/16/2017 12:50:51 AM Arterial Blood pH (Temp corrected) 7.534 H 7.459 H Arterial Blood pCO2 (Temp correct) 35.8 39.7 Arterial Blood pO2 (Temp corrected) 70.1 L 71.5 L Arterial Blood HCO3 29.5 H 27.5 H Arterial Blood Base Excess 6.5 H 3.4 H Arterial Blood Oxygen Saturation 93.8 L 93.5 L Steve Test ACCEPTAB ACCEPTAB Arterial Blood Gas Puncture Site Left Radial Right Radial Arterial Blood Carboxyhemoglobin 0.6 0.8 Arterial Blood Methemoglobin 0.3 0 Blood Gas A-a O2 Differential 173.9 H 168.0 H Oxyhemoglobin Percent 93.0 92.8 L Total Hemoglobin 8.7 L 8.1 L Blood Gas Temperature 37.0 37.0 Blood Gas Respiration Rate 16.0 16.0 Blood Gas Actual Respiration Rate 16 16 Blood Gas Modality VENT - AC VENT - AC FiO2 40.0 40.0 Blood Gas Tidal Volume 500.0 500.0 Blood Gas Low PEEP Setting 5.0 5.0 Blood Gas Notified Whom YAO SAMAYOA Blood Gas Notified Time 04/15/2017 7:12:07 PM 04/16/2017 1:06:45 AM White Blood Count 8.3 9.5 Red Blood Count 2.26 L 2.26 L Hemoglobin 6.9 *L 6.8 *L Hematocrit 23.0 #L 23.2 L Mean Corpuscular Volume 101.8 H 102.7 H Mean Corpuscular Hemoglobin 30.5 30.1 Mean Corpuscular Hemoglobin Concent 30.0 L 29.3 L Red Cell Distribution Width 21.0 H 21.2 H Platelet Count 288 279 Mean Platelet Volume 11.2 H 11.2 H Segmented Neutrophils % (Manual) 73 68 Lymphocytes % (Manual) 25 16 Monocytes % (Manual) 3 6 Nucleated Red Blood Cells % 0.0 0.0 Absolute Lymphocytes (Manual) 2.0 1.5 Absolute Monocytes (Manual) 0.2 L 0.5 Platelet Estimate NORMAL NORMAL Hypochromasia 1+ 1+ Anisocytosis 1+ 2+ Microcytosis 1+ 2+ Macrocytosis 1+ Prothrombin Time 18.3 H 19.0 H Prothrombin Time Ratio 1.4 1.5 INR International Normalized Ratio 1.49 1.56 Activated Partial Thromboplast Time 41.6 H 40.1 H Sodium Level 139 139 Potassium Level 3.9 3.6 Chloride Level 94 L 96 L Carbon Dioxide Level 32 H 29 Anion Gap 17 H 18 H Blood Urea Nitrogen 40 #H 44 H Creatinine 7.03 #H 7.95 H Glucose Level 144 166 Calcium Level 8.8 8.6 Phosphorus Level 3.4 3.8 Magnesium Level 2.2 2.2 Total Bilirubin 0.3 0.2 Direct Bilirubin 0.00 0.00 Indirect Bilirubin 0.3 0.2 Gamma Glutamyl Transpeptidase 262 H 301 H Aspartate Amino Transf (AST/SGOT) 91 H 111 H Alanine Aminotransferase (ALT/SGPT) 54 59 Alkaline Phosphatase 343 H 383 H Total Protein 7.9 7.6 Albumin 3.4 3.3 Globulin 4.50 H 4.30 H Albumin/Globulin Ratio 0.75 0.76 Amylase Level 80 80 Lipase 131 107 Neutrophils % 69.8 Band Neutrophils % (Manual) 2 Lymphocytes % 23.0 Reactive Lymphocytes % (Manual) 5 H Monocytes % 5.1 Eosinophils % 1.4 Eosinophils % (Manual) 3 Basophils % 0.2 Neutrophils # 6.6 Neutrophils # (Manual) 6.5 Band Neutrophils # 0.1 Lymphocytes # 2.2 Reactive Lymphocytes # 0.4 H Monocytes # 0.5 Eosinophils # 0.1 Basophils # 0.0 Nucleated Red Blood Cells # 0.0 Pathologist Review (Hematology) YES Giant Platelets 1 H Polychromasia 3+ Elliptocytes 1+ Schistocytes 1+ Test 04/16/17 06:55 04/16/17 11:08 White Blood Count 8.6 8.7 Red Blood Count 2.88 #L 2.92 L Hemoglobin 8.7 #L 8.9 L Hematocrit 28.1 #L 28.2 L Mean Corpuscular Volume 97.6 96.6 Mean Corpuscular Hemoglobin 30.2 30.5 Mean Corpuscular Hemoglobin Concent 31.0 L 31.6 L Red Cell Distribution Width 21.3 H 21.8 H Platelet Count 260 254 Mean Platelet Volume 11.7 H 11.5 H Neutrophils % 72.9 70.7 Lymphocytes % 18.8 20.0 Monocytes % 5.4 6.2 Eosinophils % 2.1 2.3 Basophils % 0.2 0.3 Nucleated Red Blood Cells % 0.0 0.0 Neutrophils # 6.3 6.1 Lymphocytes # 1.6 1.7 Monocytes # 0.5 0.5 Eosinophils # 0.2 0.2 Basophils # 0.0 0.0 Nucleated Red Blood Cells # 0.0 0.0 Prothrombin Time 17.5 H 18.2 H Prothrombin Time Ratio 1.4 1.4 INR International Normalized Ratio 1.41 1.48 Activated Partial Thromboplast Time 38.8 H 37.5 H Sodium Level 142 Potassium Level 3.5 Chloride Level 99 Carbon Dioxide Level 28 Anion Gap 19 H Blood Urea Nitrogen 48 H Creatinine 8.77 H Glucose Level 176 Calcium Level 8.6 Phosphorus Level 4.5 Magnesium Level 2.4 Total Bilirubin 0.6 Direct Bilirubin 0.00 Indirect Bilirubin 0.6 Gamma Glutamyl Transpeptidase 333 H Aspartate Amino Transf (AST/SGOT) 185 #H Alanine Aminotransferase (ALT/SGPT) 78 H Alkaline Phosphatase 458 H Total Protein 7.4 Albumin 3.3 Globulin 4.10 H Albumin/Globulin Ratio 0.80 Amylase Level 82 Lipase 125 Medications Current Medications Norepinephrine/ Dextrose (Levophed/D5W) 500 ml @ 1.87 mls/hr TITRATE IV Last administered on 04/15/17 06:14; Admin Dose 1.87 MLS/HR; Start 04/13/17 at 12: 30 IV Flush 10 ml 10 ml PRN PRN IV IV PROTOCOL; Start 04/15/17 at 13:00 Dobutamine HCl/ Dextrose 250 ml @ 13.5 mls/hr TITRATE IV ; Start 04/16/17 at 04:00 Acetaminophen 650 mg 650 mg Q4H PRN GTB PAIN AND OR ELEVATED TEMP Last administered on 04/16/17 02:21; Admin Dose 650 MG; Start 04/16/17 at 01:00 Piperacillin Sod/ Tazobactam Sod (Zosyn 2.25gm/ 50ml (Pmx)) 50 ml @ 100 mls/hr Q8 IVPB ; Start 04/16/17 at 11:30 Insulin Glargine (Lantus) 18 unit DAILY@08 SC ; Start 04/16/17 at 11:30 Diagnostic Test (Pha) (Accu-Chek) 1 ea 02 XX ; Start 04/17/17 at 02:00 Insulin Aspart (Novolog Insulin Pen) NOVOLOG *MODERATE* ALGORI... Q4 SC ; Start 04/16/17 at 13:00 Miscellaneous Information 1 ea NOTE XX ; Start 04/16/17 at 11:30 Glucose (Glutose) 15 gm Q15M PRN PO DECREASED GLUCOSE; Start 04/16/17 at 11:30 Glucose (Glutose) 22.5 gm Q15M PRN PO DECREASED GLUCOSE; Start 04/16/17 at 11: 30 Dextrose (D50w Syringe) 25 ml Q15M PRN IV DECREASED GLUCOSE; Start 04/16/17 at 11:30 Dextrose (D50w Syringe) 50 ml Q15M PRN IV DECREASED GLUCOSE; Start 04/16/17 at 11:30 Glucagon (Glucagen) 1 mg Q15M PRN IM DECREASED GLUCOSE; Start 04/16/17 at 11: 30 Glucose 15 gm 15 gm Q15M PRN BUCCAL DECREASED GLUCOSE; Start 04/16/17 at 11:30 Vancomycin HCl/ Sodium Chloride (Vancocin/NS) 500 ml @ 125 mls/hr ONCE IVPB ; Start 04/16/17 at 12:00; Stop 04/16/17 at 15:59 Assessment/Plan Chief Complaint/Hosp Course 47 yo male with ESRD admitted with dysarthria and possible aphasia unclear baseline. Baseline he has a history of seizure d/o and psychiatric disease. Admitted to the ICU post cardiac arrest. Remains unresponsive Recommendations: family moving towards comfort care aware of poor prognosis for a meaningful neurologic recovery Problems: ARUNA BROWN MD Apr 16, 2017 11:56
[2017-04-16] MEDS ORDERED: VANCOMYCIN 1.75 GM in NS 500 ML IVPB SCH (12:00)
[2017-04-16 12:14] LABS: AADO2 Arterial 170.3 mmHg (7.0-24.0); Allen Test ACCEPTAB; Arterial Base Excess 1.6 mmol/L (-3.0-3); Arterial COHb 0.4 % (0.0-3.0); Arterial Fraction of Oxyhgb 93.4 % (93.0-99.0); Arterial HCO3 25.4 mmol/L (22.0-26.0); Arterial MetHb 0.3 % (0.0-1.5); Arterial Total Hemglobin 10.3 g/dl (12.0-18.0); MODE VENT - AC
[2017-04-16] MEDS: PIPER-TAZO 2.25 GM (PMX) 50 ML IVPB SCH ×2 (12:19→23:14)
[2017-04-16] MEDS: INSULIN ASPART [NOVOLOG] 3 ML PEN SC SCH ×3 (12:28→20:24)
[2017-04-16] MEDS: INSULIN GLARGINE [LANtus] 3 ML PEN SC SCH (12:30)
[2017-04-16] MEDS ORDERED: DOPamine-D5W 1.6 MG/ML 250 ML ONE (13:24)
--- NOTE | 2017-04-16 16:54 | RADRPT ---
PROCEDURE: CHEST X-RAY CLINICAL INDICATION: 1 legacy TECHNIQUE: AP semi erect portable COMPARISON: 04/15/2017 FINDINGS: Heart size and pulmonary vascularity appears unremarkable. Densities in the lung bases are unchanged . No pneumothorax seen.. ET tube tip at the midclavicular level. Right arm PICC catheter, and dual p acer wires are unchanged. IMPRESSION: No change from prior exam RPTAT: AAOO Physician Kasia Date Time Electronically viewed and signed by Physician Kasia on 04/16/2017 12:13 MB/
--- NOTE | 2017-04-16 17:19 | PN ---
Date/Time of Note Date/Time of Note DATE: 04/16/17 TIME: 17:17 Assessment/Plan VTE Prophylaxis VTE Prophylaxis Intervention: LMWH Lines/Catheters IV Catheter Type (from Nrsg): PICC Line Central line still needed: Yes Urinary Cath still in place: No Reason Cath still needed: urinary retention Assessment/Plan Chief Complaint/Hosp Course 47 yo male wtih ESRD who suffered cardiac arrest with ROSC, poor neurologic status, pending organ donation in OR and palliative extubation - Continue HD per renal - Continue vasopressors as needed for MAP > 65 - Vanco/zosyn - Tube feeds - Plan for organ harvesting tomorrow and palliative extubation Problems: Subjective 24 Hr Interval Summary Free Text/Dictation Back to full code as organ harvesting procedure now scheduled for Thursday Exam/Review of Systems Vital Signs Vitals Vital Signs Date Time Temp Pulse Resp B/P Pulse Ox O2 Delivery O2 Flow Rate FiO2 04/16/17 16:15 134 20 155/68 96 Mechanical Ventilator 04/16/17 16:00 40 04/16/17 12:00 99.1 Intake and Output 04/15/17 04/15/17 04/16/17 15:00 23:00 07:00 Intake Total 2 ml 1028 ml 795 ml Output Total 2500 ml 0 ml Balance 2 ml -1472 ml 795 ml Results Result Diagram: 04/16/17 1108 04/16/17 1108 Results 24 hrs Laboratory Tests Test 04/15/17 18:00 04/15/17 18:44 04/16/17 00:10 04/16/17 01:00 Blood Gas Specimen Source Blood arterial Blood arterial Arterial Blood Date Drawn 04/15/2017 7:00:22 PM 04/16/2017 12:50:51 AM Arterial Blood pH (Temp corrected) 7.534 H 7.459 H Arterial Blood pCO2 (Temp correct) 35.8 39.7 Arterial Blood pO2 (Temp corrected) 70.1 L 71.5 L Arterial Blood HCO3 29.5 H 27.5 H Arterial Blood Base Excess 6.5 H 3.4 H Arterial Blood Oxygen Saturation 93.8 L 93.5 L Steve Test ACCEPTAB ACCEPTAB Arterial Blood Gas Puncture Site Left Radial Right Radial Arterial Blood Carboxyhemoglobin 0.6 0.8 Arterial Blood Methemoglobin 0.3 0 Blood Gas A-a O2 Differential 173.9 H 168.0 H Oxyhemoglobin Percent 93.0 92.8 L Total Hemoglobin 8.7 L 8.1 L Blood Gas Temperature 37.0 37.0 Blood Gas Respiration Rate 16.0 16.0 Blood Gas Actual Respiration Rate 16 16 Blood Gas Modality VENT - AC VENT - AC FiO2 40.0 40.0 Blood Gas Tidal Volume 500.0 500.0 Blood Gas Low PEEP Setting 5.0 5.0 Blood Gas Notified Whom YAO SAMAYOA Blood Gas Notified Time 04/15/2017 7:12:07 PM 04/16/2017 1:06:45 AM White Blood Count 8.3 9.5 Red Blood Count 2.26 L 2.26 L Hemoglobin 6.9 *L 6.8 *L Hematocrit 23.0 #L 23.2 L Mean Corpuscular Volume 101.8 H 102.7 H Mean Corpuscular Hemoglobin 30.5 30.1 Mean Corpuscular Hemoglobin Concent 30.0 L 29.3 L Red Cell Distribution Width 21.0 H 21.2 H Platelet Count 288 279 Mean Platelet Volume 11.2 H 11.2 H Segmented Neutrophils % (Manual) 73 68 Lymphocytes % (Manual) 25 16 Monocytes % (Manual) 3 6 Nucleated Red Blood Cells % 0.0 0.0 Absolute Lymphocytes (Manual) 2.0 1.5 Absolute Monocytes (Manual) 0.2 L 0.5 Platelet Estimate NORMAL NORMAL Hypochromasia 1+ 1+ Anisocytosis 1+ 2+ Microcytosis 1+ 2+ Macrocytosis 1+ Prothrombin Time 18.3 H 19.0 H Prothrombin Time Ratio 1.4 1.5 INR International Normalized Ratio 1.49 1.56 Activated Partial Thromboplast Time 41.6 H 40.1 H Sodium Level 139 139 Potassium Level 3.9 3.6 Chloride Level 94 L 96 L Carbon Dioxide Level 32 H 29 Anion Gap 17 H 18 H Blood Urea Nitrogen 40 #H 44 H Creatinine 7.03 #H 7.95 H Glucose Level 144 166 Calcium Level 8.8 8.6 Phosphorus Level 3.4 3.8 Magnesium Level 2.2 2.2 Total Bilirubin 0.3 0.2 Direct Bilirubin 0.00 0.00 Indirect Bilirubin 0.3 0.2 Gamma Glutamyl Transpeptidase 262 H 301 H Aspartate Amino Transf (AST/SGOT) 91 H 111 H Alanine Aminotransferase (ALT/SGPT) 54 59 Alkaline Phosphatase 343 H 383 H Total Protein 7.9 7.6 Albumin 3.4 3.3 Globulin 4.50 H 4.30 H Albumin/Globulin Ratio 0.75 0.76 Amylase Level 80 80 Lipase 131 107 Neutrophils % 69.8 Band Neutrophils % (Manual) 2 Lymphocytes % 23.0 Reactive Lymphocytes % (Manual) 5 H Monocytes % 5.1 Eosinophils % 1.4 Eosinophils % (Manual) 3 Basophils % 0.2 Neutrophils # 6.6 Neutrophils # (Manual) 6.5 Band Neutrophils # 0.1 Lymphocytes # 2.2 Reactive Lymphocytes # 0.4 H Monocytes # 0.5 Eosinophils # 0.1 Basophils # 0.0 Nucleated Red Blood Cells # 0.0 Pathologist Review (Hematology) YES Giant Platelets 1 H Polychromasia 3+ Elliptocytes 1+ Schistocytes 1+ Test 04/16/17 06:55 04/16/17 07:00 04/16/17 11:08 04/16/17 12:17 White Blood Count 8.6 8.7 Red Blood Count 2.88 #L 2.92 L Hemoglobin 8.7 #L 8.9 L Hematocrit 28.1 #L 28.2 L Mean Corpuscular Volume 97.6 96.6 Mean Corpuscular Hemoglobin 30.2 30.5 Mean Corpuscular Hemoglobin Concent 31.0 L 31.6 L Red Cell Distribution Width 21.3 H 21.8 H Platelet Count 260 254 Mean Platelet Volume 11.7 H 11.5 H Neutrophils % 72.9 70.7 Lymphocytes % 18.8 20.0 Monocytes % 5.4 6.2 Eosinophils % 2.1 2.3 Basophils % 0.2 0.3 Nucleated Red Blood Cells % 0.0 0.0 Neutrophils # 6.3 6.1 Lymphocytes # 1.6 1.7 Monocytes # 0.5 0.5 Eosinophils # 0.2 0.2 Basophils # 0.0 0.0 Nucleated Red Blood Cells # 0.0 0.0 Prothrombin Time 17.5 H 18.2 H Prothrombin Time Ratio 1.4 1.4 INR International Normalized Ratio 1.41 1.48 Activated Partial Thromboplast Time 38.8 H 37.5 H Sodium Level 142 140 Potassium Level 3.5 3.7 Chloride Level 99 98 Carbon Dioxide Level 28 26 Anion Gap 19 H 20 H Blood Urea Nitrogen 48 H 50 H Creatinine 8.77 H 9.11 H Glucose Level 176 188 Calcium Level 8.6 8.8 Phosphorus Level 4.5 4.8 Magnesium Level 2.4 2.4 Total Bilirubin 0.6 0.4 Direct Bilirubin 0.00 0.00 Indirect Bilirubin 0.6 0.4 Gamma Glutamyl Transpeptidase 333 H 337 H Aspartate Amino Transf (AST/SGOT) 185 #H 166 H Alanine Aminotransferase (ALT/SGPT) 78 H 77 H Alkaline Phosphatase 458 H 453 H Total Protein 7.4 7.8 Albumin 3.3 3.4 Globulin 4.10 H 4.40 H Albumin/Globulin Ratio 0.80 0.77 Amylase Level 82 83 Lipase 125 137 Blood Gas Specimen Source Blood arterial Arterial Blood Date Drawn 04/16/2017 8:05:32 AM Arterial Blood pH (Temp corrected) 7.456 H Arterial Blood pCO2 (Temp correct) 36.9 Arterial Blood pO2 (Temp corrected) 72.5 L Arterial Blood HCO3 25.4 Arterial Blood Base Excess 1.6 Arterial Blood Oxygen Saturation 94.1 L Steve Test ACCEPTAB Arterial Blood Gas Puncture Site Right Radial Arterial Blood Carboxyhemoglobin 0.4 Arterial Blood Methemoglobin 0.3 Blood Gas A-a O2 Differential 170.3 H Oxyhemoglobin Percent 93.4 Total Hemoglobin 10.3 L Blood Gas Temperature 37.0 Blood Gas Respiration Rate 16.0 Blood Gas Actual Respiration Rate 16 Blood Gas Modality VENT - AC FiO2 40.0 Blood Gas Tidal Volume 500.0 Blood Gas Low PEEP Setting 5.0 Blood Gas Notified Whom LYLE MALDONADO Blood Gas Notified Time 04/16/2017 8:21:51 AM Bedside Glucose 184 Medications Medications Current Medications Norepinephrine/ Dextrose (Levophed/D5W) 500 ml @ 1.87 mls/hr TITRATE IV Last administered on 04/16/17 13:15; Admin Dose 1.87 MLS/HR; Start 04/13/17 at 12: 30 IV Flush 10 ml 10 ml PRN PRN IV IV PROTOCOL; Start 04/15/17 at 13:00 Dobutamine HCl/ Dextrose 250 ml @ 13.5 mls/hr TITRATE IV Last administered on 04/16/17 08:00; Admin Dose 2.7 MLS/HR; Start 04/16/17 at 04:00 Acetaminophen 650 mg 650 mg Q4H PRN GTB PAIN AND OR ELEVATED TEMP Last administered on 04/16/17 02:21; Admin Dose 650 MG; Start 04/16/17 at 01:00 Piperacillin Sod/ Tazobactam Sod (Zosyn 2.25gm/ 50ml (Pmx)) 50 ml @ 100 mls/hr Q8 IVPB Last administered on 04/16/17 12:19; Admin Dose 100 MLS/HR; Start at 11:30 Insulin Glargine (Lantus) 18 unit DAILY@08 SC Last administered on 04/16/17 12:30; Admin Dose 18 UNIT; Start 04/16/17 at 11:30 Diagnostic Test (Pha) (Accu-Chek) 1 ea 02 XX ; Start 04/17/17 at 02:00 Insulin Aspart (Novolog Insulin Pen) NOVOLOG *MODERATE* ALGORI... Q4 SC Last administered on 04/16/17 12:28; Admin Dose 4 UNIT; Start 04/16/17 at 13:00 Miscellaneous Information 1 ea NOTE XX ; Start 04/16/17 at 11:30 Glucose (Glutose) 15 gm Q15M PRN PO DECREASED GLUCOSE; Start 04/16/17 at 11:30 Glucose (Glutose) 22.5 gm Q15M PRN PO DECREASED GLUCOSE; Start 04/16/17 at 11: 30 Dextrose (D50w Syringe) 25 ml Q15M PRN IV DECREASED GLUCOSE; Start 04/16/17 at 11:30 Dextrose (D50w Syringe) 50 ml Q15M PRN IV DECREASED GLUCOSE; Start 04/16/17 at 11:30 Glucagon (Glucagen) 1 mg Q15M PRN IM DECREASED GLUCOSE; Start 04/16/17 at 11: 30 Glucose (Glutose) 15 gm Q15M PRN BUCCAL DECREASED GLUCOSE; Start 04/16/17 at 11:30 SAUL CONTRERAS MD Apr 16, 2017 17:19
[2017-04-16 18:13] LABS: ABNORMAL IP MESSAGE 1; HEMOGLOBIN 11.1 g/dl (14.0-18.0); MEAN CORPUSCULAR HEMOGLOBIN 30.2 pg (29.0-33.0); MEAN CORPUSCULAR HGB CONC 31.7 g/dl (32.0-37.0); MEAN CORPUSCULAR VOLUME 95.4 fl (82.0-101.0); MEAN PLATELET VOLUME 11.3 fl (7.4-10.4); PLATELET COUNT 345 10^3/UL (140-415); POSITIVE DIFF @See below; RED BLOOD COUNT 3.67 10^6/ul (4.70-6.10); WHITE BLOOD COUNT 23.1 10^3/ul (4.8-10.8)
[2017-04-16 18:28] LABS: INR 1.55; PROTIME 18.9 Sec (11.9-14.9); PT RATIO 1.5
--- NOTE | 2017-04-16 18:28 | RADRPT ---
PROCEDURE: XR Chest. CLINICAL INDICATION: 1 legacy, endotracheal tube TECHNIQUE: Single frontal view of the chest was obtained COMPARISON: 04/16/2017 at 12:01 p.m. FINDINGS: Tip of the endotracheal tube is approximately 5 cm above the nori. Dual chamber cardiac pacemaker again seen. ECG leads projected over the chest. There is hypoinflation of the lungs. This along with portable AP technique accentuates the size of the cardiac silhouette. There is again the appearance of minimal enlargement of the cardiac silhouette. There has been interval decrease in pulmonary vas cular congestion and bilateral lung densities suggestive of pulmonary edema since the study. Patchy densities are seen at the lung bases left greater than right which could be secondary to atelectasis and/or residual pulmonary edema. Oxygen tubing projected over chest. IMPRESSION: Hypoinflation of the lungs. There is again the appearance of minimal enlargement of the cardiac silh ouette. Patchy densities are seen at the lung bases left greater than right which could be secondary to atelectasis and/or residual pulmonary edema. Please see above. RPTAT: HJES .Pj Georges MD, MD Date Time Electronically viewed and signed by .Pj Georges MD, MD on 04/16/2017 18:27 .S/
[2017-04-16 18:38] LABS: ALBUMIN 3.2 g/dl (3.3-4.9); ALBUMIN/GLOBULIN RATIO 0.76; BILIRUBIN,INDIRECT 0.3 mg/dl (0-1.1); BILIRUBIN,TOTAL 0.3 mg/dl (0.2-1.3); CALCIUM 8.4 mg/dl (8.4-10.2); CREATININE 9.09 mg/dl (0.61-1.24); MAGNESIUM 2.1 mg/dl (1.7-2.5); PHOSPHORUS 4.8 mg/dl (2.5-4.9); POTASSIUM 3.6 mmol/L (3.5-5.1); TOTAL PROTEIN 7.4 g/dl (6.1-8.1)
[2017-04-16] MEDS ORDERED: DEXTROSE 5%-0.45% NACL 500 ML IV SCH (19:30)
[2017-04-16 19:39] LABS: ANISOCYTOSIS 1+ (0-0); EOSINOPHILS % (M) 1 % (0-7); GIANT THROMBO% (M) 3 % (0-0); MONOCYTES % (M) 1 % (0-11); PLATELET ESTIMATE NORMAL; POLYCHROMASIA 1+ (0-0)
[2017-04-16] MEDS ORDERED: NORepinephrine 8MG/250 ML (PMX 250 ML ONE (20:08)
[2017-04-16] MEDS ORDERED: NORepinephrine 8MG/250 ML (PMX 250 ML IV SCH (20:15)
[2017-04-16] MEDS ORDERED: ACETAMINOPHEN 1000MG/100ML IV 100 ML IVPB SCH (20:30)
[2017-04-16] MEDS ORDERED: ACETAMINOPHEN 1000MG/100ML IV 100 ML IVPB PRN (20:30)
[2017-04-16] MEDS ORDERED: ACETAMINOPHEN 1000MG/100ML IV 100 ML ONE (20:32)
[2017-04-16 20:42] LABS: AADO2 Arterial 179.9 mmHg (7.0-24.0); Allen Test ACCEPTAB; Arterial Base Excess -1.5 mmol/L (-3.0-3); Arterial COHb 0.4 % (0.0-3.0); Arterial Fraction of Oxyhgb 90.3 % (93.0-99.0); Arterial HCO3 22.9 mmol/L (22.0-26.0); Arterial MetHb 0.2 % (0.0-1.5); MODE VENT - AC
--- NOTE | 2017-04-16 22:05 | CONS ---
DATE OF ADMISSION: 04/06/2017 DATE OF CONSULTATION: REASON FOR CONSULTATION: Evaluation for arterial line placement. HISTORY OF PRESENT ILLNESS: This is a 47-year-old male with a history of end-stage renal disease, [place] in [place]. The patient was admitted because of severe dysarthria, difficulty answering , was found to have a large CVA. Currently, is being evaluated to undergo an organ donation. PAST MEDICAL HISTORY: Hypertension, hyperlipidemia, end-stage renal disease. PAST SURGICAL HISTORY: Dialysis access. ALLERGIES: NONE. SOCIAL HISTORY: No smoking, drinking or drug use. MEDICATIONS: List reviewed. PHYSICAL EXAMINATION: GENERAL: The patient is asleep, intubated, FIO2 40%. HEENT: Normocephalic, atraumatic. LUNGS: Clear. ABDOMEN: Soft. EXTREMITIES: Warm. IMPRESSION: Cerebrovascular accident. RECOMMENDATIONS: We will proceed with placement of an arterial line. Discussed with the nursing st aff. All questions answered. Dictated By: TRACY STONE MD FM/NTS Conf#: [id number] DID#: [id number] CC: DIMAS LAINEZ MD;*EndCC*
--- NOTE | 2017-04-16 22:32 | OPR ---
DATE OF OPERATION: PREOPERATIVE DIAGNOSIS: Cerebrovascular accident. POSTOPERATIVE DIAGNOSIS: Cerebrovascular accident. PROCEDURE: Right femoral arterial line placement. SURGEON: Tracy Leone MD ANESTHESIA: Local. CONSENT: Risks, benefits, complications, alternative therapies explained to the patient's nursing s taff, consent obtained. OPERATIVE TECHNIQUE: The patient was placed in supine position, prepped and draped in usual sterile fashion. One percent lidocaine was used throughout the operation for local anesthesia. Access was gained in the right femoral artery. Guidewire was advanced without any difficulty. Subcutaneous t issues dilated. Arterial line advanced over a guidewire, secured to skin using silk sutures. Dictated By: TRACY LEONE MD FM/NTS Conf#: [id number] DID#: [id number] CC: DIMAS LAINEZ MD;*EndCC*
[2017-04-17] VITALS (73 sets, daily range): BP systolic 82–160; BP diastolic 18–72; PULSE 106–124; RESP 16–22
[2017-04-17 01:12] LABS: ABNORMAL IP MESSAGE 1; BASOPHIL # 0.1 10^3/ul (0.0-0.1); BASOPHILS % 0.2 % (0.0-2.0); EOSINOPHILS # 1.3 10^3/ul (0.0-0.5); HEMATOCRIT 35.8 % (42.0-52.0); HEMOGLOBIN 11.3 g/dl (14.0-18.0); LYMPHOCYTES # 1.3 10^3/ul (0.8-2.9); MEAN CORPUSCULAR HEMOGLOBIN 30.1 pg (29.0-33.0); MEAN CORPUSCULAR HGB CONC 31.6 g/dl (32.0-37.0); MEAN CORPUSCULAR VOLUME 95.5 fl (82.0-101.0); MEAN PLATELET VOLUME 11.4 fl (7.4-10.4); MONOCYTE # 0.5 10^3/ul (0.3-0.9); MONOCYTES % 1.9 % (0.0-11.0); NEUTROPHIL # 21.6 10^3/ul (1.6-7.5); NEUTROPHILS % 87.2 % (39.0-77.0); PLATELET COUNT 342 10^3/UL (140-415); POSITIVE DIFF @See below; RED BLOOD COUNT 3.75 10^6/ul (4.70-6.10); RED CELL DISTRIBUTION WIDTH 21.8 % (11.5-14.5); WHITE BLOOD COUNT 24.8 10^3/ul (4.8-10.8)
[2017-04-17 01:27] LABS: INR 1.7; PROTIME 20.3 Sec (11.9-14.9); PT RATIO 1.6
[2017-04-17 01:28] LABS: PARTIAL THROMBOPLASTIN TIME 40.2 Sec (25.0-35.0)
[2017-04-17 01:32] LABS: ALBUMIN 3.3 g/dl (3.3-4.9); ALBUMIN/GLOBULIN RATIO 0.73; BILIRUBIN,INDIRECT 0.2 mg/dl (0-1.1); BILIRUBIN,TOTAL 0.2 mg/dl (0.2-1.3); CALCIUM 9.2 mg/dl (8.4-10.2); CREATININE 10.47 mg/dl (0.61-1.24); MAGNESIUM 2.3 mg/dl (1.7-2.5); PHOSPHORUS 5.7 mg/dl (2.5-4.9); POTASSIUM 3.7 mmol/L (3.5-5.1); TOTAL PROTEIN 7.8 g/dl (6.1-8.1)
[2017-04-17] MEDS: INSULIN ASPART [NOVOLOG] 3 ML PEN SC SCH ×4 (01:40→12:09)
[2017-04-17] MEDS ORDERED: ACCU-CHEK XX SCH (02:00)
--- NOTE | 2017-04-17 02:51 | RADRPT ---
PROCEDURE: XR Chest. CLINICAL INDICATION: 1 legacy. Line placement. TECHNIQUE: Single frontal chest x-ray. COMPARISON: 04/16/2017 FINDINGS: Endotracheal tube tip is at the level of clavicles. Tip of a right PICC line is not well visualized. Right subclavian pacemaker is unchanged. Heart is mildly enlarged. There is slight increase and a a symmetric left lung interstitial prominence. There is unchanged left basilar atelectasis versus infi ltrate. Small left pleural effusion cannot be excluded..There is no pneumothorax. The osseous struc tures are unremarkable. IMPRESSION: Slight increase and a asymmetric left lung interstitial prominence may represent asymmetric pulmonar y vascular congestion versus infiltrate. Unchanged left basilar retrocardiac atelectasis or infiltra te with a probable pleural effusion. Line is unchanged. RPTAT: HMVK .Amrit Stratton MD, Date Time Electronically viewed and signed by .Amrit Stratton MD, on 04/17/2017 02:51 .K/
[2017-04-17] MEDS ORDERED: NACL 3% FOR INHALATION 15 ML NEBU NEB ONE (05:00)
[2017-04-17 05:38] LABS: AADO2 Arterial 155.5 mmHg (7.0-24.0); Arterial Base Excess -3.3 mmol/L (-3.0-3); Arterial COHb 0.3 % (0.0-3.0); Arterial Fraction of Oxyhgb 95.5 % (93.0-99.0); Arterial HCO3 21.3 mmol/L (22.0-26.0); Arterial MetHb 0 % (0.0-1.5); Arterial Total Hemglobin 12.3 g/dl (12.0-18.0); MODE VENT - AC
[2017-04-17] MEDS: PIPER-TAZO 2.25 GM (PMX) 50 ML IVPB SCH ×2 (06:08→14:10)
[2017-04-17 06:33] LABS: BASOPHILS % 0.2 % (0.0-2.0); EOSINOPHILS # 1.9 10^3/ul (0.0-0.5); EOSINOPHILS % 8.4 % (0.0-7.0); HEMATOCRIT 34.5 % (42.0-52.0); HEMOGLOBIN 10.9 g/dl (14.0-18.0); LYMPHOCYTES # 1.1 10^3/ul (0.8-2.9); MEAN CORPUSCULAR HEMOGLOBIN 30.5 pg (29.0-33.0); MEAN CORPUSCULAR HGB CONC 31.6 g/dl (32.0-37.0); MEAN CORPUSCULAR VOLUME 96.6 fl (82.0-101.0); MEAN PLATELET VOLUME 11.4 fl (7.4-10.4); MONOCYTE # 0.4 10^3/ul (0.3-0.9); MONOCYTES % 1.6 % (0.0-11.0); NEUTROPHIL # 19.2 10^3/ul (1.6-7.5); PLATELET COUNT 331 10^3/UL (140-415); RED BLOOD COUNT 3.57 10^6/ul (4.70-6.10); RED CELL DISTRIBUTION WIDTH 21.5 % (11.5-14.5); WHITE BLOOD COUNT 22.8 10^3/ul (4.8-10.8)
[2017-04-17 06:47] LABS: ALBUMIN 3.2 g/dl (3.3-4.9); ALBUMIN/GLOBULIN RATIO 0.71; BILIRUBIN,INDIRECT 0.2 mg/dl (0-1.1); BILIRUBIN,TOTAL 0.2 mg/dl (0.2-1.3); CALCIUM 9.2 mg/dl (8.4-10.2); CREATININE 10.74 mg/dl (0.61-1.24); MAGNESIUM 2.3 mg/dl (1.7-2.5); PHOSPHORUS 6.2 mg/dl (2.5-4.9); POTASSIUM 3.7 mmol/L (3.5-5.1); TOTAL PROTEIN 7.7 g/dl (6.1-8.1)
[2017-04-17 06:50] LABS: INR 1.67; PT RATIO 1.6
--- NOTE | 2017-04-17 07:18 | CONS ---
Date/Time of Note Date/Time of Note DATE: 04/17/17 TIME: 07:17 Assessment/Plan Assessment/Plan Chief Complaint/Hosp Course Family conference with sister who is the only decision maker for patient.. she has decided to dc all current care and allow pt to have a compassionate extubation.Will discuss with other [facility] providers. Problems: Additional Assessment/Plan Patient has been transferred to the [address] [place] [address] service. We will continue to support family members. Consultation Date/Type/Reason Admit Date/Time Apr 06, 2017 at 10:58 Initial Consult Date 04/07/17 Type of Consultation: Palliative care Referring Provider: LACY RAMÍREZ [employer] Exam/Review of Systems Vital Signs Vitals Vital Signs Date Time Temp Pulse Resp B/P Pulse Ox O2 Delivery O2 Flow Rate FiO2 04/17/17 07:00 111 16 141/45 99 04/17/17 04:57 40 04/17/17 04:00 98.0 Mechanical Ventilator Intake and Output 04/16/17 04/16/17 04/17/17 15:00 23:00 07:00 Intake Total 168.00 ml 655.2 ml Output Total 0 ml 0 ml Balance 168.00 ml 655.2 ml Results Result Diagram: 04/17/17 0530 04/17/17 0052 Results 24 hrs Laboratory Tests Test 04/16/17 11:08 04/16/17 12:17 04/16/17 17:57 04/16/17 18:59 White Blood Count 8.7 23.1 #H Red Blood Count 2.92 L 3.67 #L Hemoglobin 8.9 L 11.1 #L Hematocrit 28.2 L 35.0 #L Mean Corpuscular Volume 96.6 95.4 Mean Corpuscular Hemoglobin 30.5 30.2 Mean Corpuscular Hemoglobin Concent 31.6 L 31.7 L Red Cell Distribution Width 21.8 H 22.0 H Platelet Count 254 345 # Mean Platelet Volume 11.5 H 11.3 H Neutrophils % 70.7 Lymphocytes % 20.0 Monocytes % 6.2 Eosinophils % 2.3 Basophils % 0.3 Nucleated Red Blood Cells % 0.0 0.0 Neutrophils # 6.1 Lymphocytes # 1.7 Monocytes # 0.5 Eosinophils # 0.2 Basophils # 0.0 Nucleated Red Blood Cells # 0.0 Prothrombin Time 18.2 H 18.9 H Prothrombin Time Ratio 1.4 1.5 INR International Normalized Ratio 1.48 1.55 Activated Partial Thromboplast Time 37.5 H 34.0 Sodium Level 140 141 Potassium Level 3.7 3.6 Chloride Level 98 102 Carbon Dioxide Level 26 21 Anion Gap 20 H 22 H Blood Urea Nitrogen 50 H 54 H Creatinine 9.11 H 9.09 H Glucose Level 188 171 Calcium Level 8.8 8.4 Phosphorus Level 4.8 4.8 Magnesium Level 2.4 2.1 Total Bilirubin 0.4 0.3 Direct Bilirubin 0.00 0.00 Indirect Bilirubin 0.4 0.3 Gamma Glutamyl Transpeptidase 337 H 320 H Aspartate Amino Transf (AST/SGOT) 166 H 107 H Alanine Aminotransferase (ALT/SGPT) 77 H 70 H Alkaline Phosphatase 453 H 448 H Total Protein 7.8 7.4 Albumin 3.4 3.2 L Globulin 4.40 H 4.20 H Albumin/Globulin Ratio 0.77 0.76 Amylase Level 83 68 Lipase 137 129 Bedside Glucose 184 151 Segmented Neutrophils % (Manual) 80 H Band Neutrophils % (Manual) 14 H Lymphocytes % (Manual) 4 L Monocytes % (Manual) 1 Eosinophils % (Manual) 1 Neutrophils # (Manual) 19.2 H Band Neutrophils # 3.2 H Absolute Lymphocytes (Manual) 0.9 Absolute Monocytes (Manual) 0.2 L Platelet Estimate NORMAL Giant Platelets 3 H Polychromasia 1+ Anisocytosis 1+ Test 04/16/17 20:21 04/16/17 20:35 04/17/17 00:52 04/17/17 01:37 Bedside Glucose 154 180 Blood Gas Specimen Source Blood arterial Arterial Blood Date Drawn 04/16/2017 8:29:58 PM Arterial Blood pH (Temp corrected) 7.404 Arterial Blood pCO2 (Temp correct) 37.4 Arterial Blood pO2 (Temp corrected) 62.3 L Arterial Blood HCO3 22.9 Arterial Blood Base Excess -1.5 Arterial Blood Oxygen Saturation 90.8 L Steve Test ACCEPTAB Arterial Blood Gas Puncture Site Right Radial Arterial Blood Carboxyhemoglobin 0.4 Arterial Blood Methemoglobin 0.2 Blood Gas A-a O2 Differential 179.9 H Oxyhemoglobin Percent 90.3 L Total Hemoglobin 13.0 Blood Gas Temperature 37.0 Blood Gas Respiration Rate 16.0 Blood Gas Actual Respiration Rate 20 Blood Gas Modality VENT - AC FiO2 40.0 Blood Gas Tidal Volume 500.0 Blood Gas Low PEEP Setting 5.0 Blood Gas Inspiratory Pressure 24.0 Blood Gas Notified Whom BR Blood Gas Notified Time 04/16/2017 8:40:45 PM White Blood Count 24.8 H Red Blood Count 3.75 L Hemoglobin 11.3 L Hematocrit 35.8 L Mean Corpuscular Volume 95.5 Mean Corpuscular Hemoglobin 30.1 Mean Corpuscular Hemoglobin Concent 31.6 L Red Cell Distribution Width 21.8 H Platelet Count 342 Mean Platelet Volume 11.4 H Neutrophils % 87.2 H Lymphocytes % 5.0 L Monocytes % 1.9 Eosinophils % 5.0 Basophils % 0.2 Nucleated Red Blood Cells % 0.0 Neutrophils # 21.6 H Lymphocytes # 1.3 Monocytes # 0.5 Eosinophils # 1.3 H Basophils # 0.1 Nucleated Red Blood Cells # 0.0 Prothrombin Time 20.3 H Prothrombin Time Ratio 1.6 INR International Normalized Ratio 1.70 Activated Partial Thromboplast Time 40.2 H Sodium Level 143 Potassium Level 3.7 Chloride Level 103 Carbon Dioxide Level 22 Anion Gap 22 H Blood Urea Nitrogen 57 H Creatinine 10.47 H Glucose Level 170 Calcium Level 9.2 Phosphorus Level 5.7 H Magnesium Level 2.3 Total Bilirubin 0.2 Direct Bilirubin 0.00 Indirect Bilirubin 0.2 Gamma Glutamyl Transpeptidase 299 H Aspartate Amino Transf (AST/SGOT) 90 H Alanine Aminotransferase (ALT/SGPT) 65 Alkaline Phosphatase 396 H Total Protein 7.8 Albumin 3.3 Globulin 4.50 H Albumin/Globulin Ratio 0.73 Amylase Level 75 Lipase 95 Test 04/17/17 05:25 04/17/17 05:29 04/17/17 05:30 04/17/17 06:00 Lab Scanned Report BLOOD TRANSFUSION Bedside Glucose 178 White Blood Count 22.8 H Red Blood Count 3.57 L Hemoglobin 10.9 L Hematocrit 34.5 L Mean Corpuscular Volume 96.6 Mean Corpuscular Hemoglobin 30.5 Mean Corpuscular Hemoglobin Concent 31.6 L Red Cell Distribution Width 21.5 H Platelet Count 331 Mean Platelet Volume 11.4 H Neutrophils % 84.0 H Lymphocytes % 5.0 L Monocytes % 1.6 Eosinophils % 8.4 H Basophils % 0.2 Nucleated Red Blood Cells % 0.0 Neutrophils # 19.2 H Lymphocytes # 1.1 Monocytes # 0.4 Eosinophils # 1.9 H Basophils # 0.0 Nucleated Red Blood Cells # 0.0 Prothrombin Time 20.0 H Prothrombin Time Ratio 1.6 INR International Normalized Ratio 1.67 Activated Partial Thromboplast Time 42.0 H Blood Gas Specimen Source Blood arterial Arterial Blood Date Drawn 04/17/2017 5:33:53 AM Arterial Blood pH (Temp corrected) 7.380 Arterial Blood pCO2 (Temp correct) 36.9 Arterial Blood pO2 (Temp corrected) 87.3 Arterial Blood HCO3 21.3 L Arterial Blood Base Excess -3.3 L Arterial Blood Oxygen Saturation 95.8 Steve Test N/A Arterial Blood Gas Puncture Site A-Line Arterial Blood Carboxyhemoglobin 0.3 Arterial Blood Methemoglobin 0 Blood Gas A-a O2 Differential 155.5 H Oxyhemoglobin Percent 95.5 Total Hemoglobin 12.3 Blood Gas Temperature 37.0 Blood Gas Respiration Rate 16.0 Blood Gas Actual Respiration Rate 16 Blood Gas Modality VENT - AC FiO2 40.0 Blood Gas Tidal Volume 500.0 Blood Gas Low PEEP Setting 5.0 Blood Gas Inspiratory Pressure 29.0 Blood Gas Notified Whom BR Blood Gas Notified Time 04/17/2017 5:38:35 AM Medications Medications Current Medications Norepinephrine/ Dextrose (Levophed/D5W) 500 ml @ 1.87 mls/hr TITRATE IV Last administered on 04/17/17 06:52; Admin Dose 24.37 MLS/HR; Start 04/13/17 at 12 :30 IV Flush 10 ml 10 ml PRN PRN IV IV PROTOCOL; Start 04/15/17 at 13:00 Dobutamine HCl/ Dextrose 250 ml @ 13.5 mls/hr TITRATE IV Last administered on 04/16/17 20:23; Admin Dose 10.8 MLS/HR; Start 04/16/17 at 04:00 Acetaminophen 650 mg 650 mg Q4H PRN GTB PAIN AND OR ELEVATED TEMP Last administered on 04/16/17 02:21; Admin Dose 650 MG; Start 04/16/17 at 01:00 Piperacillin Sod/ Tazobactam Sod (Zosyn 2.25gm/ 50ml (Pmx)) 50 ml @ 100 mls/hr Q8 IVPB Last administered on 04/17/17 06:08; Admin Dose 100 MLS/HR; Start at 11:30 Insulin Glargine (Lantus) 18 unit DAILY@08 SC Last administered on 04/16/17 12:30; Admin Dose 18 UNIT; Start 04/16/17 at 11:30 Diagnostic Test (Pha) (Accu-Chek) 1 ea 02 XX Last administered on 04/17/17 01 :48; Admin Dose 1 EA; Start 04/17/17 at 02:00 Insulin Aspart (Novolog Insulin Pen) NOVOLOG *MODERATE* ALGORI... Q4 SC Last administered on 04/17/17 05:56; Admin Dose 2 UNIT; Start 04/16/17 at 13:00 Miscellaneous Information 1 ea NOTE XX ; Start 04/16/17 at 11:30 Glucose (Glutose) 15 gm Q15M PRN PO DECREASED GLUCOSE; Start 04/16/17 at 11:30 Glucose (Glutose) 22.5 gm Q15M PRN PO DECREASED GLUCOSE; Start 04/16/17 at 11: 30 Dextrose (D50w Syringe) 25 ml Q15M PRN IV DECREASED GLUCOSE; Start 04/16/17 at 11:30 Dextrose (D50w Syringe) 50 ml Q15M PRN IV DECREASED GLUCOSE; Start 04/16/17 at 11:30 Glucagon (Glucagen) 1 mg Q15M PRN IM DECREASED GLUCOSE; Start 04/16/17 at 11: 30 Glucose 15 gm 15 gm Q15M PRN BUCCAL DECREASED GLUCOSE; Start 04/16/17 at 11:30 Dextrose/Sodium Chloride 500 ml @ 20 mls/hr Q24H IV Last administered on 04/16 20:26; Admin Dose 20 MLS/HR; Start 04/16/17 at 19:30 Norepinephrine 250 ml @ 1.875 mls/ hr TITRATE IV Last administered on 20:52; Admin Dose 31.875 MLS/HR; Start 04/16/17 at 20:15 Acetaminophen (Ofirmev 1000mg/ 100ml Iv) 100 ml @ 400 mls/hr Q6H PRN IVPB FEVER Last administered on 04/16/17 20:43; Admin Dose 400 MLS/HR; Start 04/16 at 20:30 AUREA ANNE Apr 17, 2017 07:18
--- NOTE | 2017-04-17 07:43 | RADRPT ---
PROCEDURE: XR Chest. CLINICAL INDICATION: one legacy, intubation TECHNIQUE: AP Portable chest. COMPARISON: DR ALCANTAR CHEST 04/17/2017; CHEST 04/16/2017 FINDINGS: The endotracheal tube is in satisfactory position. Pacemaker device overlies the lateral right chest . The cardiomediastinal silhouette is enlarged. There is tubing artifact over the left chest. The lung volumes are low. There is no evidence of a pneumothorax. Retrocardiac opacity is again seen. The le ft hemidiaphragm and costophrenic angle are obscured. The osseous structures are intact. IMPRESSION: Endotracheal tube in satisfactory position. Low lung volumes. Left basilar infiltrate or atelectasis. Cardiomegaly. Physician Maira Date Time Electronically viewed and signed by Physician Maira on 04/17/2017 07:42 CS/
[2017-04-17] MEDS ORDERED: INSULIN GLARGINE [LANtus] 3 ML PEN SC SCH (08:00)
[2017-04-17] MEDS: INSULIN GLARGINE [LANtus] 3 ML PEN SC SCH (08:35)
--- NOTE | 2017-04-17 08:38 | CONS ---
Date/Time of Note Date/Time of Note DATE: 04/17/17 TIME: 08:35 Assessment/Plan Assessment/Plan Additional Assessment/Plan Chest x-ray was reviewed from today which is showing minimal left lower lobe subsegmental atelectasis. Patient is currently on dobutamine drip at 2 mics per kilogram per minute. Assessment and recommendations; 1. Patient admitted for cardiac arrest with ensuing severe anoxic encephalopathy. Currently being evaluated for possible organ harvestation. 2. Prior episodes of multiple cardiac arrests at previous hospital. 3. Chronic renal failure, on hemodialysis. 4. History of chronic anemia. Continue current supportive care. Consultation Date/Type/Reason Admit Date/Time Apr 06, 2017 at 10:58 Initial Consult Date 04/07/17 Type of Consultation: Pulmonary/critical care Referring Provider: LACY RAMÍREZ NP 24 HR Interval Summary Free Text/Dictation Patient's condition remains critical. Remains unresponsive. Patient however has remained hemodynamically stable. General exam; young male, orally intubated, unresponsive, currently in no distress. Exam/Review of Systems Vital Signs Vitals Vital Signs Date Time Temp Pulse Resp B/P Pulse Ox O2 Delivery O2 Flow Rate FiO2 04/17/17 07:00 111 16 141/45 99 04/17/17 04:57 40 04/17/17 04:00 98.0 Mechanical Ventilator Intake and Output 04/16/17 04/16/17 04/17/17 15:00 23:00 07:00 Intake Total 168.00 ml 976.6 ml 558.77 ml Output Total 0 ml 0 ml 0 ml Balance 168.00 ml 976.6 ml 558.77 ml Exam HEENT exam; supple neck, no JVD. No lymphadenopathy. Midline trachea. No thyromegaly. Patient is orally intubated. There is a faint left corneal opacity. Chest exam; clear to auscultation. S1-S2 audible, no murmurs. Regular rhythm. Pacemaker in right upper chest wall. Abdomen exam; soft, nondistended. Bowel sounds are sluggish. No organomegaly. Extremity exam; no edema. [employer] exam; patient remains unresponsive. Results Result Diagram: 04/17/17 0530 04/17/17 0530 Results 24 hrs Laboratory Tests Test 04/16/17 11:08 04/16/17 12:17 04/16/17 17:57 04/16/17 18:59 White Blood Count 8.7 23.1 #H Red Blood Count 2.92 L 3.67 #L Hemoglobin 8.9 L 11.1 #L Hematocrit 28.2 L 35.0 #L Mean Corpuscular Volume 96.6 95.4 Mean Corpuscular Hemoglobin 30.5 30.2 Mean Corpuscular Hemoglobin Concent 31.6 L 31.7 L Red Cell Distribution Width 21.8 H 22.0 H Platelet Count 254 345 # Mean Platelet Volume 11.5 H 11.3 H Neutrophils % 70.7 Lymphocytes % 20.0 Monocytes % 6.2 Eosinophils % 2.3 Basophils % 0.3 Nucleated Red Blood Cells % 0.0 0.0 Neutrophils # 6.1 Lymphocytes # 1.7 Monocytes # 0.5 Eosinophils # 0.2 Basophils # 0.0 Nucleated Red Blood Cells # 0.0 Prothrombin Time 18.2 H 18.9 H Prothrombin Time Ratio 1.4 1.5 INR International Normalized Ratio 1.48 1.55 Activated Partial Thromboplast Time 37.5 H 34.0 Sodium Level 140 141 Potassium Level 3.7 3.6 Chloride Level 98 102 Carbon Dioxide Level 26 21 Anion Gap 20 H 22 H Blood Urea Nitrogen 50 H 54 H Creatinine 9.11 H 9.09 H Glucose Level 188 171 Calcium Level 8.8 8.4 Phosphorus Level 4.8 4.8 Magnesium Level 2.4 2.1 Total Bilirubin 0.4 0.3 Direct Bilirubin 0.00 0.00 Indirect Bilirubin 0.4 0.3 Gamma Glutamyl Transpeptidase 337 H 320 H Aspartate Amino Transf (AST/SGOT) 166 H 107 H Alanine Aminotransferase (ALT/SGPT) 77 H 70 H Alkaline Phosphatase 453 H 448 H Total Protein 7.8 7.4 Albumin 3.4 3.2 L Globulin 4.40 H 4.20 H Albumin/Globulin Ratio 0.77 0.76 Amylase Level 83 68 Lipase 137 129 Bedside Glucose 184 151 Segmented Neutrophils % (Manual) 80 H Band Neutrophils % (Manual) 14 H Lymphocytes % (Manual) 4 L Monocytes % (Manual) 1 Eosinophils % (Manual) 1 Neutrophils # (Manual) 19.2 H Band Neutrophils # 3.2 H Absolute Lymphocytes (Manual) 0.9 Absolute Monocytes (Manual) 0.2 L Platelet Estimate NORMAL Giant Platelets 3 H Polychromasia 1+ Anisocytosis 1+ Test 04/16/17 20:21 04/16/17 20:35 04/17/17 00:52 04/17/17 01:37 Bedside Glucose 154 180 Blood Gas Specimen Source Blood arterial Arterial Blood Date Drawn 04/16/2017 8:29:58 PM Arterial Blood pH (Temp corrected) 7.404 Arterial Blood pCO2 (Temp correct) 37.4 Arterial Blood pO2 (Temp corrected) 62.3 L Arterial Blood HCO3 22.9 Arterial Blood Base Excess -1.5 Arterial Blood Oxygen Saturation 90.8 L Steve Test ACCEPTAB Arterial Blood Gas Puncture Site Right Radial Arterial Blood Carboxyhemoglobin 0.4 Arterial Blood Methemoglobin 0.2 Blood Gas A-a O2 Differential 179.9 H Oxyhemoglobin Percent 90.3 L Total Hemoglobin 13.0 Blood Gas Temperature 37.0 Blood Gas Respiration Rate 16.0 Blood Gas Actual Respiration Rate 20 Blood Gas Modality VENT - AC FiO2 40.0 Blood Gas Tidal Volume 500.0 Blood Gas Low PEEP Setting 5.0 Blood Gas Inspiratory Pressure 24.0 Blood Gas Notified Whom BR Blood Gas Notified Time 04/16/2017 8:40:45 PM White Blood Count 24.8 H Red Blood Count 3.75 L Hemoglobin 11.3 L Hematocrit 35.8 L Mean Corpuscular Volume 95.5 Mean Corpuscular Hemoglobin 30.1 Mean Corpuscular Hemoglobin Concent 31.6 L Red Cell Distribution Width 21.8 H Platelet Count 342 Mean Platelet Volume 11.4 H Neutrophils % 87.2 H Lymphocytes % 5.0 L Monocytes % 1.9 Eosinophils % 5.0 Basophils % 0.2 Nucleated Red Blood Cells % 0.0 Neutrophils # 21.6 H Lymphocytes # 1.3 Monocytes # 0.5 Eosinophils # 1.3 H Basophils # 0.1 Nucleated Red Blood Cells # 0.0 Prothrombin Time 20.3 H Prothrombin Time Ratio 1.6 INR International Normalized Ratio 1.70 Activated Partial Thromboplast Time 40.2 H Sodium Level 143 Potassium Level 3.7 Chloride Level 103 Carbon Dioxide Level 22 Anion Gap 22 H Blood Urea Nitrogen 57 H Creatinine 10.47 H Glucose Level 170 Calcium Level 9.2 Phosphorus Level 5.7 H Magnesium Level 2.3 Total Bilirubin 0.2 Direct Bilirubin 0.00 Indirect Bilirubin 0.2 Gamma Glutamyl Transpeptidase 299 H Aspartate Amino Transf (AST/SGOT) 90 H Alanine Aminotransferase (ALT/SGPT) 65 Alkaline Phosphatase 396 H Total Protein 7.8 Albumin 3.3 Globulin 4.50 H Albumin/Globulin Ratio 0.73 Amylase Level 75 Lipase 95 Test 04/17/17 05:25 04/17/17 05:29 04/17/17 05:30 04/17/17 06:00 Lab Scanned Report BLOOD TRANSFUSION Bedside Glucose 178 White Blood Count 22.8 H Red Blood Count 3.57 L Hemoglobin 10.9 L Hematocrit 34.5 L Mean Corpuscular Volume 96.6 Mean Corpuscular Hemoglobin 30.5 Mean Corpuscular Hemoglobin Concent 31.6 L Red Cell Distribution Width 21.5 H Platelet Count 331 Mean Platelet Volume 11.4 H Neutrophils % 84.0 H Lymphocytes % 5.0 L Monocytes % 1.6 Eosinophils % 8.4 H Basophils % 0.2 Nucleated Red Blood Cells % 0.0 Neutrophils # 19.2 H Lymphocytes # 1.1 Monocytes # 0.4 Eosinophils # 1.9 H Basophils # 0.0 Nucleated Red Blood Cells # 0.0 Prothrombin Time 20.0 H Prothrombin Time Ratio 1.6 INR International Normalized Ratio 1.67 Activated Partial Thromboplast Time 42.0 H Sodium Level 143 Potassium Level 3.7 Chloride Level 103 Carbon Dioxide Level 22 Anion Gap 22 H Blood Urea Nitrogen 60 H Creatinine 10.74 H Glucose Level 186 Calcium Level 9.2 Phosphorus Level 6.2 H Magnesium Level 2.3 Total Bilirubin 0.2 Direct Bilirubin 0.00 Indirect Bilirubin 0.2 Gamma Glutamyl Transpeptidase 267 H Aspartate Amino Transf (AST/SGOT) 85 H Alanine Aminotransferase (ALT/SGPT) 66 Alkaline Phosphatase 368 H Total Protein 7.7 Albumin 3.2 L Globulin 4.50 H Albumin/Globulin Ratio 0.71 Amylase Level 69 Lipase 68 Blood Gas Specimen Source Blood arterial Arterial Blood Date Drawn 04/17/2017 5:33:53 AM Arterial Blood pH (Temp corrected) 7.380 Arterial Blood pCO2 (Temp correct) 36.9 Arterial Blood pO2 (Temp corrected) 87.3 Arterial Blood HCO3 21.3 L Arterial Blood Base Excess -3.3 L Arterial Blood Oxygen Saturation 95.8 Steve Test N/A Arterial Blood Gas Puncture Site A-Line Arterial Blood Carboxyhemoglobin 0.3 Arterial Blood Methemoglobin 0 Blood Gas A-a O2 Differential 155.5 H Oxyhemoglobin Percent 95.5 Total Hemoglobin 12.3 Blood Gas Temperature 37.0 Blood Gas Respiration Rate 16.0 Blood Gas Actual Respiration Rate 16 Blood Gas Modality VENT - AC FiO2 40.0 Blood Gas Tidal Volume 500.0 Blood Gas Low PEEP Setting 5.0 Blood Gas Inspiratory Pressure 29.0 Blood Gas Notified Whom BR Blood Gas Notified Time 04/17/2017 5:38:35 AM Medications Medications Current Medications Norepinephrine/ Dextrose (Levophed/D5W) 500 ml @ 1.87 mls/hr TITRATE IV Last administered on 04/17/17 06:52; Admin Dose 24.37 MLS/HR; Start 04/13/17 at 12 :30 IV Flush 10 ml 10 ml PRN PRN IV IV PROTOCOL; Start 04/15/17 at 13:00 Dobutamine HCl/ Dextrose 250 ml @ 13.5 mls/hr TITRATE IV Last administered on 04/16/17 20:23; Admin Dose 10.8 MLS/HR; Start 04/16/17 at 04:00 Acetaminophen 650 mg 650 mg Q4H PRN GTB PAIN AND OR ELEVATED TEMP Last administered on 04/16/17 02:21; Admin Dose 650 MG; Start 04/16/17 at 01:00 Piperacillin Sod/ Tazobactam Sod (Zosyn 2.25gm/ 50ml (Pmx)) 50 ml @ 100 mls/hr Q8 IVPB Last administered on 04/17/17 06:08; Admin Dose 100 MLS/HR; Start at 11:30 Insulin Glargine (Lantus) 18 unit DAILY@08 SC Last administered on 04/16/17 12:30; Admin Dose 18 UNIT; Start 04/16/17 at 11:30 Diagnostic Test (Pha) (Accu-Chek) 1 ea 02 XX Last administered on 04/17/17 01 :48; Admin Dose 1 EA; Start 04/17/17 at 02:00 Insulin Aspart (Novolog Insulin Pen) NOVOLOG *MODERATE* ALGORI... Q4 SC Last administered on 04/17/17 05:56; Admin Dose 2 UNIT; Start 04/16/17 at 13:00 Miscellaneous Information 1 ea NOTE XX ; Start 04/16/17 at 11:30 Glucose (Glutose) 15 gm Q15M PRN PO DECREASED GLUCOSE; Start 04/16/17 at 11:30 Glucose (Glutose) 22.5 gm Q15M PRN PO DECREASED GLUCOSE; Start 04/16/17 at 11: 30 Dextrose (D50w Syringe) 25 ml Q15M PRN IV DECREASED GLUCOSE; Start 04/16/17 at 11:30 Dextrose (D50w Syringe) 50 ml Q15M PRN IV DECREASED GLUCOSE; Start 04/16/17 at 11:30 Glucagon (Glucagen) 1 mg Q15M PRN IM DECREASED GLUCOSE; Start 04/16/17 at 11: 30 Glucose 15 gm 15 gm Q15M PRN BUCCAL DECREASED GLUCOSE; Start 04/16/17 at 11:30 Dextrose/Sodium Chloride 500 ml @ 20 mls/hr Q24H IV Last administered on 04/16 20:26; Admin Dose 20 MLS/HR; Start 04/16/17 at 19:30 Acetaminophen (Ofirmev 1000mg/ 100ml Iv) 100 ml @ 400 mls/hr Q6H PRN IVPB FEVER Last administered on 04/16/17 20:43; Admin Dose 400 MLS/HR; Start 04/16 at 20:30 BLAINE LOYA Apr 17, 2017 08:37
[2017-04-17 12:18] LABS: ABNORMAL IP MESSAGE 1; BASOPHIL # 0.1 10^3/ul (0.0-0.1); BASOPHILS % 0.2 % (0.0-2.0); EOSINOPHILS # 2.6 10^3/ul (0.0-0.5); EOSINOPHILS % 11.7 % (0.0-7.0); HEMATOCRIT 32.6 % (42.0-52.0); HEMOGLOBIN 10.3 g/dl (14.0-18.0); LYMPHOCYTES # 0.8 10^3/ul (0.8-2.9); LYMPHOCYTES % 3.6 % (15.0-51.0); MEAN CORPUSCULAR HEMOGLOBIN 30.5 pg (29.0-33.0); MEAN CORPUSCULAR HGB CONC 31.6 g/dl (32.0-37.0); MEAN CORPUSCULAR VOLUME 96.4 fl (82.0-101.0); MEAN PLATELET VOLUME 11.2 fl (7.4-10.4); MONOCYTE # 0.4 10^3/ul (0.3-0.9); MONOCYTES % 1.9 % (0.0-11.0); NEUTROPHIL # 18.4 10^3/ul (1.6-7.5); NEUTROPHILS % 81.7 % (39.0-77.0); PLATELET COUNT 318 10^3/UL (140-415); POSITIVE DIFF @See below; RED BLOOD COUNT 3.38 10^6/ul (4.70-6.10); RED CELL DISTRIBUTION WIDTH 21.6 % (11.5-14.5); WHITE BLOOD COUNT 22.5 10^3/ul (4.8-10.8)
[2017-04-17 12:31] LABS: INR 1.7; PROTIME 20.3 Sec (11.9-14.9); PT RATIO 1.6
[2017-04-17 12:45] LABS: ALBUMIN 3.1 g/dl (3.3-4.9); ALBUMIN/GLOBULIN RATIO 0.77; BILIRUBIN,INDIRECT 0.1 mg/dl (0-1.1); BILIRUBIN,TOTAL 0.1 mg/dl (0.2-1.3); CALCIUM 8.7 mg/dl (8.4-10.2); CREATININE 10.56 mg/dl (0.61-1.24); MAGNESIUM 2.2 mg/dl (1.7-2.5); PHOSPHORUS 6.1 mg/dl (2.5-4.9); POTASSIUM 4.1 mmol/L (3.5-5.1); TOTAL PROTEIN 7.1 g/dl (6.1-8.1)
--- NOTE | 2017-04-17 13:01 | RADRPT ---
PROCEDURE: XR Chest. CLINICAL INDICATION: Shortness of breath TECHNIQUE: Single portable view of the chest was obtained COMPARISON: DR ALCANTAR CHEST 04/17/2017 FINDINGS: There is an ET tube with distal tip below thoracic inlet.. The cardiac silhouette is enlarged and pu lmonary vascularity are mildly prominent. The lungs are clear. The costophrenic angles are sharp. Th ere is a dual lead right-sided pacer device. IMPRESSION: 1. ET tube in satisfactory position. 2. Cardiomegaly and mild pulmonary vascular congestion. Findings are improved since prior exam. RPTAT: AAPP Physician Juan Date Time Electronically viewed and signed by Physician Juan on 04/17/2017 13:01 JL/
--- NOTE | 2017-04-17 14:13 | PN ---
Date/Time of Note Date/Time of Note DATE: 04/17/17 TIME: 14:12 Assessment/Plan VTE Prophylaxis VTE Prophylaxis Intervention: LMWH Lines/Catheters IV Catheter Type (from Nrs): A Line Urinary Cath still in place: No Assessment/Plan Chief Complaint/Hosp Course 47 yo male wtih ESRD who suffered cardiac arrest with ROSC, poor neurologic status, pending organ donation in OR and palliative extubation - Continue HD per renal - Continue vasopressors as needed for MAP > 65 - Vanco/zosyn - Tube feeds - Plan for organ harvesting per [facility] and palliative extubation Problems: Subjective 24 Hr Interval Summary Free Text/Dictation [facility] in charge of organ harvestion prior to palliative extubation Febrile overnight Exam/Review of Systems Vital Signs Vitals Vital Signs Date Time Temp Pulse Resp B/P Pulse Ox O2 Delivery O2 Flow Rate FiO2 04/17/17 13:30 119 20 101/54 97 Mechanical Ventilator 04/17/17 12:00 98.9 04/17/17 12:00 40 Intake and Output 04/16/17 04/16/17 04/17/17 15:00 23:00 07:00 Intake Total 168.00 ml 976.6 ml 593.57 ml Output Total 0 ml 0 ml 0 ml Balance 168.00 ml 976.6 ml 593.57 ml Results Result Diagram: 04/17/17 1200 04/17/17 1200 Results 24 hrs Laboratory Tests Test 04/16/17 17:57 04/16/17 18:59 04/16/17 20:21 04/16/17 20:35 White Blood Count 23.1 #H Red Blood Count 3.67 #L Hemoglobin 11.1 #L Hematocrit 35.0 #L Mean Corpuscular Volume 95.4 Mean Corpuscular Hemoglobin 30.2 Mean Corpuscular Hemoglobin Concent 31.7 L Red Cell Distribution Width 22.0 H Platelet Count 345 # Mean Platelet Volume 11.3 H Neutrophils % Segmented Neutrophils % (Manual) 80 H Band Neutrophils % (Manual) 14 H Lymphocytes % Lymphocytes % (Manual) 4 L Monocytes % Monocytes % (Manual) 1 Eosinophils % Eosinophils % (Manual) 1 Basophils % Nucleated Red Blood Cells % 0.0 Neutrophils # Neutrophils # (Manual) 19.2 H Band Neutrophils # 3.2 H Absolute Lymphocytes (Manual) 0.9 Lymphocytes # Monocytes # Absolute Monocytes (Manual) 0.2 L Eosinophils # Basophils # Nucleated Red Blood Cells # Platelet Estimate NORMAL Giant Platelets 3 H Polychromasia 1+ Anisocytosis 1+ Prothrombin Time 18.9 H Prothrombin Time Ratio 1.5 INR International Normalized Ratio 1.55 Activated Partial Thromboplast Time 34.0 Sodium Level 141 Potassium Level 3.6 Chloride Level 102 Carbon Dioxide Level 21 Anion Gap 22 H Blood Urea Nitrogen 54 H Creatinine 9.09 H Glucose Level 171 Calcium Level 8.4 Phosphorus Level 4.8 Magnesium Level 2.1 Total Bilirubin 0.3 Direct Bilirubin 0.00 Indirect Bilirubin 0.3 Gamma Glutamyl Transpeptidase 320 H Aspartate Amino Transf (AST/SGOT) 107 H Alanine Aminotransferase (ALT/SGPT) 70 H Alkaline Phosphatase 448 H Total Protein 7.4 Albumin 3.2 L Globulin 4.20 H Albumin/Globulin Ratio 0.76 Amylase Level 68 Lipase 129 Bedside Glucose 151 154 Blood Gas Specimen Source Blood arterial Arterial Blood Date Drawn 04/16/2017 8:29:58 PM Arterial Blood pH (Temp corrected) 7.404 Arterial Blood pCO2 (Temp correct) 37.4 Arterial Blood pO2 (Temp corrected) 62.3 L Arterial Blood HCO3 22.9 Arterial Blood Base Excess -1.5 Arterial Blood Oxygen Saturation 90.8 L Steve Test ACCEPTAB Arterial Blood Gas Puncture Site Right Radial Arterial Blood Carboxyhemoglobin 0.4 Arterial Blood Methemoglobin 0.2 Blood Gas A-a O2 Differential 179.9 H Oxyhemoglobin Percent 90.3 L Total Hemoglobin 13.0 Blood Gas Temperature 37.0 Blood Gas Respiration Rate 16.0 Blood Gas Actual Respiration Rate 20 Blood Gas Modality VENT - AC FiO2 40.0 Blood Gas Tidal Volume 500.0 Blood Gas Low PEEP Setting 5.0 Blood Gas Inspiratory Pressure 24.0 Blood Gas Notified Whom BR Blood Gas Notified Time 04/16/2017 8:40:45 PM Test 04/17/17 00:52 04/17/17 01:37 04/17/17 05:25 04/17/17 05:29 White Blood Count 24.8 H Red Blood Count 3.75 L Hemoglobin 11.3 L Hematocrit 35.8 L Mean Corpuscular Volume 95.5 Mean Corpuscular Hemoglobin 30.1 Mean Corpuscular Hemoglobin Concent 31.6 L Red Cell Distribution Width 21.8 H Platelet Count 342 Mean Platelet Volume 11.4 H Neutrophils % 87.2 H Lymphocytes % 5.0 L Monocytes % 1.9 Eosinophils % 5.0 Basophils % 0.2 Nucleated Red Blood Cells % 0.0 Neutrophils # 21.6 H Lymphocytes # 1.3 Monocytes # 0.5 Eosinophils # 1.3 H Basophils # 0.1 Nucleated Red Blood Cells # 0.0 Prothrombin Time 20.3 H Prothrombin Time Ratio 1.6 INR International Normalized Ratio 1.70 Activated Partial Thromboplast Time 40.2 H Sodium Level 143 Potassium Level 3.7 Chloride Level 103 Carbon Dioxide Level 22 Anion Gap 22 H Blood Urea Nitrogen 57 H Creatinine 10.47 H Glucose Level 170 Calcium Level 9.2 Phosphorus Level 5.7 H Magnesium Level 2.3 Total Bilirubin 0.2 Direct Bilirubin 0.00 Indirect Bilirubin 0.2 Gamma Glutamyl Transpeptidase 299 H Aspartate Amino Transf (AST/SGOT) 90 H Alanine Aminotransferase (ALT/SGPT) 65 Alkaline Phosphatase 396 H Total Protein 7.8 Albumin 3.3 Globulin 4.50 H Albumin/Globulin Ratio 0.73 Amylase Level 75 Lipase 95 Bedside Glucose 180 178 Lab Scanned Report BLOOD TRANSFUSION Test 04/17/17 05:30 04/17/17 06:00 04/17/17 08:30 04/17/17 12:00 White Blood Count 22.8 H 22.5 H Red Blood Count 3.57 L 3.38 L Hemoglobin 10.9 L 10.3 L Hematocrit 34.5 L 32.6 L Mean Corpuscular Volume 96.6 96.4 Mean Corpuscular Hemoglobin 30.5 30.5 Mean Corpuscular Hemoglobin Concent 31.6 L 31.6 L Red Cell Distribution Width 21.5 H 21.6 H Platelet Count 331 318 Mean Platelet Volume 11.4 H 11.2 H Neutrophils % 84.0 H 81.7 H Lymphocytes % 5.0 L 3.6 L Monocytes % 1.6 1.9 Eosinophils % 8.4 H 11.7 H Basophils % 0.2 0.2 Nucleated Red Blood Cells % 0.0 0.0 Neutrophils # 19.2 H 18.4 H Lymphocytes # 1.1 0.8 Monocytes # 0.4 0.4 Eosinophils # 1.9 H 2.6 H Basophils # 0.0 0.1 Nucleated Red Blood Cells # 0.0 0.0 Prothrombin Time 20.0 H 20.3 H Prothrombin Time Ratio 1.6 1.6 INR International Normalized Ratio 1.67 1.70 Activated Partial Thromboplast Time 42.0 H 41.0 H Sodium Level 143 139 Potassium Level 3.7 4.1 Chloride Level 103 101 Carbon Dioxide Level 22 21 Anion Gap 22 H 21 H Blood Urea Nitrogen 60 H 60 H Creatinine 10.74 H 10.56 H Glucose Level 186 309 H Calcium Level 9.2 8.7 Phosphorus Level 6.2 H 6.1 H Magnesium Level 2.3 2.2 Total Bilirubin 0.2 0.1 L Direct Bilirubin 0.00 0.00 Indirect Bilirubin 0.2 0.1 Gamma Glutamyl Transpeptidase 267 H 250 H Aspartate Amino Transf (AST/SGOT) 85 H 82 H Alanine Aminotransferase (ALT/SGPT) 66 66 Alkaline Phosphatase 368 H 299 H Total Protein 7.7 7.1 Albumin 3.2 L 3.1 L Globulin 4.50 H 4.00 H Albumin/Globulin Ratio 0.71 0.77 Amylase Level 69 56 Lipase 68 54 Blood Gas Specimen Source Blood arterial Arterial Blood Date Drawn 04/17/2017 5:33:53 AM Arterial Blood pH (Temp corrected) 7.380 Arterial Blood pCO2 (Temp correct) 36.9 Arterial Blood pO2 (Temp corrected) 87.3 Arterial Blood HCO3 21.3 L Arterial Blood Base Excess -3.3 L Arterial Blood Oxygen Saturation 95.8 Steve Test N/A Arterial Blood Gas Puncture Site A-Line Arterial Blood Carboxyhemoglobin 0.3 Arterial Blood Methemoglobin 0 Blood Gas A-a O2 Differential 155.5 H Oxyhemoglobin Percent 95.5 Total Hemoglobin 12.3 Blood Gas Temperature 37.0 Blood Gas Respiration Rate 16.0 Blood Gas Actual Respiration Rate 16 Blood Gas Modality VENT - AC FiO2 40.0 Blood Gas Tidal Volume 500.0 Blood Gas Low PEEP Setting 5.0 Blood Gas Inspiratory Pressure 29.0 Blood Gas Notified Whom BR Blood Gas Notified Time 04/17/2017 5:38:35 AM Bedside Glucose 169 Test 04/17/17 12:05 Bedside Glucose 216 Medications Medications Current Medications Norepinephrine/ Dextrose (Levophed/D5W) 500 ml @ 1.87 mls/hr TITRATE IV Last administered on 04/17/17t 06:52; Admin Dose 24.37 MLS/HR; Start 04/13/17 at 12 :30 IV Flush 10 ml 10 ml PRN PRN IV IV PROTOCOL; Start 04/15/17 at 13:00 Dobutamine HCl/ Dextrose 250 ml @ 13.5 mls/hr TITRATE IV Last administered on 04/16/17 20:23; Admin Dose 10.8 MLS/HR; Start 04/16/17 at 04:00 Acetaminophen 650 mg 650 mg Q4H PRN GTB PAIN AND OR ELEVATED TEMP Last administered on 04/16/17 02:21; Admin Dose 650 MG; Start 04/16/17 at 01:00 Piperacillin Sod/ Tazobactam Sod (Zosyn 2.25gm/ 50ml (Pmx)) 50 ml @ 100 mls/hr Q8 IVPB Last administered on 04/17/17 14:10; Admin Dose 100 MLS/HR; Start at 11:30 Insulin Glargine (Lantus) 18 unit DAILY@08 SC Last administered on 04/17/17 08:35; Admin Dose 18 UNIT; Start 04/16/17 at 11:30 Diagnostic Test (Pha) (Accu-Chek) 1 ea 02 XX Last administered on 04/17/17 01 :48; Admin Dose 1 EA; Start 04/17/17 at 02:00 Insulin Aspart (Novolog Insulin Pen) NOVOLOG *MODERATE* ALGORI... Q4 SC Last administered on 04/17/17 12:09; Admin Dose 4 UNIT; Start 04/16/17 at 13:00 Miscellaneous Information 1 ea NOTE XX ; Start 04/16/17 at 11:30 Glucose (Glutose) 15 gm Q15M PRN PO DECREASED GLUCOSE; Start 04/16/17 at 11:30 Glucose (Glutose) 22.5 gm Q15M PRN PO DECREASED GLUCOSE; Start 04/16/17 at 11: 30 Dextrose (D50w Syringe) 25 ml Q15M PRN IV DECREASED GLUCOSE; Start 04/16/17 at 11:30 Dextrose (D50w Syringe) 50 ml Q15M PRN IV DECREASED GLUCOSE; Start 04/16/17 at 11:30 Glucagon (Glucagen) 1 mg Q15M PRN IM DECREASED GLUCOSE; Start 04/16/17 at 11: 30 Glucose 15 gm 15 gm Q15M PRN BUCCAL DECREASED GLUCOSE; Start 04/16/17 at 11:30 Dextrose/Sodium Chloride 500 ml @ 20 mls/hr Q24H IV Last administered on 04/16 20:26; Admin Dose 20 MLS/HR; Start 04/16/17 at 19:30 Acetaminophen (Ofirmev 1000mg/ 100ml Iv) 100 ml @ 400 mls/hr Q6H PRN IVPB FEVER Last administered on 04/16/17t 20:43; Admin Dose 400 MLS/HR; Start 04/16 at 20:30 SAUL CONTRERAS MD Apr 17, 2017 14:13
[2017-04-17] MEDS ORDERED: MIDAZOLAM (DRIP) 50 mg/50 mL 50 ML IV ONE (14:59)
[2017-04-17] MEDS ORDERED: ENOXAPARIN 100 MG/ML SYG SC ONE (16:00)
--- NOTE | 2017-04-17 16:26 | CONS ---
Date/Time of Note Date/Time of Note DATE: 04/17/17 TIME: 16:18 Consult Date/Type/Reason Admit Date/Time Apr 06, 2017 at 10:58 Initial Consult Date 04/07/17 Type of Consultation: cv Ordering Provider: LACY RAMÍREZ NP Subjective cardiology follow up note: S: D/ W staff and rhythm was reviewed pt has been hypotensive and started on levophed again he remains intubated and nonresponsive in ICU BP HAS BEEN low and is l on dobutamine pt is nonverbal O: General: s/p intubation on vent HEENT: NC/AT. pupils are round. NECK: NO JVD. no stridor. CV: RRR. systolic murmur; no gallop or rubs. PULM: no wheezing or rhonchi. GI: SOFT, NT, ND, no rebound or guarding Extremity: trace B/L LE edema. no clubbing. neuro: does not respond Psych: calm rectal: deferred echo reviewed personally: 1. Normal left ventricular cavity size. Mild concentric left ventricular hypertrophy. Mild global left ventricular systolic dysfunction. Ejection fraction is visually estimated at 45 %. Tissue Doppler/Mitral Doppler indices are consistent with impaired relaxation (Stage I diastolic dysfunction). 2. Normal appearance and function of the mitral valve with trace physiologic regurgitation. 3. Normal appearance of the aortic valve. No significant aortic stenosis or insufficiency. 4. Normal appearance of the tricuspid valve. Estimated peak PA systolic pressure 26 mmHg. There is trace tricuspid regurgitation. 5. Dilated IVC without respiratory collapse, however, patient on ventilator. 6. Moderate pericardial effusion. Objective Vital Signs Date Time Temp Pulse Resp B/P Pulse Ox O2 Delivery O2 Flow Rate FiO2 04/17/17 13:30 119 20 101/54 97 Mechanical Ventilator 04/17/17 12:00 98.9 04/17/17 12:00 40 Intake and Output 04/16/17 04/16/17 04/17/17 15:00 23:00 07:00 Intake Total 168.00 ml 976.6 ml 593.57 ml Output Total 0 ml 0 ml 0 ml Balance 168.00 ml 976.6 ml 593.57 ml Results/Medications Result Diagram: 04/17/17 1200 04/17/17 1200 Results 24 hrs Laboratory Tests Test 04/16/17 17:57 04/16/17 18:59 04/16/17 20:21 04/16/17 20:35 White Blood Count 23.1 #H Red Blood Count 3.67 #L Hemoglobin 11.1 #L Hematocrit 35.0 #L Mean Corpuscular Volume 95.4 Mean Corpuscular Hemoglobin 30.2 Mean Corpuscular Hemoglobin Concent 31.7 L Red Cell Distribution Width 22.0 H Platelet Count 345 # Mean Platelet Volume 11.3 H Neutrophils % Segmented Neutrophils % (Manual) 80 H Band Neutrophils % (Manual) 14 H Lymphocytes % Lymphocytes % (Manual) 4 L Monocytes % Monocytes % (Manual) 1 Eosinophils % Eosinophils % (Manual) 1 Basophils % Nucleated Red Blood Cells % 0.0 Neutrophils # Neutrophils # (Manual) 19.2 H Band Neutrophils # 3.2 H Absolute Lymphocytes (Manual) 0.9 Lymphocytes # Monocytes # Absolute Monocytes (Manual) 0.2 L Eosinophils # Basophils # Nucleated Red Blood Cells # Platelet Estimate NORMAL Giant Platelets 3 H Polychromasia 1+ Anisocytosis 1+ Prothrombin Time 18.9 H Prothrombin Time Ratio 1.5 INR International Normalized Ratio 1.55 Activated Partial Thromboplast Time 34.0 Sodium Level 141 Potassium Level 3.6 Chloride Level 102 Carbon Dioxide Level 21 Anion Gap 22 H Blood Urea Nitrogen 54 H Creatinine 9.09 H Glucose Level 171 Calcium Level 8.4 Phosphorus Level 4.8 Magnesium Level 2.1 Total Bilirubin 0.3 Direct Bilirubin 0.00 Indirect Bilirubin 0.3 Gamma Glutamyl Transpeptidase 320 H Aspartate Amino Transf (AST/SGOT) 107 H Alanine Aminotransferase (ALT/SGPT) 70 H Alkaline Phosphatase 448 H Total Protein 7.4 Albumin 3.2 L Globulin 4.20 H Albumin/Globulin Ratio 0.76 Amylase Level 68 Lipase 129 Bedside Glucose 151 154 Blood Gas Specimen Source Blood arterial Arterial Blood Date Drawn 04/16/2017 8:29:58 PM Arterial Blood pH (Temp corrected) 7.404 Arterial Blood pCO2 (Temp correct) 37.4 Arterial Blood pO2 (Temp corrected) 62.3 L Arterial Blood HCO3 22.9 Arterial Blood Base Excess -1.5 Arterial Blood Oxygen Saturation 90.8 L Steve Test ACCEPTAB Arterial Blood Gas Puncture Site Right Radial Arterial Blood Carboxyhemoglobin 0.4 Arterial Blood Methemoglobin 0.2 Blood Gas A-a O2 Differential 179.9 H Oxyhemoglobin Percent 90.3 L Total Hemoglobin 13.0 Blood Gas Temperature 37.0 Blood Gas Respiration Rate 16.0 Blood Gas Actual Respiration Rate 20 Blood Gas Modality VENT - AC FiO2 40.0 Blood Gas Tidal Volume 500.0 Blood Gas Low PEEP Setting 5.0 Blood Gas Inspiratory Pressure 24.0 Blood Gas Notified Whom BR Blood Gas Notified Time 04/16/2017 8:40:45 PM Test 04/17/17 00:52 04/17/17 01:37 04/17/17 05:25 04/17/17 05:29 White Blood Count 24.8 H Red Blood Count 3.75 L Hemoglobin 11.3 L Hematocrit 35.8 L Mean Corpuscular Volume 95.5 Mean Corpuscular Hemoglobin 30.1 Mean Corpuscular Hemoglobin Concent 31.6 L Red Cell Distribution Width 21.8 H Platelet Count 342 Mean Platelet Volume 11.4 H Neutrophils % 87.2 H Lymphocytes % 5.0 L Monocytes % 1.9 Eosinophils % 5.0 Basophils % 0.2 Nucleated Red Blood Cells % 0.0 Neutrophils # 21.6 H Lymphocytes # 1.3 Monocytes # 0.5 Eosinophils # 1.3 H Basophils # 0.1 Nucleated Red Blood Cells # 0.0 Prothrombin Time 20.3 H Prothrombin Time Ratio 1.6 INR International Normalized Ratio 1.70 Activated Partial Thromboplast Time 40.2 H Sodium Level 143 Potassium Level 3.7 Chloride Level 103 Carbon Dioxide Level 22 Anion Gap 22 H Blood Urea Nitrogen 57 H Creatinine 10.47 H Glucose Level 170 Calcium Level 9.2 Phosphorus Level 5.7 H Magnesium Level 2.3 Total Bilirubin 0.2 Direct Bilirubin 0.00 Indirect Bilirubin 0.2 Gamma Glutamyl Transpeptidase 299 H Aspartate Amino Transf (AST/SGOT) 90 H Alanine Aminotransferase (ALT/SGPT) 65 Alkaline Phosphatase 396 H Total Protein 7.8 Albumin 3.3 Globulin 4.50 H Albumin/Globulin Ratio 0.73 Amylase Level 75 Lipase 95 Bedside Glucose 180 178 Lab Scanned Report BLOOD TRANSFUSION Test 04/17/17 05:30 04/17/17 06:00 04/17/17 08:30 04/17/17 12:00 White Blood Count 22.8 H 22.5 H Red Blood Count 3.57 L 3.38 L Hemoglobin 10.9 L 10.3 L Hematocrit 34.5 L 32.6 L Mean Corpuscular Volume 96.6 96.4 Mean Corpuscular Hemoglobin 30.5 30.5 Mean Corpuscular Hemoglobin Concent 31.6 L 31.6 L Red Cell Distribution Width 21.5 H 21.6 H Platelet Count 331 318 Mean Platelet Volume 11.4 H 11.2 H Neutrophils % 84.0 H 81.7 H Lymphocytes % 5.0 L 3.6 L Monocytes % 1.6 1.9 Eosinophils % 8.4 H 11.7 H Basophils % 0.2 0.2 Nucleated Red Blood Cells % 0.0 0.0 Neutrophils # 19.2 H 18.4 H Lymphocytes # 1.1 0.8 Monocytes # 0.4 0.4 Eosinophils # 1.9 H 2.6 H Basophils # 0.0 0.1 Nucleated Red Blood Cells # 0.0 0.0 Prothrombin Time 20.0 H 20.3 H Prothrombin Time Ratio 1.6 1.6 INR International Normalized Ratio 1.67 1.70 Activated Partial Thromboplast Time 42.0 H 41.0 H Sodium Level 143 139 Potassium Level 3.7 4.1 Chloride Level 103 101 Carbon Dioxide Level 22 21 Anion Gap 22 H 21 H Blood Urea Nitrogen 60 H 60 H Creatinine 10.74 H 10.56 H Glucose Level 186 309 H Calcium Level 9.2 8.7 Phosphorus Level 6.2 H 6.1 H Magnesium Level 2.3 2.2 Total Bilirubin 0.2 0.1 L Direct Bilirubin 0.00 0.00 Indirect Bilirubin 0.2 0.1 Gamma Glutamyl Transpeptidase 267 H 250 H Aspartate Amino Transf (AST/SGOT) 85 H 82 H Alanine Aminotransferase (ALT/SGPT) 66 66 Alkaline Phosphatase 368 H 299 H Total Protein 7.7 7.1 Albumin 3.2 L 3.1 L Globulin 4.50 H 4.00 H Albumin/Globulin Ratio 0.71 0.77 Amylase Level 69 56 Lipase 68 54 Blood Gas Specimen Source Blood arterial Arterial Blood Date Drawn 04/17/2017 5:33:53 AM Arterial Blood pH (Temp corrected) 7.380 Arterial Blood pCO2 (Temp correct) 36.9 Arterial Blood pO2 (Temp corrected) 87.3 Arterial Blood HCO3 21.3 L Arterial Blood Base Excess -3.3 L Arterial Blood Oxygen Saturation 95.8 Steve Test N/A Arterial Blood Gas Puncture Site A-Line Arterial Blood Carboxyhemoglobin 0.3 Arterial Blood Methemoglobin 0 Blood Gas A-a O2 Differential 155.5 H Oxyhemoglobin Percent 95.5 Total Hemoglobin 12.3 Blood Gas Temperature 37.0 Blood Gas Respiration Rate 16.0 Blood Gas Actual Respiration Rate 16 Blood Gas Modality VENT - AC FiO2 40.0 Blood Gas Tidal Volume 500.0 Blood Gas Low PEEP Setting 5.0 Blood Gas Inspiratory Pressure 29.0 Blood Gas Notified Whom BR Blood Gas Notified Time 04/17/2017 5:38:35 AM Bedside Glucose 169 Test 04/17/17 12:05 Bedside Glucose 216 Medications Current Medications Norepinephrine/ Dextrose (Levophed/D5W) 500 ml @ 1.87 mls/hr TITRATE IV Last administered on 04/17/17 06:52; Admin Dose 24.37 MLS/HR; Start 04/13/17 at 12 :30 IV Flush 10 ml 10 ml PRN PRN IV IV PROTOCOL; Start 04/15/17 at 13:00 Dobutamine HCl/ Dextrose 250 ml @ 13.5 mls/hr TITRATE IV Last administered on 04/16/17 20:23; Admin Dose 10.8 MLS/HR; Start 04/16/17 at 04:00 Acetaminophen 650 mg 650 mg Q4H PRN GTB PAIN AND OR ELEVATED TEMP Last administered on 04/16/17 02:21; Admin Dose 650 MG; Start 04/16/17 at 01:00 Piperacillin Sod/ Tazobactam Sod (Zosyn 2.25gm/ 50ml (Pmx)) 50 ml @ 100 mls/hr Q8 IVPB Last administered on 04/17/17 14:10; Admin Dose 100 MLS/HR; Start at 11:30 Insulin Glargine (Lantus) 18 unit DAILY@08 SC Last administered on 04/17/17 08:35; Admin Dose 18 UNIT; Start 04/16/17 at 11:30 Diagnostic Test (Pha) (Accu-Chek) 1 ea 02 XX Last administered on 04/17/17 01 :48; Admin Dose 1 EA; Start 04/17/17 at 02:00 Insulin Aspart (Novolog Insulin Pen) NOVOLOG *MODERATE* ALGORI... Q4 SC Last administered on 04/17/17 12:09; Admin Dose 4 UNIT; Start 04/16/17 at 13:00 Miscellaneous Information 1 ea NOTE XX ; Start 04/16/17 at 11:30 Glucose (Glutose) 15 gm Q15M PRN PO DECREASED GLUCOSE; Start 04/16/17 at 11:30 Glucose (Glutose) 22.5 gm Q15M PRN PO DECREASED GLUCOSE; Start 04/16/17 at 11: 30 Dextrose (D50w Syringe) 25 ml Q15M PRN IV DECREASED GLUCOSE; Start 04/16/17 at 11:30 Dextrose (D50w Syringe) 50 ml Q15M PRN IV DECREASED GLUCOSE; Start 04/16/17 at 11:30 Glucagon (Glucagen) 1 mg Q15M PRN IM DECREASED GLUCOSE; Start 04/16/17 at 11: 30 Glucose 15 gm 15 gm Q15M PRN BUCCAL DECREASED GLUCOSE; Start 04/16/17 at 11:30 Dextrose/Sodium Chloride 500 ml @ 20 mls/hr Q24H IV Last administered on 04/16 20:26; Admin Dose 20 MLS/HR; Start 04/16/17 at 19:30 Acetaminophen (Ofirmev 1000mg/ 100ml Iv) 100 ml @ 400 mls/hr Q6H PRN IVPB FEVER Last administered on 04/16/17 20:43; Admin Dose 400 MLS/HR; Start 04/16 at 20:30 Assessment/Plan Chief Complaint/Hosp Course 1. cardiopulm arrest: 2. hypoxemic resp failure: sp intubation and on vent 3. Moderate-sized pericardial effusion. Probably related to his renal failure. At this point I do not see signs of tamponade. 4. End-stage renal disease on dialysis Hemodialysis is being managed as per renal team. 5. Hypertension: now hypotensive 6. altered level of consciousness and encephalopathy. will defer to neuro and IM 7. anemia 8/ hx seizure; defer to neurology Recommendations: Palliative care has been consulted. family is considering terminal extubation today . For now we will continue the vent support. Thank you for this referral. I will continue to follow along with you. BIANKA KENT MD LOCATED WITHIN [facility] Problems: BIANKA KENT MD Apr 17, 2017 16:25
[2017-04-17] MEDS ORDERED: morphine 10 MG INJ IV ONE (16:30)
--- NOTE | 2017-04-17 18:02 | DES ---
Date/Time of Note Date/Time of Note DATE: 04/17/17 TIME: 18:00 Discharge/ Summary Admission/Discharge Info Admit Date/Time Apr 06, 2017 at 10:58 Discharge Date/Time Final Diagnosis Septic shock Preliminary Cause of Septic shock Hospital Course The patient was taken to OR for palliative extubation prior to organ harvesting. Morphine administered. Extubated. Patient promptly . I confirmed this by 5 minutes without a pulse and no cranial nerve reflexes. Time of 5:58 PM Pending Labs/Cultures Laboratory Tests Test 04/16/17 18:59 04/16/17 20:21 04/16/17 20:35 04/17/17 00:52 Bedside Glucose 151mg/dL (70-220) 154mg/dL (70-220) Blood Gas Specimen Source Blood arterial Arterial Blood Date Drawn 04/16/2017 8:29:58 PM Arterial Blood pH (Temp corrected) 7.404 (7.350-7.450) Arterial Blood pCO2 (Temp correct) 37.4mmhg (35-45) Arterial Blood pO2 (Temp corrected) 62.3mmHG (80-100.0) Arterial Blood HCO3 22.9mmol/L (22.0-26.0) Arterial Blood Base Excess -1.5mmol/L (-3.0-3) Arterial Blood Oxygen Saturation 90.8mmHG (95.0-98.0) Steve Test ACCEPTAB Arterial Blood Gas Puncture Site Right Radial Arterial Blood Carboxyhemoglobin 0.4% (0.0-3.0) Arterial Blood Methemoglobin 0.2% (0.0-1.5) Blood Gas A-a O2 Differential 179.9mmHg (7.0-24.0) Oxyhemoglobin Percent 90.3% (93.0-99.0) Total Hemoglobin 13.0g/dl (12.0-18.0) Blood Gas Temperature 37.0C Blood Gas Respiration Rate 16.0 Blood Gas Actual Respiration Rate 20 Blood Gas Modality VENT - AC FiO2 40.0% Blood Gas Tidal Volume 500.0mL Blood Gas Low PEEP Setting 5.0cmH2O Blood Gas Inspiratory Pressure 24.0 Blood Gas Notified Whom BR Blood Gas Notified Time 04/16/2017 8:40:45 PM White Blood Count 24.810^3/ul (4.8-10.8) Red Blood Count 3.7510^6/ul (4.70-6.10) Hemoglobin 11.3g/dl (14.0-18.0) Hematocrit 35.8% (42.0-52.0) Mean Corpuscular Volume 95.5fl (82.0-101.0) Mean Corpuscular Hemoglobin 30.1pg (29.0-33.0) Mean Corpuscular Hemoglobin Concent 31.6g/dl (32.0-37.0) Red Cell Distribution Width 21.8% (11.5-14.5) Platelet Count 26832^3/UL (140-415) Mean Platelet Volume 11.4fl (7.4-10.4) Neutrophils % 87.2% (39.0-77.0) Lymphocytes % 5.0% (15.0-51.0) Monocytes % 1.9% (0.0-11.0) Eosinophils % 5.0% (0.0-7.0) Basophils % 0.2% (0.0-2.0) Nucleated Red Blood Cells % 0.0/100WBC (0.0-0.0) Neutrophils # 21.610^3/ul (1.6-7.5) Lymphocytes # 1.310^3/ul (0.8-2.9) Monocytes # 0.510^3/ul (0.3-0.9) Eosinophils # 1.310^3/ul (0.0-0.5) Basophils # 0.110^3/ul (0.0-0.1) Nucleated Red Blood Cells # 0.010^3/ul (0.0-0.0) Prothrombin Time 20.3Sec (11.9-14.9) Prothrombin Time Ratio 1.6 INR International Normalized Ratio 1.70 Activated Partial Thromboplast Time 40.2Sec (25.0-35.0) Sodium Level 143mmol/L (135-144) Potassium Level 3.7mmol/L (3.5-5.1) Chloride Level 103mmol/L (97-110) Carbon Dioxide Level 22mmol/L (21-31) Anion Gap 22 (8-16) Blood Urea Nitrogen 57mg/dl (7-20) Creatinine 10.47mg/dl (0.61-1.24) Glucose Level 170mg/dl (70-220) Calcium Level 9.2mg/dl (8.4-10.2) Phosphorus Level 5.7mg/dl (2.5-4.9) Magnesium Level 2.3mg/dl (1.7-2.5) Total Bilirubin 0.2mg/dl (0.2-1.3) Direct Bilirubin 0.00mg/dl (0.00-0.20) Indirect Bilirubin 0.2mg/dl (0-1.1) Gamma Glutamyl Transpeptidase 299IU/L (0-50) Aspartate Amino Transf (AST/SGOT) 90IU/L (15-46) Alanine Aminotransferase (ALT/SGPT) 65IU/L (13-69) Alkaline Phosphatase 396IU/L (42-121) Total Protein 7.8g/dl (6.1-8.1) Albumin 3.3g/dl (3.3-4.9) Globulin 4.50g/dl (1.3-3.2) Albumin/Globulin Ratio 0.73 Amylase Level 75U/L (11-123) Lipase 95U/L (23-300) Test 04/17/17 01:37 04/17/17 05:25 04/17/17 05:29 04/17/17 05:30 Bedside Glucose 180mg/dL (70-220) 178mg/dL (70-220) Lab Scanned Report BLOOD [id number] White Blood Count 22.810^3/ul (4.8-10.8) Red Blood Count 3.5710^6/ul (4.70-6.10) Hemoglobin 10.9g/dl (14.0-18.0) Hematocrit 34.5% (42.0-52.0) Mean Corpuscular Volume 96.6fl (82.0-101.0) Mean Corpuscular Hemoglobin 30.5pg (29.0-33.0) Mean Corpuscular Hemoglobin Concent 31.6g/dl (32.0-37.0) Red Cell Distribution Width 21.5% (11.5-14.5) Platelet Count 08326^3/UL (140-415) Mean Platelet Volume 11.4fl (7.4-10.4) Neutrophils % 84.0% (39.0-77.0) Lymphocytes % 5.0% (15.0-51.0) Monocytes % 1.6% (0.0-11.0) Eosinophils % 8.4% (0.0-7.0) Basophils % 0.2% (0.0-2.0) Nucleated Red Blood Cells % 0.0/100WBC (0.0-0.0) Neutrophils # 19.210^3/ul (1.6-7.5) Lymphocytes # 1.110^3/ul (0.8-2.9) Monocytes # 0.410^3/ul (0.3-0.9) Eosinophils # 1.910^3/ul (0.0-0.5) Basophils # 0.010^3/ul (0.0-0.1) Nucleated Red Blood Cells # 0.010^3/ul (0.0-0.0) Prothrombin Time 20.0Sec (11.9-14.9) Prothrombin Time Ratio 1.6 INR International Normalized Ratio 1.67 Activated Partial Thromboplast Time 42.0Sec (25.0-35.0) Sodium Level 143mmol/L (135-144) Potassium Level 3.7mmol/L (3.5-5.1) Chloride Level 103mmol/L (97-110) Carbon Dioxide Level 22mmol/L (21-31) Anion Gap 22 (8-16) Blood Urea Nitrogen 60mg/dl (7-20) Creatinine 10.74mg/dl (0.61-1.24) Glucose Level 186mg/dl (70-220) Calcium Level 9.2mg/dl (8.4-10.2) Phosphorus Level 6.2mg/dl (2.5-4.9) Magnesium Level 2.3mg/dl (1.7-2.5) Total Bilirubin 0.2mg/dl (0.2-1.3) Direct Bilirubin 0.00mg/dl (0.00-0.20) Indirect Bilirubin 0.2mg/dl (0-1.1) Gamma Glutamyl Transpeptidase 267IU/L (0-50) Aspartate Amino Transf (AST/SGOT) 85IU/L (15-46) Alanine Aminotransferase (ALT/SGPT) 66IU/L (13-69) Alkaline Phosphatase 368IU/L (42-121) Total Protein 7.7g/dl (6.1-8.1) Albumin 3.2g/dl (3.3-4.9) Globulin 4.50g/dl (1.3-3.2) Albumin/Globulin Ratio 0.71 Amylase Level 69U/L (11-123) Lipase 68U/L (23-300) Test 04/17/17 06:00 04/17/17 08:30 04/17/17 12:00 04/17/17 12:05 Blood Gas Specimen Source Blood arterial Arterial Blood Date Drawn 04/17/2017 5:33:53 AM Arterial Blood pH (Temp corrected) 7.380 (7.350-7.450) Arterial Blood pCO2 (Temp correct) 36.9mmhg (35-45) Arterial Blood pO2 (Temp corrected) 87.3mmHG (80-100.0) Arterial Blood HCO3 21.3mmol/L (22.0-26.0) Arterial Blood Base Excess -3.3mmol/L (-3.0-3) Arterial Blood Oxygen Saturation 95.8mmHG (95.0-98.0) Steve Test N/A Arterial Blood Gas Puncture Site A-Line Arterial Blood Carboxyhemoglobin 0.3% (0.0-3.0) Arterial Blood Methemoglobin 0% (0.0-1.5) Blood Gas A-a O2 Differential 155.5mmHg (7.0-24.0) Oxyhemoglobin Percent 95.5% (93.0-99.0) Total Hemoglobin 12.3g/dl (12.0-18.0) Blood Gas Temperature 37.0C Blood Gas Respiration Rate 16.0 Blood Gas Actual Respiration Rate 16 Blood Gas Modality VENT - AC FiO2 40.0% Blood Gas Tidal Volume 500.0mL Blood Gas Low PEEP Setting 5.0cmH2O Blood Gas Inspiratory Pressure 29.0 Blood Gas Notified Whom BR Blood Gas Notified Time 04/17/2017 5:38:35 AM Bedside Glucose 169mg/dL (70-220) 216mg/dL (70-220) White Blood Count 22.510^3/ul (4.8-10.8) Red Blood Count 3.3810^6/ul (4.70-6.10) Hemoglobin 10.3g/dl (14.0-18.0) Hematocrit 32.6% (42.0-52.0) Mean Corpuscular Volume 96.4fl (82.0-101.0) Mean Corpuscular Hemoglobin 30.5pg (29.0-33.0) Mean Corpuscular Hemoglobin Concent 31.6g/dl (32.0-37.0) Red Cell Distribution Width 21.6% (11.5-14.5) Platelet Count 96392^3/UL (140-415) Mean Platelet Volume 11.2fl (7.4-10.4) Neutrophils % 81.7% (39.0-77.0) Lymphocytes % 3.6% (15.0-51.0) Monocytes % 1.9% (0.0-11.0) Eosinophils % 11.7% (0.0-7.0) Basophils % 0.2% (0.0-2.0) Nucleated Red Blood Cells % 0.0/100WBC (0.0-0.0) Neutrophils # 18.410^3/ul (1.6-7.5) Lymphocytes # 0.810^3/ul (0.8-2.9) Monocytes # 0.410^3/ul (0.3-0.9) Eosinophils # 2.610^3/ul (0.0-0.5) Basophils # 0.110^3/ul (0.0-0.1) Nucleated Red Blood Cells # 0.010^3/ul (0.0-0.0) Prothrombin Time 20.3Sec (11.9-14.9) Prothrombin Time Ratio 1.6 INR International Normalized Ratio 1.70 Activated Partial Thromboplast Time 41.0Sec (25.0-35.0) Sodium Level 139mmol/L (135-144) Potassium Level 4.1mmol/L (3.5-5.1) Chloride Level 101mmol/L (97-110) Carbon Dioxide Level 21mmol/L (21-31) Anion Gap 21 (8-16) Blood Urea Nitrogen 60mg/dl (7-20) Creatinine 10.56mg/dl (0.61-1.24) Glucose Level 309mg/dl (70-220) Calcium Level 8.7mg/dl (8.4-10.2) Phosphorus Level 6.1mg/dl (2.5-4.9) Magnesium Level 2.2mg/dl (1.7-2.5) Total Bilirubin 0.1mg/dl (0.2-1.3) Direct Bilirubin 0.00mg/dl (0.00-0.20) Indirect Bilirubin 0.1mg/dl (0-1.1) Gamma Glutamyl Transpeptidase 250IU/L (0-50) Aspartate Amino Transf (AST/SGOT) 82IU/L (15-46) Alanine Aminotransferase (ALT/SGPT) 66IU/L (13-69) Alkaline Phosphatase 299IU/L (42-121) Total Protein 7.1g/dl (6.1-8.1) Albumin 3.1g/dl (3.3-4.9) Globulin 4.00g/dl (1.3-3.2) Albumin/Globulin Ratio 0.77 Amylase Level 56U/L (11-123) Lipase 54U/L (23-300) SAUL CONTRERAS MD Apr 17, 2017 18:02
--- NOTE | 2017-04-18 18:49 | RADRPT ---
Vent Rate: 90 bpm RR Interval: 0 msec AR Interval: 146 msec QRS Duration: 144 msec QT Interval: 438 msec QTC Interval: 535 msec P-R-T [place]: 46 - 95 - 32 degrees Normal sinus rhythm Right bundle branch block ST elevation, consider inferolateral injury or acute infarct ACUTE [place] Abnormal ECG Electronically Signed By: Harlan Milton [id number]
== END 2017-04-17 17:58 | disposition expired | DRG 91 ==
LOC: E/R 08:13 → TEL 10:58 → ICU 04-07 04:19
PROVIDERS: ADMIT Family Medicine; ATTEND Family Medicine
PROC: 0BH17EZ Insertion of Endotracheal Airway into Trachea, Via Natural or Artificial Opening (ICD-10-PCS; principal; 2017-04-07)
PROC: 5A1945Z Respiratory Ventilation, 24-96 Consecutive Hours (ICD-10-PCS; 2017-04-07)
PROC: 03HB33Z Insertion of Infusion Device into Right Radial Artery, Percutaneous Approach (ICD-10-PCS; 2017-04-15)
PROC: 02HV33Z Insertion of Infusion Device into Superior Vena Cava, Percutaneous Approach (ICD-10-PCS; 2017-04-15)
PROC: 04HK33Z Insertion of Infusion Device into Right Femoral Artery, Percutaneous Approach (ICD-10-PCS; 2017-04-16)
DX: G92 Toxic encephalopathy (principal); N18.6 End stage renal disease; J96.01 Acute respiratory failure with hypoxia; R65.21 Severe sepsis with septic shock; I63.9 Cerebral infarction, unspecified; A41.9 Sepsis, unspecified organism; I13.2 Hypertensive heart and chronic kidney disease with heart failure and with stage 5 chronic kidney disease, or end stage renal disease; J81.1 Chronic pulmonary edema; R47.01 Aphasia; I31.3 Pericardial effusion (noninflammatory); I42.9 Cardiomyopathy, unspecified; G93.1 Anoxic brain damage, not elsewhere classified; E11.22 Type 2 diabetes mellitus with diabetic chronic kidney disease; I50.9 Heart failure, unspecified; I95.9 Hypotension, unspecified; D69.6 Thrombocytopenia, unspecified; Z86.74 Personal history of sudden cardiac arrest; G40.909 Epilepsy, unspecified, not intractable, without status epilepticus; R47.1 Dysarthria and anarthria; I25.10 Atherosclerotic heart disease of native coronary artery without angina pectoris; I46.9 Cardiac arrest, cause unspecified; D63.1 Anemia in chronic kidney disease; F29 Unspecified psychosis not due to a substance or known physiological condition; Z95.0 Presence of cardiac pacemaker; Z99.2 Dependence on renal dialysis; Z51.5 Encounter for palliative care
CPT/HCPCS: 31500; 36415; 36430; 36569; 36600; 70450; 70496; 70498; 71010; 76705; 76937; 80048; 80053; 80061; 82140; 82150; 82550; 82553; 82607; 82746; 82803; 82962; 82977; 83036; 83690; 83735; 84100; 84439; 84443; 84484; 85025; 85610; 85730; 86850; 86900; 86901; 86920; 87040; 87070; 87081; 88307; 88313; 89220; 90935; 92950; 93005; 93306; 93308; 94002; 94003; 94640; 94770; 95819; 96374; A4310; C1769; J0131; J0171; J0360; J1250; J1265; J1644; J1815; J1953; J2060; J2270; J2405; J2543; J3370; J7030; J7040; J7042; J7050; J7060; J7070; P9016; P9047; Q9967

== ENCOUNTER 2017-04-17 08:00 | Inpatient (IN) | payer OTHER ==
[~2017-04-17 08:00] MED LIST changes: +ACET-2047 PO; +ASPI-664 PO; -EPINEPHrine 0.1 MG/ML SYG ONE; +ESCI20TA PO; +ESOM40CA PO; +FER325 PO; +FOLI-49 PO; +GARL500C9 PO; +LACO100T3 PO; +LACTINEX PO; +LEVE-5 PO; +LORA10TA3 PO; +MIDO5TAB19 PO; +SEVE800T10 PO; +TRAM-40 PO
== END 2017-04-17 17:58 | disposition expired | DRG 951 ==
LOC: ICU 08:00
PROVIDERS: ADMIT Internal Medicine; ATTEND Internal Medicine
DX: Z52.89 Donor of other specified organs or tissues (principal)